=== PATIENT | female | born 1960 | race Caucasian/White ===

== ENCOUNTER 2018-10-26 13:37 | Inpatient (IN) ==
[2018-10-26 15:10] LABS: BASO# 0.03 X1000 (0.0-0.2); BASO% 0.3 % (0.0-0.8); EOS# 0.11 X1000 (0.0-0.7); HEMATOCRIT 42.9 % (37.0-47.0); HEMOGLOBIN 14.6 g/dL (12.0-16.0); IMM GRAN# 0.02 X1000 (0.0-0.04); IMM GRAN% 0.2 % (0.0-0.5); LYMPH# 2.38 X1000 (1.2-3.4); LYMPH% 20.8 % (20.5-51.1); MCH 34.1 PG (27-31); MCV 100.2 FL (81-99); MONO# 0.65 X1000 (0.11-0.59); MONO% 5.7 % (1.7-9.3); MPV 10.7 FL (7.4-10.4); NEUT# 8.23 X1000 (1.4-6.5); PLT 207 X1000 (130-400); RBC 4.28 XMIL (4.2-5.4); RDW 13.9 % (11.5-14.5); WBC 11.42 X1000 (4.8-10.8)
--- NOTE | 2018-10-26 15:23 | Diag Imaging Result Doc PS360 ---
EXAM: CHEST-2 VIEWS 10/26/2018 HISTORY: sob TECHNIQUE: PA and lateral chest COMMENT: There is cardiomegaly. The appearance the chest has not changed significantly since 07/27/2014. IMPRESSION: Stable chest. Electronically signed by Andre Barnes 10/26/2018 3:21 PM
[2018-10-26 15:42] LABS: ALB/GLOB RATIO 1.8; ALBUMIN 3.9 g/dL (3.5-5.0); CALCIUM 9.5 mg/dL (8.8-10.2); CREATININE 1.4 mg/dL (0.5-0.9); POTASSIUM 5.6 mmol/L (3.5-5.1); TOTAL BILIRUBIN 0.3 mg/dL (0.20-1.00); TOTAL PROTEIN 6.1 g/dL (6.3-8.3)
[2018-10-26] MEDS ORDERED: DUONEB (A & A) INH ONE (16:51)
[2018-10-26] MEDS ORDERED: ZOSYN 3.375 GM in NS 50 ML IV ONE (16:58)
[2018-10-26] MEDS ORDERED: SOLU-MEDROL IV ONE (17:00)
--- NOTE | 2018-10-26 17:06 | PROVIDER DOCUMENTATION ---
HPI-Respiratory General - General Chief Complaint: Abnormal Lab[s] Stated Complaint: [facility]S.. Time Seen by Provider: 10/26/18 16:19 Allergies/Adverse Reactions: Patient Allergies Allergy/AdvReac Type Severity Reaction Status Date / Time No Known Allergies Allergy Verified 07/25/14 10:38 Home Medications: Home Medication List Medication Instructions Recorded Confirmed Last Taken Type ATORVAstatin [Lipitor] 40 mg PO DAILY 12/29/12 10/26/18 07/24/14 21:00 History 40 mg Aspirin 81 mg PO DAILY 12/29/12 10/26/18 07/24/14 09:00 History 81 MG Levothyroxine Sodium [Levothroid] 100 mcg PO DAILY 12/29/12 10/26/18 07/24/14 09 :00 History 100 MCG Metoprolol [Lopressor] 50 mg PO DAILY 12/29/12 10/26/18 07/24/14 09:00 History 50 MG Nitroglycerin [Nitrostat] 0.4 mg SL PRN PRN 12/29/12 10/26/18 01/18/13 06:00 History Triamterene/Hydrochlorothiazid 0.5 each PO DAILY 12/29/12 10/26/18 07/24/14 09: 00 History [Triamterene-Hctz 75-50 mg Tab] 1 Albuterol 2.5MG/Ipratrop 0.5MG 3 ml INH RTQ4H PRN #0 neb 07/31/14 10/26/18 Unknown Rx [Duoneb (A & A)] Methylprednisolone [Medrol Dosepak] 4 mg PO DIRECTED #0 package 07/31/14 Unknown Rx Ranolazine [Ranexa] 500 mg PO Q12H #0 tab.er.12h 07/31/14 10/26/18 Unknown Rx - History of Present Illness-Resp Nature of Presenting Problem: 58 y/o female patient with copd and prior h/o oxygen use in the past but currently is the process of securing one due to insurance issues. Patient was referred today from pcp's office due to abnormal labs and ongoing shortness of breath , for which a workup for home oxygen is pending. No chest pain. Severity in ED: reports: moderate Onset/Duration: reports: other (more than 1 week) Timing: reports: still present Current Respiratory Medication Therapy: Initiated A/A nebulizer Similar Symptoms Previously?: Yes Review of Systems - Adult - REVIEW OF SYSTEMS - ADULT Constitutional: reports: no symptoms reported Eyes: reports: no symptoms reported Ears, Nose, Mouth & Throat: reports: no symptoms reported Cardiovascular: reports: no symptoms reported Respiratory: reports: shortness of breath Gastrointestinal: reports: no symptoms reported Genitourinary: reports: no symptoms reported Musculoskeletal: reports: no symptoms reported Integumentary: reports: no symptoms reported Neurological: reports: no symptoms reported Psychiatric: reports: no symptoms reported Endocrine: reports: no symptoms reported Hematologic/Lymphatic: reports: no symptoms reported Allergic/Immunologic: reports: no symptoms reported All Other Systems: Reviewed and Negative Past History - Adult - PAST MEDICAL HISTORY-ADULT Review of Records: reports: Old Records Reviewed, Nursing Assessment Review Major Childhood Illnesses: reports: denies history Cardiovascular: reports: CAD, HTN, hyperlipidemia, CA Respiratory: reports: COPD Obstetrical/Gynecological: reports: uterine/ovarian cancer Endocrine/Immune: reports: thyroid disorder - PRIOR SURGERIES/PROCEDURES Surgical/Procedure History: reports: cardiac stent, hysterectomy - SOCIAL HISTORY Smoking: less than 1 pack/day Physical Exam-General - PHYSICAL EXAM-ADULT Initial Vital Signs Reviewed: Yes - CONSTITUTIONAL General Appearance: alert, mild distress - EYES Eyes: PERRL/EOMI, pink conjunctivae - HEAD, EARS, NOSE, MOUTH & THROAT HENMT: normocephalic/atraumatic, moist mucous membranes - NECK Neck: non-tender, full range of motion, supple - RESPIRATORY Respiratory: decreased breath sounds, prolonged expiration, increased rate, other (few course breath sounds; saturating in the high 80s-low 90s on room air) . negative: wheezing - CARDIOVASCULAR Cardiovascular: regular rate, rhythm, no gallop - MUSCULOSKELETAL Back Exam: normal inspection Extremity: normal range of motion, non-tender - SKIN Integumentary: normal color, normal turgor - NEUROLOGIC Neurologic: grossly normal, no motor/sensory deficits - PSYCHIATRIC Psych/Mental Status: oriented x 3 Progress - PLAN OF CARE/RESULTS Progress/Plan/Lab Results: Vital Signs - 8 hr 10/26/18 13:54 Temperature 98.5 F Pulse Rate 91 H Respiratory Rate 20 Blood Pressure 68/32 O2 Sat by Pulse Oximetry 90 L Laboratory Results - last 24 hr 10/26/18 10/26/18 10/26/18 14:55 14:55 14:55 WBC 11.42 H RBC 4.28 Hgb 14.6 Hct 42.9 MCV 100.2 H MCH 34.1 H MCHC 34.0 RDW Std Deviation 13.9 Plt Count 207 MPV 10.7 H Immature Gran % (Auto) 0.2 Neut % (Auto) 72.0 Lymph % (Auto) 20.8 [place] % (Auto) 5.7 Eos % (Auto) 1.0 Baso % (Auto) 0.3 Immature Gran # (Auto) 0.02 Neut # (Auto) 8.23 H Lymph # (Auto) 2.38 [place] # (Auto) 0.65 H Eos # (Auto) 0.11 Baso # (Auto) 0.03 Sodium 139 Potassium 5.6 H Chloride 98 Carbon Dioxide 30 Anion Gap 11 BUN 23 H Creatinine 1.4 H Estimated GFR/1.73 m2 39 BUN/Creatinine Ratio 16 Glucose 148 H Calculated Osmolality 284 Calcium 9.5 Total Bilirubin 0.30 AST 16 ALT 12 Alkaline Phosphatase 102 Bdn-P-Eqhbfqiqpfh Pept Total Protein 6.1 L Albumin 3.9 Globulin 2.2 Albumin/Globulin Ratio 1.8 Plasma Lactate 1.3 10/26/18 14:55 WBC RBC Hgb Hct MCV MCH MCHC RDW Std Deviation Plt Count MPV Immature Gran % (Auto) Neut % (Auto) Lymph % (Auto) [place]bon % (Auto) Eos % (Auto) Baso % (Auto) Immature Gran # (Auto) Neut # (Auto) Lymph # (Auto) [place] # (Auto) Eos # (Auto) Baso # (Auto) Sodium Potassium Chloride Carbon Dioxide Anion Gap BUN Creatinine Estimated GFR/1.73 m2 BUN/Creatinine Ratio Glucose Calculated Osmolality Calcium Total Bilirubin AST ALT Alkaline Phosphatase Ubw-M-Vxlnlzfhkwe Pept 362 H Total Protein Albumin Globulin Albumin/Globulin Ratio Plasma Lactate Orders Category Date Time Status CHEST-2 VIEWS [RAD] Stat Exams 10/26/18 14:58 Completed BLOOD CULTURE [BLDCUL] Stat Lab 10/26/18 14:55 Ordered CBC WITH DIFF [HEME] Stat Lab 10/26/18 14:55 Completed COMPREHENSIVE METABOLIC PANEL [CHEM] Stat Lab 10/26/18 14:55 Completed INFLUENZA SCREEN A/B Stat Lab 10/26/18 16:57 Uncollected LACTATE, PLASMA [CHEM] Stat Lab 10/26/18 14:55 Completed PRO B-NATRIURETIC PEPTIDE Stat Lab 10/26/18 14:55 Completed Albuterol 2.5MG/Ipratrop 0.5MG [Duoneb (A & A)] Med 10/26/18 16:51 Once 3 ml INH NOW ONE Methylprednisolone Sod Succ [Solu-Medrol] Med 10/26/18 17:00 Once 125 mg IV NOW ONE Zosyn 3.375 gm/Ns IV Now Med 10/26/18 16:58 Ordered Piperacillin/Tazobactam [Zosyn] 3.375 gm 0.9% Sodium Chloride Inj [Ns] 50 ml IV NOW Aerosol Treatments Routine Oth 10/26/18 16:52 Ordered Aerosol Treatments Stat Oth 10/26/18 16:52 Ordered EKG [EKG] Stat Ther 10/26/18 16:47 Ordered Result Diagrams: 10/26/18 14:55 10/26/18 14:55 - XRAY 1 XRAY Study: Chest Impression: Abnormal ( EXAM: CHEST-2 VIEWS 10/26/2018 HISTORY: sob TECHNIQUE : PA and lateral chest COMMENT: There is cardiomegaly. The appearance the chest has not changed significantly since 07/27/2014. IMPRESSION: Stable chest. Electronically signed by Andre Barnes 10/26/2018 3:21 PM 10/26/18 152 Interpreting Physician: Andre Barnes MD Dictated Date/Time: 1520) - CONSULTS/PCP/HOSPITALIST Notification #1 *Consult/PCP/Hospitalist*: SEAN Dotson/Dr. Duron Departure - Departure Date of Disposition Decision: 10/26/18 Time of Disposition Decision: 17:11 DIAGNOSIS: Hyperkalemia, COPD exacerbation Acute respiratory failure Qualifiers: Respiratory failure complication: hypoxia and hypercapnia Qualified Code(s): J96.01 - Acute respiratory failure with hypoxia; J96.02 - Acute respiratory failure with hypercapnia Renal failure Qualifiers: Renal failure chronicity: unspecified chronicity Qualified Code(s): N19 - Unspecified kidney failure Disposition: ADMITTED INPATIENT 09 Certified Medical Emergency: Emergent Condition: Serious - Critical Care Note This patient required my direct & personal management of CC.: No Attestation - Physician/ JOSE Attestation The physician spent face to face time with patient:: Yes Advanced Practice Provider documentation review:: Supervising physician onsite and consulted in the evaluation and care of this patient. The physician did have a face to face encounter with the patient.
[2018-10-26] MEDS ORDERED: ZOFRAN IV PRN (18:08)
[2018-10-26] MEDS ORDERED: TYLENOL PO PRN (18:08)
[2018-10-26] MEDS ORDERED: NITROGLYCERIN SL PRN (18:10)
[2018-10-26] MEDS: RANEXA PO SCH (18:15)
[2018-10-26 19:02] LABS: ALLEN TEST YES; BE 0.8 mmoll (-3.0-3.0); BLOOD TYPE ARTERIAL; HCO3-(ACT) 25.3 mmoll (20.0-26.0); PO2(98.6) 65 mmHg (60-100); SAMPLE BLOOD; pH(98.6) 7.25 (7.35-7.45)
[2018-10-26 19:03] LABS: MODALITY ROOM AIR
[2018-10-26 19:04] LABS: PCO2(98.6) 68 mmHg (35-45)
[2018-10-26] MEDS: PULMICORT INH SCH (19:30)
[2018-10-26] MEDS: DUONEB (A & A) INH SCH ×2 (19:30→23:35)
--- NOTE | 2018-10-26 19:41 | HISTORY AND PHYSICAL ---
PRIMARY CARE PROVIDER: ANA Mckeon. CHIEF COMPLAINT: Abnormal ABGs. HISTORY OF PRESENT ILLNESS: Ms. Modesto Bryant is a 58-year-old female with a medical history of COPD and obstructive sleep apnea. She wears CPAP at night but is currently being evaluated for home O2 oxygen setup. Apparently, she had ABGs performed today that was ordered by a physician whose name she could not remember. They called her on her way home to tell her that her labs were critical and that she needed to seek medical attention in the ER. Reviewing her ABGs, she is with some COPD exacerbation with CO2 of 56 and pH of 7.22. She also has some hypoxia along with that, with an O2 saturation of 81 and a pO2 of 61. This was on room air. On top of that, she had a lactate of 5.1. White blood cell count is 11,000 but she denies any current respiratory infection type symptoms. She states that she gets occasionally short of breath with some wheezing and that is why she was wanting to be set up for home oxygen. So, will treat her for COPD exacerbation, possibly use BiPAP, if needed after repeating a new set of ABGs. PAST MEDICAL HISTORY: 1. COPD. 2. Obstructive sleep apnea, on home CPAP at night. 3. CAD with myocardial infarction x4 and five cardiac stents. 4. Hyperlipidemia. 5. Hypertension. 6. Hypothyroidism. 7. Diabetes mellitus type 2. 8. CKD, stage 3. 9. Morbid obesity with a BMI of 41.8. SURGICAL HISTORY: 1. PTCA with five stents. 2. Left axillary cyst removed. 3. Hysterectomy. SOCIAL HISTORY: Smokes a half pack per day and has smoked since the age of 32. Denies alcohol or illicit drug use. She is currently on disability. FAMILY HISTORY: Mother had myocardial infarction and hypertension. Father had myocardial infarction and hypertension. Brother and sisters both had coronary disease along with diabetes. ALLERGIES: No known drug allergies. HOME MEDICATIONS: 1. Aspirin 81 mg p.o. daily. 2. Lipitor 40 mg p.o. daily. 3. Synthroid 100 mcg p.o. daily. 4. Lopressor 50 mg p.o. daily. 5. Nitroglycerin 0.4 mg sublingual p.r.n. 6. Hydrochlorothiazide/triamterene 75/50 half tablet p.o. daily. 7. DuoNeb every four hours p.r.n. 8. Steroid dose pack. 9. Ranexa 500 mg p.o. every 12 hours. REVIEW OF SYSTEMS: A fourteen point review of systems are complete and all were negative except for those mentioned above in HPI. PHYSICAL EXAMINATION: VITAL SIGNS: Temperature 98.1, heart rate 75, respiratory rate 18, blood pressure 116/56, O2 saturation 100% on 2 L via nasal cannula, 4 feet 7 inches tall, 180 pounds with a BMI of 41.8. GENERAL: Ms. Modesto Bryant is a 58-year-old female. She is in no acute distress. She is able to answer all questions appropriately. HEENT: Atraumatic, normocephalic. Pupils equal, round, reactive to light. Extraocular movements intact. Mucous membranes are dry. NECK: Trachea midline. CARDIOVASCULAR: S1, S2, regular rate and rhythm, no rubs, gallops, or murmurs. Trace lower extremity edema, +2 dorsalis pedal pulses and radial pulses. Negative for JVD or carotid bruits. PULMONARY: Clear to auscultate. Decreased in the bases. No accessory muscle use or work of breathing noted. Tolerating 2 L via nasal cannula. GI: Soft, nontender, nondistended, positive bowel sounds x4. EXTREMITIES: Moves all extremities equally, full range of motion. NEUROLOGICAL: Alert and oriented x3. Follows commands. Sensory is intact. SKIN: Warm, dry, and intact. LABORATORY DATA: White blood cells 11,000, hemoglobin 14, hematocrit 42, platelet count 207. Sodium 139, potassium 5.6, BUN 23, creatinine 1.4, glucose 148, calcium 9.5. Bilirubin 0.30. AST 16, ALT 12. proBNP 362. Protein 6.1. Albumin 3.9. Serum lactate 1.3. ABGs recorded on a previous number at 12 o'clock today as an outpatient order, on room air, pH 7.22, pCO2 56, pO2 61, bicarb 20, base excess negative 5.7, saturation 81%. Carboxyhemoglobin is 12.7. Lactate 5.1. IMAGING: Chest x-ray: Stable. ASSESSMENT AND PLAN: 1. Chronic obstructive pulmonary disease exacerbation with acidosis and hypoxia. Oxygen saturations improve with 2 L nasal cannula. She is with a lower pH. We are repeating arterial blood gases to see if we need to add BiPAP, but she is not struggling at all. There is no wheezing. She is able to complete full sentences without difficulties. Not lethargic. Will do Albuterol/Atrovent nebulizers, budesonide nebulizer, steroids, and antibiotics. 2. Leukocytosis without any complaints. No fever. Serum lactate was normal, but she will still be on a gram-negative coverage for chronic obstructive pulmonary disease exacerbation. 3. Chronic kidney disease, stage 3. Currently at baseline. No intervention is needed. 4. Diabetes mellitus, type 2. Will do patterned blood glucoses, sliding scale insulin, diabetic diet. 5. Hypothyroidism. Continue Synthroid. 6. Hypertension. Continue home medications. 7. Hyperlipidemia. Continue statin. 8. Coronary artery disease with history of myocardial infarctions and five stents. Continue aspirin, statin, and beta-ryley. 9. Obstructive sleep apnea. Wears CPAP at night. She may continue that. 10.Deep venous thrombosis prophylaxis with Lovenox. 11.Tobacco abuse. Cessation discussed. Dictated by ANA Keys for Stephon Duron MD cc: ANA Keys MD
[2018-10-26] MEDS ORDERED: NS 1,000 ML IV ONE (19:51)
[2018-10-26] MEDS ORDERED: ROCEPHIN 1 GM in NS 50 ML IV SCH (20:00)
--- NOTE | 2018-10-26 20:10 | HISTORY AND PHYSICAL ---
HISTORY AND PHYSICAL - FACE TO FACE ENCOUNTER NOTE: Patient came in with shortness of breath and cough. She was sent by her PCP for evaluation. I am not entirely clear who that is, it says Ludivina Hurtado, but I think that is Dr. Pascal. In any case, she was hypercapnic, but she is awake, alert, not struggling to breathe. She has some wheezing on exam. She has a little bit of hyperkalemia. Workup in the ER consistent with COPD exacerbation and she was admitted as such. I think she does continue to smoke and she does have some hypercapnic respiratory failure, but her numbers are similar to where she has been previously. She does wear CPAP, although her numbers were not as bad. Now, her CO2 is about the same, but she is more acidotic than she was previously. We will continue breathing treatments, steroids, antibiotics and positive pressure ventilation as tolerated. Continue to follow closely. This is a [id number] encounter note with Talya Hauser. cc: Stephon Duron MD
[2018-10-26] MEDS: LOPRESSOR PO SCH (21:13)
[2018-10-26] MEDS: HUMULIN R SUBQ SCH (21:14)
[2018-10-27] MEDS: DUONEB (A & A) INH SCH ×4 (03:30→15:46)
[2018-10-27] MEDS ORDERED: SOLU-MEDROL IV SCH ×2 (05:00→07:00)
[2018-10-27 05:14] LABS: ALLEN TEST YES; BE -3.4 mmoll (-3.0-3.0); BLOOD TYPE ARTERIAL; HCO3-(ACT) 22.1 mmoll (20.0-26.0); METHB 1.2 % (0.0-1.5); O2HB 91.9 % (95.0-99.0); PO2(98.6) 80 mmHg (60-100); SAMPLE BLOOD; SAO2 96.3 % (95.0-100.0)
[2018-10-27 05:15] LABS: MODALITY BI PAP
[2018-10-27 05:17] LABS: pH(98.6) 7.17 (7.35-7.45)
[2018-10-27 05:18] LABS: PCO2(98.6) 76 mmHg (35-45)
[2018-10-27] MEDS: HUMULIN R SUBQ SCH ×3 (06:10→16:46)
[2018-10-27] MEDS ORDERED: PROTONIX PO SCH (07:00)
[2018-10-27] MEDS ORDERED: SYNTHROID PO SCH (07:00)
[2018-10-27] MEDS: PULMICORT INH SCH (07:43)
[2018-10-27 08:14] LABS: HEMATOCRIT 44.4 % (37.0-47.0); HEMOGLOBIN 13.9 g/dL (12.0-16.0); IMM GRAN# 0.02 X1000 (0.0-0.04); IMM GRAN% 0.2 % (0.0-0.5); LYMPH# 0.79 X1000 (1.2-3.4); LYMPH% 9.1 % (20.5-51.1); MCH 32.6 PG (27-31); MCHC 31.3 g/dL (33-37); MONO# 0.08 X1000 (0.11-0.59); MONO% 0.9 % (1.7-9.3); MPV 10.7 FL (7.4-10.4); NEUT# 7.79 X1000 (1.4-6.5); NEUT% 89.8 % (42.2-75.2); PLT 188 X1000 (130-400); RBC 4.27 XMIL (4.2-5.4); RDW 13.9 % (11.5-14.5); WBC 8.68 X1000 (4.8-10.8)
[2018-10-27] MEDS: RANEXA PO SCH (08:31)
[2018-10-27] MEDS: LOPRESSOR PO SCH (08:31)
[2018-10-27 08:33] LABS: AGAP 10; ALB/GLOB RATIO 1.4; ALBUMIN 3.6 g/dL (3.5-5.0); ALKALINE PHOSPHATASE 95 U/L (32-104); BUN 27 mg/dL (8-22); CALCIUM 8.9 mg/dL (8.8-10.2); CHLORIDE 104 mmol/L (98-107); COSMO 289; CREATININE 1.4 mg/dL (0.5-0.9); ESTIMATED GFR 39; GLUCOSE 216 mg/dL (70-104); GOT 12 U/L (10-30); GPT 11 U/L (10-36); SODIUM 139 mmol/L (136-145); TCO2 25 mmol/L (25-35); TOTAL BILIRUBIN < 0.15 mg/dL (0.20-1.00); TOTAL PROTEIN 6.2 g/dL (6.3-8.3)
[2018-10-27 08:41] LABS: BANDS 2 % (0-1); LYMPHS 14 % (21-51); SEGS 84 % (42-75)
[2018-10-27 08:45] LABS: POTASSIUM 5.9 mmol/L (3.5-5.1)
[2018-10-27] MEDS ORDERED: LIPITOR PO SCH (09:00)
[2018-10-27] MEDS ORDERED: LOVENOX SUBQ SCH (09:00)
[2018-10-27] MEDS ORDERED: ASPIRIN PO SCH (09:00)
[2018-10-27] MEDS ORDERED: MAXZIDE-25 PO SCH (09:00)
--- NOTE | 2018-10-27 09:02 | Diag Imaging Result Doc PS360 ---
EXAM: CHEST-2 VIEWS HISTORY: short of breath TECHNIQUE: Chest two views COMPARISON: 10/26/2018 FINDINGS: The lungs are well expanded. The heart is mildly enlarged. The vessels are not distended. There are no infiltrates. Likely left basilar pleural thickening. IMPRESSION: Stable chest Electronically signed by Darwin Clifford 10/27/2018 8:59 AM
--- NOTE | 2018-10-27 09:07 | Diag Imaging Result Doc PS360 ---
EXAM: CT THORAX W/O CONTRAST INDICATION: copd; sob TECHNIQUE: This exam was performed using automated exposure control, adjustment of mA or kV according to patient size, and/or use of iterative reconstruction technique. COMPARISON: None. FINDINGS: There is bilateral subsegmental atelectasis in the lower lobes bilaterally and the lingula. No significant pulmonary emphysema is appreciated. The lungs are clear, otherwise. There is no pleural fluid collection and no pneumothorax. The heart is mildly prominent. There is extensive coronary artery atherosclerotic calcification and calcification involving the thoracic aorta. There is no significant mediastinal or hilar lymphadenopathy. Limited views of the upper abdomen are grossly unremarkable. The visualized bony structures are intact. IMPRESSION: 1.Bilateral subsegmental atelectasis at the lower lung zones, more prominent on the left. 2.Mild cardiomegaly. 3.Extensive coronary artery and aortic atherosclerotic disease. Electronically signed by Wilfrido Cooley 10/27/2018 9:05 AM
[2018-10-27 14:16] LABS: ALLEN TEST NO; BE 0.6 mmoll (-3.0-3.0); BLOOD TYPE ARTERIAL; HCO3-(ACT) 25.3 mmoll (20.0-26.0); METHB 1.1 % (0.0-1.5); O2(CT) 19.1 mL/dL (15.0-23.0); O2HB 94.9 % (95.0-99.0); PO2(98.6) 87 mmHg (60-100); SAMPLE BLOOD; SAO2 98.1 % (95.0-100.0); THB 14.3 g/dL (11.5-17.4); pH(98.6) 7.24 (7.35-7.45)
[2018-10-27 14:19] LABS: MODALITY CANNULA; PCO2(98.6) 70 mmHg (35-45)
[2018-10-27 15:41] VITALS: BP 107/71
--- NOTE | 2018-10-27 16:46 | DISCHARGE SUMMARY ---
ADMISSION DATE: 10/26/2018 DISCHARGE DATE: Discharge hopefully today. She is followed by Jenny Diallo who is a [employer]. 58-year-old, medical history COPD, obstructive sleep apnea. She wears a CPAP at night and has 1 at home but currently being evaluated for home oxygen set up. Apparently she had ABGs performed yesterday which is ordered by a physician and they called her on the way home to tell her that her numbers are critical she need go back to the emergency room. Reviewing the ABGs she has some COPD exacerbation and pCO2 56, pH is 7.22, also has hypoxemia with that. By report she did not feel short of breath or anything unusual, her O2 saturation was 81%, PO2 was 61, this was on room air. Lactate was 5.1. Blood count 11,000. She denies any respiratory complaints such as cough or sputum production or pleuritic pain. PAST MEDICAL HISTORY: 1. COPD. 2. Obstructive sleep apnea on CPAP at night. 3. Coronary artery disease, myocardial infarction x4, she has had 5 cardiac stents placed or coronary stents. 4. Hyperlipidemia. 5. Hypertension . 6. Hypothyroidism. 7. Diabetes mellitus type 2. 8. Chronic kidney disease stage 3. 9. Morbid obesity. BMI is 41.8. SURGICAL HISTORY: 1. PTCA with 5 stents. 2. Left axillary cyst removed. 3. Hysterectomy was done. 4. So admitted for chronic obstructive pulmonary disease exacerbation, respiratory acidosis and hypoxemia . She needs to be put on 2 L nasal cannula, continue her CPAP, does not appear that she has any active infection and leukocytosis believe this is not infectious. 5. Chronic kidney disease stage 3. 6. Diabetes mellitus type 2. 7. Hypothyroidism. 8. Hypertension. 9. Hyperlipidemia. 10. History of coronary artery disease with myocardial stents. She has had several myocardial infarctions. 11. Obstructive sleep apnea. She has a CPAP at home. They are requesting to go home. She is struggling with her BiPAP so I am going take off the BiPAP and see if we can get her eligible for 2 L and then let her go home. Her blood gases pH is 7.24, pCO2 is 70, PO2 is 87, O2 saturations 98% and this is on 40% so we will see how we do and see if we can get the oxygen, we might have to wait till tomorrow. Her CT of her chest shows bilateral subsegmental atelectasis more prominent on left, mild cardiomegaly, extensive coronary artery and aortic atherosclerotic heart disease. Her chest x-ray from this morning stable lungs well expanded so we may need to stay and see we can get her oxygen set up for tomorrow and will see if she needs just 2 L. cc: Luther Stone MD
--- NOTE | 2018-10-27 22:47 | CONSULTATION ---
DATE OF CONSULTATION: 10/27/2018 REQUESTING PROVIDER: ANA Keys. REASON FOR CONSULTATION: COPD exacerbation, and acidotic on BiPAP. HISTORY OF PRESENT ILLNESS: This is a 58-year-old [place] female, with a medical history of COPD, obstructive sleep apnea, coronary artery disease, hyperlipidemia, hypertension, hypothyroidism, diabetes mellitus type 2, chronic kidney disease, and morbid obesity. She was referred yesterday from her family doctor's office due to abnormal labs and ongoing shortness of breath. Labs in the ER also showed she has leukocytosis and hyperkalemia. She has been admitted to the medical floor with COPD exacerbation, acidosis and hypoxemic respiratory failure. At the time of my examination, the patient is sitting on the bed with a nasal cannula at 5L. She is pleasant and relaxing. She reports a chronic cough with yellow/green/creamy sputum at times. She has chronic shortness of breath with exertion. She once used oxygen at nighttime, but for some reason it was taken away because the insurance won't cover it. Right now, she is in the process to evaluate for home oxygen again. She denies fever, chills, nausea, vomiting, chest pain, or palpitation. PAST MEDICAL HISTORY: 1. COPD. 2. Obstructive sleep apnea, on home CPAP at night. She used nocturnal oxygen at one time, but it was taken away because the insurance company won't cover it. 3. Coronary artery disease, with myocardial infarction 4 times, and status post 5 cardiac stents. 4. Hyperlipidemia. 5. Hypertension. 6. Hypothyroidism. 7. Diabetes mellitus, type 2.. 8. Chronic kidney disease, stage 3. 9. Morbid obesity, with a BMI of 43.5. PAST SURGICAL HISTORY: 1. PTCA with 5 stents. 2. Left axillary cyst removed. 3. Hysterectomy. SOCIAL HISTORY: Currently, she smokes a half pack per day. She used to smoke 1 pack per day since 32 yo. She has no history of alcohol or illicit drug use. FAMILY HISTORY: Both parents had myocardial infarction and hypertension. Brother and sisters had coronary artery disease and diabetes. ALLERGIES: No known drug allergies. REVIEW OF SYSTEMS: A 10-point review of systems was conducted, and the pertinent is listed within the HPI, otherwise noncontributory. PHYSICAL EXAMINATION: Vital Signs: Blood pressure 127/50, pulse 78, respiratory rate 16, oxygen saturation 98% on BiPAP 40%, with FiO2 40%, and pressure 12/5. General: This is a 58-year-old [place] female. She is sitting on the bed, with no acute distress noted. She is very pleasant and cooperative. She did have a hard time for hearing at times. HEENT: Atraumatic. Trachea midline. Mucosa pink and slightly dry. Respiratory: Lung expansion equal bilaterally. Diminished breathing sounds bibasilarly, otherwise clear to auscultation. Cardiovascular: Regular rate and rhythm, with murmur noted. Gastrointestinal: Bowel sounds normoactive in all 4 quadrants. Soft, nontender, and obese. Extremities: No pedal edema. No cyanosis. No clubbing. Neurologic: Alert, oriented x3. Speech fluent. Follow commands. IMAGING DATA: Chest CT revealed bilateral subsegmental atelectasis at lower lung zones, more prominent on the left, mild cardiomegaly, extensive coronary arterial and aortic atherosclerotic disease. LAB DATA: White blood cells 8.68, hemoglobin 13.9, hematocrit 44.4, platelets 188,000. Sodium 139, potassium 5.9, chloride 104, carbon dioxide 25, BUN 27, creatinine 1.4, glucose 216. ABG: pH 7.17, pCO2 of 36, PO2 80, HCO3 22.1, base excess -3.4, and oxyhemoglobin 91.9. ASSESSMENT: This is a 58-year-old [place] female with a medical history of chronic obstructive pulmonary disease, obstructive sleep apnea, coronary artery disease, hyperlipidemia, hypertension, hypothyroidism, diabetes, chronic kidney disease, and morbid obesity. She has been admitted with COPD exacerbation, olont-yx-ivjyfgi hypoxemic hypercapnic respiratory failure, and nonspecific leukocytosis. 1. Ekjdm-sj-sltjvyn hypoxemic hypercapnic respiratory failure. 2. Chronic obstructive pulmonary disease exacerbation. 3. Uncompensated respiratory acidosis 4. Obstructive sleep apnea. 5. Tobacco abuse. PLAN: 1. Continue current antibiotic therapy, steroid, and bronchodilators. 2. Continue supplemental oxygen and BiPAP at bedtime and as needed. 3. Follow at home BiPAP study. 4. Arrange for home Trilogy. 5. Daily education of the need to quit smoking and the means of smoking cessation. 6. Continue GI and DVT prophylaxis. Thank you for the courtesy of this consult. Dictated by ANA Wright for Hossein Pascal MD cc: ANA Wright MD [facility]
[2018-10-28] MEDS ORDERED: DYAZIDE PO SCH (09:00)
== END 2018-10-27 18:56 | disposition home or self-care (01) | DRG 189 ==
LOC: ED 13:37 → SUATTDRO 19:03 → EDIPHOLD 19:03 → 3N 20:11
PROVIDERS: ATTEND Emergency Medicine
CPT/HCPCS: 71020; 71046; 71250; 80053; 82805; 82948; 83605; 83880; 85025; 87040; 87275; 87276; 87804; 93005; 94640; 94660; 94760; 94761; 94799; 96365; 96375; 99285; A9270; J0696; J1650; J2543; J2920; J2930; J7030; XXXXX

== ENCOUNTER 2019-10-09 15:19 | Inpatient (IN) ==
[2019-10-09] MEDS ORDERED: SOLU-MEDROL IV ONE (15:39)
[2019-10-09] MEDS ORDERED: DUONEB (A & A) INH ONE (15:39)
[2019-10-09] MEDS ORDERED: ZOSYN 4.5 GM in NS 100 ML IV ONE (15:39)
[2019-10-09] MEDS ORDERED: NS 1,000 ML IV ONE (15:41)
[2019-10-09 15:54] LABS: ALLEN TEST YES; BE 9.8 mmoll (-3.0-3.0); BLOOD TYPE ARTERIAL; HCO3-(ACT) 32.4 mmoll (20.0-26.0); METHB 0.6 % (0.0-1.5); O2(CT) 18.2 mL/dL (15.0-23.0); O2HB 91.2 % (95.0-99.0); PO2(98.6) 101 mmHg (60-100); SAMPLE BLOOD; SAO2 99.9 % (95.0-100.0); THB 14.1 g/dL (11.5-17.4)
[2019-10-09 15:56] LABS: MODALITY CANNULA
--- NOTE | 2019-10-09 16:27 | Diag Imaging Result Doc PS360 ---
EXAM: CHEST-1 VIEW HISTORY: sob TECHNIQUE: Single view COMPARISON: 10/27/2018 FINDINGS: Poor inspiratory effort. Heart is enlarged. There is vascular distention as well as a small left pleural effusion. There may be a small right effusion as well. IMPRESSION: Cardiomegaly with pulmonary edema. Electronically signed by Dawrin Clifford 10/09/2019 4:25 PM
[2019-10-09] MEDS ORDERED: LASIX IV ONE (16:30)
[2019-10-09 16:36] LABS: BASO# 0.04 X1000 (0.0-0.2); BASO% 0.3 % (0.0-0.8); HEMATOCRIT 44.4 % (37.0-47.0); HEMOGLOBIN 13.7 g/dL (12.0-16.0); IMM GRAN# 0.09 X1000 (0.0-0.04); IMM GRAN% 0.6 % (0.0-0.5); LYMPH# 1.66 X1000 (1.2-3.4); MCH 28.3 PG (27-31); MCHC 30.9 g/dL (33-37); MCV 91.7 FL (81-99); MONO# 1.33 X1000 (0.11-0.59); MONO% 9.6 % (1.7-9.3); MPV 9.2 FL (7.4-10.4); NEUT# 10.76 X1000 (1.4-6.5); NEUT% 77.5 % (42.2-75.2); PLT 334 X1000 (130-400); RBC 4.84 XMIL (4.2-5.4); RDW 14.5 % (11.5-14.5); WBC 13.88 X1000 (4.8-10.8)
[2019-10-09 16:49] LABS: INR 0.92; PROTIME 12.4 Seconds (11.0-16.0)
[2019-10-09 16:50] LABS: PTT 31.3 Seconds (22.3-41.8)
[2019-10-09 17:15] LABS: PCO2(98.6) 109 mmHg (35-45)
[2019-10-09 17:23] LABS: ALB/GLOB RATIO 0.9; ALBUMIN 2.9 g/dL (3.5-5.0); CALCIUM 8.6 mg/dL (8.8-10.2); CREATININE 1.1 mg/dL (0.5-0.9); MAGNESIUM 1.4 mg/dL (1.5-2.7); TOTAL BILIRUBIN 0.24 mg/dL (0.20-1.00); TOTAL PROTEIN 6.1 g/dL (6.3-8.3)
[2019-10-09] MEDS ORDERED: ZEMURON IV ONE (17:29)
[2019-10-09] MEDS ORDERED: AMIDATE IV ONE (17:29)
[2019-10-09] MEDS ORDERED: AMIDATE ONE (17:36)
[2019-10-09] MEDS ORDERED: QUELICIN ONE (17:36)
[2019-10-09 17:59] LABS: CK INDEX 4.1 (0.0-2.5); CK-MB 14.63 ng/mL (0.0-5.0)
[2019-10-09] MEDS: DIPRIVAN 1% 1,000 MG/100 ML BOTTLE IV SCH (18:00)
--- NOTE | 2019-10-09 18:00 | EKG Report ---
Test Performed on : 10/09/2019 5:31:21 PM Test Reason : sob Blood Pressure : / mmHG Vent. Rate : 082 BPM Atrial Rate : 082 BPM P-R Int : 150 ms QRS Dur : 080 ms QT Int : 358 ms P-R-T Axes : 070 063 017 degrees QTc Int : 418 ms Sinus rhythm. with frequent premature ventricular complexes. Possible Left atrial enlargement Borderline ECG When compared with ECG of 30-JUL-2014 06:47, premature ventricular complexes. are now present Nonspecific T wave abnormality now evident in Inferior leads Unconfirmed Result
[2019-10-09] MEDS ORDERED: ZOFRAN IV PRN (18:05)
--- NOTE | 2019-10-09 18:05 | PROVIDER DOCUMENTATION ---
This chart was entered by Debbie Abdul Scribe, acting as scribe for Donald Jones MD. HPI-Respiratory General - General Source: patient, EMS (first response) - History of Present Illness-Resp Quality of Pain: reports: none Severity in ED: reports: moderate Onset/Duration: reports: unsure Timing: reports: still present, getting worse Cough Quality/Degree: reports: moderate, dry cough Episode Frequency: frequent episodes Current Respiratory Medication Therapy: Initiated see nurses note Modifying Factors: improves with: oxygen, sitting upright. worse with: coughing Associated Symptoms: reports: cough, shortness of breath. denies: chest pain/soreness, fever/chills, flu-like symptoms Similar Symptoms Previously?: Yes (copd) Recently seen or treated by another doctor?: Yes (was at pmd office and sent to ed) <Donald Jones - Last Filed: 10/09/19 18:00> <Vaishali Kohli - Last Filed: 10/09/19 21:34> - General Stated Complaint: SOB Time Seen by Provider: 10/09/19 15:33 Allergies/Adverse Reactions: Patient Allergies Allergy/AdvReac Type Severity Reaction Status Date / Time No Known Allergies Allergy Verified 03/03/19 10:34 Home Medications: Home Medication List Medication Instructions Recorded Confirmed Last Taken Type Aspirin 81 mg PO DAILY 12/29/12 10/09/19 07/24/14 09:00 History 81 MG Levothyroxine Sodium [Levothroid] 100 mcg PO DAILY 12/29/12 10/09/19 07/24/14 09:00 History 100 MCG Nitroglycerin [Nitrostat] 0.4 mg SL PRN PRN 12/29/12 10/09/19 01/18/13 06:00 History Cholecalciferol (Vitamin D3) 1,000 unit PO DAILY 10/27/18 10/09/19 Unknown Hi story [Vitamin D3] Glipizide 2.5 mg PO DAILY 10/27/18 10/09/19 Unknown History Isosorbide Mononitrate [Isosorbide 60 mg PO DAILY 10/27/18 10/09/19 Unknown History Mononitrate ER] Lisinopril 10 mg PO DAILY 10/27/18 10/09/19 Unknown History Metoprolol Tartrate 25 mg PO BID 10/27/18 10/09/19 Unknown History Tiotropium [place] [Spiriva 2 puff INHALATION DAILY 03/03/19 10/09/19 Unknown History Respimat] ATORVAstatin [Lipitor] 1 tab PO HS 10/09/19 10/09/19 Unknown History Budesonide/Formoterol Inhaler 1 puff INH DIRECTED 10/09/19 10/09/19 Unknown History [Symbicort 160/4.5 Microgm Inhaler] Mometasone/Formoterol [Dulera 200 1 puff INH DIRECTED 10/09/19 10/09/19 Unknown History Mcg/5 Mcg Inhaler] Ranolazine [Ranolazine ER] 1 tab PO BID 10/09/19 10/09/19 Unknown History Umeclidinium [place] [Incruse 62.5 mcg INHALATION DIRECTED 10/09/19 10/09/19 Unknown History Ellipta] - History of Present Illness-Resp Nature of Presenting Problem: 59 yowf presents to the ed via ems (first response) from her pmd office. pt became confused and had an O2 sat in the 50's when ems aos. pt was placed on 6LPM with a face mask and O2 sat came up to 95%. per ems if O2 is removed the sat will drop quickly. pt is sleepy on exam and has intermittent confusion with conversation. ptis a heavy tobacco user has had issues in the past with COPD. (Donald Jones) Review of Systems - Adult - REVIEW OF SYSTEMS - ADULT Constitutional: denies: chills, fever Eyes: reports: no symptoms reported Ears, Nose, Mouth & Throat: reports: no symptoms reported Cardiovascular: reports: see HPI, edema. denies: chest pain, palpitations Respiratory: reports: see HPI, chronic cough, dyspnea on exertion, shortness of breath. denies: wheezing Gastrointestinal: denies: abdominal pain, diarrhea, nausea, vomiting Genitourinary: reports: no symptoms reported Musculoskeletal: denies: back pain, neck pain Integumentary: reports: no symptoms reported Neurological: denies: dizziness/vertigo, headache/migraines Psychiatric: reports: no symptoms reported Endocrine: reports: no symptoms reported Hematologic/Lymphatic: reports: no symptoms reported Allergic/Immunologic: reports: no symptoms reported All Other Systems: Reviewed and Negative <Donald Jones - Last Filed: 10/09/19 18:00> Past History - Adult - PAST MEDICAL HISTORY-ADULT Review of Records: reports: Old Records Reviewed, Nursing Assessment Review, Medications Reviewed, Social history reviewed & non-contributory. Major Childhood Illnesses: reports: denies history Cardiovascular: reports: CAD, HTN, hyperlipidemia, [place] Respiratory: reports: COPD Obstetrical/Gynecological: reports: uterine/ovarian cancer Genitourinary: reports: denies history Musculoskeletal: reports: denies history Neurological: reports: denies history Psychiatric: reports: denies history Endocrine/Immune: reports: thyroid disorder Other Conditions: reports: denies history - PRIOR SURGERIES/PROCEDURES Surgical/Procedure History: reports: cardiac stent, hysterectomy - IMMUNIZATION STATUS Childhood Immunizations: See Nurse Assessment Flu Vaccine: See Nurse Assessment - FAMILY HISTORY Family History: reviewed, not pertinent - SOCIAL HISTORY Smoking: cigarettes, greater than 1 pack/day Provider spent 3-5 mins advising pt. on dangers of tobacco.: Discussed manners to quit use, and f/u contacts for add'l counseling. Substance Use: denies Alcohol Use Frequency: never Living Situation: family <Donald Jones - Last Filed: 10/09/19 18:00> Physical Exam-General - PHYSICAL EXAM-ADULT Initial Vital Signs Reviewed: Yes - CONSTITUTIONAL General Appearance: alert, mild distress, obese, other (confused at times and sleepy in appearance) - EYES Eyes: PERRL/EOMI, pink conjunctivae - HEAD, EARS, NOSE, MOUTH & THROAT HENMT: moist mucous membranes - NECK Neck: non-tender, full range of motion, supple, normal inspection - RESPIRATORY Respiratory: chest non-tender, respiratory distress, decreased breath sounds, increased rate - CARDIOVASCULAR Cardiovascular: normal peripheral pulses, regular rate, rhythm - CHEST (BREASTS) Chest/Breast: deferred - GASTROINTESTINAL (ABDOMEN) Abdominal Exam: normal bowel sounds, non tender, soft - GENITOURINARY Female Genitalia/Pelvic Exam: deferred Rectal Exam: deferred Hemoccult Exam: deferred - LYMPHATIC Lymphatic: no adenopathy - MUSCULOSKELETAL Back Exam: no CVA tenderness, no vertebral tenderness Extremity: normal range of motion, non-tender, pulse deficit, swelling (BLE decreased pulses) - SKIN Integumentary: normal color, normal turgor, warm/dry - NEUROLOGIC Neurologic: grossly normal - PSYCHIATRIC Psych/Mental Status: normal mood/affect, other (pt is confused intermittently but does know place and time) <Donald Jones - Last Filed: 10/09/19 18:00> Progress - PLAN OF CARE/RESULTS Result Diagrams: 10/09/19 16:15 10/09/19 16:15 - REASSESSMENT Reassessment #1 Time Reassessed: 17:32 (dr jones at bedside and will intubate pt to protect her airway. pt when lying flat o2 drops and is unable to keep adequate O2 sat) Status: worsening Reassessment #2 Time Reassessed: 18:01 Status: improving (Patient intubated by Dr. Kohli with my Glidescope with my constant attendance. Placed on propofol drip. REPEAT BMP ordered as I don't believe patient has K of 8.0 without any EKG changes. Patient given IV zosyn for COPD exacebation, IV lasix for CHF, IV methylprednisone and neb treatments x 3.) - EKG 1 Time of EKG reading by physician:: 17:31 EKG Read and Signed by:: Donald Jones EKG Interpretation (*Must complete 3 of following elements*): Normal (borderline) Rate: 82 Rhythm: sinus rhythm w/freq pvc [place]: normal QRS: poor R wave progression, PVC's IA Interval: normal ST Wave: normal Comments: possible left atrial enlargement - XRAY 1 XRAY: Bilateral XRAY Study: Chest Impression: See EMR Report (EXAM: CHEST-1 VIEW HISTORY: sob TECHNIQUE: Single view COMPARISON: 10/27/2018 FINDINGS: Poor inspiratory effort. Heart is enlarged. There is vascular distention as well as a small left pleural eff usion. There may be a small right effusion as well. IMPRESSION: Cardiomegaly with pulmonary edema. Electronically signed by Darwin Clifford 10/09/2019 4:25 PM 10/09/19 [id number] Interpreting Physician: Darwin Clifford MD Dictated Date/Time: 10/09/199 cc: Donald Jones MD;) - CONSULTS/PCP/HOSPITALIST Notification #1 *Consult/PCP/Hospitalist*: hospitalist Time Discussed: 17:46 (spoke with linda) Consult Disposition: Will see in ED, Admit <Donald Jones - Last Filed: 10/09/19 18:00> - PLAN OF CARE/RESULTS Result Diagrams: 10/09/19 16:15 10/09/19 18:40 <Vaishali Kohli - Last Filed: 10/09/19 21:34> - PLAN OF CARE/RESULTS Progress/Plan/Lab Results: Vital Signs - 8 hr 10/09/19 15:40 10/09/19 15:58 10/09/19 16:35 Temperature 98.9 F Pulse Rate 80 80 Respiratory Rate 24 20 Blood Pressure 144/87 O2 Sat by Pulse Oximetry 98 99 96 10/09/19 17:47 10/09/19 17:51 10/09/19 18:01 Temperature Pulse Rate 85 99 H Respiratory Rate 25 H 25 H Blood Pressure 146/87 90/72 O2 Sat by Pulse Oximetry 96 99 100 10/09/19 18:14 10/09/19 18:27 10/09/19 19:15 Temperature Pulse Rate 83 110 H 100 H Respiratory Rate 24 20 20 Blood Pressure 168/104 O2 Sat by Pulse Oximetry 98 99 100 10/09/19 19:21 10/09/19 19:24 10/09/19 19:26 Temperature Pulse Rate 101 H 102 H 99 H Respiratory Rate 20 24 20 Blood Pressure 150/111 144/110 O2 Sat by Pulse Oximetry 97 99 96 10/09/19 19:51 Temperature Pulse Rate 102 H Respiratory Rate 20 Blood Pressure 95/61 O2 Sat by Pulse Oximetry 99 10/09/19 16:34 Influenza Screen - Final Nasopharyngeal Laboratory Results - last 24 hr 10/09/19 10/09/19 10/09/19 15:45 16:15 16:15 WBC 13.88 H RBC 4.84 Hgb 13.7 Hct 44.4 MCV 91.7 MCH 28.3 MCHC 30.9 L RDW Std Deviation 14.5 Plt Count 334 MPV 9.2 Immature Gran % (Auto) 0.6 H Neut % (Auto) 77.5 H Lymph % (Auto) 12.0 L [place] % (Auto) 9.6 H Eos % (Auto) 0.0 Baso % (Auto) 0.3 Immature Gran # (Auto) 0.09 H Neut # (Auto) 10.76 H Lymph # (Auto) 1.66 [place] # (Auto) 1.33 H Eos # (Auto) 0.00 Baso # (Auto) 0.04 PT INR PTT (Actin FS) Specimen Type ARTERIAL Sample Site R RADIAL pH 7.20 L pCO2 109 H* pO2 101 H HCO3 32.4 H Base Excess 9.8 H Oxyhemoglobin 91.2 L ABG O2 Sat (Calculated) 18.2 ABG O2 Saturation 99.9 ABG Carboxyhemoglobin 8.00 H* ABG Methemoglobin 0.6 Luther Test YES A-a O2 Difference 19.0 Total Hemoglobin 14.1 Lactate 0.70 Liter Flow 4.0 Blood Gas Modality CANNULA Spontaneous Rate FiO2 % 36.0 Tidal Volume PEEP Sodium 120 L* Potassium 8.0 H* Chloride 79 L Carbon Dioxide 32 Anion Gap 9 BUN 15 Creatinine 1.1 H Estimated GFR/1.73 m2 51 BUN/Creatinine Ratio 14 Glucose 78 Calculated Osmolality 242 Calcium 8.6 L Magnesium 1.4 L Total Bilirubin 0.24 AST 69 H ALT 21 Alkaline Phosphatase 88 Creatine Kinase 359 H Creatine Kinase Index 4.1 H CK-MB (CK-2) 14.63 H Troponin T High Sens [id number]-Aqmjgfuudup Pept Total Protein 6.1 L Albumin 2.9 L Globulin 3.2 Albumin/Globulin Ratio 0.9 Plasma Lactate Urine Source Urine Color Urine Turbidity Urine pH Ur Specific [place] Urine Protein Ur Glucose (Stick) Ur Ketones (Stick) Urine Blood Urine Nitrite Urine Bilirubin Urobilinogen Dipstick Urine Leukocytes Urine WBC (Auto) Urine RBC (Auto) U Epithel Cells (Auto) Urine Bacteria (Auto) 10/09/19 10/09/19 10/09/19 16:15 16:15 16:15 WBC RBC Hgb Hct MCV MCH MCHC RDW Std Deviation Plt Count MPV Immature Gran % (Auto) Neut % (Auto) Lymph % (Auto) [place] % (Auto) Eos % (Auto) Baso % (Auto) Immature Gran # (Auto) Neut # (Auto) Lymph # (Auto) [place] # (Auto) Eos # (Auto) Baso # (Auto) PT 12.4 INR 0.92 PTT (Actin FS) 31.3 Specimen Type Sample Site pH pCO2 pO2 HCO3 Base Excess Oxyhemoglobin ABG O2 Sat (Calculated) ABG O2 Saturation ABG Carboxyhemoglobin ABG Methemoglobin Luther Test A-a O2 Difference Total Hemoglobin Lactate Liter Flow Blood Gas Modality Spontaneous Rate FiO2 % Tidal Volume PEEP Sodium Potassium Chloride Carbon Dioxide Anion Gap BUN Creatinine Estimated GFR/1.73 m2 BUN/Creatinine Ratio Glucose Calculated Osmolality Calcium Magnesium Total Bilirubin AST ALT Alkaline Phosphatase Creatine Kinase Creatine Kinase Index CK-MB (CK-2) Troponin T High Sens 229 H* Skt-T-Pmdyqfynsbl Pept 8975 H Total Protein Albumin Globulin Albumin/Globulin Ratio Plasma Lactate Urine Source Urine Color Urine Turbidity Urine pH Ur Specific [place] Urine Protein Ur Glucose (Stick) Ur Ketones (Stick) Urine Blood Urine Nitrite Urine Bilirubin Urobilinogen Dipstick Urine Leukocytes Urine WBC (Auto) Urine RBC (Auto) U Epithel Cells (Auto) Urine Bacteria (Auto) 10/09/19 10/09/19 10/09/19 16:15 17:23 18:25 WBC RBC Hgb Hct MCV MCH MCHC RDW Std Deviation Plt Count MPV Immature Gran % (Auto) Neut % (Auto) Lymph % (Auto) [place] % (Auto) Eos % (Auto) Baso % (Auto) Immature Gran # (Auto) Neut # (Auto) Lymph # (Auto) [place] # (Auto) Eos # (Auto) Baso # (Auto) PT INR PTT (Actin FS) Specimen Type ARTERIAL Sample Site R RADIAL pH 7.40 pCO2 60 H* pO2 69 HCO3 32.3 H Base Excess 9.8 H Oxyhemoglobin 89.9 L* ABG O2 Sat (Calculated) 19.1 ABG O2 Saturation 96.9 ABG Carboxyhemoglobin 6.10 H* ABG Methemoglobin 1.1 Luther Test YES A-a O2 Difference 141.0 Total Hemoglobin 15.1 Lactate 1.00 Liter Flow Blood Gas Modality VENTILATOR Spontaneous Rate 24 FiO2 % 40.0 Tidal Volume 400 PEEP 5.0 Sodium Potassium Chloride Carbon Dioxide Anion Gap BUN Creatinine Estimated GFR/1.73 m2 BUN/Creatinine Ratio Glucose Calculated Osmolality Calcium Magnesium Total Bilirubin AST ALT Alkaline Phosphatase Creatine Kinase Creatine Kinase Index CK-MB (CK-2) Troponin T High Sens Jnh-V-Ybaaidxwyed Pept Total Protein Albumin Globulin Albumin/Globulin Ratio Plasma Lactate 0.7 Urine Source CATH Urine Color YELLOW Urine Turbidity CLEAR Urine pH 6.5 Ur Specific [place] 1.033 Urine Protein >600 A Ur Glucose (Stick) TRACE Ur Ketones (Stick) NEGATIVE Urine Blood MODERATE A Urine Nitrite NEGATIVE Urine Bilirubin NEGATIVE Urobilinogen Dipstick NORMAL Urine Leukocytes NEGATIVE Urine WBC (Auto) <10 Urine RBC (Auto) <10 U Epithel Cells (Auto) <10 Urine Bacteria (Auto) NEGATIVE 10/09/19 10/09/19 10/09/19 18:40 18:40 20:08 WBC RBC Hgb Hct MCV MCH MCHC RDW Std Deviation Plt Count MPV Immature Gran % (Auto) Neut % (Auto) Lymph % (Auto) [place] % (Auto) Eos % (Auto) Baso % (Auto) Immature Gran # (Auto) Neut # (Auto) Lymph # (Auto) [place] # (Auto) Eos # (Auto) Baso # (Auto) PT INR PTT (Actin FS) Specimen Type Sample Site pH pCO2 pO2 HCO3 Base Excess Oxyhemoglobin ABG O2 Sat (Calculated) ABG O2 Saturation ABG Carboxyhemoglobin ABG Methemoglobin Luther Test A-a O2 Difference Total Hemoglobin Lactate Liter Flow Blood Gas Modality Spontaneous Rate FiO2 % Tidal Volume PEEP Sodium 118 L* Potassium 5.1 D Chloride 73 L Carbon Dioxide 27 Anion Gap 18 BUN 16 Creatinine 1.2 H Estimated GFR/1.73 m2 46 BUN/Creatinine Ratio 13 Glucose 97 Calculated Osmolality 240 Calcium 10.3 H D Magnesium 1.2 L Total Bilirubin AST ALT Alkaline Phosphatase Creatine Kinase Creatine Kinase Index CK-MB (CK-2) Troponin T High Sens 216 H* Lqc-W-Rvvrsozffgn Pept Total Protein Albumin Globulin Albumin/Globulin Ratio Plasma Lactate Urine Source Urine Color Urine Turbidity Urine pH Ur Specific [place] Urine Protein Ur Glucose (Stick) Ur Ketones (Stick) Urine Blood Urine Nitrite Urine Bilirubin Urobilinogen Dipstick Urine Leukocytes Urine WBC (Auto) Urine RBC (Auto) U Epithel Cells (Auto) Urine Bacteria (Auto) 10/09/19 20:08 WBC RBC Hgb Hct MCV MCH MCHC RDW Std Deviation Plt Count MPV Immature Gran % (Auto) Neut % (Auto) Lymph % (Auto) [place] % (Auto) Eos % (Auto) Baso % (Auto) Immature Gran # (Auto) Neut # (Auto) Lymph # (Auto) [place] # (Auto) Eos # (Auto) Baso # (Auto) PT INR PTT (Actin FS) Specimen Type Sample Site pH pCO2 pO2 HCO3 Base Excess Oxyhemoglobin ABG O2 Sat (Calculated) ABG O2 Saturation ABG Carboxyhemoglobin ABG Methemoglobin Luther Test A-a O2 Difference Total Hemoglobin Lactate Liter Flow Blood Gas Modality Spontaneous Rate FiO2 % Tidal Volume PEEP Sodium Potassium Chloride Carbon Dioxide Anion Gap BUN Creatinine Estimated GFR/1.73 m2 BUN/Creatinine Ratio Glucose Calculated Osmolality Calcium Magnesium Total Bilirubin AST ALT Alkaline Phosphatase Creatine Kinase Creatine Kinase Index CK-MB (CK-2) Troponin T High Sens Zpp-Q-Djepoxruutl Pept Total Protein Albumin Globulin Albumin/Globulin Ratio Plasma Lactate 1.9 Urine Source Urine Color Urine Turbidity Urine pH Ur Specific [place] Urine Protein Ur Glucose (Stick) Ur Ketones (Stick) Urine Blood Urine Nitrite Urine Bilirubin Urobilinogen Dipstick Urine Leukocytes Urine WBC (Auto) Urine RBC (Auto) U Epithel Cells (Auto) Urine Bacteria (Auto) Orders Category Date Time Status Admit - [facility] Routine AdmDCTranf 10/09/19 18:05 Active Activity - Strict Bedrest ORDERED Care 10/09/19 18:05 Active Cardiac Monitoring DIRECTED Care 10/09/19 15:38 Active FSBS/Accucheck Result AC + HS Care 10/09/19 18:05 Active M[place] Cath Insertion ORDERED Care 10/09/19 15:43 Active IV Insertion ORDERED Care 10/09/19 15:38 Completed NG/OG/Feeding Tube Insertion ORDERED Care 10/09/19 17:54 Active Nursing- MD Consult Request ROUTINE Care 10/09/19 18:10 Active Nursing- MD Consult Request ROUTINE Care 10/09/19 18:14 Active Nursing- Obtain EKG once Care 10/09/19 15:41 Active MD [Physician/Provider Consults] Routine Cons 10/09/19 18:09 Ordered MD [Physician/Provider Consults] Routine Cons 10/09/19 18:14 Ordered NPO Diet 10/09/19 18:06 Active CHEST-1 VIEW [RAD] Stat Exams 10/09/19 15:38 Completed CHEST-PORTABLE [RAD] Stat Exams 10/09/19 17:53 Completed KUB ABDOMEN [RAD] Stat Exams 10/09/19 18:44 Completed ABG [RESP] Routine Lab 10/09/19 15:45 Completed ABG [RESP] Routine Lab 10/09/19 18:25 Completed BLOOD CULTURE [BLDCUL] Stat Lab 10/09/19 16:15 Results BMP [BASIC METABOLIC PANEL] [CHEM] Stat Lab 10/09/19 18:40 Completed CBC WITH DIFF [HEME] Stat Lab 10/09/19 16:15 Completed CK PROFILE [SP CHEM] Q8H Lab 10/10/19 18:30 Ordered CK PROFILE [SP CHEM] Q8H Lab 10/11/19 02:30 Ordered CK PROFILE [SP CHEM] Q8H Lab 10/11/19 10:30 Ordered CK PROFILE [SP CHEM] Stat Lab 10/09/19 16:15 Completed COMPREHENSIVE METABOLIC PANEL [CHEM] Stat Lab 10/09/19 16:15 Completed FOLATE Routine Lab 10/10/19 06:00 Ordered FREE T4 Routine Lab 10/10/19 06:00 Ordered INFLUENZA SCREEN A/B Stat Lab 10/09/19 16:34 Completed LACTATE, PLASMA [CHEM] Lab 10/09/19 20:08 Completed LACTATE, PLASMA [CHEM] Lab 10/09/19 21:45 Uncollected LACTATE, PLASMA [CHEM] Q3H Lab 10/09/19 16:15 Completed MAGNESIUM [CHEM] Routine Lab 10/09/19 20:08 Completed MAGNESIUM [CHEM] Stat Lab 10/09/19 16:15 Completed PRO B-NATRIURETIC PEPTIDE Stat Lab 10/09/19 16:15 Completed PROTIME WITH INR [COAG] Stat Lab 10/09/19 16:15 Completed PTT [COAG] Stat Lab 10/09/19 16:15 Completed SPUTUM CULTURE WITH GRAM STAIN [RM] Routine Lab 10/09/19 18:12 Received TROPONIN T HIGH SENSITIVITY Q8H Lab 10/09/19 18:40 Completed TROPONIN T HIGH SENSITIVITY Q8H Lab 10/10/19 02:30 Ordered TROPONIN T HIGH SENSITIVITY Q8H Lab 10/10/19 10:30 Ordered TROPONIN T HIGH SENSITIVITY Stat Lab 10/09/19 16:15 Completed TSH Routine Lab 10/10/19 06:00 Ordered URINALYSIS W/POSS RFLX CULT [URINALYSIS] Stat Lab 10/09/19 17:23 Completed VITAMIN B12 Routine Lab 10/10/19 06:00 Ordered 0.9% Sodium Chloride Inj [Ns] 1,000 ml Med 10/09/19 15:41 Discontinued IV 999 mls/hr ATORVAstatin [Lipitor] Med 10/09/19 21:00 Active 40 mg PO HS Acetaminophen [Tylenol] Med 10/09/19 18:05 Active 650 mg PO Q6H PRN PRN Albuterol 2.5MG/Ipratrop 0.5MG [Duoneb (A & A)] Med 10/09/19 19:30 Active 3 ml INH RTQ4H Albuterol 2.5MG/Ipratrop 0.5MG [Duoneb (A & A)] Med 10/09/19 15:39 Discontinued 9 ml INH NOW ONE Aspirin Med 10/10/19 09:00 Active 81 mg PO DAILY Budesonide [Pulmicort] Med 10/09/19 19:30 Active 0.5 mg INH RTBID Calcium Gluconate 1 gm Med 10/09/19 18:24 Discontinued 0.9% Sodium Chloride Inj [Ns] 50 ml IV NOW CefEPIME [Maxipime] 1 gm Med 10/09/19 18:45 Active 0.9% Sodium Chloride Inj [Ns] 50 ml IV Q12H Cholecalciferol (Vit D3) [Vitamin D] Med 10/10/19 09:00 Active 1,000 unit PO DAILY Dextrose 50% Syringe [D50w Syringe] Med 10/09/19 18:24 Discontinued 50 ml IV NOW ONE Etomidate [Amidate] Med 10/09/19 17:36 Discontinued 40 mg .ROUTE .STK-MED ONE Etomidate [Amidate] Med 10/09/19 17:29 Discontinued 40 mg IV NOW ONE Furosemide [Lasix] Med 10/09/19 16:30 Discontinued 80 mg IV NOW ONE Insulin Human Regular [Humulin R] Med 10/09/19 18:24 Discontinued 1 unit IV NOW ONE Insulin Human Regular [Humulin R] Med 10/09/19 18:26 Discontinued 10 unit IV NOW ONE Insulin Human Regular [Humulin R] Med 10/09/19 21:00 Active See Protocol SUBQ 0700,1100,1600,2100 LISINOpril [Prinivil] Med 10/10/19 09:00 Active 10 mg PO DAILY Levothyroxine [Synthroid] Med 10/10/19 07:00 Active 50 microgm IV DAILY@0700 Magnesium Sulfate 2 gm/S.w.i. Med 10/09/19 18:09 Discontinued 2 gm in 50 ml IV NOW Methylprednisolone Sod Succ [Solu-Medrol] Med 10/09/19 15:39 Discontinued 250 mg IV NOW ONE Methylprednisolone Sod Succ [Solu-Medrol] Med 10/09/19 23:00 Active 60 mg IV Q8H Metoprolol [Lopressor] Med 10/09/19 21:00 Active 12.5 mg PO BID Metoprolol [Lopressor] Med 10/09/19 21:00 Discontinued 25 mg PO BID Ondansetron [Zofran] Med 10/09/19 18:05 Active 4 mg IV Q4H PRN PRN Pharmacy Order [Vancomycin IV Per Pharmacy] Med 10/09/19 18:30 Active 1 each MISC DIRECTED Piperacillin/Tazobactam [Zosyn] 3.375 gm Med 10/09/19 22:00 Discontinued 0.9% Sodium Chloride Inj [Ns] 50 ml IV Q6H Piperacillin/Tazobactam [Zosyn] 4.5 gm Med 10/09/19 15:39 Discontinued 0.9% Sodium Chloride Inj [Ns] 100 ml IV NOW Propofol [Diprivan 1%] Med 10/09/19 17:30 Active 1,000 mg in 100 ml IV As Directed mls/hr Rocuronium [place] [Zemuron] Med 10/09/19 17:29 Discontinued 100 mg IV NOW ONE Sodium Chloride 0.9% Med 10/09/19 18:06 Active 5 ml INJ PRN PRN Succinylcholine [Quelicin] Med 10/09/19 17:36 Discontinued 200 mg .ROUTE .STK-MED ONE Vancomycin 2,500 mg Med 10/09/19 22:00 Active 0.9% Sodium Chloride Inj [Ns] 500 ml IV ONCE Aerosol Treatments Routine Ot 10/09/19 15:41 Completed Aerosol Treatments Routine Ot 10/09/19 18:05 Completed Aerosol Treatments Stat Ot 10/09/19 15:41 Completed BIPAP Stat Ot 10/09/19 16:00 Completed Oxygen Device Stat Ot 10/09/19 15:38 Completed Ventilator Order Stat Ot 10/09/19 18:17 Active EKG [EKG] Stat Ther 10/09/19 15:41 Draft EKG [EKG] Stat Ther 10/09/19 18:13 Ordered Transfer/Admit Order [TRANSFER] Routine Transfer 10/09/19 17:58 Ordered Procedures - INTUBATION Time of Intubation: 17:45 Airway Evaluation: Obese Mallampati Class: 2 Intubation Method: orotracheal Equipment: ETT, Glidescope Tube Size (cm): 7.5 Pretreated with 100% Oxygen?: Yes Breath Sounds after Intubation: equal ETT Primary Tube Confirmation: Capnometry CO2 Change, Direct Visualization, Chest Rise and Fall, Tube placement verified on XRAY Intubation Complications: no complications Vent Settings: See Respiratory Therapy Notes Procedure Comment: Performed by Dr. Kohli - PROCEDURAL SEDATION Procedure, Risk, Benefits and Alternatives discussed with:: Patient (Perfomed by Dr. Koch) Sedation type:: deep Indications:: Aute hypercapnic respiratory failure Prior complications to procedural sedation?: No ASA Classification Score: P2. Patient with a mild systemic disease. Airway Physical Exam: obese, large tongue/teeth Mallampati Classification Score:: Cls 2. Tonsillar pillars and uvula hidden by base of tongue. Plan explained to:: patient Preparation: oximetry during procedure, capnometry during procedure, IV access obtained, suction immediately available, classroom monitor used Sedation: etomidate, other (Rocuronium) Reversal: none Complications during/after procedure?: none <Vaishali Kohli - Last Filed: 10/09/19 21:34> Departure - Departure Date of Disposition Decision: 10/09/19 Time of Disposition Decision: 18:04 Certified Medical Emergency: Emergent - Critical Care Note This patient required my direct & personal management of CC.: Yes Total Time (mins): 45 Critical Care Statement: This patient required my direct personal management to treat or rule out processes, the absence of which, could potentiallly result in sudden, clinically significant life or limb threatening deterioration. <Donald Jones - Last Filed: 10/09/19 18:00> <Vaishali Kohli - Last Filed: 10/09/19 21:34> - Departure DIAGNOSIS: Acute respiratory failure with hypercapnia, COPD exacerbation, Hyperkalemia, Tobacco use disorder Congestive heart failure Qualifiers: Heart failure type: diastolic Heart failure chronicity: acute on chronic Qualified Code(s): I50.33 - Acute on chronic diastolic (congestive) heart failure Disposition: ADMITTED INPATIENT 09 Condition: Critical Referrals and Follow-Ups: None,PCP [Primary Care Provider] - Discharge Education: Steps to Quit Smoking, [id number] Attestation - Physician/ JOSE Attestation Patient care was provided by Advanced Practice Provider:: No The physician spent face to face time with patient:: Yes Advanced Practice Provider documentation review:: Supervising physician onsite and consulted in the evaluation and care of this patient. The physician did have a face to face encounter with the patient. <Donald Jones - Last Filed: 10/09/19 18:00> This chart was documented by the indicated scribe, (Debbie Abdul Scribe) and accurately reflects the services I performed and decisions made by Robert agrawal Kent A., MD, as attested by the provider's signature.
[2019-10-09 18:09] LABS: URINE SOURCE CATH
[2019-10-09] MEDS ORDERED: MAGNESIUM SULFATE 2 GM/S.W.I. 2 GM/50 ML IVPB IV ONE (18:09)
[2019-10-09 18:23] LABS: BILIRUBIN URINE NEGATIVE (NEGATIVE); BLOOD URINE MODERATE (NEGATIVE); COLOR YELLOW; GLUCOSE URINE TRACE mg/dL (NEGATIVE); KETONE URINE NEGATIVE (NEGATIVE); LEUKOCYTES URINE NEGATIVE (NEGATIVE); NITRITE URINE NEGATIVE (NEGATIVE); PH URINE 6.5; PROTEIN URINE >600 mg/dL (NEGATIVE); SP GRAVITY URINE 1.033; TURBIDITY URINE CLEAR (CLEAR); UROBILINOGEN URINE NORMAL (NORMAL)
[2019-10-09 18:24] LABS: UR EPITHELIAL CELLS <10 /HPF (<10); URINE BACTERIA NEGATIVE /HPF; URINE RBC <10 /HPF (<10); URINE WBC <10 /HPF (<10)
[2019-10-09] MEDS ORDERED: D50W SYRINGE IV ONE (18:24)
[2019-10-09] MEDS ORDERED: HUMULIN R IV ONE ×2 (18:24→18:26)
[2019-10-09] MEDS ORDERED: CALCIUM GLUCONATE 1 GM in NS 50 ML IV ONE (18:24)
[2019-10-09] MEDS ORDERED: VANCOMYCIN IV PER PHARMACY MISC SCH (18:30)
[2019-10-09 18:35] LABS: ALLEN TEST YES; BE 9.8 mmoll (-3.0-3.0); BLOOD TYPE ARTERIAL; HCO3-(ACT) 32.3 mmoll (20.0-26.0); METHB 1.1 % (0.0-1.5); O2(CT) 19.1 mL/dL (15.0-23.0); PO2(98.6) 69 mmHg (60-100); SAMPLE BLOOD; SAO2 96.9 % (95.0-100.0); SRATE 24 BPM; THB 15.1 g/dL (11.5-17.4); TVOL 400 mL
[2019-10-09 18:36] LABS: MODALITY VENTILATOR
[2019-10-09 18:37] LABS: O2HB 89.9 % (95.0-99.0); PCO2(98.6) 60 mmHg (35-45)
--- NOTE | 2019-10-09 18:52 | Diag Imaging Result Doc PS360 ---
EXAM: CHEST-PORTABLE INDICATION: ETT insertion TECHNIQUE: One view COMPARISON: 10/09/2019 FINDINGS: There is a newly placed ET tube. The tip projects over the trachea and above the isabel at about the T4 level. Pulmonary venous congestion is again noted. There is a better inspiration as compared to the previous study. There is opacity at the left lower lung zone is essentially stable. IMPRESSION: Interval intubation as described and better inspiration. Essentially stable chest, otherwise. Electronically signed by Wilfrido Cooley 10/09/2019 6:50 PM
--- NOTE | 2019-10-09 19:05 | Diag Imaging Result Doc PS360 ---
EXAM: KUB ABDOMEN INDICATION: og placement TECHNIQUE: One view COMPARISON: Chest radiograph dated 10/09/2019 FINDINGS: The newly placed NG tube projects below the diaphragm and is assumed to be in the lumen of the stomach in the expected position. The ET tube is stable. The chest and upper abdomen are grossly stable as compared to the previous study. IMPRESSION: Interval placement of NG tube in the expected position as described. Electronically signed by Wilfrido Cooley 10/09/2019 7:02 PM
--- NOTE | 2019-10-09 19:23 | HISTORY AND PHYSICAL ---
HISTORY OF PRESENT ILLNESS: The story was that she has become progressively more short of breath. She has a history of COPD. She has had exacerbations before and apparently a history of congestive heart failure as well, and she presented to the emergency room basically in respiratory failure, hypercarbia and hypoxemia. Her blood gases showed pCO2 of 109. She was intubated and I do not have much else in the way of history. PAST MEDICAL HISTORY: 1. COPD. 2. Obstructive sleep apnea. Is on home CPAP at night. 3. Coronary artery disease with myocardial infarction x4 and has 5 cardiac stents. 4. Hyperlipidemia. 5. Hypertension. 6. Hypothyroidism. 7. Diabetes mellitus type 2. 8. Chronic kidney disease stage 3. 9. Morbid obesity. BMI was last recorded 41. 10. Should add her past medical history of systolic or congestive heart failure with reduced ejection fraction. 11. Ischemic cardiomyopathy. SURGICAL HISTORY: 1. PTCA with 5 stents. 2. Left axillary cyst removed. 3. Hysterectomy. SOCIAL HISTORY: Smokes half a pack a day and smoked since she was age 32. Denies alcohol or illicit drugs in the past. FAMILY HISTORY: Mother had myocardial infarction and hypertension. Father with myocardial infarction, hypertension. Brother and sisters both had coronary artery disease and diabetes. ALLERGIES: No known drug allergies. MEDICATIONS: Review of her previous list of medications. She is on aspirin 81 mg a day, Lipitor 40 mg a day, Synthroid 100 mcg daily, Lopressor 50 mg a day, nitroglycerin 0.4 mg sublingual p.r.n., hydrochlorothiazide - triamterene 75 - 50 half a tablet daily, DuoNeb every 4 hours while awake. Steroid Dosepak she has taken in the past. I do not know if she is on it now. Ranexa 500 mg q.12. REVIEW OF SYSTEMS: Unable to get review of systems. PHYSICAL EXAMINATION: She is intubated and sedated. Temp is 98.9 degrees, pulse 80, respirations 20, blood pressure 90/72. HEENT: Pupils are equal and round. LUNGS: Clear in all lung caballero. CARDIOVASCULAR: Regular rhythm and rate without murmur or S3. ABDOMEN: Soft. I cannot tell if it is tender, but I do not see any protuberance or ascites. She has a mild fungal dermatitis underneath her skin folds in the both femoral triangle. SKIN: The skin I do not see any discrete rash. NECK: Seems to be supple. LABORATORY DATA: White blood cell count 13,880, hematocrit 44, platelet count is 334,000. Sodium when they originally checked was 120, potassium 8.0, chloride 79, BUN 15, creatinine 1.1. Troponin was 229. This is the high sensitivity troponin. CK was 359. ProTime is 12.4, PTT is 31. Urinalysis unremarkable. Blood gases, pH is 7.20, pCO2 is 109, PO2 is 101, O2 saturation was 99, her pCO2 was 109. Chest x-ray has been done. It looks like there is some pulmonary venous hypertension by report. ASSESSMENT AND PLAN: 1. Respiratory failure. Basically hypoventilation with hypercapnia. She is intubated. We will try and assess her volume status. She has ischemic cardiomyopathy with congestive heart failure with reduced ejection fraction and it is possible she is having cardiac ischemia. Her enzymes were positive. We will check serial cardiac enzymes with continuing high sensitivity troponin and CK. We will check serial EKGs as well. We will ask Cardiology to assist as well as pulmonary. 2. She had hyperkalemia. We are repeating these, but we are going to go ahead and treat. We gave an amp of bicarbonate. I will give 1 amp of D50 with 10 units of insulin and we may need to give her some Veltassa through the NG tube. We will repeat her potassium in 1 hour. 3. Obesity. Obstructive sleep apnea, hypoventilation syndrome. 4. Diabetes mellitus type 2 will check pattern sugars. 5. She has a history of chronic kidney disease, although her creatinine was 1.1, but stage III. Aware. 6. History of hypothyroidism. We need to check her T4 and TSH, give her IV Synthroid and then she has a history of hypertension as well. Right now she is hypotensive. There would be no way to say she was not septic. I am going to cover with broad-spectrum antibiotics. We will give her cefepime and vancomycin and get blood cultures. Obtain urine cultures. cc: Luther Stone MD
[2019-10-09] MEDS: PULMICORT INH SCH (19:24)
[2019-10-09] MEDS: DUONEB (A & A) INH SCH ×2 (19:24→22:38)
[2019-10-09] MEDS ORDERED: LOPRESSOR PO SCH (21:00)
[2019-10-09 21:01] LABS: CALCIUM 10.3 mg/dL (8.8-10.2); CREATININE 1.2 mg/dL (0.5-0.9); POTASSIUM 5.1 mmol/L (3.5-5.1)
[2019-10-09] MEDS ORDERED: ZOSYN 3.375 GM in NS 50 ML IV SCH (22:00)
[2019-10-09] MEDS ORDERED: VANCOMYCIN 2,500 MG in NS 500 ML IV ONE (22:00)
[2019-10-10] MEDS: DIPRIVAN 1% 1,000 MG/100 ML BOTTLE IV SCH ×7 (00:05→22:45)
[2019-10-10] MEDS: LIPITOR PO SCH ×2 (00:45→20:52)
[2019-10-10] MEDS: LOPRESSOR PO SCH ×3 (00:46→21:21)
[2019-10-10] MEDS: HUMULIN R SUBQ SCH ×5 (01:04→20:20)
[2019-10-10] MEDS: MAXIPIME 1 GM in NS 50 ML IV SCH ×2 (01:10→13:01)
[2019-10-10] MEDS: SOLU-MEDROL IV SCH ×3 (01:10→16:39)
[2019-10-10] MEDS: DUONEB (A & A) INH SCH ×6 (03:27→23:38)
[2019-10-10 04:53] LABS: ALBUMIN 2.8 g/dL (3.5-5.0); CALCIUM 9.1 mg/dL (8.8-10.2); CREATININE 1.2 mg/dL (0.5-0.9); TOTAL BILIRUBIN 0.87 mg/dL (0.20-1.00); TOTAL PROTEIN 5.5 g/dL (6.3-8.3)
[2019-10-10 05:08] LABS: ALLEN TEST YES; BE 13.9 mmoll (-3.0-3.0); BLOOD TYPE ARTERIAL; HCO3-(ACT) 35.6 mmoll (20.0-26.0); METHB 1.2 % (0.0-1.5); O2(CT) 21.1 mL/dL (15.0-23.0); O2HB 91.5 % (95.0-99.0); PCO2(98.6) 35 mmHg (35-45); PO2(98.6) 51 mmHg (60-100); SAMPLE BLOOD; SAO2 95.1 % (95.0-100.0); SRATE 24 BPM; THB 16.5 g/dL (11.5-17.4); TVOL 400 mL
[2019-10-10 05:14] LABS: MODALITY VENTILATOR; pH(98.6) 7.62 (7.35-7.45)
[2019-10-10 05:18] LABS: FREE T4 0.47 ng/dL (0.93-1.70); TSH 17.12 uIUmL (0.27-4.20)
[2019-10-10 05:29] LABS: BASO# 0.03 X1000 (0.0-0.2); BASO% 0.2 % (0.0-0.8); HEMATOCRIT 49.9 % (37.0-47.0); IMM GRAN# 0.05 X1000 (0.0-0.04); IMM GRAN% 0.3 % (0.0-0.5); LYMPH# 1.07 X1000 (1.2-3.4); LYMPH% 7.2 % (20.5-51.1); MCH 28.5 PG (27-31); MCHC 32.1 g/dL (33-37); MCV 88.8 FL (81-99); MONO# 0.82 X1000 (0.11-0.59); MONO% 5.5 % (1.7-9.3); MPV 9.2 FL (7.4-10.4); NEUT# 12.95 X1000 (1.4-6.5); NEUT% 86.8 % (42.2-75.2); PLT 340 X1000 (130-400); RBC 5.62 XMIL (4.2-5.4); RDW 14.3 % (11.5-14.5); WBC 14.92 X1000 (4.8-10.8)
[2019-10-10] MEDS: SYNTHROID IV SCH (07:03)
[2019-10-10] MEDS: SODIUM CHLORIDE 0.9% INJ PRN (07:03)
[2019-10-10 07:11] LABS: LYMPHS 6 % (21-51); MONO 4 % (1-9); SEGS 90 % (42-75)
--- NOTE | 2019-10-10 07:36 | Diag Imaging Result Doc PS360 ---
CHEST-PORTABLE - 10/10/2019 INDICATION: intubated; resp failure COMPARISON: 10/09/2019 FINDINGS: There is a nasogastric tube in good position in the stomach. Endotracheal tube in good position at T2-T3. Stable cardiomegaly and pulmonary vascular congestion. There is probably some bibasilar pulmonary edema stable from prior. IMPRESSION: Good support tube placement. Stable cardiomegaly and mild pulmonary edema. Electronically signed by Bereket Arzola 10/10/2019 7:33 AM
[2019-10-10] MEDS: PULMICORT INH SCH ×2 (07:45→20:17)
[2019-10-10] MEDS: VITAMIN D PO SCH (08:25)
[2019-10-10] MEDS: PRINIVIL PO SCH (08:26)
[2019-10-10] MEDS: ASPIRIN PO SCH (08:27)
--- NOTE | 2019-10-10 10:10 | CONSULTATION ---
DATE OF CONSULTATION: 10/10/2019 SUBJECTIVE: Ms Bryant is intubated. At the present time she is not sedated. She responds with movement of her head. OBJECTIVE: Vital Signs: Temp 98.3 degrees, pulse 80, respirations 17, blood pressure 137/100. Eyes: Pupils are equal and round. Lungs: Clear in all lung caballero. Cardiovascular: Regular rate without murmur or S3. Abdomen: Soft. Skin: Warm and dry. LABORATORY DATA: Urine output is 2200 mL. Chest x-ray is good support of tube placement. Stable cardiomegaly and mild pulmonary edema. Abdominal x-ray, interval placement of NG tube, expected position. Sodium 126, chloride 81, BUN 18, creatinine 1.2, sodium did come up from 118 and 5.1 yesterday evening. ASSESSMENT AND PLAN: 1. Respiratory failure hypoventilation, hypercapnia. Continue ventilator, pulmonary helping. We will try and wean her off the ventilator. 2. She had hyperkalemia on presentation and potassium is at 3.0. We will continue present fluids and antibiotics. She is on methylprednisone 60 mg q.8 hours. Blood cultures pending. We will continue cefepime and vancomycin for now. cc: Luther Stone MD
--- NOTE | 2019-10-10 10:13 | CONSULTATION ---
DATE OF CONSULTATION: 10/10/2019 IMPRESSION: 1. Mild nonspecific elevation in troponin, probably related to fairly intense stress of noncardiac illness (hypercapnic respiratory failure related to chronic obstructive pulmonary disease) in the setting chronic kidney disease. Electrocardiogram benign. 2. Hypercapnic respiratory failure in the setting of severe chronic obstructive pulmonary disease and obstructive sleep apnea. 3. Atherosclerotic coronary disease with previous percutaneous coronary interventions in the past. 4. Obesity. 5. Hypertension. 6. Hyperlipidemia. 7. Hypothyroidism. TSH elevated. 8. Type 2 diabetes mellitus. 9. Chronic kidney disease stage 3. 10. Congestive heart failure with preserved left ventricular ejection fraction. RECOMMENDATIONS: 1. Continue supportive care and treatment of severe COPD with hypercapnic respiratory failure as you are doing. 2. Echocardiography. HISTORY: This 59-year-old, white female with past history of severe COPD, obstructive sleep apnea, obesity, coronary atherosclerosis, type 2 diabetes mellitus, hypertension, hyperlipidemia, chronic kidney disease stage 3, and continued cigarette use, was admitted emergently through the emergency room with respiratory failure. She is now intubated on ventilator and sedated. History taken from present [facility] records. She has had progressive shortness of breath, and presented to the emergency room with respiratory failure. She was found to have severe hypercapnia and hypoxemia. PCO2 is 109. She required emergent intubation and initiation of ventilator support. Initial troponin was 215 using the high-sensitivity troponin assay, and followup troponin was 220 this morning. Cardiology was consulted. PAST MEDICAL HISTORY: 1. COPD. 2. Obstructive sleep apnea. 3. Coronary atherosclerosis with previous percutaneous coronary interventions in the past. 4. Congestive heart failure with preserved left ventricular ejection fraction. 5. Hyperlipidemia. 6. Hypertension. 7. Hypothyroidism. 8. Type 2 diabetes mellitus. 9. Chronic kidney disease, reported to be stage III. 10. Morbid obesity. PAST SURGICAL HISTORY: Includes hysterectomy and removal less left axillary cyst. ALLERGIES: She has no known drug allergies. MEDICATIONS PRIOR TO ADMISSION: As listed. SOCIAL HISTORY: She has history of chronic cigarette use, and continues to smoke 1/2 pack of cigarettes a day. She does not use alcohol. FAMILY HISTORY: Positive for coronary disease. REVIEW OF SYSTEMS: Not obtainable given that the patient is intubated and sedated. PHYSICAL EXAMINATION: General: An obese, middle-aged female, sedated and intubated on the ventilator. Vital Signs: Blood pressure 133/84, heart rate 82, oxygen saturation 99% on ventilator. HEENT: Mucous membranes are moist. Neck: Supple. Jugular venous distention cannot be discerned due to obesity. Chest: Clear to auscultation. Cardiac: Regular rate and rhythm without appreciable murmur or gallop. Abdomen: Soft. Bowel sounds audible. Extremities: Trace edema. IMAGING: Chest x-ray is reviewed and demonstrates prominent left lung infiltrate obscuring the left heart border. LABORATORY AND DIAGNOSTIC DATA: Laboratory data includes a white blood cell count of 14.92, hematocrit 49.9, hemoglobin 16.0, platelet count 340,000. Sodium 126, potassium 3.0, chloride 81, carbon dioxide 31, BUN 16, creatinine 1.2, glucose 123, estimated GFR 46. Albumin 2.8. Initial troponin T of 216, with followup troponin T of 225. A 12-lead EKG demonstrates sinus rhythm with occasional premature ventricular complex, left atrial abnormality. cc: Huy Thomas MD
[2019-10-10] MEDS ORDERED: MORPHINE IV PRN (12:09)
--- NOTE | 2019-10-10 13:13 | PROVIDER PROGRESS NOTE ---
Progress Note Patient has been seen and examined. A full dictation to follow.
--- NOTE | 2019-10-10 16:07 | ECHO REPORT ---
ORDER DATE: 10/10/2019 INDICATION: Respiratory failure. FINDINGS: 1. Mild tricuspid regurgitation. Insufficient data to estimate RV systolic pressure. 2. Normal RV size and systolic function. 3. No significant pulmonic insufficiency. 4. Normal left atrial size with dimension of 2.6 cm. 5. No mitral prolapse. No clear evidence of significant mitral regurgitation. 6. Normal LV size, end-diastolic dimension 3.4 cm. Normal wall thicknesses with a posterior and interventricular septal wall thickness of 1.0 cm each. Normal LV systolic function. The estimated ejection fraction appears to be 60 to 65%. 7. Aortic valve opens well. No evidence of stenosis or insufficiency. 8. Aorta appears normal in visualized segments. 9. No pericardial effusion seen. 10. The IVC appears to be normal in size. cc: MD Luther Mckeon MD
--- NOTE | 2019-10-10 16:30 | PULMONOLOGY CONSULTATION ---
DATE: 10/10/2019 REQUESTING PROVIDER: ANA Keys REASON FOR CONSULTATION: Respiratory fatty of COPD congestive heart failure, intubated. HISTORY OF PRESENT ILLNESS: This is a 59-year-old [place] female with a medical history of COPD, ongoing tobacco use, obstructive sleep apnea, coronary artery disease, hyperlipidemia hypertension hypothyroidism, diabetes mellitus type 2, chronic kidney disease, morbid obesity, and congestive heart failure. She presented to the ER via EMS yesterday from her primary physician's office. Per the documentation from the ER, the patient became confused with desaturating. Upon arrival to the ER, she developed progressively worsening shortness of breath. She eventually required intubation. Initial workup in the ER revealed mild leukocytosis, hypercapnia, hyponatremia, hypochloremia, elevated creatinine, hypocalcemia, hypomagnesemia, elevated CK, CK-MB, troponin T high sensitivity, elevated proBNP. Chest x-ray revealed cardiomegaly with pulmonary edema. She has been admitted to the ICU for further evaluation and management. Patient currently still intubated and sedated with Diprivan drip at 60 mcg/kg/min. Her current AC setting includes spontaneous rate 14, FiO2 40%, tidal volume 400, and PEEP 5. Her vital signs are stable, within normal limits. There is no family at the bedside. All other information is obtained from the e- chart. PAST MEDICAL HISTORY: 1. COPD. 2. Ongoing tobacco use. 3. Obstructive sleep apnea on home CPAP a at bedtime. She apparently used nocturnal oxygen once but was taken away later because the insurance did not cover it. 4. Severe multi-vessel coronary artery disease with myocardial infarction four times and status post 5 cardiac stents. 5. Hyperlipidemia. 6. Hypertension. 7. Hypothyroidism. 8. Diabetes mellitus type 2. 9. Chronic kidney disease, stage III. 10. Morbid obesity. Current BMI 45.8. 11. Congestive heart failure with preserved left ventricular ejection fraction. PAST SURGICAL HISTORY: 1. PTCA with 5 stents. 2. Left axillary cyst removed. 3. Hysterectomy. SOCIAL HISTORY: The patient lives at home with her family. She is a daily heavy smoker. She has no history of alcohol or illicit drug use. FAMILY HISTORY: Positive for myocardial infarction, hypertension, coronary artery disease and diabetes. ALLERGIES: No known drug allergies. REVIEW OF SYSTEMS: Unable to be obtained. PHYSICAL EXAMINATION: Vital Signs: Temperature 98.3, blood pressure 107/70, pulse 76, respiratory rate 14. Oxygen saturation 96% on AC mechanical ventilator to be spontaneous rate 14, FiO2 40%, tidal volume 400 and PEEP 5. General: Intubated, lying in bed with no acute distress noted. Morbidly obese. HEENT: Atraumatic, trachea midline. ET tube in place. Mucosa pink and slightly dry. RESPIRATORY: Mechanical ventilator, symmetrical excursion, clear to auscultation bilaterally.Cardiovascular: Regular rate and rhythm with murmur noted. Gastrointestinal: Soft, obese, normoactive bowel sounds in all 4 quadrants. Extremities: Bilateral lower extremity pitting edema 1+. No cyanosis, no clubbing. Pitting nails with some discoloration noted. Neurologic: Sedated. LAB DATA: White blood cell 14.92, hemoglobin 16.0, hematocrit 49.9, platelets 340,000. Sodium 126, potassium 3.0, chloride 81, carbon dioxide 31, BUN 16, creatinine 1.2, glucose 123. Troponin T high sensitivity 225, folate 4.9, TSH 17.12, free T4 0.47. ABG pH is 7.62, pCO2 of 35, PO2 51, HC03 35.6, base excess 13.9, oxyhemoglobin 91.5 and lactate 2.6 on AC mechanical ventilator with spontaneous rate 24, FiO2 50%, tidal volume 400, and PEEP 5.0. IMAGING DATA: Chest x-rayed this morning showed a good support tube placement, stable cardiomegaly and mild pulmonary edema. ASSESSMENT: This is a 59-year-old, [place] female with a medical history of COPD, ongoing tobacco, obstructive sleep apnea, coronary artery disease, hyperlipidemia, hypertension, hypothyroidism, diabetes mellitus type 2, chronic kidney disease, morbid obesity, and congestive heart failure. She has been admitted to the ICU since yesterday with acute hypercapnic and hypoxemic respiratory failure, hypokalemia, troponin T elevation, congestive heart failure exacerbation. 1. Acute respiratory failure. Hypercapnic and hypoxemic. 2. Hyperkalemia with potassium 8.0 on presentation, improved currently. 3. Troponin T elevation. 4. Congestive heart failure exacerbation with cardiomegaly, pulmonary edema and proBNP elevation. 5. Hyperthyroidism. TSH 17.12 this a.m. with free T4 of 0.47. PLAN: 1. Continue AC mechanical ventilator. Will titrate AC setting to patient's need per clinical protocol with close monitoring. 2. Continue antibiotics including the cefepime and vancomycin. Continue bronchodilators and IV steroids. We will taper IV steroids down based on clinical process. 3. Follow up with CBC, CMP, ABG, sputum culture, blood culture and chest x-ray. 4. Smoking cessation education vent appropriate. 5. Further recommendations pending hospital course. Thank you for the courtesy of this consult. cc: Hossein Pascal MD [facility]ITAL[facility]ian[facility]
[2019-10-10] MEDS ORDERED: NS 1,000 ML IV ONE (17:37)
[2019-10-10] MEDS ORDERED: NS 1,000 ML ONE (17:53)
[2019-10-10] MEDS: NS 1,000 ML IV SCH (18:41)
[2019-10-10] MEDS ORDERED: VANCOMYCIN 2,000 MG in NS 500 ML IV SCH (22:00)
[2019-10-11] MEDS: DIPRIVAN 1% 1,000 MG/100 ML BOTTLE IV SCH ×8 (01:25→23:03)
[2019-10-11] MEDS: MAXIPIME 1 GM in NS 50 ML IV SCH ×2 (01:25→14:03)
[2019-10-11] MEDS: SOLU-MEDROL IV SCH ×3 (01:25→16:20)
[2019-10-11] MEDS: DUONEB (A & A) INH SCH ×6 (03:56→23:08)
[2019-10-11 05:05] LABS: EOS# 0.01 X1000 (0.0-0.7); EOS% 0.1 % (0.0-10.0); HEMATOCRIT 39.7 % (37.0-47.0); HEMOGLOBIN 13.3 g/dL (12.0-16.0); LYMPH# 0.54 X1000 (1.2-3.4); LYMPH% 3.1 % (20.5-51.1); MCH 29.2 PG (27-31); MCHC 33.5 g/dL (33-37); MCV 87.1 FL (81-99); MONO# 0.83 X1000 (0.11-0.59); MONO% 4.8 % (1.7-9.3); MPV 9.9 FL (7.4-10.4); NEUT# 15.86 X1000 (1.4-6.5); PLT 275 X1000 (130-400); RBC 4.56 XMIL (4.2-5.4); RDW 15.1 % (11.5-14.5); WBC 17.24 X1000 (4.8-10.8)
[2019-10-11 05:11] LABS: ALLEN TEST YES; BE 8.1 mmoll (-3.0-3.0); BLOOD TYPE ARTERIAL; HCO3-(ACT) 31.2 mmoll (20.0-26.0); METHB 0.6 % (0.0-1.5); O2HB 93.6 % (95.0-99.0); PCO2(98.6) 48 mmHg (35-45); PO2(98.6) 69 mmHg (60-100); SAMPLE BLOOD; SAO2 96.2 % (95.0-100.0); SRATE 14 BPM; THB 12.9 g/dL (11.5-17.4); TVOL 400 mL; pH(98.6) 7.45 (7.35-7.45)
[2019-10-11 05:12] LABS: MODALITY VENTILATOR
[2019-10-11 05:16] LABS: ALB/GLOB RATIO 0.9; ALBUMIN 2.2 g/dL (3.5-5.0); CALCIUM 8.2 mg/dL (8.8-10.2); CREATININE 1.4 mg/dL (0.5-0.9); POTASSIUM 3.3 mmol/L (3.5-5.1); TOTAL BILIRUBIN 0.25 mg/dL (0.20-1.00); TOTAL PROTEIN 4.6 g/dL (6.3-8.3)
[2019-10-11] MEDS: SODIUM CHLORIDE 0.9% INJ PRN (06:20)
[2019-10-11] MEDS: SYNTHROID IV SCH (06:20)
[2019-10-11] MEDS: NS 1,000 ML IV SCH ×3 (06:32→15:54)
[2019-10-11] MEDS: HUMULIN R SUBQ SCH ×4 (06:33→20:26)
[2019-10-11 06:57] LABS: LYMPHS 3 % (21-51); MONO 5 % (1-9); SEGS 92 % (42-75)
--- NOTE | 2019-10-11 07:13 | Diag Imaging Result Doc PS360 ---
EXAM: CHEST-1 VIEW 10/11/2019 HISTORY: SOB TECHNIQUE: AP portable at 0514 COMMENT: There is an endotracheal tube with its tip at the thoracic inlet and an NG tube which passes below the diaphragm. There is opacity in the left lower lobe and lingula which has improved slightly since 10/10/2019 and generalized interstitial pulmonary edema. The inspiration is less optimal than on the previous study. IMPRESSION: Pulmonary edema. Atelectasis versus pneumonia in the lingula and left lower lobe. Electronically signed by Andre Barnes 10/11/2019 7:11 AM
[2019-10-11] MEDS: ASPIRIN PO SCH (08:15)
[2019-10-11] MEDS: VITAMIN D PO SCH (08:15)
[2019-10-11] MEDS: LOPRESSOR PO SCH ×2 (08:15→20:26)
[2019-10-11] MEDS: PRINIVIL PO SCH (08:16)
--- NOTE | 2019-10-11 09:41 | PROGRESS NOTE ---
DATE: 10/11/2019 SUBJECTIVE: Ms. Bryant is intubated. We had to give her a bolus of fluid yesterday. Blood pressure dropped. Urine output went down. OBJECTIVE: General: She is sedated on the ventilator. Vital Signs: Temperature 97.1 degrees, pulse 84, respirations 19, blood pressure 165/107. Blood pressures have come up. The last several numbers are 147/91, 113/69, 120/73, 165/107. HEENT: Pupils are equal and round. Lungs: Clear in all lung caballero. Cardiovascular: Regular rhythm and rate without murmur or S3. Urine output 2000 mL. Blood sugar 123, 127, 127. IMAGING: Chest x-ray: Pulmonary edema, atelectasis versus pneumonia in the lingula of the left lower lobe. ASSESSMENT AND PLAN: 1. Acute respiratory failure, hypercapnic hypoxemic. 2. Hyperkalemia with potassium of 8 on presentation, and that has come down nicely. 3. Troponin T elevation. She has a history of congestive heart failure, and there is proBNP elevation. Her blood pressure dropped, and so necessitated giving her some volume back. Continue present antibiotics, treating for probable pneumonia. 4. Obesity hypoventilation syndrome with obstructive apnea. 5. Hypothyroidism. TSH was 17, and T4 was 0.47, so continue present antibiotics. REVIEW OF ORDERS: She is on aspirin 81 mg a day, Lipitor 40 mg at bedtime, Pulmicort 0.5 mg b.i.d., vitamin D3 at 1000 units p.o. daily, Synthroid 50 mcg IV daily, Prinivil 10 mg a day, cefepime 1 gram every 12 hours, methylprednisone 60 mg IV every 8 hours, Lopressor 12.5 mg b.i.d., we have got normal saline going at 100 mL an hour, vancomycin 2 grams every 24 hours, and I will put her on some IV Synthroid, which she is on 50 mcg. I think we will go up to 100 mcg IV daily. cc: Luther Stone MD
[2019-10-11] MEDS: HALDOL IV PRN (09:54)
[2019-10-11] MEDS ORDERED: NARCAN IV ONE (10:57)
[2019-10-11] MEDS: PULMICORT INH SCH ×2 (11:26→20:03)
[2019-10-11 11:50] LABS: ALLEN TEST YES; BE 6.5 mmoll (-3.0-3.0); BLOOD TYPE ARTERIAL; O2HB 96.2 % (95.0-99.0); PO2(98.6) 122 mmHg (60-100); SAMPLE BLOOD; THB 14.7 g/dL (11.5-17.4)
[2019-10-11 11:53] LABS: MODALITY VENTILATOR; PCO2(98.6) 73 mmHg (35-45)
--- NOTE | 2019-10-11 13:53 | PROVIDER PROGRESS NOTE ---
Progress Note Dr. Pascal Progress Note/Pulmonary and or critical care We appreciated progress of care, Complications, change in diagnosis, and instructions to patient. Subjective: We note the level of consciousness, bed (chair) position, family presence (if any), level of lethargy, feeling of symptoms, and changes from baseline condition/symptom. The patient is still intubated. Weaning trials starts today. She apparently had been on short weaning trials once at an earlier time, but soon she was found h ypopneic with respiratory rate below 10 and minute volume below 2.5. She was put back to AC. At this time, she has been on 2nd weaning trials for about 5 to 10 minutes. She is having severe hypopnea with respiratory rate between 4 to 6 most of time and minute volume between 2 to 2.5 most of time. She appears lethargic, but follows simple commands. She did receive Morphine 4 mg IV at 0805 this am. RT at the bedside put her back on AC per clinical protocols. Order to give one ampule of Narcan and will restart weaning trials later. Family at the bedside. Objective: Vital Signs: We reviewed EMR current values for Pulse rate, Blood pressure, Pulse rate, respiratory rate and Pulse oximetry. Also noted other values and trends if present (e.g. I/O, CVP). T 97.1, DC 75, RR 14, BP 172/107 and SaO2 95% on AC 14, 40%, 400 and 5. I/O +2591 ml Physical Examination: General: Intubated. Morbidly obese. Lying in bed with no acute distress noted. HEENT: Normocephalic. Trachea midline. ET tube in place. Mucosa pink and slightly dry. Chest: Hypopnea. Symmetrical excursion. Clear to auscultation bilaterally. CVS: Regular rate and rhythm with murmur noted. Abdomen: Soft. Obese. Normoactive bowel sounds in all 4 quadrants noted. Extremities: BLE pitting edema. No cyanosis. No clubbing. Pitting nails. Dorsalis pedis diminished bilaterally. Neuro: Awake. Follow simple commands. Labs and Radiology: Reviewed available labs and radiology values available at time of EMR review. Laboratory Results 10/10/19 10/10/19 10/10/19 16:05 18:02 20:12 WBC RBC Hgb Hct MCV MCH MCHC RDW Std Deviation Plt Count MPV Neut % (Auto) Lymph % (Auto) Mcduffie % (Auto) Eos % (Auto) Baso % (Auto) Neut # (Auto) Lymph # (Auto) Mcduffie # (Auto) Eos # (Auto) Baso # (Auto) Segmented Neutrophils Lymphocytes Monocytes Specimen Type Sample Site pH pCO2 pO2 HCO3 Base Excess Oxyhemoglobin ABG O2 Sat (Calculated) ABG O2 Saturation ABG Carboxyhemoglobin ABG Methemoglobin Luther Test A-a O2 Difference Total Hemoglobin Lactate Blood Gas Modality Vent Mode Spontaneous Rate FiO2 % Tidal Volume PEEP Pressure Support Sodium Potassium Chloride Carbon Dioxide Anion Gap BUN Creatinine Estimated GFR/1.73 m2 BUN/Creatinine Ratio Glucose POC Glucose 127 H 111 H Calculated Osmolality Calcium Total Bilirubin AST ALT Alkaline Phosphatase Creatine Kinase 71 Total Protein Albumin Globulin Albumin/Globulin Ratio 10/11/19 10/11/19 10/11/19 04:10 04:20 04:20 WBC 17.24 H RBC 4.56 Hgb 13.3 D Hct 39.7 D MCV 87.1 MCH 29.2 MCHC 33.5 RDW Std Deviation 15.1 H Plt Count 275 MPV 9.9 Neut % (Auto) 92.0 H Lymph % (Auto) 3.1 L Mcduffie % (Auto) 4.8 Eos % (Auto) 0.1 Baso % (Auto) 0.0 Neut # (Auto) 15.86 H Lymph # (Auto) 0.54 L Mcduffie # (Auto) 0.83 H Eos # (Auto) 0.01 Baso # (Auto) 0.00 Segmented Neutrophils 92 H Lymphocytes 3 L Monocytes 5 Specimen Type ARTERIAL Sample Site R RADIAL pH 7.45 pCO2 48 H pO2 69 HCO3 31.2 H Base Excess 8.1 H Oxyhemoglobin 93.6 L ABG O2 Sat (Calculated) 17.0 ABG O2 Saturation 96.2 ABG Carboxyhemoglobin 2.00 ABG Methemoglobin 0.6 Luther Test YES A-a O2 Difference 156.0 Total Hemoglobin 12.9 Lactate 3.20 H Blood Gas Modality VENTILATOR Vent Mode A/C Spontaneous Rate 14 FiO2 % 40.0 Tidal Volume 400 PEEP 5.0 Pressure Support Sodium 127 L Potassium 3.3 L Chloride 85 L Carbon Dioxide 29 Anion Gap 13 BUN 22 Creatinine 1.4 H Estimated GFR/1.73 m2 39 BUN/Creatinine Ratio 16 Glucose 127 H POC Glucose Calculated Osmolality 260 Calcium 8.2 L Total Bilirubin 0.25 AST 13 ALT 9 L Alkaline Phosphatase 78 Creatine Kinase Total Protein 4.6 L Albumin 2.2 L Globulin 2.4 Albumin/Globulin Ratio 0.9 10/11/19 10/11/19 10/11/19 04:20 10:40 10:40 WBC RBC Hgb Hct MCV MCH MCHC RDW Std Deviation Plt Count MPV Neut % (Auto) Lymph % (Auto) Mcduffie % (Auto) Eos % (Auto) Baso % (Auto) Neut # (Auto) Lymph # (Auto) Mcduffie # (Auto) Eos # (Auto) Baso # (Auto) Segmented Neutrophils Lymphocytes Monocytes Specimen Type Sample Site pH pCO2 pO2 HCO3 Base Excess Oxyhemoglobin ABG O2 Sat (Calculated) ABG O2 Saturation ABG Carboxyhemoglobin ABG Methemoglobin Luther Test A-a O2 Difference Total Hemoglobin Lactate Blood Gas Modality Vent Mode Spontaneous Rate FiO2 % Tidal Volume PEEP Pressure Support Sodium Potassium Chloride Carbon Dioxide Anion Gap BUN Creatinine Estimated GFR/1.73 m2 BUN/Creatinine Ratio Glucose POC Glucose 120 H Calculated Osmolality Calcium Total Bilirubin AST ALT Alkaline Phosphatase Creatine Kinase 65 71 Total Protein Albumin Globulin Albumin/Globulin Ratio 10/11/19 11:45 WBC RBC Hgb Hct MCV MCH MCHC RDW Std Deviation Plt Count MPV Neut % (Auto) Lymph % (Auto) Mcduffie % (Auto) Eos % (Auto) Baso % (Auto) Neut # (Auto) Lymph # (Auto) Mcduffie # (Auto) Eos # (Auto) Baso # (Auto) Segmented Neutrophils Lymphocytes Monocytes Specimen Type ARTERIAL Sample Site R RADIAL pH 7.30 L pCO2 73 H* pO2 122 H HCO3 30.0 H Base Excess 6.5 H Oxyhemoglobin 96.2 ABG O2 Sat (Calculated) 20.0 ABG O2 Saturation 99.0 ABG Carboxyhemoglobin 1.80 ABG Methemoglobin 1.0 Luther Test YES A-a O2 Difference 72.0 Total Hemoglobin 14.7 Lactate 1.60 Blood Gas Modality VENTILATOR Vent Mode Spontaneous Rate FiO2 % 40.0 Tidal Volume PEEP 5.0 Pressure Support 5.00 Sodium Potassium Chloride Carbon Dioxide Anion Gap BUN Creatinine Estimated GFR/1.73 m2 BUN/Creatinine Ratio Glucose POC Glucose Calculated Osmolality Calcium Total Bilirubin AST ALT Alkaline Phosphatase Creatine Kinase Total Protein Albumin Globulin Albumin/Globulin Ratio Assessment: Acute respiratory failure, hypercapnic and hypoxemic. CHF exacerbation with cardiomegaly, pulmonary edema and proBNP elevation Hyperkalemia with potassium 8.0 at presentation. Improved. Troponin T elevation COPD with ongoing tobacco use Morbid obesity with DEEPAK. Hypothyroidism. KENAN. Plan: Continue current treatment and supportive care per admitting and other teams on the case. Start weaning trials today. Give 1 ampule Narcan at this time and will start weaning trials later. Ventilator settings checked and titrated to Patients needs per clinical protocols with closely monitoring. Sedation (Propofol drip and IV morphine prn) titrated to patients needs per clinical protocols with closely monitoring. Antibiotics, including cefepime and vancomycin. Bronchodilators. IV steroid (tap ering down). Tobacco cessation education when appropriate. Appropriate DVT and GI prophylaxis Discuss patient status and care plans with family at the bedside and all questions answered. Input was appreciated from Admitting MD and other teams on the case. Evaluation time in minutes: 31 minutes.
--- NOTE | 2019-10-11 15:52 | PROGRESS NOTE ---
DATE: 10/11/2019 SUBJECTIVE: Patient continues on ventilator and sedated. OBJECTIVE: Blood pressure 113/70, heart rate 62, oxygen saturation 97%. Jugular venous distention cannot be appreciated.Chest: Auscultation of the chest reveals coarse breath sounds bilaterally. Cardiac Exam: Reveals distant heart sounds with a regular rate and rhythm without appreciable murmur or gallop. Extremities: Without edema. LABORATORY DATA: Includes a white blood cell count of 17.24, hematocrit 39.7, hemoglobin 13.3, platelet count 275,000. Sodium 127, potassium 3.3, chloride 85, carbon dioxide 29, BUN 22, creatinine 1.4, glucose 127. Serial CPKs 359, 129, and 71. CPK MB on initial set 14.63 with a CPK MB index of 4.1, initial troponin T high sensitivity 216 with followup troponin T high sensitivity 226. Echocardiography technically difficult and demonstrates normal left ventricular systolic function without wall motion abnormality evident. IMPRESSION: 1. Mild elevation in CPK/CPK MB index and troponin. Suspect probably small non-ST elevation myocardial infarction related to intense stress of noncardiac illness (hypercapnic respiratory failure ) in setting of chronic kidney disease. Impression #1. Mild elevation in troponin. CPK mildly elevated with elevated CPK MB index on initial set. Suspect likely due to myocardial strain related to intense stress of noncardiac illness (hypercapnic respiratory failure related to COPD). Echocardiography demonstrates normal left ejection fraction. 2. Hypercapnic respiratory failure, in setting of severe COPD and obstructive sleep apnea. 3. Atherosclerotic coronary disease. 4. Obesity. 5. Hypertension. 6. Hyperlipidemia. 7. Type 2 diabetes mellitus. 8. Hypothyroidism with elevated TSH. 9. Chronic kidney disease. RECOMMENDATIONS: 1. Continue supportive care. Treatment of severe COPD as you are doing. 2. Continue medical management of patient's coronary atherosclerosis. cc: Huy Thomas MD
[2019-10-11] MEDS: LIPITOR PO SCH (20:26)
[2019-10-12] MEDS: NS 1,000 ML IV SCH ×3 (00:51→20:23)
[2019-10-12] MEDS: SOLU-MEDROL IV SCH ×3 (00:51→15:33)
[2019-10-12] MEDS: MAXIPIME 1 GM in NS 50 ML IV SCH ×2 (01:04→14:24)
[2019-10-12] MEDS: DIPRIVAN 1% 1,000 MG/100 ML BOTTLE IV SCH ×8 (01:19→21:30)
[2019-10-12] MEDS: DUONEB (A & A) INH SCH ×6 (03:34→23:22)
[2019-10-12 05:03] LABS: ALLEN TEST YES; BE 8.6 mmoll (-3.0-3.0); BLOOD TYPE ARTERIAL; HCO3-(ACT) 31.6 mmoll (20.0-26.0); METHB 0.1 % (0.0-1.5); O2(CT) 17.6 mL/dL (15.0-23.0); O2HB 95.5 % (95.0-99.0); PCO2(98.6) 37 mmHg (35-45); PO2(98.6) 68 mmHg (60-100); SAMPLE BLOOD; SAO2 98.8 % (95.0-100.0); SRATE 14 BPM; THB 13.1 g/dL (11.5-17.4); TVOL 400 mL; pH(98.6) 7.54 (7.35-7.45)
[2019-10-12 05:05] LABS: MODALITY VENTILATOR
[2019-10-12] MEDS: SYNTHROID IV SCH (06:06)
[2019-10-12] MEDS: SODIUM CHLORIDE 0.9% INJ PRN (06:06)
[2019-10-12] MEDS: HUMULIN R SUBQ SCH ×4 (06:07→22:26)
--- NOTE | 2019-10-12 07:26 | Diag Imaging Result Doc PS360 ---
EXAM: CHEST-1 VIEW HISTORY: SOB TECHNIQUE: Single view COMPARISON: 10/11/2019 FINDINGS: No change in the endotracheal tube or nasogastric tube. The lungs are poorly expanded. The heart is enlarged and there is pulmonary edema. Small bilateral pleural effusions. There may be underlying pneumonia in the lung bases. IMPRESSION: Mild interval worsening Electronically signed by Darwin Clifford 10/12/2019 7:23 AM
[2019-10-12 07:27] LABS: BASO# 0.01 X1000 (0.0-0.2); BASO% 0.1 % (0.0-0.8); HEMOGLOBIN 13.9 g/dL (12.0-16.0); IMM GRAN# 0.02 X1000 (0.0-0.04); IMM GRAN% 0.1 % (0.0-0.5); LYMPH# 0.61 X1000 (1.2-3.4); LYMPH% 4.5 % (20.5-51.1); MCH 28.3 PG (27-31); MCHC 32.3 g/dL (33-37); MCV 87.4 FL (81-99); MONO# 0.83 X1000 (0.11-0.59); MONO% 6.1 % (1.7-9.3); MPV 10.2 FL (7.4-10.4); NEUT# 12.15 X1000 (1.4-6.5); NEUT% 89.2 % (42.2-75.2); PLT 290 X1000 (130-400); RBC 4.92 XMIL (4.2-5.4); RDW 15.2 % (11.5-14.5); WBC 13.62 X1000 (4.8-10.8)
[2019-10-12 07:36] LABS: ALB/GLOB RATIO 0.9; ALBUMIN 2.6 g/dL (3.5-5.0); CALCIUM 8.7 mg/dL (8.8-10.2); CREATININE 1.1 mg/dL (0.5-0.9); POTASSIUM 3.6 mmol/L (3.5-5.1); TOTAL BILIRUBIN 0.23 mg/dL (0.20-1.00); TOTAL PROTEIN 5.4 g/dL (6.3-8.3)
[2019-10-12] MEDS: PULMICORT INH SCH ×2 (07:57→20:08)
[2019-10-12] MEDS: LOPRESSOR PO SCH ×2 (08:22→20:23)
[2019-10-12] MEDS: PRINIVIL PO SCH (08:23)
[2019-10-12] MEDS: VITAMIN D PO SCH (08:23)
[2019-10-12] MEDS: ASPIRIN PO SCH (08:23)
[2019-10-12 09:02] LABS: BANDS 6 % (0-1); LYMPHS 6 % (21-51); MONO 6 % (1-9); SEGS 82 % (42-75)
[2019-10-12] MEDS: HALDOL IV PRN (09:41)
[2019-10-12 10:39] LABS: INR 0.92; PROTIME 12.4 Seconds (11.0-16.0)
[2019-10-12] MEDS ORDERED: NS 250 ML ONE (10:49)
--- NOTE | 2019-10-12 14:11 | PROVIDER PROGRESS NOTE ---
Progress Note Dr. Pascal Progress Note/Pulmonary and or critical care We appreciated progress of care, Complications, change in diagnosis, and instructions to patient. Subjective: We note the level of consciousness, bed (chair) position, family presence (if any), level of lethargy, feeling of symptoms, and changes from baseline condition/symptom. The patient is still intubated. She failed weaning trials yesterday. She is very lethargic at this time. She is on diprivan drip 70 mcg/kg/min. It appears pat felipe is not breathing by her own at all at this time. Will try weaning trials later. No family at the bedside. Objective: Vital Signs: We reviewed EMR current values for Pulse rate, Blood pressure, Pulse rate, respiratory rate and Pulse oximetry. Also noted other values and trends if present (e.g. I/O, CVP). T 98.7 (no fever in last 24 hours), [place] 59, RR 14, BP 117/75 and SaO2 93% on AC 14, 30%, 400 and 5. I/O -854 ml Physical Examination: General: Intubated. Morbidly obese. Lying in bed with no acute distress noted. HEENT: Normocephalic. Trachea midline. ET tube in place. Mucosa pink and slightly dry. Chest: Hypopnea. Symmetrical excursion. Mild expiratory wheezing with rhonchi bilaterally. CVS: Regular rate and rhythm with murmur noted. Abdomen: Soft. Obese. Normoactive bowel sounds in all 4 quadrants noted. Extremities: BLE pitting edema 1+. No cyanosis. No clubbing. Pitting nails. Dorsalis pedis diminished bilaterally. Neuro: Sedated. Labs and Radiology: Reviewed available labs and radiology values available at time of EMR review. Laboratory Results 10/11/19 10/12/19 10/12/19 19:54 00:49 04:52 WBC RBC Hgb Hct MCV MCH MCHC RDW Std Deviation Plt Count MPV Immature Gran % (Auto) Neut % (Auto) Lymph % (Auto) Smith % (Auto) Eos % (Auto) Baso % (Auto) Immature Gran # (Auto) Neut # (Auto) Lymph # (Auto) Smith # (Auto) Eos # (Auto) Baso # (Auto) Segmented Neutrophils Band Neutrophils Lymphocytes Monocytes PT INR Specimen Type ARTERIAL Sample Site R RADIAL pH 7.54 H pCO2 37 pO2 68 HCO3 31.6 H Base Excess 8.6 H Oxyhemoglobin 95.5 ABG O2 Sat (Calculated) 17.6 ABG O2 Saturation 98.8 ABG Carboxyhemoglobin 3.20 H ABG Methemoglobin 0.1 Luther Test YES A-a O2 Difference 100.0 Total Hemoglobin 13.1 Lactate 1.70 Blood Gas Modality VENTILATOR Vent Mode A/C Spontaneous Rate 14 FiO2 % 30.0 Tidal Volume 400 PEEP 5.0 Sodium Potassium Chloride Carbon Dioxide Anion Gap BUN Creatinine Estimated GFR/1.73 m2 BUN/Creatinine Ratio Glucose POC Glucose 121 H 108 H Calculated Osmolality Calcium Total Bilirubin AST ALT Alkaline Phosphatase Total Protein Albumin Globulin Albumin/Globulin Ratio 10/12/19 10/12/19 10/12/19 05:30 05:30 06:05 WBC 13.62 H RBC 4.92 Hgb 13.9 Hct 43.0 MCV 87.4 MCH 28.3 MCHC 32.3 L RDW Std Deviation 15.2 H Plt Count 290 MPV 10.2 Immature Gran % (Auto) 0.1 Neut % (Auto) 89.2 H Lymph % (Auto) 4.5 L Smith % (Auto) 6.1 Eos % (Auto) 0.0 Baso % (Auto) 0.1 Immature Gran # (Auto) 0.02 Neut # (Auto) 12.15 H Lymph # (Auto) 0.61 L Smith # (Auto) 0.83 H Eos # (Auto) 0.00 Baso # (Auto) 0.01 Segmented Neutrophils 82 H Band Neutrophils 6 H Lymphocytes 6 L Monocytes 6 PT INR Specimen Type Sample Site pH pCO2 pO2 HCO3 Base Excess Oxyhemoglobin ABG O2 Sat (Calculated) ABG O2 Saturation ABG Carboxyhemoglobin ABG Methemoglobin Luther Test A-a O2 Difference Total Hemoglobin Lactate Blood Gas Modality Vent Mode Spontaneous Rate FiO2 % Tidal Volume PEEP Sodium 137 Potassium 3.6 Chloride 93 L Carbon Dioxide 28 Anion Gap 16 BUN 21 Creatinine 1.1 H Estimated GFR/1.73 m2 51 BUN/Creatinine Ratio 19 Glucose 96 POC Glucose 104 Calculated Osmolality 277 Calcium 8.7 L Total Bilirubin 0.23 AST 13 ALT 11 Alkaline Phosphatase 85 Total Protein 5.4 L Albumin 2.6 L Globulin 2.8 Albumin/Globulin Ratio 0.9 10/12/19 10/12/19 10/12/19 10:20 11:39 15:36 WBC RBC Hgb Hct MCV MCH MCHC RDW Std Deviation Plt Count MPV Immature Gran % (Auto) Neut % (Auto) Lymph % (Auto) Smith % (Auto) Eos % (Auto) Baso % (Auto) Immature Gran # (Auto) Neut # (Auto) Lymph # (Auto) Smith # (Auto) Eos # (Auto) Baso # (Auto) Segmented Neutrophils Band Neutrophils Lymphocytes Monocytes PT 12.4 INR 0.92 Specimen Type Sample Site pH pCO2 pO2 HCO3 Base Excess Oxyhemoglobin ABG O2 Sat (Calculated) ABG O2 Saturation ABG Carboxyhemoglobin ABG Methemoglobin Luther Test A-a O2 Difference Total Hemoglobin Lactate Blood Gas Modality Vent Mode Spontaneous Rate FiO2 % Tidal Volume PEEP Sodium Potassium Chloride Carbon Dioxide Anion Gap BUN Creatinine Estimated GFR/1.73 m2 BUN/Creatinine Ratio Glucose POC Glucose 103 101 Calculated Osmolality Calcium Total Bilirubin AST ALT Alkaline Phosphatase Total Protein Albumin Globulin Albumin/Globulin Ratio Assessment: Acute respiratory failure, hypercapnic and hypoxemic. CHF exacerbation with cardiomegaly, pulmonary edema and proBNP elevation Hyperkalemia with potassium 8.0 at presentation. Improved. Troponin T elevation COPD with ongoing tobacco use Morbid obesity with Pickwickian syndrome and DEEPAK. Hypothyroidism. Plan: Continue current treatment and supportive care per admitting and other teams on the case. Weaning trials. Ventilator settings checked and titrated to Patients needs per clinical protocols with closely monitoring. Sedation (continuous Propofol drip and IV morphine prn) titrated to patients needs per clinical protocols with closely monitoring. Antibiotics, including cefepime and vancomycin. Bronchodilators. IV steroid. Tobacco cessation education when appropriate. Appropriate DVT and GI prophylaxis Input was appreciated from Admitting MD and other teams on the case. Evaluation time in minutes: 32 minutes.
--- NOTE | 2019-10-12 14:12 | PROGRESS NOTE ---
DATE: 10/12/2019 SUBJECTIVE: Ms. Bryant is on the ventilator. Her sister was there and her sister's and we discussed the plan of care. We are going to try and wean her off the ventilator as we can. OBJECTIVE: Vital signs: Temperature 97.8 degrees, pulse 65, respirations 14, blood pressure 154/96. HEENT: Pupils are equal and round. Lungs: Clear in all lung caballero. Cardiovascular: Regular rhythm and rate without murmur or S3. Abdomen: Nondistended. Skin: Warm and dry. Urine output: 5800 mL. IMAGING: Chest x-ray. Mild interval worsening. No change in endotracheal tube or nasogastric tube. The lungs are poorly expanded. The heart is enlarged and there is some pulmonary edema, small bilateral pleural effusions. There may be underlying pneumonia in the lung bases. ASSESSMENT AND PLAN: 1. Mild elevation of CPK, MB index and troponin. Suspect probably small non ST elevation myocardial infarction related to intense stress of noncardiac illness, hypercapnic respiratory failure in the setting of chronic kidney disease. Echocardiogram demonstrates normal left ventricular ejection fraction. 2. Hypercapnic respiratory failure in the setting of severe chronic obstructive pulmonary disease and obstructive sleep apnea. 3. Atherosclerotic coronary artery disease. 4. Obesity. 5. Hypertension. 6. Hyperlipidemia. 7. Diabetes mellitus type 2. 8. Hypothyroidism. 9. Chronic kidney disease. LABORATORY DATA: From today, white count is down to 13,620, hematocrit is 43, platelet count 290,000. Sodium 137, potassium 3.6, chloride 93, BUN 21, creatinine 1.1, blood sugar 121, 108, 96, 104. REVIEW OF ORDERS: I reviewed all of her orders. She is on a weaning trial at the present time. Continue her vancomycin and she is on cefepime. We are giving her Synthroid. I think the family had stated that they were concerned about allergy to Synthroid. We had to go up on it because she does have hypothyroidism. I think they are going to try and bring in her thyroid regimen and we will see if we can get it down a feeding tube. They claim that she had a rash that was from some product of the Synthroid and had been changed to levothyroxine. cc: Luther Stone MD
--- NOTE | 2019-10-12 17:46 | PROGRESS NOTE ---
DATE: 10/12/2019 SUBJECTIVE: Patient continues on ventilator and sedated with propofol. OBJECTIVE: Blood pressure 144/87, heart rate 61, oxygen saturation 96% on ventilator with FiO2 of 35%. Jugular distention cannot be appreciated. Chest: Auscultation of the chest reveals coarse breath sounds bilaterally. Cardiac Exam: Reveals distant heart sounds with a regular rate and rhythm without appreciable murmur or gallop. There is no evidence of peripheral edema. LABORATORY DATA: Includes a white blood cell count 13.62, hematocrit 43.0, hemoglobin 13.9, platelet count 290,000. Sodium 137, potassium 3.6, chloride 93, carbon dioxide 28, BUN 41, creatinine 1.1, glucose 96. IMPRESSION: 1. Suspect probable very small non-ST elevation myocardial infarction related to intense stress of hypercapnic respiratory failure in the setting of chronic kidney disease. Echocardiography demonstrates normal left ventricular ejection fraction. 2. Hypercapnic respiratory failure secondary to severe chronic obstructive pulmonary disease. 3. Atherosclerotic coronary disease. 4. Obesity. 5. Hypertension. 6. Hyperlipidemia. 7. Type 2 diabetes mellitus. 8. Chronic kidney disease. 9. Hypothyroidism with elevated TSH. RECOMMENDATIONS: 1. Continue supportive care and treat severe COPD as you are doing. 2. Continue medical management of patient's coronary atherosclerosis. cc: Huy Thomas MD
[2019-10-12] MEDS: LIPITOR PO SCH (20:23)
[2019-10-12] MEDS ORDERED: VANCOMYCIN 2,000 MG in NS 500 ML IV SCH (22:00)
[2019-10-13] MEDS: DIPRIVAN 1% 1,000 MG/100 ML BOTTLE IV SCH ×8 (00:03→23:53)
[2019-10-13] MEDS: MAXIPIME 1 GM in NS 50 ML IV SCH ×2 (00:08→12:44)
[2019-10-13] MEDS: SOLU-MEDROL IV SCH ×4 (00:09→23:53)
[2019-10-13] MEDS: DUONEB (A & A) INH SCH ×6 (03:23→23:24)
[2019-10-13 05:04] LABS: ALLEN TEST YES; BLOOD TYPE ARTERIAL; HCO3-(ACT) 26.5 mmoll (20.0-26.0); METHB 0.7 % (0.0-1.5); O2(CT) 19.5 mL/dL (15.0-23.0); O2HB 96.4 % (95.0-99.0); PCO2(98.6) 36 mmHg (35-45); PO2(98.6) 105 mmHg (60-100); SAMPLE BLOOD; SAO2 98.9 % (95.0-100.0); SRATE 14 BPM; THB 14.3 g/dL (11.5-17.4); TVOL 400 mL; pH(98.6) 7.46 (7.35-7.45)
[2019-10-13 05:05] LABS: MODALITY VENTILATOR
[2019-10-13] MEDS: SYNTHROID IV SCH (06:11)
[2019-10-13] MEDS: SODIUM CHLORIDE 0.9% INJ PRN (06:11)
[2019-10-13] MEDS: HUMULIN R SUBQ SCH ×4 (06:12→21:00)
[2019-10-13 07:02] LABS: HEMATOCRIT 42.4 % (37.0-47.0); HEMOGLOBIN 13.7 g/dL (12.0-16.0); IMM GRAN# 0.03 X1000 (0.0-0.04); IMM GRAN% 0.3 % (0.0-0.5); LYMPH# 0.54 X1000 (1.2-3.4); LYMPH% 4.7 % (20.5-51.1); MCH 28.6 PG (27-31); MCHC 32.3 g/dL (33-37); MCV 88.5 FL (81-99); MONO# 0.63 X1000 (0.11-0.59); MONO% 5.5 % (1.7-9.3); NEUT# 10.33 X1000 (1.4-6.5); NEUT% 89.5 % (42.2-75.2); PLT 262 X1000 (130-400); RBC 4.79 XMIL (4.2-5.4); RDW 15.5 % (11.5-14.5); WBC 11.53 X1000 (4.8-10.8)
[2019-10-13 07:19] LABS: ALB/GLOB RATIO 0.9; ALBUMIN 2.5 g/dL (3.5-5.0); CALCIUM 8.7 mg/dL (8.8-10.2); POTASSIUM 3.7 mmol/L (3.5-5.1); TOTAL BILIRUBIN 0.17 mg/dL (0.20-1.00); TOTAL PROTEIN 5.3 g/dL (6.3-8.3)
[2019-10-13] MEDS: LOPRESSOR PO SCH ×2 (08:00→20:50)
[2019-10-13] MEDS: NS 1,000 ML IV SCH ×2 (08:00→19:23)
[2019-10-13] MEDS: PRINIVIL PO SCH (08:00)
[2019-10-13] MEDS: VITAMIN D PO SCH (08:00)
[2019-10-13] MEDS: ASPIRIN PO SCH (08:00)
[2019-10-13 08:15] LABS: BANDS 1 % (0-1); LYMPHS 9 % (21-51); MONO 3 % (1-9); SEGS 87 % (42-75)
[2019-10-13] MEDS: PULMICORT INH SCH ×2 (08:21→20:00)
[2019-10-13] MEDS: MORPHINE IV PRN (08:30)
[2019-10-13] MEDS ORDERED: LASIX IV ONE (09:42)
[2019-10-13] MEDS: HALDOL IV PRN (09:48)
--- NOTE | 2019-10-13 10:51 | Diag Imaging Result Doc PS360 ---
EXAM: CHEST-1 VIEW INDICATION: SOB TECHNIQUE: One view COMPARISON: 10/12/2019 FINDINGS: Support tubes and lines are in stable positions. Bilateral diffuse infiltrates most compatible with pulmonary edema are essentially stable. There is stable pulmonary venous congestion and there is suggestion of bilateral effusions that are unchanged. No new consolidation is identified. Cardiac silhouette is stable. IMPRESSION: Stable chest. Electronically signed by Wilfrido Cooley 10/13/2019 10:49 AM
--- NOTE | 2019-10-13 12:03 | PROGRESS NOTE ---
DATE: 10/13/2019 SUBJECTIVE: Ms Bryant was not able to extubate yesterday, put her back on ventilator. She looks comfortable at the present time. We have decreased her Diprivan. OBJECTIVE: Vital Signs: Temperature 97.2 degrees, pulse 62, respirations 14, blood pressure 154/90. Eyes: Pupils are equal and round. Lungs: Clear in all lung caballero. Cardiovascular exam: Regular rhythm and rate without murmur or S3. Abdomen: Abdomen is soft. Skin: Skin is warm and dry. Extremities: No pedal edema. : Urine output is 1600 mL. X-RAYS: Chest x-ray: Stable chest. Support tubes and lines in stable position. Bilateral diffuse infiltrates, most compatible with pulmonary edema. stable. Stable pulmonary venous congestion suggesting the bilateral effusions, unchanged. ASSESSMENT AND PLAN: 1. Suspect probably very small non-ST elevation myocardial infarction related to intense stress. Hypercapnic respiratory failure in setting of chronic kidney disease. Echocardiogram demonstrates normal left ventricular ejection fraction. 2. Hypercapnic respiratory failure secondary to severe chronic obstructive pulmonary disease. 3. Atherosclerotic coronary artery disease. 4. Obesity. 5. Hypertension. 6. Hyperlipidemia. 7. Diabetes mellitus type 2. 8. Chronic kidney disease. 9. Hypothyroidism. LABS: Note that blood counts this morning reveal white count of 11,530, hematocrit is 42, platelet count 262,000. Sodium 137, potassium 3.7, chloride 98. BUN 19, creatinine 1.0. Blood sugars 103, 104 and 107. REVIEW OF HER ORDERS: She is getting albuterol ipratropium inhalations 3 mL q. 4 hours, aspirin 81 mg a day, Lipitor 40 mg at bedtime, Pulmicort 0.5 mg inhalation b.i.d., vitamin D 3 1000 units p.o. daily, Synthroid 100 mcg IV daily, Prinivil 10 mg daily, cefepime 1 g IV q. 12 hours, methylprednisone 40 mg IV q. 8 hours, Lopressor 12.5 mg p.o. b.i.d., vancomycin 1600 mg IV q. 48 hours. cc: MD HERNÁN Arredondo
[2019-10-13] MEDS: VANCOMYCIN 1,600 MG in NS 250 ML IV SCH (13:19)
--- NOTE | 2019-10-13 14:27 | CARDIOLOGY PROGRESS NOTE ---
DATE: 10/13/2019 SUBJECTIVE: Ms. Bryant is intubated. She failed a weaning trial this morning. She has sedation going but she is easily arousable with physical stimuli. She does not follow commands. PHYSICAL EXAMINATION: Vital signs: She is afebrile. Her heart rates are in the 60s to 70s. Blood pressure 151/88. General: She is in no acute distress. Cardiovascular: She sounds to be in a regular rate and rhythm. I do not hear any obvious murmurs. She has no S3. She has no lower extremity edema. Chest: Coarse breath sounds diffusely. No increased work of breathing. Abdomen: Soft, nontender. PERTINENT DATA: White count 11.5, her hematocrit is 42, her platelet count is 262,000. She has a left shift with a very slight bandemia. Sodium 137, potassium 3.7, BUN 19, creatinine is 1. ASSESSMENT: Ms. Bryant is a 59-year-old female who had a very small non ST elevation myocardial infarction related to likely respiratory failure in the setting of chronic kidney disease. She has a normal ejection fraction on echocardiogram. PLAN: At this point, I do not have any acute recommendations. Her intake and output was positive so to facilitate weaning, she was given some IV Lasix. I do not have any acute recommendations at this time. Dr. Thomas will be back to see the patient on Tuesday. cc: Benny Lazar MD
--- NOTE | 2019-10-13 17:23 | PROVIDER PROGRESS NOTE ---
Progress Note Dr. Pascal Progress Note/Pulmonary and or critical care We appreciated progress of care, Complications, change in diagnosis, and instructions to patient. Subjective: We note the level of consciousness, bed (chair) position, family presence (if any), level of lethargy, feeling of symptoms, and changes from baseline condition/symptom. The patient is lying in bed with no acute distress noted. She is awake, but lethargic. Weaning trials just start. Same as in last two days, she is breathing less than 10 with minute volume below 2.0 constantly. If we push her to breath harder, she does at that moment with better minute volume above 3.0 and respiratory rate, but soon she will quit. AC put back for another 20 min. Weaning trials try again. Same situation happens. Weaning aborted today. Will try to keep her in bender machine sedation and retry weaning trials tomorrow. Family at the bedside mention it is ok to restraint if needed. RN reported that yesterday patients family did not want restraint at all. Objective: Vital Signs: We reviewed EMR current values for Pulse rate, Blood pressure, Pulse rate, respiratory rate and Pulse oximetry. Also noted other values and trends if present (e.g. I/O, CVP). T 98.7 (no fever in last 24 hours), [place] 81, RR 14, BP 152/87 and SaO2 96% on AC 14, 40%, 400 and 5. I/O 2433 ml Physical Examination: General: Intubated. Morbidly obese. Lying in bed with no acute distress noted. HEENT: Normocephalic. Trachea midline. ET tube in place. Mucosa pink and slightly dry. Chest: Hypopnea. Symmetrical excursion. Mild expiratory wheezing with rhonchi bilaterally. CVS: Regular rate and rhythm with murmur noted. Abdomen: Soft. Obese. Normoactive bowel sounds in all 4 quadrants noted. Extremities: BLE pitting edema 1+. No cyanosis. No clubbing. Pitting nails. Dorsalis pedis diminished bilaterally. Neuro: Sedated. Labs and Radiology: Reviewed available labs and radiology values available at time of EMR review. Assessment: Acute respiratory failure, hypercapnic and hypoxemic. CHF exacerbation with cardiomegaly, pulmonary edema and proBNP elevation Hyperkalemia with potassium 8.0 at presentation. Improved. Troponin T elevation COPD exacerbation with ongoing tobacco use Morbid obesity with Pickwickian syndrome and DEEPAK. Hypothyroidism. Plan: Continue current treatment and supportive care per admitting and other teams on the case. Weaning trials. Ventilator settings checked and titrated to Patients needs per clinical protocols with closely monitoring. Sedation (continuous Propofol drip and IV morphine prn) titrated to patients needs per clinical protocols with closely monitoring. Antibiotics, including cefepime and vancomycin. Bronchodilators. IV steroid. Diuresis. Tobacco cessation education when appropriate. Appropriate DVT and GI prophylaxis Discuss patient's condition and care plans with family at the bedside and all questions have been answered. Input was appreciated from Admitting MD and other teams on the case. Evaluation time in minutes: 32 minutes.
[2019-10-13] MEDS: LIPITOR PO SCH (20:49)
[2019-10-14] MEDS: MAXIPIME 1 GM in NS 50 ML IV SCH ×2 (01:41→12:05)
[2019-10-14] MEDS ORDERED: NS 50 ML ONE (01:42)
[2019-10-14] MEDS: DIPRIVAN 1% 1,000 MG/100 ML BOTTLE IV SCH ×7 (03:26→22:56)
[2019-10-14] MEDS: DUONEB (A & A) INH SCH ×6 (03:46→23:39)
[2019-10-14 04:33] LABS: ALLEN TEST YES; BE 3.7 mmoll (-3.0-3.0); BLOOD TYPE ARTERIAL; HCO3-(ACT) 27.6 mmoll (20.0-26.0); METHB 1.4 % (0.0-1.5); O2(CT) 17.6 mL/dL (15.0-23.0); PCO2(98.6) 49 mmHg (35-45); PO2(98.6) 63 mmHg (60-100); SAMPLE BLOOD; SAO2 91.9 % (95.0-100.0); SRATE 14 BPM; THB 14.1 g/dL (11.5-17.4); TVOL 400 mL; pH(98.6) 7.39 (7.35-7.45)
[2019-10-14 04:35] LABS: MODALITY VENTILATOR
[2019-10-14] MEDS: SYNTHROID IV SCH (06:14)
[2019-10-14] MEDS: HUMULIN R SUBQ SCH ×4 (06:20→21:00)
[2019-10-14] MEDS: NS 1,000 ML IV SCH ×3 (06:31→23:45)
[2019-10-14 06:57] LABS: ALBUMIN 2.6 g/dL (3.5-5.0); CALCIUM 9.1 mg/dL (8.8-10.2); POTASSIUM 3.8 mmol/L (3.5-5.1); TOTAL BILIRUBIN 0.18 mg/dL (0.20-1.00); TOTAL PROTEIN 5.3 g/dL (6.3-8.3)
[2019-10-14 07:13] LABS: BASO# 0.01 X1000 (0.0-0.2); BASO% 0.1 % (0.0-0.8); HEMOGLOBIN 13.7 g/dL (12.0-16.0); IMM GRAN# 0.08 X1000 (0.0-0.04); IMM GRAN% 0.7 % (0.0-0.5); LYMPH# 0.76 X1000 (1.2-3.4); LYMPH% 6.3 % (20.5-51.1); MCH 28.5 PG (27-31); MCHC 31.9 g/dL (33-37); MCV 89.6 FL (81-99); MONO# 0.57 X1000 (0.11-0.59); MONO% 4.8 % (1.7-9.3); MPV 10.1 FL (7.4-10.4); NEUT# 10.55 X1000 (1.4-6.5); NEUT% 88.1 % (42.2-75.2); PLT 212 X1000 (130-400); RDW 15.7 % (11.5-14.5); WBC 11.97 X1000 (4.8-10.8)
[2019-10-14] MEDS: SOLU-MEDROL IV SCH ×3 (07:17→23:45)
[2019-10-14] MEDS: PULMICORT INH SCH ×2 (07:55→19:33)
[2019-10-14] MEDS ORDERED: LASIX IV ONE ×3 (08:08→09:38)
--- NOTE | 2019-10-14 08:17 | Diag Imaging Result Doc PS360 ---
EXAM: CHEST-1 VIEW INDICATION: SOB TECHNIQUE: One view COMPARISON: 10/13/2019 FINDINGS: Support tubes and lines are in stable positions. The patient is rotated toward the left. Bilateral diffuse infiltrates are approximately stable given differences in positioning. No new consolidation is appreciated. Cardiac silhouette is stable. IMPRESSION: Stable chest. Electronically signed by Wilfrido Cooley 10/14/2019 8:14 AM
[2019-10-14] MEDS: LOPRESSOR PO SCH ×2 (08:20→20:02)
[2019-10-14] MEDS: ASPIRIN PO SCH (08:21)
[2019-10-14] MEDS: PRINIVIL PO SCH (08:21)
[2019-10-14] MEDS: HALDOL IV PRN ×2 (08:26→19:54)
[2019-10-14] MEDS: VITAMIN D PO SCH (08:54)
--- NOTE | 2019-10-14 09:31 | PROVIDER PROGRESS NOTE ---
Progress Note Dr. Pascal Progress Note/Pulmonary and or critical care We appreciated progress of care, Complications, change in diagnosis, and instructions to patient. Subjective: We note the level of consciousness, bed (chair) position, family presence (if any), level of lethargy, feeling of symptoms, and changes from baseline condition/symptom. The patient was initially lying in bed with no acute distress noted, but during my assessment, once she got restless and tried to reach the ET tube with her r ight hand. Soon she started coughing. I hold her hand for less than 2 minutes, she got calmed down and went back to rest. No family at the bedside. Diprivan at 55 mcg/kg/min now. RT will try weaning trials later. Objective: Vital Signs: We reviewed EMR current values for Pulse rate, Blood pressure, Pulse rate, respiratory rate and Pulse oximetry. Also noted other values and trends if present (e.g. I/O, CVP). T 97.8 (no fever in last 24 hours), [place] 65, RR 14, BP 131/86 and SaO2 100% on AC 14, 40%, 400 and 5. I/O -558 ml Physical Examination: General: Intubated. Morbidly obese. Lying in bed with no acute distress noted. HEENT: Normocephalic. Trachea midline. ET tube in place. Mucosa pink and slightly dry. Chest: Hypopnea. Symmetrical excursion. Mild expiratory wheezing with rhonchi bilaterally. CVS: Regular rate and rhythm with murmur noted. Abdomen: Soft. Obese. Normoactive bowel sounds in all 4 quadrants noted. Extremities: BLE and BUE pitting edema 1+. No cyanosis. No clubbing. Pitting nails. Dorsalis pedis diminished bilaterally. Neuro: Sedated with agitation at times. Labs and Radiology: Reviewed available labs and radiology values available at time of EMR review. Laboratory Results 10/13/19 10/14/19 10/14/19 20:02 04:15 04:15 WBC 11.97 H RBC 4.80 Hgb 13.7 Hct 43.0 MCV 89.6 MCH 28.5 MCHC 31.9 L RDW Std Deviation 15.7 H Plt Count 212 MPV 10.1 Immature Gran % (Auto) 0.7 H Neut % (Auto) 88.1 H Lymph % (Auto) 6.3 L [place] % (Auto) 4.8 Eos % (Auto) 0.0 Baso % (Auto) 0.1 Immature Gran # (Auto) 0.08 H Neut # (Auto) 10.55 H Lymph # (Auto) 0.76 L [place] # (Auto) 0.57 Eos # (Auto) 0.00 Baso # (Auto) 0.01 Specimen Type Sample Site pH pCO2 pO2 HCO3 Base Excess Oxyhemoglobin ABG O2 Sat (Calculated) ABG O2 Saturation ABG Carboxyhemoglobin ABG Methemoglobin Luther Test A-a O2 Difference Total Hemoglobin Lactate Blood Gas Modality Spontaneous Rate FiO2 % Tidal Volume PEEP Sodium 139 Potassium 3.8 Chloride 99 Carbon Dioxide 25 Anion Gap 15 BUN 20 Creatinine 1.0 H Estimated GFR/1.73 m2 57 BUN/Creatinine Ratio 20 Glucose 104 POC Glucose 97 Calculated Osmolality 280 Calcium 9.1 Total Bilirubin 0.18 L AST 15 ALT 12 Alkaline Phosphatase 76 Total Protein 5.3 L Albumin 2.6 L Globulin 2.7 Albumin/Globulin Ratio 1.0 10/14/19 10/14/19 10/14/19 04:23 06:19 10:29 WBC RBC Hgb Hct MCV MCH MCHC RDW Std Deviation Plt Count MPV Immature Gran % (Auto) Neut % (Auto) Lymph % (Auto) [place] % (Auto) Eos % (Auto) Baso % (Auto) Immature Gran # (Auto) Neut # (Auto) Lymph # (Auto) [place] # (Auto) Eos # (Auto) Baso # (Auto) Specimen Type ARTERIAL Sample Site R RADIAL pH 7.39 pCO2 49 H pO2 63 HCO3 27.6 H Base Excess 3.7 H Oxyhemoglobin 89.0 L* ABG O2 Sat (Calculated) 17.6 ABG O2 Saturation 91.9 L ABG Carboxyhemoglobin 1.90 ABG Methemoglobin 1.4 Luther Test YES A-a O2 Difference 161.0 Total Hemoglobin 14.1 Lactate 1.40 Blood Gas Modality VENTILATOR Spontaneous Rate 14 FiO2 % 40.0 Tidal Volume 400 PEEP 5.0 Sodium Potassium Chloride Carbon Dioxide Anion Gap BUN Creatinine Estimated GFR/1.73 m2 BUN/Creatinine Ratio Glucose POC Glucose 96 99 Calculated Osmolality Calcium Total Bilirubin AST ALT Alkaline Phosphatase Total Protein Albumin Globulin Albumin/Globulin Ratio 10/14/19 16:18 WBC RBC Hgb Hct MCV MCH MCHC RDW Std Deviation Plt Count MPV Immature Gran % (Auto) Neut % (Auto) Lymph % (Auto) [place] % (Auto) Eos % (Auto) Baso % (Auto) Immature Gran # (Auto) Neut # (Auto) Lymph # (Auto) [place] # (Auto) Eos # (Auto) Baso # (Auto) Specimen Type Sample Site pH pCO2 pO2 HCO3 Base Excess Oxyhemoglobin ABG O2 Sat (Calculated) ABG O2 Saturation ABG Carboxyhemoglobin ABG Methemoglobin Luther Test A-a O2 Difference Total Hemoglobin Lactate Blood Gas Modality Spontaneous Rate FiO2 % Tidal Volume PEEP Sodium Potassium Chloride Carbon Dioxide Anion Gap BUN Creatinine Estimated GFR/1.73 m2 BUN/Creatinine Ratio Glucose POC Glucose 97 Calculated Osmolality Calcium Total Bilirubin AST ALT Alkaline Phosphatase Total Protein Albumin Globulin Albumin/Globulin Ratio Assessment: Acute respiratory failure, hypercapnic and hypoxemic. CHF exacerbation with cardiomegaly, pulmonary edema and proBNP elevation Hyperkalemia with potassium 8.0 at presentation. Improved. Troponin T elevation COPD exacerbation with ongoing tobacco use Morbid obesity with Pickwickian syndrome and DEEPAK. Hypothyroidism. Plan: Continue current treatment and supportive care per admitting and other teams on the case. Weaning trials. Ventilator settings checked and titrated to Patients needs per clinical protocols with closely monitoring. Sedation (continuous Propofol drip and IV morphine prn) titrated to patients needs per clinical protocols with closely monitoring. Antibiotics, including cefepime and vancomycin. Bronchodilators. IV steroid. Diuresis. Tobacco cessation education when appropriate. Appropriate DVT and GI prophylaxis Input was appreciated from Admitting MD and other teams on the case. Evaluation time in minutes: 33 minutes.
--- NOTE | 2019-10-14 11:43 | PROGRESS NOTE ---
DATE: 10/14/2019 SUBJECTIVE: She is still on the ventilator. OBJECTIVE: Vital Signs: She remains afebrile. Her temp is 97.8 degrees, pulse 60, respirations 14, blood pressure 152/84. HEENT: Pupils are equal and round. Lungs: Clear in all lung [place]. Cardiovascular: Regular rhythm and rate without murmur or S3. Urine output was 5700 mL. IMAGING: Chest x-ray: Stable chest. Support tubes and lines in stable position. The patient was rotated toward the left. Bilateral diffuse infiltrates are proximally stable. ASSESSMENT AND PLAN: 1. Acute respiratory failure, hypercapnic, hypoxemic. Congestive heart failure exacerbation. She has cardiomegaly, pulmonary edema, proBNP elevation. She has diuresed and seems to be improving with her pulmonary venous hypertension. 2. Hyperkalemia. She was given D50 and given insulin, and her potassium is down to 3.8, creatinine is 1.0, which is encouraging, so continue to try and wean off the ventilator. REVIEW OF LAB: She is on aspirin 81 mg a day, Lipitor 40 mg a day, Pulmicort 0.5 mg twice a day, Synthroid 100 mcg daily, Prinivil 10 mg daily, cefepime 1 gram IV every 12 hours, methylprednisone 40 mg IV every 8 hours, Lopressor 12.5 mg b.i.d., normal saline at 100 mL an hour. Her blood pressure looks better. Continue current antibiotics, and we will decrease her fluid down to 45 mL an hour. cc: Luther Stone MD
[2019-10-14] MEDS: LIPITOR PO SCH (20:02)
[2019-10-15] MEDS: MAXIPIME 1 GM in NS 50 ML IV SCH ×2 (00:13→12:52)
[2019-10-15] MEDS: DIPRIVAN 1% 1,000 MG/100 ML BOTTLE IV SCH ×3 (02:15→08:28)
[2019-10-15] MEDS: DUONEB (A & A) INH SCH ×6 (03:45→23:21)
[2019-10-15] MEDS: HALDOL IV PRN (04:04)
[2019-10-15 04:57] LABS: ALLEN TEST YES; BE 7.4 mmoll (-3.0-3.0); BLOOD TYPE ARTERIAL; HCO3-(ACT) 30.6 mmoll (20.0-26.0); MODALITY VENTILATOR; O2(CT) 18.9 mL/dL (15.0-23.0); O2HB 93.1 % (95.0-99.0); PCO2(98.6) 50 mmHg (35-45); PO2(98.6) 70 mmHg (60-100); SAMPLE BLOOD; SAO2 95.7 % (95.0-100.0); SRATE 14 BPM; THB 14.4 g/dL (11.5-17.4); TVOL 400 mL; pH(98.6) 7.43 (7.35-7.45)
[2019-10-15] MEDS: HUMULIN R SUBQ SCH ×4 (06:00→21:59)
[2019-10-15 06:01] LABS: MAGNESIUM 1.4 mg/dL (1.5-2.7); PHOSPHORUS 3.3 mg/dL (2.7-4.5); PREALBUMIN 33.6 mg/dL (20-40)
[2019-10-15 06:06] LABS: ALBUMIN 2.8 g/dL (3.5-5.0); CALCIUM 9.3 mg/dL (8.8-10.2); POTASSIUM 3.4 mmol/L (3.5-5.1); TOTAL BILIRUBIN 0.19 mg/dL (0.20-1.00); TOTAL PROTEIN 5.6 g/dL (6.3-8.3)
[2019-10-15] MEDS: SYNTHROID IV SCH (06:14)
--- NOTE | 2019-10-15 06:40 | Diag Imaging Result Doc PS360 ---
EXAM: CHEST-1 VIEW HISTORY: SOB TECHNIQUE: Single view COMPARISON: 10/14/2019 FINDINGS: No change in the endotracheal tube, nasogastric tube, or left-sided PICC line. The heart is enlarged and there is pulmonary edema. There may be underlying pneumonia. A small pleural effusions. IMPRESSION: No interval improvement Electronically signed by Darwin Clifford 10/15/2019 6:38 AM
[2019-10-15 07:00] LABS: BASO# 0.01 X1000 (0.0-0.2); BASO% 0.1 % (0.0-0.8); EOS# 0.05 X1000 (0.0-0.7); EOS% 0.3 % (0.0-10.0); HEMATOCRIT 43.5 % (37.0-47.0); HEMOGLOBIN 13.7 g/dL (12.0-16.0); IMM GRAN% 0.7 % (0.0-0.5); LYMPH# 0.92 X1000 (1.2-3.4); LYMPH% 6.4 % (20.5-51.1); MCH 28.4 PG (27-31); MCHC 31.5 g/dL (33-37); MCV 90.2 FL (81-99); MONO# 0.88 X1000 (0.11-0.59); MONO% 6.1 % (1.7-9.3); MPV 10.8 FL (7.4-10.4); NEUT# 12.38 X1000 (1.4-6.5); NEUT% 86.4 % (42.2-75.2); PLT 179 X1000 (130-400); RBC 4.82 XMIL (4.2-5.4); RDW 15.6 % (11.5-14.5); WBC 14.34 X1000 (4.8-10.8)
[2019-10-15 07:20] LABS: LYMPHS 4 % (21-51); SEGS 96 % (42-75)
[2019-10-15 07:22] LABS: HYPOCHROM 1+
[2019-10-15] MEDS: PULMICORT INH SCH ×2 (08:24→20:26)
[2019-10-15] MEDS: SOLU-MEDROL IV SCH ×2 (08:27→17:00)
[2019-10-15] MEDS: VITAMIN D PO SCH (08:27)
[2019-10-15] MEDS: PRINIVIL PO SCH (08:27)
[2019-10-15] MEDS: ASPIRIN PO SCH (08:27)
[2019-10-15] MEDS: NS 1,000 ML IV SCH (08:52)
[2019-10-15] MEDS: LOPRESSOR PO SCH (10:00)
--- NOTE | 2019-10-15 10:31 | PROGRESS NOTE ---
DATE: 10/15/2019 SUBJECTIVE: Ms. Bryant is still on the ventilator. Her family was at the bedside. I think overall she is doing better. Remains afebrile. OBJECTIVE: Vital Signs: Temperature 98.9 degrees, pulse 65, respirations 14, blood pressure 110/68. Eyes: Pupils are equal and round. Lungs: Clear in all lung [place]allero. Cardiovascular exam: Regular rhythm and rate without murmur or S3. : Urine output is 6100 mL. IMAGING: Chest x-ray from the 3rd: No interval improvement. No change from endotracheal tube, nasogastric tube, left-sided PICC line. Heart is enlarged and there is some pulmonary edema. ASSESSMENT AND PLAN: 1. Acute respiratory failure. Hypercapnic hypoxemia. Congestive heart failure exacerbation, so continue to try and diurese and see if we can get her off the ventilator. 2. Hyperkalemia, which is improved. Potassium is down to 3.4. Kidney function looks good with creatinine 1.0, good urine output. Sodium 140, potassium 3.4, chloride 98. BUN 23, creatinine 10. White blood cells of 14,340, hematocrit 43, hemoglobin 13, platelet count 179,000. Will continue present measures. REVIEW OF HER ORDERS: I do not see any change. She is on cefepime 1 g IV q. 12 hours and vancomycin 1600 mg q. 48 hours. cc: Luther Stone MD
[2019-10-15 11:19] LABS: ALLEN TEST YES; BE 4.9 mmoll (-3.0-3.0); BLOOD TYPE ARTERIAL; HCO3-(ACT) 28.7 mmoll (20.0-26.0); METHB 0.9 % (0.0-1.5); O2HB 94.7 % (95.0-99.0); PO2(98.6) 94 mmHg (60-100); SAMPLE BLOOD; SAO2 97.4 % (95.0-100.0); THB 14.2 g/dL (11.5-17.4); pH(98.6) 7.28 (7.35-7.45)
[2019-10-15 11:20] LABS: MODALITY VENTILATOR; PCO2(98.6) 73 mmHg (35-45)
[2019-10-15] MEDS: VANCOMYCIN 1,600 MG in NS 250 ML IV SCH (12:52)
[2019-10-15 13:07] LABS: ALLEN TEST YES; BE 6.1 mmoll (-3.0-3.0); BLOOD TYPE ARTERIAL; HCO3-(ACT) 29.6 mmoll (20.0-26.0); O2(CT) 18.4 mL/dL (15.0-23.0); O2HB 94.6 % (95.0-99.0); PO2(98.6) 91 mmHg (60-100); SAMPLE BLOOD; SAO2 97.7 % (95.0-100.0); THB 13.8 g/dL (11.5-17.4); pH(98.6) 7.28 (7.35-7.45)
[2019-10-15 13:08] LABS: MODALITY VENTILATOR
[2019-10-15 13:09] LABS: PCO2(98.6) 76 mmHg (35-45)
[2019-10-15 16:26] LABS: ALLEN TEST YES; BLOOD TYPE ARTERIAL; HCO3-(ACT) 28.9 mmoll (20.0-26.0); PO2(98.6) 122 mmHg (60-100); SAMPLE BLOOD; pH(98.6) 7.25 (7.35-7.45)
[2019-10-15 16:29] LABS: MODALITY BI PAP; PCO2(98.6) 80 mmHg (35-45)
--- NOTE | 2019-10-15 18:11 | PROVIDER PROGRESS NOTE ---
Progress Note Dr. Pascal Progress Note/Pulmonary and or critical care We appreciated progress of care, Complications, change in diagnosis, and instructions to patient. Subjective: We note the level of consciousness, bed (chair) position, family presence (if any), level of lethargy, feeling of symptoms, and changes from baseline condition/symptom. The patient is on weaning trial. PEEP at 10. She apparently is doing better today with minute volumes stay around 4.0 and RR above 10 most of time. There are 2 family members at the bedside. They are holding her hands. Patient is awake with eyes open. She reports left lower chest pain. She coughs at times. Objective: Vital Signs: We reviewed EMR current values for Pulse rate, Blood pressure, Pulse rate, respiratory rate and Pulse oximetry. Also noted other values and trends if present (e.g. I/O, CVP). T 97.4 (no fever in last 24 hours), [place] 64, RR 10, BP 123/62 and SaO2 94% on CPAP FiO2 40%, PEEP 5 and pressure support 10. I/O -2075 ml Physical Examination: General: Intubated. Morbidly obese. Lying in bed with no acute distress noted. HEENT: Normocephalic. Trachea midline. ET tube in place. Mucosa pink and slightly dry. Chest: Even and unlabored with shallow breathing. Symmetrical excursion. Diminished breathing sounds bilaterally. CVS: Regular rate and rhythm with murmur noted. Abdomen: Soft. Obese. Normoactive bowel sounds in all 4 quadrants noted. Extremities: BLE and BUE trace pitting edema. No cyanosis. No clubbing. Pitting nails. Dorsalis pedis diminished bilaterally. Neuro: Awake and alert. Following simple commands. Labs and Radiology: Reviewed available labs and radiology values available at time of EMR review. Laboratory Results 10/14/19 10/15/19 10/15/19 20:02 04:23 04:23 WBC 14.34 H RBC 4.82 Hgb 13.7 Hct 43.5 MCV 90.2 MCH 28.4 MCHC 31.5 L RDW Std Deviation 15.6 H Plt Count 179 MPV 10.8 H Immature Gran % (Auto) 0.7 H Neut % (Auto) 86.4 H Lymph % (Auto) 6.4 L [place] % (Auto) 6.1 Eos % (Auto) 0.3 Baso % (Auto) 0.1 Immature Gran # (Auto) 0.10 H Neut # (Auto) 12.38 H Lymph # (Auto) 0.92 L [place] # (Auto) 0.88 H Eos # (Auto) 0.05 Baso # (Auto) 0.01 Segmented Neutrophils 96 H Lymphocytes 4 L Hypochromia 1+ Specimen Type Sample Site pH pCO2 pO2 HCO3 Base Excess Oxyhemoglobin ABG O2 Sat (Calculated) ABG O2 Saturation ABG Carboxyhemoglobin ABG Methemoglobin Luther Test A-a O2 Difference Total Hemoglobin Lactate Blood Gas Modality Vent Mode Spontaneous Rate FiO2 % Tidal Volume PEEP Pressure Support Inspiratory BiPAP Expiratory BiPAP Sodium 140 Potassium 3.4 L Chloride 98 Carbon Dioxide 29 Anion Gap 13 BUN 23 H Creatinine 1.0 H Estimated GFR/1.73 m2 57 BUN/Creatinine Ratio 23 Glucose 113 H POC Glucose 103 Calculated Osmolality 284 Calcium 9.3 Phosphorus Magnesium Total Bilirubin 0.19 L AST 18 ALT 13 Alkaline Phosphatase 78 Total Protein 5.6 L Albumin 2.8 L Globulin 2.8 Albumin/Globulin Ratio 1.0 Prealbumin 10/15/19 10/15/19 10/15/19 04:23 04:46 05:56 WBC RBC Hgb Hct MCV MCH MCHC RDW Std Deviation Plt Count MPV Immature Gran % (Auto) Neut % (Auto) Lymph % (Auto) [place] % (Auto) Eos % (Auto) Baso % (Auto) Immature Gran # (Auto) Neut # (Auto) Lymph # (Auto) [place] # (Auto) Eos # (Auto) Baso # (Auto) Segmented Neutrophils Lymphocytes Hypochromia Specimen Type ARTERIAL Sample Site R RADIAL pH 7.43 pCO2 50 H pO2 70 HCO3 30.6 H Base Excess 7.4 H Oxyhemoglobin 93.1 L ABG O2 Sat (Calculated) 18.9 ABG O2 Saturation 95.7 ABG Carboxyhemoglobin 1.80 ABG Methemoglobin 1.0 Luther Test YES A-a O2 Difference 153.0 Total Hemoglobin 14.4 Lactate 1.00 Blood Gas Modality VENTILATOR Vent Mode Spontaneous Rate 14 FiO2 % 40.0 Tidal Volume 400 PEEP 5.0 Pressure Support Inspiratory BiPAP Expiratory BiPAP Sodium Potassium Chloride Carbon Dioxide Anion Gap BUN Creatinine Estimated GFR/1.73 m2 BUN/Creatinine Ratio Glucose POC Glucose 100 Calculated Osmolality Calcium Phosphorus 3.3 Magnesium 1.4 L Total Bilirubin AST ALT Alkaline Phosphatase Total Protein Albumin Globulin Albumin/Globulin Ratio Prealbumin 33.6 10/15/19 10/15/19 10/15/19 11:10 12:24 13:00 WBC RBC Hgb Hct MCV MCH MCHC RDW Std Deviation Plt Count MPV Immature Gran % (Auto) Neut % (Auto) Lymph % (Auto) [place] % (Auto) Eos % (Auto) Baso % (Auto) Immature Gran # (Auto) Neut # (Auto) Lymph # (Auto) [place] # (Auto) Eos # (Auto) Baso # (Auto) Segmented Neutrophils Lymphocytes Hypochromia Specimen Type ARTERIAL ARTERIAL Sample Site L RADIAL R RADIAL pH 7.28 L 7.28 L pCO2 73 H* 76 H* pO2 94 91 HCO3 28.7 H 29.6 H Base Excess 4.9 H 6.1 H Oxyhemoglobin 94.7 L 94.6 L ABG O2 Sat (Calculated) 19.0 18.4 ABG O2 Saturation 97.4 97.7 ABG Carboxyhemoglobin 1.80 2.30 ABG Methemoglobin 0.9 1.0 Luther Test YES YES A-a O2 Difference 100.0 99.0 Total Hemoglobin 14.2 13.8 Lactate 0.50 0.60 Blood Gas Modality VENTILATOR VENTILATOR Vent Mode CPAP CPAP Spontaneous Rate FiO2 % 40.0 40.0 Tidal Volume PEEP 5.0 5.0 Pressure Support 10.00 10.00 Inspiratory BiPAP Expiratory BiPAP Sodium Potassium Chloride Carbon Dioxide Anion Gap BUN Creatinine Estimated GFR/1.73 m2 BUN/Creatinine Ratio Glucose POC Glucose 104 Calculated Osmolality Calcium Phosphorus Magnesium Total Bilirubin AST ALT Alkaline Phosphatase Total Protein Albumin Globulin Albumin/Globulin Ratio Prealbumin 10/15/19 10/15/19 16:10 16:19 WBC RBC Hgb Hct MCV MCH MCHC RDW Std Deviation Plt Count MPV Immature Gran % (Auto) Neut % (Auto) Lymph % (Auto) [place] % (Auto) Eos % (Auto) Baso % (Auto) Immature Gran # (Auto) Neut # (Auto) Lymph # (Auto) [place] # (Auto) Eos # (Auto) Baso # (Auto) Segmented Neutrophils Lymphocytes Hypochromia Specimen Type ARTERIAL Sample Site R RADIAL pH 7.25 L pCO2 80 H* pO2 122 H HCO3 28.9 H Base Excess 5.0 H Oxyhemoglobin ABG O2 Sat (Calculated) ABG O2 Saturation ABG Carboxyhemoglobin ABG Methemoglobin Luther Test YES A-a O2 Difference 63.0 Total Hemoglobin Lactate 0.70 Blood Gas Modality BI PAP Vent Mode BIPAP Spontaneous Rate FiO2 % 40.0 Tidal Volume PEEP Pressure Support Inspiratory BiPAP 18.0 Expiratory BiPAP 6.0 Sodium Potassium Chloride Carbon Dioxide Anion Gap BUN Creatinine Estimated GFR/1.73 m2 BUN/Creatinine Ratio Glucose POC Glucose 91 Calculated Osmolality Calcium Phosphorus Magnesium Total Bilirubin AST ALT Alkaline Phosphatase Total Protein Albumin Globulin Albumin/Globulin Ratio Prealbumin Assessment: Acute respiratory failure, hypercapnic and hypoxemic. CHF exacerbation with cardiomegaly, pulmonary edema and proBNP elevation Hyperkalemia with potassium 8.0 at presentation. Improved. Troponin T elevation COPD exacerbation with ongoing tobacco use Morbid obesity with Pickwickian syndrome and DEEPAK. Hypothyroidism. Plan: Continue current treatment and supportive care per admitting and other teams on the case. Weaning trials. Ventilator settings checked and titrated to Patients needs per clinical protocols with closely monitoring. Sedation (continuous Propofol drip and IV morphine prn) titrated to patients needs per clinical protocols with closely monitoring. Antibiotics, including cefepime and vancomycin. Bronchodilators. IV steroid. Diuresis as needed. Tobacco cessation education when appropriate. Appropriate DVT and GI prophylaxis Discuss patients condition and care plan with family at the bedside and all questions have been answered. Input was appreciated from Admitting MD and other teams on the case. Evaluation time in minutes: 34 minutes.
--- NOTE | 2019-10-15 18:59 | PROGRESS NOTE ---
DATE: 10/15/2019 SUBJECTIVE: Patient extubated earlier today and continues on BiPAP this afternoon. She denies chest discomfort. OBJECTIVE: Vital signs: Blood pressure 102/71, heart rate 80, oxygen saturation 99%. Neck: Jugular distention cannot be appreciated. Chest: Auscultation of the chest reveals coarse breath sounds bilaterally. Cardiac: Distant heart sounds with a regular rate and rhythm, without appreciable murmur or gallop. There is no evidence of peripheral edema. LABORATORY DATA: Includes a white blood cell count of 14.34, hematocrit 43.5, hemoglobin 13.7, platelet count 179,000. Sodium 140, potassium 3.4, chloride 98, carbon dioxide 29, BUN 23, creatinine 1.0, glucose 113. IMPRESSION: 1. Very small non-ST elevation myocardial infarction as a secondary event related to intense stress of hypercapnic respiratory failure, in the setting of chronic obstructive pulmonary disease and chronic kidney disease. Echocardiography demonstrates normal left ventricular ejection fraction. 2. Hypercapnic respiratory failure, secondary to severe chronic obstructive pulmonary disease. 3. Atherosclerotic coronary disease. 4. Obesity. 5. Hypertension. 6. Hyperlipidemia. 7. Type 2 diabetes mellitus. 8. Chronic kidney disease. 9. Hypothyroidism. RECOMMENDATIONS: 1. Continue supportive care and treatment of severe chronic obstructive pulmonary disease with exacerbation as you are doing. 2. Continue medical management of patient's coronary atherosclerosis at present. cc: Huy Thomas MD
[2019-10-15 20:31] LABS: ALLEN TEST YES; BE 4.7 mmoll (-3.0-3.0); BLOOD TYPE ARTERIAL; HCO3-(ACT) 28.3 mmoll (20.0-26.0); METHB 1.1 % (0.0-1.5); O2(CT) 17.7 mL/dL (15.0-23.0); PO2(98.6) 62 mmHg (60-100); SAMPLE BLOOD; SAO2 91.8 % (95.0-100.0); THB 14.2 g/dL (11.5-17.4); pH(98.6) 7.24 (7.35-7.45)
[2019-10-15 20:37] LABS: MODALITY BI PAP; O2HB 88.7 % (95.0-99.0); PCO2(98.6) 82 mmHg (35-45)
[2019-10-16] MEDS: SOLU-MEDROL IV SCH ×3 (01:00→16:52)
[2019-10-16] MEDS: MAXIPIME 1 GM in NS 50 ML IV SCH ×2 (01:00→13:20)
[2019-10-16] MEDS: LIPITOR PO SCH (01:07)
[2019-10-16] MEDS: LOPRESSOR PO SCH ×2 (01:08→09:45)
[2019-10-16] MEDS: DUONEB (A & A) INH SCH ×6 (03:54→23:30)
[2019-10-16 05:40] LABS: BE 4.9 mmoll (-3.0-3.0); BLOOD TYPE ARTERIAL; HCO3-(ACT) 28.3 mmoll (20.0-26.0); PO2(98.6) 57 mmHg (60-100); SAMPLE BLOOD
[2019-10-16 05:42] LABS: MODALITY BI PAP; PCO2(98.6) 93 mmHg (35-45)
[2019-10-16] MEDS: HUMULIN R SUBQ SCH ×3 (06:05→16:38)
[2019-10-16] MEDS: SYNTHROID IV SCH (06:05)
[2019-10-16 06:47] LABS: BASO# 0.01 X1000 (0.0-0.2); BASO% 0.1 % (0.0-0.8); EOS# 0.01 X1000 (0.0-0.7); EOS% 0.1 % (0.0-10.0); HEMATOCRIT 45.4 % (37.0-47.0); HEMOGLOBIN 13.5 g/dL (12.0-16.0); IMM GRAN# 0.13 X1000 (0.0-0.04); IMM GRAN% 0.9 % (0.0-0.5); LYMPH# 0.97 X1000 (1.2-3.4); LYMPH% 6.6 % (20.5-51.1); MCH 28.2 PG (27-31); MCHC 29.7 g/dL (33-37); MONO# 0.79 X1000 (0.11-0.59); MONO% 5.4 % (1.7-9.3); MPV 11.2 FL (7.4-10.4); NEUT# 12.82 X1000 (1.4-6.5); NEUT% 86.9 % (42.2-75.2); PLT 169 X1000 (130-400); RBC 4.78 XMIL (4.2-5.4); WBC 14.73 X1000 (4.8-10.8)
[2019-10-16 07:30] LABS: ALB/GLOB RATIO 1.1; ALBUMIN 2.8 g/dL (3.5-5.0); CALCIUM 9.1 mg/dL (8.8-10.2); TOTAL BILIRUBIN 0.18 mg/dL (0.20-1.00); TOTAL PROTEIN 5.3 g/dL (6.3-8.3)
--- NOTE | 2019-10-16 07:39 | Diag Imaging Result Doc PS360 ---
EXAM: CHEST-1 VIEW INDICATION: SOB TECHNIQUE: One view COMPARISON: 10/15/2019 FINDINGS: There has been interval extubation and removal of the NG tube. The left PICC line is stable. Pulmonary venous congestion and interstitial edema is unchanged. There is stable dense opacity at the left lung base that likely represents superimposed infiltrate or effusion. No new consolidation is identified. Cardiac silhouette is stable. IMPRESSION: Stable chest. Electronically signed by Wilfrido Cooley 10/16/2019 7:37 AM
[2019-10-16] MEDS: PULMICORT INH SCH ×2 (08:16→19:55)
[2019-10-16] MEDS: NS 1,000 ML IV SCH (08:45)
[2019-10-16] MEDS: ASPIRIN PO SCH (09:45)
[2019-10-16] MEDS: PRINIVIL PO SCH (09:45)
[2019-10-16] MEDS: VITAMIN D PO SCH (09:46)
[2019-10-16 10:25] LABS: ALLEN TEST YES; BE 4.2 mmoll (-3.0-3.0); BLOOD TYPE ARTERIAL; O2(CT) 17.3 mL/dL (15.0-23.0); PO2(98.6) 58 mmHg (60-100); SAMPLE BLOOD; SAO2 92.7 % (95.0-100.0); SRATE 16 BPM; THB 13.7 g/dL (11.5-17.4); pH(98.6) 7.27 (7.35-7.45)
[2019-10-16 10:27] LABS: MODALITY BI PAP
[2019-10-16 10:29] LABS: O2HB 89.9 % (95.0-99.0); PCO2(98.6) 73 mmHg (35-45)
--- NOTE | 2019-10-16 13:32 | PROGRESS NOTE ---
DATE: 10/16/2019 SUBJECTIVE: Ms. Bryant has been extubated. She is on BiPAP. Appears to be comfortable at this time. OBJECTIVE: Temperature 98.2 degrees, pulse 75, respirations 17, blood pressure 112/79. Pupils are equal and round. Lungs are clear in all lung [place]. Cardiovascular Examination: Regular rhythm and rate without murmur or S3. Urine output is 2000 mL. Chest x-ray, stable chest, been interval of extubation, removal of NG tube, left PICC line is stable, pulmonary venous congestion and interstitial edema unchanged. There is stable dense opacity in the left lung base. It likely represents superimposed infiltrate versus effusion. ASSESSMENT AND PLAN: 1. Very small non-ST elevation myocardial infarction. A secondary event related to intense stress and hypercapnic respiratory failure in the setting of chronic obstructive pulmonary disease and chronic kidney disease. Echocardiogram demonstrated normal left ventricular ejection fraction. 2. Hypercapnic respiratory failure secondary to severe chronic obstructive pulmonary disease and obesity, and apnea, hypoventilation syndrome. 3. Atherosclerotic coronary artery disease. 4. Obesity. 5. Hypertension. 6. Hyperlipidemia. 7. Diabetes mellitus type 2. 8. Chronic kidney disease. 9. Hypothyroidism. REVIEW OF LABS: White count was 14,730, hematocrit 45, platelet count 169,000. Sodium 142, potassium 4.0, chloride 103, BUN 28, creatinine 1.0. Blood sugars 91, 79, 85, and 87. ProBNP was 13,064. cc: Luther Stone MD
[2019-10-16 13:39] LABS: ALLEN TEST YES
--- NOTE | 2019-10-16 18:38 | PROVIDER PROGRESS NOTE ---
Progress Note Dr. Pascal Progress Note/Pulmonary and or critical care We appreciated progress of care, Complications, change in diagnosis, and instructions to patient. Subjective: We note the level of consciousness, bed (chair) position, family presence (if any), level of lethargy, feeling of symptoms, and changes from baseline condition/symptom. The patient has been successfully extubated yesterday afternoon. At this time, she is on a BiPAP 22/8 30% and tolerates well. pCO2 from the last ABG looks imp roving. She is awake and alert. She wants to take the BiPAP off. After I explain the importance of the BiPAP, she agrees to keep it on at this time. She had CPAP at home before and apparently the CPAP was broken 1 month prior to this hospitalization. Sister and [id number] at the bedside. Objective: Vital Signs: We reviewed EMR current values for Pulse rate, Blood pressure, Pulse rate, respiratory rate and Pulse oximetry. Also noted other values and trends if present (e.g. I/O, CVP). T 97.4 (no fever in last 24 hours), ND 74, RR 10, BP 89/68 and SaO2 98% on BiPAP FiO2 30%, pressure 22/8. I/O 385 ml Physical Examination: General: Morbidly obese. Lying in bed with no acute distress noted. HEENT: Normocephalic. Trachea midline. Chest: Even and unlabored with very shallow breathing. Symmetrical excursion. Diminished breathing sounds bilaterally. CVS: Regular rate and rhythm with murmur noted. Abdomen: Soft. Obese. Normoactive bowel sounds in all 4 quadrants noted. Extremities: BLE and BUE trace pitting edema. No cyanosis. No clubbing. Pitting nails. Dorsalis pedis diminished bilaterally. Neuro: Awake and alert. Following simple commands. Labs and Radiology: Reviewed available labs and radiology values available at time of EMR review. Laboratory Results 10/15/19 10/15/19 10/16/19 20:01 20:33 04:20 WBC RBC Hgb Hct MCV MCH MCHC RDW Std Deviation Plt Count MPV Immature Gran % (Auto) Neut % (Auto) Lymph % (Auto) [place] % (Auto) Eos % (Auto) Baso % (Auto) Immature Gran # (Auto) Neut # (Auto) Lymph # (Auto) [place] # (Auto) Eos # (Auto) Baso # (Auto) Specimen Type ARTERIAL Sample Site R RADIAL pH 7.24 L pCO2 82 H* pO2 62 HCO3 28.3 H Base Excess 4.7 H Oxyhemoglobin 88.7 L* ABG O2 Sat (Calculated) 17.7 ABG O2 Saturation 91.8 L ABG Carboxyhemoglobin 2.30 ABG Methemoglobin 1.1 Luther Test YES A-a O2 Difference 49.0 Total Hemoglobin 14.2 Lactate 0.50 Blood Gas Modality BI PAP Vent Mode BIPAP Spontaneous Rate FiO2 % 30.0 Inspiratory BiPAP 14.0 Expiratory BiPAP 6.0 Sodium 142 Potassium 4.0 D Chloride 103 Carbon Dioxide 28 Anion Gap 11 BUN 28 H Creatinine 1.0 H Estimated GFR/1.73 m2 57 BUN/Creatinine Ratio 28 Glucose 85 POC Glucose 79 Calculated Osmolality 288 Calcium 9.1 Total Bilirubin 0.18 L AST 15 ALT 13 Alkaline Phosphatase 76 Udx-C-Olewijeikmp Pept Total Protein 5.3 L Albumin 2.8 L Globulin 2.5 Albumin/Globulin Ratio 1.1 10/16/19 10/16/19 10/16/19 04:20 04:20 05:30 WBC 14.73 H RBC 4.78 Hgb 13.5 Hct 45.4 MCV 95.0 MCH 28.2 MCHC 29.7 L RDW Std Deviation 16.0 H Plt Count 169 MPV 11.2 H Immature Gran % (Auto) 0.9 H Neut % (Auto) 86.9 H Lymph % (Auto) 6.6 L [place] % (Auto) 5.4 Eos % (Auto) 0.1 Baso % (Auto) 0.1 Immature Gran # (Auto) 0.13 H Neut # (Auto) 12.82 H Lymph # (Auto) 0.97 L [place] # (Auto) 0.79 H Eos # (Auto) 0.01 Baso # (Auto) 0.01 Specimen Type ARTERIAL Sample Site R RADIAL pH 7.20 L pCO2 93 H* pO2 57 L HCO3 28.3 H Base Excess 4.9 H Oxyhemoglobin ABG O2 Sat (Calculated) ABG O2 Saturation ABG Carboxyhemoglobin ABG Methemoglobin Luther Test YES A-a O2 Difference 112.0 Total Hemoglobin Lactate 1.10 Blood Gas Modality BI PAP Vent Mode BIPAP Spontaneous Rate FiO2 % 40.0 Inspiratory BiPAP 14.0 Expiratory BiPAP 6.0 Sodium Potassium Chloride Carbon Dioxide Anion Gap BUN Creatinine Estimated GFR/1.73 m2 BUN/Creatinine Ratio Glucose POC Glucose Calculated Osmolality Calcium Total Bilirubin AST ALT Alkaline Phosphatase Qol-Y-Gybvftckfzu Pept 57274 H Total Protein Albumin Globulin Albumin/Globulin Ratio 10/16/19 10/16/19 10/16/19 06:01 10:15 10:35 WBC RBC Hgb Hct MCV MCH MCHC RDW Std Deviation Plt Count MPV Immature Gran % (Auto) Neut % (Auto) Lymph % (Auto) [place] % (Auto) Eos % (Auto) Baso % (Auto) Immature Gran # (Auto) Neut # (Auto) Lymph # (Auto) [place] # (Auto) Eos # (Auto) Baso # (Auto) Specimen Type ARTERIAL Sample Site R RADIAL pH 7.27 L pCO2 73 H* pO2 58 L HCO3 28.0 H Base Excess 4.2 H Oxyhemoglobin 89.9 L* ABG O2 Sat (Calculated) 17.3 ABG O2 Saturation 92.7 L ABG Carboxyhemoglobin 2.10 ABG Methemoglobin 1.0 Luther Test YES A-a O2 Difference 65.0 Total Hemoglobin 13.7 Lactate 0.70 Blood Gas Modality BI PAP Vent Mode Spontaneous Rate 16 FiO2 % 30.0 Inspiratory BiPAP 22.0 Expiratory BiPAP 8.0 Sodium Potassium Chloride Carbon Dioxide Anion Gap BUN Creatinine Estimated GFR/1.73 m2 BUN/Creatinine Ratio Glucose POC Glucose 87 74 Calculated Osmolality Calcium Total Bilirubin AST ALT Alkaline Phosphatase Yid-P-Cbetdkrrppy Pept Total Protein Albumin Globulin Albumin/Globulin Ratio 10/16/19 10/16/19 10/16/19 16:23 16:33 17:31 WBC RBC Hgb Hct MCV MCH MCHC RDW Std Deviation Plt Count MPV Immature Gran % (Auto) Neut % (Auto) Lymph % (Auto) [place] % (Auto) Eos % (Auto) Baso % (Auto) Immature Gran # (Auto) Neut # (Auto) Lymph # (Auto) [place] # (Auto) Eos # (Auto) Baso # (Auto) Specimen Type Sample Site pH pCO2 pO2 HCO3 Base Excess Oxyhemoglobin ABG O2 Sat (Calculated) ABG O2 Saturation ABG Carboxyhemoglobin ABG Methemoglobin Luther Test A-a O2 Difference Total Hemoglobin Lactate Blood Gas Modality Vent Mode Spontaneous Rate FiO2 % Inspiratory BiPAP Expiratory BiPAP Sodium Potassium Chloride Carbon Dioxide Anion Gap BUN Creatinine Estimated GFR/1.73 m2 BUN/Creatinine Ratio Glucose POC Glucose 61 L 74 71 Calculated Osmolality Calcium Total Bilirubin AST ALT Alkaline Phosphatase Qrg-C-Lfgiuwugdao Pept Total Protein Albumin Globulin Albumin/Globulin Ratio Assessment: Acute respiratory failure, hypercapnic and hypoxemic. Intubated on 10/09/19, extubated on 10/15/19. CHF exacerbation with cardiomegaly, pulmonary edema and proBNP elevation (worsening). Troponin T elevation COPD exacerbation with ongoing tobacco use Morbid obesity with Pickwickian syndrome and DEEPAK. Hypothyroidism. Prognosis is guarded on short term but on long run there are many comorbid factors. Plan: Continue current treatment and supportive care per admitting and other teams on the case. Supplemental oxygen and BiPAP as needed. Antibiotics, including cefepime and vancomycin. Bronchodilators. IV steroid. Diuresis as needed. Tobacco cessation education when appropriate. Appropriate DVT and GI prophylaxis Discuss patients condition and care plan with family at the bedside and all questions have been answered. Input was appreciated from Admitting MD and other teams on the case. Evaluation time in minutes: 34 minutes.
[2019-10-17] MEDS: LOPRESSOR PO SCH ×3 (00:09→20:47)
[2019-10-17] MEDS: LIPITOR PO SCH ×2 (00:09→20:47)
[2019-10-17] MEDS: HUMULIN R SUBQ SCH ×2 (00:09→06:15)
[2019-10-17] MEDS: MAXIPIME 1 GM in NS 50 ML IV SCH ×2 (01:04→14:00)
[2019-10-17] MEDS: SOLU-MEDROL IV SCH ×2 (01:05→16:29)
[2019-10-17] MEDS: DUONEB (A & A) INH SCH ×6 (03:25→23:30)
[2019-10-17 04:46] LABS: ALLEN TEST YES; BLOOD TYPE ARTERIAL; HCO3-(ACT) 27.9 mmoll (20.0-26.0); METHB 0.8 % (0.0-1.5); O2(CT) 17.9 mL/dL (15.0-23.0); O2HB 91.6 % (95.0-99.0); PO2(98.6) 69 mmHg (60-100); SAMPLE BLOOD; SAO2 94.4 % (95.0-100.0); THB 13.9 g/dL (11.5-17.4)
[2019-10-17 04:51] LABS: MODALITY BI PAP; PCO2(98.6) 66 mmHg (35-45)
[2019-10-17] MEDS: NS 1,000 ML IV SCH ×2 (04:54→05:37)
[2019-10-17] MEDS: SYNTHROID IV SCH (06:18)
[2019-10-17 06:57] LABS: BASO# 0.01 X1000 (0.0-0.2); BASO% 0.1 % (0.0-0.8); EOS# 0.01 X1000 (0.0-0.7); EOS% 0.1 % (0.0-10.0); HEMATOCRIT 44.9 % (37.0-47.0); HEMOGLOBIN 13.3 g/dL (12.0-16.0); IMM GRAN# 0.17 X1000 (0.0-0.04); IMM GRAN% 1.2 % (0.0-0.5); LYMPH# 0.86 X1000 (1.2-3.4); LYMPH% 5.9 % (20.5-51.1); MCH 28.2 PG (27-31); MCHC 29.6 g/dL (33-37); MCV 95.3 FL (81-99); MONO# 0.82 X1000 (0.11-0.59); MONO% 5.6 % (1.7-9.3); MPV 11.5 FL (7.4-10.4); NEUT# 12.67 X1000 (1.4-6.5); NEUT% 87.1 % (42.2-75.2); PLT 154 X1000 (130-400); RBC 4.71 XMIL (4.2-5.4); WBC 14.54 X1000 (4.8-10.8)
[2019-10-17 07:19] LABS: CALCIUM 9.4 mg/dL (8.8-10.2); POTASSIUM 4.1 mmol/L (3.5-5.1)
--- NOTE | 2019-10-17 07:24 | Diag Imaging Result Doc PS360 ---
EXAM: CHEST-1 VIEW HISTORY: SOB TECHNIQUE: Single view COMPARISON: 10/16/2019 FINDINGS: There are dense bilateral infiltrates as well as left lower lung atelectasis. There is a moderate-sized left pleural effusion. Heart is enlarged. No change in the left-sided PICC line. IMPRESSION: No interval improvement. Electronically signed by Darwin Clifford 10/17/2019 7:22 AM
[2019-10-17] MEDS ORDERED: LASIX IV ONE (07:33)
[2019-10-17] MEDS: PULMICORT INH SCH ×2 (07:57→19:10)
[2019-10-17] MEDS: ASPIRIN PO SCH (08:46)
[2019-10-17] MEDS: PRINIVIL PO SCH (08:46)
[2019-10-17] MEDS: VITAMIN D PO SCH (08:46)
--- NOTE | 2019-10-17 09:50 | PROGRESS NOTE ---
DATE: 10/17/2019 INTERVAL HISTORY: No acute events overnight. Ms. Bryant states she was she has been feeling comfortable on BiPAP. She denies any unusual cough. She states she is feeling better in terms of her shortness of breath than before. VITALS: Temperature 98.3 degrees, pulse 86, respiratory rate 18, blood pressure 167/96. She is saturating 96% on 4 to 5 L nasal cannula. PHYSICAL EXAMINATION: Not in acute distress. She appears morbidly obese. She has decreased air entry bilateral lung caballero. I could not appreciate any wheezes. There are occasional infrascapular crackles. Examination is limited due to body habitus and position.Cardiovascular: S1, S2 normal. No murmur, rub, or gallop. Abdomen: Soft, nontender, mild bilateral lower extremity edema. Input and output suggest positive 220 mL so far today. LABS: Suggestive of leukocytosis with 0.1% eosinophil count, hemoglobin of 13.3, platelet 154,000. Blood gas, pH of 7.3, pCO2 of 66, lactate of 1. Chemistry suggestive of BUN of 35, creatinine 1. ASSESSMENT AND PLAN: 1. Acute hypercapnic respiratory failure on top of chronic hypercapnic respiratory failure with history of morbid obesity, COPD and obstructive sleep apnea. I will give her a break from BiPAP and start her on nasal cannula. I will follow up with her respiratory status and daily ABGs. 2. Acute chronic obstructive pulmonary disease exacerbation. Continue inhaled bronchodilators, decreased dose of intravenous steroids, stop intravenous fluids and give 1 dose of intravenous Lasix. Continue vancomycin and cefepime until final sputum culture results come back. 3. Non-elevation myocardial infarction on presentation with troponins in excess of 200. Electrocardiogram on presentation had sinus rhythm with frequent premature ventricular contraction with nonspecific T-wave abnormalities in inferior leads. Cardiology team on board. Echocardiogram was unremarkable. Recommend conservative management with aspirin, atorvastatin. Start lisinopril and metoprolol for history of essential hypertension. 4. Others: Continue vitamin D3 for supplementation, levothyroxine for history of hypothyroidism. DISPOSITION: The patient in ICU. On presentation she had respiratory failure requiring intubation, now she has been extubated. I will continue to cycle BiPAP and nasal cannula as tolerated. cc: Jose Clemens MD
--- NOTE | 2019-10-17 10:07 | PROVIDER PROGRESS NOTE ---
Progress Note Dr. Pascal Progress Note/Pulmonary and or critical care We appreciated progress of care, Complications, change in diagnosis, and instructions to patient. Subjective: We note the level of consciousness, bed (chair) position, family presence (if any), level of lethargy, feeling of symptoms, and changes from baseline condition/symptom. The patient is lying in bed on NC 5L with no acute distress noted. She is asking for drink and RN will give her ice chip soon. She does have occasional produc tive cough, but no chest pain/congestion/pressure/tightness. She appears more alert than yesterday. Objective: Vital Signs: We reviewed EMR current values for Pulse rate, Blood pressure, Pulse rate, respiratory rate and Pulse oximetry. Also noted other values and trends if present (e.g. I/O, CVP). T 98.3 (no fever in last 24 hours), VA 83, RR 15, BP 167/96 and SaO2 99% on NC 5L. I/O 220 ml Physical Examination: General: Morbidly obese. Lying in bed with no acute distress noted. HEENT: Normocephalic. Trachea midline. Chest: Even and unlabored with very shallow breathing. Symmetrical excursion. Diminished breathing sounds bilaterally with left worse than right. Mild inspiratory crackles bilaterally. CVS: Regular rate and rhythm with murmur noted. Abdomen: Soft. Obese. Edema. Normoactive bowel sounds in all 4 quadrants noted. Extremities: BLE and BUE pitting edema 1+. No cyanosis. No clubbing. Pitting nails. Neuro: Awake and alert x3. Speech fluent with hoarse voice. Following simple commands. Labs and Radiology: Reviewed available labs and radiology values available at time of EMR review. Laboratory Results 10/16/19 10/16/19 10/16/19 05:30 10:35 16:23 WBC RBC Hgb Hct MCV MCH MCHC RDW Std Deviation Plt Count MPV Immature Gran % (Auto) Neut % (Auto) Lymph % (Auto) [place] % (Auto) Eos % (Auto) Baso % (Auto) Immature Gran # (Auto) Neut # (Auto) Lymph # (Auto) [place] # (Auto) Eos # (Auto) Baso # (Auto) Specimen Type Sample Site pH pCO2 pO2 HCO3 Base Excess Oxyhemoglobin ABG O2 Sat (Calculated) ABG O2 Saturation ABG Carboxyhemoglobin ABG Methemoglobin Luther Test YES A-a O2 Difference Total Hemoglobin Lactate Blood Gas Modality Vent Mode FiO2 % Inspiratory BiPAP Expiratory BiPAP Sodium Potassium Chloride Carbon Dioxide Anion Gap BUN Creatinine Estimated GFR/1.73 m2 BUN/Creatinine Ratio Glucose POC Glucose 74 61 L Calculated Osmolality Calcium 10/16/19 10/16/19 10/16/19 16:33 17:31 20:16 WBC RBC Hgb Hct MCV MCH MCHC RDW Std Deviation Plt Count MPV Immature Gran % (Auto) Neut % (Auto) Lymph % (Auto) [place] % (Auto) Eos % (Auto) Baso % (Auto) Immature Gran # (Auto) Neut # (Auto) Lymph # (Auto) [place] # (Auto) Eos # (Auto) Baso # (Auto) Specimen Type Sample Site pH pCO2 pO2 HCO3 Base Excess Oxyhemoglobin ABG O2 Sat (Calculated) ABG O2 Saturation ABG Carboxyhemoglobin ABG Methemoglobin Luther Test A-a O2 Difference Total Hemoglobin Lactate Blood Gas Modality Vent Mode FiO2 % Inspiratory BiPAP Expiratory BiPAP Sodium Potassium Chloride Carbon Dioxide Anion Gap BUN Creatinine Estimated GFR/1.73 m2 BUN/Creatinine Ratio Glucose POC Glucose 74 71 72 Calculated Osmolality Calcium 10/17/19 10/17/19 10/17/19 02:15 02:15 04:38 WBC 14.54 H RBC 4.71 Hgb 13.3 Hct 44.9 MCV 95.3 MCH 28.2 MCHC 29.6 L RDW Std Deviation 16.0 H Plt Count 154 MPV 11.5 H Immature Gran % (Auto) 1.2 H Neut % (Auto) 87.1 H Lymph % (Auto) 5.9 L [place] % (Auto) 5.6 Eos % (Auto) 0.1 Baso % (Auto) 0.1 Immature Gran # (Auto) 0.17 H Neut # (Auto) 12.67 H Lymph # (Auto) 0.86 L [place] # (Auto) 0.82 H Eos # (Auto) 0.01 Baso # (Auto) 0.01 Specimen Type ARTERIAL Sample Site L RADIAL pH 7.30 L pCO2 66 H* pO2 69 HCO3 27.9 H Base Excess 4.0 H Oxyhemoglobin 91.6 L ABG O2 Sat (Calculated) 17.9 ABG O2 Saturation 94.4 L ABG Carboxyhemoglobin 2.20 ABG Methemoglobin 0.8 Luther Test YES A-a O2 Difference 62.0 Total Hemoglobin 13.9 Lactate 1.00 Blood Gas Modality BI PAP Vent Mode BIPAP FiO2 % 30.0 Inspiratory BiPAP 22.0 Expiratory BiPAP 8.0 Sodium 144 Potassium 4.1 Chloride 104 Carbon Dioxide 28 Anion Gap 12 BUN 35 H Creatinine 1.0 H Estimated GFR/1.73 m2 57 BUN/Creatinine Ratio 35 Glucose 77 POC Glucose Calculated Osmolality 294 Calcium 9.4 10/17/19 10/17/19 05:27 06:18 WBC RBC Hgb Hct MCV MCH MCHC RDW Std Deviation Plt Count MPV Immature Gran % (Auto) Neut % (Auto) Lymph % (Auto) [place] % (Auto) Eos % (Auto) Baso % (Auto) Immature Gran # (Auto) Neut # (Auto) Lymph # (Auto) [place] # (Auto) Eos # (Auto) Baso # (Auto) Specimen Type Sample Site pH pCO2 pO2 HCO3 Base Excess Oxyhemoglobin ABG O2 Sat (Calculated) ABG O2 Saturation ABG Carboxyhemoglobin ABG Methemoglobin Luther Test A-a O2 Difference Total Hemoglobin Lactate Blood Gas Modality Vent Mode FiO2 % Inspiratory BiPAP Expiratory BiPAP Sodium Potassium Chloride Carbon Dioxide Anion Gap BUN Creatinine Estimated GFR/1.73 m2 BUN/Creatinine Ratio Glucose POC Glucose 70 73 Calculated Osmolality Calcium Assessment: Acute respiratory failure, hypercapnic and hypoxemic. Intubated on 10/09/19, extubated on 10/15/19. Improving. Dense bilateral infiltrates with LLL atelectasis and moderate-sized left pleural effusion. CHF exacerbation with cardiomegaly, pulmonary edema and proBNP elevation (worsening). COPD exacerbation with ongoing tobacco use Morbid obesity with Pickwickian syndrome and DEEPAK. Hypothyroidism. Prognosis is guarded. Plan: Continue current treatment and supportive care per admitting and other teams on the case. Start HFNC. BiPAP QHS and PRN. Antibiotics, including cefepime and vancomycin. Bronchodilators. IV steroid. Tobacco cessation education when appropriate. Appropriate DVT and GI prophylaxis Discuss patients condition and care plan with family at the bedside and all questions have been answered. Input was appreciated from Admitting MD and other teams on the case. Evaluation time in minutes: 33 minutes.
[2019-10-17 14:29] LABS: LYMPHS 3 % (21-51); MONO 2 % (1-9); SEGS 95 % (42-75)
[2019-10-17] MEDS: VANCOMYCIN 1,700 MG in NS 250 ML IV SCH (16:07)
[2019-10-17] MEDS ORDERED: D50W SYRINGE IV ONE (16:16)
[2019-10-17] MEDS ORDERED: D50W SYRINGE ONE (16:23)
[2019-10-18] MEDS: MAXIPIME 1 GM in NS 50 ML IV SCH ×2 (00:09→12:41)
[2019-10-18] MEDS: DUONEB (A & A) INH SCH ×6 (03:15→23:24)
[2019-10-18] MEDS ORDERED: LABETALOL IV ONE (04:07)
[2019-10-18] MEDS: SOLU-MEDROL IV SCH ×2 (04:30→16:07)
[2019-10-18 04:42] LABS: ALLEN TEST YES; BE 8.2 mmoll (-3.0-3.0); BLOOD TYPE ARTERIAL; HCO3-(ACT) 31.3 mmoll (20.0-26.0); METHB 0.8 % (0.0-1.5); O2(CT) 18.4 mL/dL (15.0-23.0); PO2(98.6) 88 mmHg (60-100); SAMPLE BLOOD; SAO2 97.8 % (95.0-100.0); THB 13.7 g/dL (11.5-17.4); pH(98.6) 7.32 (7.35-7.45)
[2019-10-18 05:38] LABS: MODALITY BI PAP; PCO2(98.6) 72 mmHg (35-45)
[2019-10-18 06:10] LABS: BASO# 0.01 X1000 (0.0-0.2); BASO% 0.1 % (0.0-0.8); EOS% 0.7 % (0.0-10.0); HEMATOCRIT 45.4 % (37.0-47.0); HEMOGLOBIN 13.4 g/dL (12.0-16.0); IMM GRAN# 0.12 X1000 (0.0-0.04); IMM GRAN% 0.8 % (0.0-0.5); LYMPH# 2.12 X1000 (1.2-3.4); LYMPH% 13.8 % (20.5-51.1); MCH 28.2 PG (27-31); MCHC 29.5 g/dL (33-37); MCV 95.6 FL (81-99); MONO# 1.55 X1000 (0.11-0.59); MONO% 10.1 % (1.7-9.3); MPV 11.3 FL (7.4-10.4); NEUT# 11.42 X1000 (1.4-6.5); NEUT% 74.5 % (42.2-75.2); PLT 154 X1000 (130-400); RBC 4.75 XMIL (4.2-5.4); RDW 15.8 % (11.5-14.5); WBC 15.32 X1000 (4.8-10.8)
[2019-10-18] MEDS: SYNTHROID IV SCH (06:14)
--- NOTE | 2019-10-18 06:44 | Diag Imaging Result Doc PS360 ---
CHEST-1 VIEW - 10/18/2019 INDICATION: SOB COMPARISON: 10/17/2019 FINDINGS: Stable left PICC line in good position. Stable cardiomegaly. Stable diffuse bilateral interstitial infiltrates compatible with pulmonary edema. Stable bibasilar opacifications compatible with any combination of consolidation, atelectasis, or effusion. IMPRESSION: No change from prior. Electronically signed by Bereket Arzola 10/18/2019 6:41 AM
[2019-10-18 07:41] LABS: CALCIUM 9.7 mg/dL (8.8-10.2)
[2019-10-18] MEDS: PULMICORT INH SCH ×2 (08:15→19:42)
[2019-10-18] MEDS: LOPRESSOR PO SCH ×2 (08:33→20:01)
[2019-10-18] MEDS: ASPIRIN PO SCH (08:33)
[2019-10-18] MEDS: VITAMIN D PO SCH (08:33)
[2019-10-18] MEDS: PRINIVIL PO SCH (08:33)
[2019-10-18] MEDS: LABETALOL IV PRN (09:29)
[2019-10-18] MEDS: LOVENOX SUBQ SCH (09:30)
--- NOTE | 2019-10-18 09:49 | PROGRESS NOTE ---
DATE: 10/18/2019 INTERVAL HISTORY: Ms. Bryant intermittently tolerated high-flow nasal cannula well yesterday and she was put back on BiPAP at nighttime. In the morning time when I saw her, she is on high-flow nasal cannula 40% at 4 L. She does not appear to be in any distress though she does have difficulty completing her sentences. Nursing team is at bedside. The patient is hungry. She denies any chest discomfort. She gets short of breath on physical exertion like moving inside the bed. Otherwise, her vitals were okay. She was negative 3.4 liters. VITALS: Temperature of 97.6 degrees, pulse 83, respiratory 16, blood pressure 200/70. She is saturating 93% on high-flow nasal cannula. PHYSICAL EXAMINATION: Morbidly obese. Oral cavity is moist. She has diminished air entry bilateral lung caballero. Mild end-expiratory wheezes. No rhonchi or crackles. S1, S2 normal. No murmur or gallop. Abdomen is obese, soft, nontender. Mild bilateral lower extremity edema. She had 3.4 L of urine yesterday. LABS: WBC of 15,000, hemoglobin 13.4, platelet 154,000. pH of 7.32, pCO2 of 72, PO2 of 88 on 40% BiPAP. BUN of 33, creatinine of 1. Microbiology: Sputum culture did not show any growth. IMAGING: Chest x-ray performed, has no change from prior chest x-ray. ASSESSMENT AND PLAN: 1. Acute hypoxic hypercapnic respiratory failure on chronic hypoxic hypercapnic respiratory failure with history of morbid obesity, chronic obstructive pulmonary disease and obstructive sleep apnea. Continue to cycle BiPAP and high-flow nasal cannula as tolerated. Goal SpO2 would be around 90%. Appreciate Pulmonology recommendations. We will follow up with chest x- ray and ABGs as needed. 2. Acute chronic obstructive pulmonary disease exacerbation. Continue inhaled bronchodilators, intravenous steroids, intravenous vancomycin and cefepime. Culture data has been negative so far. 3. Non-ST elevation myocardial infarction (NSTEMI) with troponins in excess of 200 on presentation. EKG had sinus rhythm with frequent premature ventricular contractions and nonspecific T-wave abnormalities in inferior leads. Echocardiogram was unremarkable for any regional wall motion abnormality. Cardiology team recommends conservative management with aspirin, atorvastatin, lisinopril, metoprolol. I will consider starting her on deep venous thrombosis prophylaxis. 4. Other. Continue vitamin D3 for supplementation, levothyroxine for history of hypothyroidism. DISPOSITION: I will continue to monitor patient inside the ICU for another 24 hours and would consider transferring her to [facility] in next 24 hours. Plan of care discussed with the patient. I am awaiting swallow evaluation. Based on that, I will start her on diet. All of the patient's questions have been answered. cc: Jose Clemens MD
--- NOTE | 2019-10-18 14:45 | PROGRESS NOTE ---
DATE: 10/18/2019 SUBJECTIVE: Patient continues without chest discomfort on high-flow nasal cannula oxygen. She still has some breathlessness. OBJECTIVE: Vital Signs: Blood pressure 148/83, heart rate 80, oxygen saturation 97%. Neck: There is no significant jugular venous distention. Chest: Auscultation of the chest reveals a few scattered expiratory wheezes. Cardiac: Reveals a regular rate and rhythm with a soft systolic murmur at the right upper sternal border. No gallop could be appreciated. Extremities: Without edema. LABORATORY DATA: Includes white blood cell count of 15.32, hematocrit 45.4, hemoglobin 13.4, platelet count 154,000. Sodium 146, potassium 4.0, chloride 103, carbon dioxide 28, BUN 33, creatinine 1.0, glucose 67. IMPRESSION: 1. Very small non-ST elevation myocardial infarction as a secondary event related to intense stress of hypercapnic respiratory failure in the setting of severe chronic obstructive pulmonary disease and chronic kidney disease. Echocardiography reports normal left ventricular systolic function. 2. Hypercapnic respiratory failure secondary to severe chronic obstructive pulmonary disease. 3. Atherosclerotic coronary disease. 4. Obesity. 5. Hypertension. 6. Hyperlipidemia. 7. Type 2 diabetes mellitus. 8. Obesity. 9. Chronic kidney disease. 10. Hypothyroidism. RECOMMENDATIONS: 1. Continue medical management of patient's coronary atherosclerosis in this setting, particularly in light of patient's present situation with recent respiratory failure and severe COPD exacerbation. 2. Smoking cessation strongly advised. 3. I will see patient further on an inpatient basis on an as-needed basis. cc: Huy Thomas MD
--- NOTE | 2019-10-18 16:52 | PROVIDER PROGRESS NOTE ---
Progress Note Dr. Pascal Progress Note/Pulmonary and or critical care We appreciated progress of care, Complications, change in diagnosis, and instructions to patient. Subjective: We note the level of consciousness, bed (chair) position, family presence (if any), level of lethargy, feeling of symptoms, and changes from baseline condition/symptom. The patient is lying in bed on NC high flow O2 with no acute distress noted. She does have occasional productive cough, but no chest pain/congestion/pressure/ tightness. She appears alert today. Objective: Vital Signs: We reviewed EMR current values for Pulse rate, Blood pressure, Pulse rate, respiratory rate and Pulse oximetry. Also noted other values and trends if present (e.g. I/O, CVP). T 98.2 (no fever in last 24 hours), [place] 76, RR 18, BP 148/83 and SaO2 97% on high flow O2@40% Physical Examination: General: Morbidly obese. Lying in bed with no acute distress noted. HEENT: Normocephalic. Trachea midline. Chest: Even and unlabored with very shallow breathing. Symmetrical excursion. Diminished breathing sounds bilaterally with left worse than right. Mild inspiratory crackles bilaterally. CVS: Regular rate and rhythm with murmur noted. Abdomen: Soft. Obese. Edema. Normoactive bowel sounds in all 4 quadrants noted. Extremities: BLE and BUE pitting edema 1+. No cyanosis. No clubbing. Pitting nails. Neuro: Awake and alert x3. Speech fluent with hoarse voice. Following simple commands. Labs and Radiology: Reviewed available labs and radiology values available at time of EMR review. Laboratory Results 10/17/19 10/18/19 10/18/19 20:39 04:31 06:00 WBC RBC Hgb Hct MCV MCH MCHC RDW Std Deviation Plt Count MPV Immature Gran % (Auto) Neut % (Auto) Lymph % (Auto) Barber % (Auto) Eos % (Auto) Baso % (Auto) Immature Gran # (Auto) Neut # (Auto) Lymph # (Auto) Barber # (Auto) Eos # (Auto) Baso # (Auto) Specimen Type ARTERIAL Sample Site R RADIAL pH 7.32 L pCO2 72 H* pO2 88 HCO3 31.3 H Base Excess 8.2 H Oxyhemoglobin 95.0 ABG O2 Sat (Calculated) 18.4 ABG O2 Saturation 97.8 ABG Carboxyhemoglobin 2.20 ABG Methemoglobin 0.8 Luther Test YES A-a O2 Difference 107.0 Total Hemoglobin 13.7 Lactate 0.90 Blood Gas Modality BI PAP Vent Mode BIPAP FiO2 % 40.0 Inspiratory BiPAP 14.0 Expiratory BiPAP 6.0 Sodium 146 H Potassium 4.0 Chloride 103 Carbon Dioxide 28 Anion Gap 15 BUN 33 H Creatinine 1.0 H Estimated GFR/1.73 m2 57 BUN/Creatinine Ratio 33 Glucose 67 L POC Glucose 82 Calculated Osmolality 296 Calcium 9.7 10/18/19 10/18/19 10/18/19 06:00 06:05 10:56 WBC 15.32 H RBC 4.75 Hgb 13.4 Hct 45.4 MCV 95.6 MCH 28.2 MCHC 29.5 L RDW Std Deviation 15.8 H Plt Count 154 MPV 11.3 H Immature Gran % (Auto) 0.8 H Neut % (Auto) 74.5 Lymph % (Auto) 13.8 L Barber % (Auto) 10.1 H Eos % (Auto) 0.7 Baso % (Auto) 0.1 Immature Gran # (Auto) 0.12 H Neut # (Auto) 11.42 H Lymph # (Auto) 2.12 Barber # (Auto) 1.55 H Eos # (Auto) 0.10 Baso # (Auto) 0.01 Specimen Type Sample Site pH pCO2 pO2 HCO3 Base Excess Oxyhemoglobin ABG O2 Sat (Calculated) ABG O2 Saturation ABG Carboxyhemoglobin ABG Methemoglobin Luther Test A-a O2 Difference Total Hemoglobin Lactate Blood Gas Modality Vent Mode FiO2 % Inspiratory BiPAP Expiratory BiPAP Sodium Potassium Chloride Carbon Dioxide Anion Gap BUN Creatinine Estimated GFR/1.73 m2 BUN/Creatinine Ratio Glucose POC Glucose 80 107 H Calculated Osmolality Calcium Assessment: Acute respiratory failure, hypercapnic and hypoxemic. Intubated on 10/09/19, extubated on 10/15/19. Improving. Dense bilateral infiltrates with LLL atelectasis and moderate-sized left pleural effusion. CHF exacerbation with cardiomegaly, pulmonary edema and proBNP elevation (worsening). COPD exacerbation with ongoing tobacco use Morbid obesity with Pickwickian syndrome and DEEPAK. Hypothyroidism. Prognosis is guarded. Plan: Continue current treatment and supportive care per admitting and other teams on the case. We titrated HFNC and BiPAP to patients needs per clinical protocols. Antibiotics, including cefepime and vancomycin. Bronchodilators. IV steroid. Tobacco cessation education when appropriate. Appropriate DVT and GI prophylaxis Discuss patients condition and care plan with patient and caring RN and all questions have been answered. Input was appreciated from Admitting MD and other teams on the case. Evaluation time in minutes: 35 minutes.
[2019-10-18] MEDS: LIPITOR PO SCH (20:01)
[2019-10-19] MEDS: MAXIPIME 1 GM in NS 50 ML IV SCH ×2 (00:02→12:25)
[2019-10-19] MEDS: MORPHINE IV PRN (00:03)
[2019-10-19] MEDS: HALDOL IV PRN ×2 (00:15→08:56)
[2019-10-19] MEDS: SOLU-MEDROL IV SCH ×2 (03:21→15:39)
[2019-10-19] MEDS: DUONEB (A & A) INH SCH ×6 (03:48→23:32)
[2019-10-19 04:59] LABS: ALLEN TEST YES; BE 8.6 mmoll (-3.0-3.0); BLOOD TYPE ARTERIAL; HCO3-(ACT) 31.6 mmoll (20.0-26.0); METHB 1.3 % (0.0-1.5); O2(CT) 18.3 mL/dL (15.0-23.0); O2HB 95.7 % (95.0-99.0); PCO2(98.6) 49 mmHg (35-45); PO2(98.6) 138 mmHg (60-100); SAMPLE BLOOD; SAO2 99.3 % (95.0-100.0); THB 13.4 g/dL (11.5-17.4); pH(98.6) 7.45 (7.35-7.45)
[2019-10-19 05:00] LABS: MODALITY HIGH FLOW NASAL CAN
[2019-10-19 05:20] LABS: CALCIUM 9.3 mg/dL (8.8-10.2); CREATININE 1.1 mg/dL (0.5-0.9); MAGNESIUM 1.5 mg/dL (1.5-2.7)
[2019-10-19] MEDS: SYNTHROID IV SCH (06:17)
[2019-10-19] MEDS: SODIUM CHLORIDE 0.9% INJ PRN (06:17)
--- NOTE | 2019-10-19 06:48 | Diag Imaging Result Doc PS360 ---
CHEST-1 VIEW - 10/19/2019 INDICATION: SOB COMPARISON: 10/18/2019 FINDINGS: Stable left PICC line in good position. Stable cardiomegaly. Stable diffuse central infiltrates compatible with pulmonary edema. Stable moderate opacification of the left lung base likely a pleural effusion. No large effusion on the right side. IMPRESSION: No change from prior. Electronically signed by Bereket Arzola 10/19/2019 6:46 AM
[2019-10-19] MEDS: PULMICORT INH SCH ×2 (07:35→19:53)
[2019-10-19] MEDS: LABETALOL IV PRN (07:39)
[2019-10-19] MEDS ORDERED: LASIX IV ONE (07:42)
[2019-10-19] MEDS: VITAMIN D PO SCH (08:56)
[2019-10-19] MEDS: NORVASC PO SCH (08:56)
[2019-10-19] MEDS: PRINIVIL PO SCH (08:56)
[2019-10-19] MEDS: LOPRESSOR PO SCH ×2 (08:56→20:38)
[2019-10-19] MEDS: ASPIRIN PO SCH (08:56)
[2019-10-19] MEDS: LOVENOX SUBQ SCH ×2 (09:02→09:04)
--- NOTE | 2019-10-19 14:35 | PROVIDER PROGRESS NOTE ---
Progress Note Dr. Pascal Progress Note/Pulmonary and or critical care We appreciated progress of care, Complications, change in diagnosis, and instructions to patient. Subjective: We note the level of consciousness, bed (chair) position, family presence (if any), level of lethargy, feeling of symptoms, and changes from baseline condition/symptom. The patient is lying in bed on NC high flow O2 with no acute distress noted. She does have occasional productive cough, but no chest pain/congestion/pressure/ tightness. She appears alert today. Objective: Vital Signs: We reviewed EMR current values for Pulse rate, Blood pressure, Pulse rate, respiratory rate and Pulse oximetry. Also noted other values and trends if present (e.g. I/O, CVP). T 98.3 (no fever in last 24 hours), [place] 67 , RR 8 , BP 100/44 and SaO2 95 % on high flow O2@40% Physical Examination: General: Morbidly obese. Lying in bed with no acute distress noted. HEENT: Normocephalic. Trachea midline. Chest: Even and unlabored with very shallow breathing. Symmetrical excursion. Diminished breathing sounds bilaterally with left worse than right. Mild inspiratory crackles bilaterally. CVS: Regular rate and rhythm with murmur noted. Abdomen: Soft. Obese. Edema. Normoactive bowel sounds in all 4 quadrants noted. Extremities: BLE and BUE pitting edema 1+. No cyanosis. No clubbing. Pitting nails. Neuro: Awake and alert x3. Speech fluent with hoarse voice. Following simple commands. Management, face to face evaluation by Dr. Pascal. AAN did scribing only. Labs and Radiology: Reviewed available labs and radiology values available at time of EMR review. Laboratory Results 10/18/19 10/18/19 10/19/19 16:26 19:50 04:30 Specimen Type Sample Site pH pCO2 pO2 HCO3 Base Excess Oxyhemoglobin ABG O2 Sat (Calculated) ABG O2 Saturation ABG Carboxyhemoglobin ABG Methemoglobin Luther Test A-a O2 Difference Total Hemoglobin Lactate Liter Flow Blood Gas Modality FiO2 % Sodium 142 Potassium 4.0 Chloride 101 Carbon Dioxide 32 Anion Gap 9 BUN 34 H Creatinine 1.1 H Estimated GFR/1.73 m2 51 BUN/Creatinine Ratio 31 Glucose 147 H D POC Glucose 122 H 161 H Calculated Osmolality 293 Calcium 9.3 Magnesium 1.5 10/19/19 10/19/19 04:48 10:22 Specimen Type ARTERIAL Sample Site R RADIAL pH 7.45 pCO2 49 H pO2 138 H HCO3 31.6 H Base Excess 8.6 H Oxyhemoglobin 95.7 ABG O2 Sat (Calculated) 18.3 ABG O2 Saturation 99.3 ABG Carboxyhemoglobin 2.30 ABG Methemoglobin 1.3 Luther Test YES A-a O2 Difference 86.0 Total Hemoglobin 13.4 Lactate 1.40 Liter Flow 40.0 Blood Gas Modality HIGH FLOW NASAL CAN FiO2 % 40.0 Sodium Potassium Chloride Carbon Dioxide Anion Gap BUN Creatinine Estimated GFR/1.73 m2 BUN/Creatinine Ratio Glucose POC Glucose 146 H Calculated Osmolality Calcium Magnesium Assessment: Acute respiratory failure, hypercapnic and hypoxemic. Intubated on 10/09/19, extubated on 10/15/19. Improving. Dense bilateral infiltrates with LLL atelectasis and moderate-sized left pleural effusion. CHF exacerbation with cardiomegaly, pulmonary edema and proBNP elevation (worsening). COPD exacerbation with ongoing tobacco use Morbid obesity with Pickwickian syndrome and DEEPAK. Hypothyroidism. Prognosis is guarded. Plan: Continue current treatment and supportive care per admitting and other teams on the case. Arranged with social work msw for [facility] for management of DEEPAK. We titrated HFNC and BiPAP to patients needs per clinical protocols. Antibiotics, including cefepime and vancomycin. Bronchodilators. IV steroid. Tobacco cessation education when appropriate. Appropriate DVT and GI prophylaxis Discuss patients condition and care plan with patient and caring RN and all questions have been answered. Input was appreciated from Admitting MD and other teams on the case. Evaluation time in minutes: 36 minutes.
[2019-10-19] MEDS: HUMALOG SUBQ SCH ×2 (15:59→20:38)
--- NOTE | 2019-10-19 17:23 | Diag Imaging Result Doc PS360 ---
EXAM: CT HEAD W/O CONTRAST 10/19/2019 HISTORY: different pupil sizes TECHNIQUE: This exam was performed using automated exposure control, adjustment of mA or kV according to patient size, and/or use of iterative reconstruction technique. COMMENT: There are no previous studies available for comparison. There is dense calcification in the globus pallidus bilaterally. There are also calcifications in the cerebellar hemispheres bilaterally. There is some ill-defined lucency in the subcortical white matter of the left frontal lobe. There is no evidence of mass effect, bleed, or abnormal extra-axial fluid collection. The there is opacification of the right sphenoid sinus, otherwise the visualized paranasal sinuses are clear. The calvarium is intact. IMPRESSION: No evidence of acute intracranial disease. Mild chronic microvascular changes. Sphenoid sinusitis. Electronically signed by Andre Barnes 10/19/2019 5:21 PM
[2019-10-19] MEDS: VANCOMYCIN 1,700 MG in NS 250 ML IV SCH (17:31)
--- NOTE | 2019-10-19 19:00 | PROGRESS NOTE ---
DATE: 10/19/2019 INTERVAL HISTORY: The patient remains confused but largely cooperative. Oxygenation improving. Remains on oxygen via high-flow nasal cannula currently. No acute events overnight. No new complaints. REVIEW OF SYSTEMS: Twelve point review of systems negative except as per interval history. LABS: ABG with pH 7.45, pCO2 is 49, PO2 138 on 40% FiO2. Sodium 142, potassium 4, BUN 34, creatinine 1.1, glucose 147. IMAGING: Chest x-ray with essentially no change from prior, still with fairly diffuse infiltrates most consistent with edema. DISCHARGE VITALS: T-max 98.7 degrees, pulse 69, respirations 16, blood pressure 118/55 O2 saturation 93% on 4 L by nasal cannula. PHYSICAL EXAMINATION: General: No acute distress. Obese. Vitals: As above. HEENT: Normocephalic, atraumatic. High-flow nasal cannula in place. Cardiovascular: Regular rate and rhythm. Pulmonary: Scattered rhonchi. Minimal expiratory wheezing. Reasonable air entry. Abdomen: Soft, nontender, nondistended. Bowel sounds positive. Extremities: Peripheral pulses intact. Trace edema bilaterally. Neurologic: Cranial nerves grossly intact. Mild global weakness but no focal deficits identified. Psychiatric: Awake, alert, cooperative and most responses appropriate but clearly little bit confused still. ASSESSMENT AND PLAN: 1. Acute on chronic hypoxic and hypercapnic respiratory failure. Multifactorial as below. ABG with significantly improved hypercapnia and some improvement in oxygen requirements as well. Weaning will try to wean off high-flow nasal cannula. If we can, then may be able to be moved out of ICU. We will see how she does. 2. Chronic obstructive pulmonary disease with likely exacerbation. Wheezing is pretty minimal and air entry is fair, so it is likely not her primary problem, but it is definitely contributing. Continue steroids and nebulizers. 3. CO2 retention markedly improved on ABG this morning. Continue to monitor. 4. Likely acute on chronic diastolic congestive heart failure and pulmonary hypertension. We will go ahead and give an additional dose of Lasix today. Still with some fluid on her chest x-ray. Likely contributing strongly to her respiratory issues. Monitor closely. 5. Elevated troponin, demand ischemia/type 2 myocardial infarction. Almost certainly related to respiratory issues rather than primary cardiac issues. Cardiology on board and recommending medical management. 6. Tobacco abuse. Patient has been counseled on cessation. 7. Morbid obesity. Patient has been counseled on diet and exercise. 8. Hypertension. Blood pressure essentially normal on Norvasc and lisinopril. 9. Hyperlipidemia. We will restart home atorvastatin. 10. History of diabetes. Blood sugars have been actually quite well controlled thus far despite steroid administration. Holding home glipizide. Patient starting to eat a little more so will put some low-dose sliding scale insulin on board. 11. Hypothyroidism. Continue Synthroid. 12. CKD 3. Creatinine stable.
[2019-10-19] MEDS: LIPITOR PO SCH (20:38)
[2019-10-20] MEDS: MAXIPIME 1 GM in NS 50 ML IV SCH ×2 (02:29→13:23)
[2019-10-20] MEDS: DUONEB (A & A) INH SCH ×6 (03:42→23:40)
[2019-10-20] MEDS: SOLU-MEDROL IV SCH ×3 (04:30→20:37)
[2019-10-20 04:37] LABS: ALLEN TEST YES; BE 9.3 mmoll (-3.0-3.0); BLOOD TYPE ARTERIAL; HCO3-(ACT) 32.1 mmoll (20.0-26.0); METHB 0.9 % (0.0-1.5); O2HB 95.9 % (95.0-99.0); PO2(98.6) 155 mmHg (60-100); SAMPLE BLOOD; SAO2 99.1 % (95.0-100.0); THB 13.9 g/dL (11.5-17.4); pH(98.6) 7.22 (7.35-7.45)
[2019-10-20 04:39] LABS: MODALITY CANNULA
[2019-10-20 04:40] LABS: PCO2(98.6) 101 mmHg (35-45)
--- NOTE | 2019-10-20 05:54 | Diag Imaging Result Doc PS360 ---
EXAM: CHEST-1 VIEW HISTORY: SOB TECHNIQUE: Single view COMPARISON: 10/19/2019 FINDINGS: No change in the left-sided PICC line. The heart is enlarged. There is vascular distention and infiltrates in the mid and lower lungs similar to the prior study. There are [id number] sized bilateral pleural effusions. IMPRESSION: No interval improvement Electronically signed by Darwin Clifford 10/20/2019 5:52 AM
[2019-10-20] MEDS: HUMALOG SUBQ SCH ×4 (06:26→20:37)
[2019-10-20] MEDS: SYNTHROID IV SCH (06:33)
[2019-10-20 07:28] LABS: ALB/GLOB RATIO 1.2; ALBUMIN 2.8 g/dL (3.5-5.0); CALCIUM 9.3 mg/dL (8.8-10.2); CREATININE 1.2 mg/dL (0.5-0.9); POTASSIUM 4.6 mmol/L (3.5-5.1); TOTAL BILIRUBIN 0.28 mg/dL (0.20-1.00); TOTAL PROTEIN 5.1 g/dL (6.3-8.3)
[2019-10-20 08:18] LABS: HEMATOCRIT 45.8 % (37.0-47.0); HEMOGLOBIN 13.3 g/dL (12.0-16.0); MCH 28.5 PG (27-31); MCV 98.3 FL (81-99); MPV 11.9 FL (7.4-10.4); RBC 4.66 XMIL (4.2-5.4); RDW 15.7 % (11.5-14.5); WBC 12.31 X1000 (4.8-10.8)
[2019-10-20] MEDS: PULMICORT INH SCH ×2 (08:23→19:49)
[2019-10-20 09:00] LABS: HEMOGLOBIN A1C 5.9 % (4.8-6.0)
[2019-10-20] MEDS: NORVASC PO SCH (09:21)
[2019-10-20] MEDS: LOPRESSOR PO SCH ×2 (09:21→20:37)
[2019-10-20] MEDS: ASPIRIN PO SCH (09:21)
[2019-10-20] MEDS: VITAMIN D PO SCH (09:21)
[2019-10-20] MEDS: LOVENOX SUBQ SCH ×2 (09:22→09:28)
[2019-10-20 10:04] LABS: ALLEN TEST YES; BLOOD TYPE ARTERIAL; HCO3-(ACT) 32.5 mmoll (20.0-26.0); METHB 1.1 % (0.0-1.5); O2(CT) 18.2 mL/dL (15.0-23.0); PO2(98.6) 54 mmHg (60-100); SAMPLE BLOOD; SAO2 93.1 % (95.0-100.0); THB 14.5 g/dL (11.5-17.4); pH(98.6) 7.37 (7.35-7.45)
[2019-10-20 10:11] LABS: PCO2(98.6) 66 mmHg (35-45)
[2019-10-20 10:12] LABS: MODALITY BI PAP; O2HB 89.7 % (95.0-99.0)
--- NOTE | 2019-10-20 16:23 | PROVIDER PROGRESS NOTE ---
Progress Note Progress Note Dr. Pascal Progress Note/Pulmonary and or critical care We appreciated progress of care, Complications, change in diagnosis, and instructions to patient. Subjective: We note the level of consciousness, bed (chair) position, family presence (if any), level of lethargy, feeling of symptoms, and changes from baseline condition/symptom. The patient is lying in bed on bipap therapy with no acute distress noted. She does have occasional productive cough, but no chest pain/congestion/pressure/tightness. She appears alert today. Objective: Vital Signs: We reviewed EMR current values for Pulse rate, Blood pressure, Pulse rate, respiratory rate and Pulse oximetry. Also noted other values and trends if present (e.g. I/O, CVP). T 98.3 (no fever in last 24 hours), [place] 94 , RR 25 , BP 139/77 and SaO2 95 % on BIPAP. Physical Examination: General: Morbidly obese. Lying in bed with no acute distress noted. HEENT: Normocephalic. Trachea midline. Chest: Even and unlabored with very shallow breathing. Symmetrical excursion. Diminished breathing sounds bilaterally with left worse than right. Mild inspiratory crackles bilaterally. CVS: Regular rate and rhythm with murmur noted. Abdomen: Soft. Obese. Edema. Normoactive bowel sounds in all 4 quadrants noted. Extremities: BLE and BUE pitting edema 1+. No cyanosis. No clubbing. Pitting nails. Neuro: Awake and alert x3. Speech fluent with hoarse voice. Following simple commands. Management, face to face evaluation by Dr. Pascal. ANA Cristina did scribing only. Labs and Radiology: Reviewed available labs and radiology values available at time of EMR review. Laboratory Results 10/19/19 10/20/19 10/20/19 20:30 04:20 04:20 WBC RBC Hgb Hct MCV MCH MCHC RDW Std Deviation Plt Count MPV Specimen Type ARTERIAL Sample Site R RADIAL pH 7.22 L pCO2 101 H* pO2 155 H HCO3 32.1 H Base Excess 9.3 H Oxyhemoglobin 95.9 ABG O2 Sat (Calculated) 19.0 ABG O2 Saturation 99.1 ABG Carboxyhemoglobin 2.30 ABG Methemoglobin 0.9 Luther Test YES A-a O2 Difference 4.0 Total Hemoglobin 13.9 Lactate 0.50 Liter Flow 5.0 Blood Gas Modality CANNULA FiO2 % 40.0 Inspiratory BiPAP Expiratory BiPAP Sodium Potassium Chloride Carbon Dioxide Anion Gap BUN Creatinine Estimated GFR/1.73 m2 BUN/Creatinine Ratio Glucose POC Glucose 118 H Estimat Average Glucose 123 Hemoglobin A1c 5.9 Calculated Osmolality Calcium Total Bilirubin AST ALT Alkaline Phosphatase Total Protein Albumin Globulin Albumin/Globulin Ratio 10/20/19 10/20/19 10/20/19 04:36 04:36 05:57 WBC 12.31 H RBC 4.66 Hgb 13.3 Hct 45.8 MCV 98.3 MCH 28.5 MCHC 29.0 L RDW Std Deviation 15.7 H Plt Count 107 L D MPV 11.9 H Specimen Type Sample Site pH pCO2 pO2 HCO3 Base Excess Oxyhemoglobin ABG O2 Sat (Calculated) ABG O2 Saturation ABG Carboxyhemoglobin ABG Methemoglobin Luther Test A-a O2 Difference Total Hemoglobin Lactate Liter Flow Blood Gas Modality FiO2 % Inspiratory BiPAP Expiratory BiPAP Sodium 145 Potassium 4.6 Chloride 103 Carbon Dioxide 32 Anion Gap 10 BUN 42 H Creatinine 1.2 H Estimated GFR/1.73 m2 46 BUN/Creatinine Ratio 35 Glucose 73 D POC Glucose 90 Estimat Average Glucose Hemoglobin A1c Calculated Osmolality 298 Calcium 9.3 Total Bilirubin 0.28 AST 11 ALT 14 Alkaline Phosphatase 63 Total Protein 5.1 L Albumin 2.8 L Globulin 2.3 Albumin/Globulin Ratio 1.2 10/20/19 10/20/19 10/20/19 10:00 10:05 15:52 WBC RBC Hgb Hct MCV MCH MCHC RDW Std Deviation Plt Count MPV Specimen Type ARTERIAL Sample Site R RADIAL pH 7.37 pCO2 66 H* pO2 54 L HCO3 32.5 H Base Excess 10.0 H Oxyhemoglobin 89.7 L* ABG O2 Sat (Calculated) 18.2 ABG O2 Saturation 93.1 L ABG Carboxyhemoglobin 2.60 H ABG Methemoglobin 1.1 Luther Test YES A-a O2 Difference 113.0 Total Hemoglobin 14.5 Lactate 0.80 Liter Flow Blood Gas Modality BI PAP FiO2 % 35.0 Inspiratory BiPAP 20.0 Expiratory BiPAP 8.0 Sodium Potassium Chloride Carbon Dioxide Anion Gap BUN Creatinine Estimated GFR/1.73 m2 BUN/Creatinine Ratio Glucose POC Glucose 115 H 178 H D Estimat Average Glucose Hemoglobin A1c Calculated Osmolality Calcium Total Bilirubin AST ALT Alkaline Phosphatase Total Protein Albumin Globulin Albumin/Globulin Ratio Assessment: Acute respiratory failure, hypercapnic and hypoxemic. Intubated on 10/09/19, extubated on 10/15/19. Improving. Dense bilateral infiltrates with LLL atelectasis and moderate-sized left pleural effusion. CHF exacerbation with cardiomegaly, pulmonary edema and proBNP elevation (worsening). COPD exacerbation with ongoing tobacco use Morbid obesity with Pickwickian syndrome and DEEPAK. Hypothyroidism. Prognosis is guarded. Plan: Continue current treatment and supportive care per admitting and other teams on the case. Arranged with social services coordinator for [facility] for management of DEEPAK. We titrated HFNC and BiPAP to patients needs per clinical protocols. Stay on Bipap today 10/20/2019, then if better may use PRN. Bipap each night. Antibiotics, including cefepime and vancomycin. Bronchodilators. IV steroid. Tobacco cessation education when appropriate. Appropriate DVT and GI prophylaxis Discuss patients condition and care plan with patient and caring RN and all questions have been answered. Input was appreciated from Admitting MD and other teams on the case. Evaluation time in minutes: 36 minutes.
--- NOTE | 2019-10-20 20:27 | PROGRESS NOTE ---
DATE: 10/20/2019 INTERVAL HISTORY: Considered moving patient to the floor yesterday, but confusion would intermittently increase little bits, respiratory rate was variable. At one point, she had slightly asymmetric pupils that was likely due to some of the DuoNeb solution getting into one eye, but because of all these things, there was enough concern to keep her in the unit. This morning, her ABG is showing significant worsening of her hypercapnia, so she was placed on BiPAP. Mental status is about the same. The patient is awake responsive, makes sense, but still a little bit confused. Oxygenation is stable to slightly improved. Remains afebrile. No other acute events. No new complaints. REVIEW OF SYSTEMS: A 12-point review of systems negative, except as per interval history. LABORATORY DATA: WBC 12.3, hemoglobin 13.3, hematocrit 45.8, platelets 107,000. Initial ABG with pH 7.22, pCO2 of 101, PO2 of 155, on 5 L via nasal cannula. Repeat ABG with pH 7.37, pCO2 of 66, PO2 of 54, on 35% BiPAP. Sodium 145, potassium 4.6, BUN 4.2, creatinine 1.2, glucose 90. IMAGING: Chest x-ray, essentially stable with mild vascular distention and infiltrates in the mid and lower lungs, as well as [id number] pleural effusions VITAL SIGNS: Temperature max 98.3 degrees, pulse 76, respirations 15, blood pressure 147/98, O2 saturation 94% on BiPAP. PHYSICAL EXAMINATION: General: No acute distress. Vitals: As above. On BiPAP. HEENT: Normocephalic, atraumatic. No cervical adenopathy. Cardiovascular: Regular rate and rhythm. No rubs or gallops noted. Pulmonary: Still faint expiratory wheezing, some scattered rhonchi, and moderately decreased breath sounds throughout. Abdomen: Soft, nontender, nondistended. Bowel sounds positive. Extremities: Peripheral pulses intact. No clubbing or cyanosis. Trace lower extremity edema bilaterally, stable. Neurologic: Cranial nerves grossly intact. Mild global weakness, but no focal deficits identified. Psychiatric: Essentially normal mood and affect. Cooperative. Answers questions appropriately, but oriented only to person and place. ASSESSMENT AND PLAN: 1. Acute on chronic hypoxic hypercapnic respiratory failure. Multifactorial as below. Arterial blood gas with significant worsened hypercapnia this morning, was placed back on BiPAP. Followup ABG does show that it has improved again. We will continue efforts at weaning her off of oxygen and off of respiratory assist devices. Given worsening hypercapnic respiratory failure, went ahead and increased her steroids somewhat. Continue nebulizers. Monitor closely. Imaging has not shown any clear evidence of pneumonia, but given overall respiratory status and difficulty ruling out pneumonia in the setting of bilateral pulmonary edema, we will continue antibiotics for now. 2. Chronic obstructive pulmonary disease exacerbation. Steroids and nebulizers as above. Continue to monitor. 3. Morbid obesity, likely pulmonary hypertension. I have been trying to diurese her a little bit, but creatinine bumping up slightly and BUN increasing, so likely approached as much diuresis as we can give her currently. Continue to monitor and diuresis as tolerated. 4. Elevated troponin, demand ischemia/type 2 myocardial infarction. Troponin trended down. No need for further intervention. 5. History of diabetes. Patient's A1c actually came back 5.96, so glucose has really not been significantly elevated here. Patient appears to be either not diabetic or diet-controlled diabetic, despite steroids. 6. Hypothyroidism. Continue Synthroid. 7. Chronic kidney disease 3. Not into true acute kidney injury at this point, but does have slight up trend in creatinine. Holding on further diuresis. 8. Tobacco abuse. Patient has been counseled on cessation. [id number]
[2019-10-20] MEDS: LIPITOR PO SCH (20:37)
[2019-10-20] MEDS: TYLENOL PO PRN (21:54)
[2019-10-20] MEDS: HALDOL IV PRN (22:47)
[2019-10-21] MEDS: MAXIPIME 1 GM in NS 50 ML IV SCH ×2 (01:01→12:35)
[2019-10-21] MEDS: DUONEB (A & A) INH SCH ×5 (03:55→22:30)
[2019-10-21] MEDS: TYLENOL PO PRN (05:06)
[2019-10-21 05:32] LABS: ALLEN TEST YES; BE 13.1 mmoll (-3.0-3.0); BLOOD TYPE ARTERIAL; HCO3-(ACT) 35.1 mmoll (20.0-26.0); METHB 1.1 % (0.0-1.5); O2(CT) 13.5 mL/dL (15.0-23.0); O2HB 93.2 % (95.0-99.0); PO2(98.6) 65 mmHg (60-100); SAMPLE BLOOD; SAO2 96.5 % (95.0-100.0); THB 10.3 g/dL (11.5-17.4); pH(98.6) 7.41 (7.35-7.45)
[2019-10-21 05:33] LABS: PCO2(98.6) 63 mmHg (35-45)
[2019-10-21 05:34] LABS: MODALITY BI PAP
[2019-10-21] MEDS: HALDOL IV PRN (05:34)
[2019-10-21] MEDS: SYNTHROID IV SCH ×2 (05:34→07:23)
[2019-10-21 06:32] LABS: HEMATOCRIT 41.9 % (37.0-47.0); HEMOGLOBIN 12.5 g/dL (12.0-16.0); MCH 28.4 PG (27-31); MCHC 29.8 g/dL (33-37); MCV 95.2 FL (81-99); RBC 4.4 XMIL (4.2-5.4); RDW 15.4 % (11.5-14.5); WBC 14.74 X1000 (4.8-10.8)
[2019-10-21] MEDS: HUMALOG SUBQ SCH ×4 (07:06→20:40)
[2019-10-21 07:58] LABS: ALB/GLOB RATIO 1.1; ALBUMIN 2.6 g/dL (3.5-5.0); CALCIUM 9.5 mg/dL (8.8-10.2); CREATININE 1.4 mg/dL (0.5-0.9); POTASSIUM 4.8 mmol/L (3.5-5.1); TOTAL BILIRUBIN 0.29 mg/dL (0.20-1.00)
[2019-10-21] MEDS: MORPHINE IV PRN ×2 (08:06→12:35)
[2019-10-21] MEDS: LOPRESSOR PO SCH ×2 (08:07→20:43)
[2019-10-21] MEDS: SOLU-MEDROL IV SCH ×2 (08:07→20:43)
[2019-10-21] MEDS: ASPIRIN PO SCH (08:07)
[2019-10-21] MEDS: VITAMIN D PO SCH (08:07)
[2019-10-21] MEDS: NORVASC PO SCH (08:07)
[2019-10-21] MEDS: LOVENOX SUBQ SCH (10:28)
--- NOTE | 2019-10-21 15:59 | PROVIDER PROGRESS NOTE ---
Progress Note Progress Note Dr. Pascal Progress Note/Pulmonary and or critical care We appreciated progress of care, Complications, change in diagnosis, and instructions to patient. Subjective: We note the level of consciousness, bed (chair) position, family presence (if any), level of lethargy, feeling of symptoms, and changes from baseline condition/symptom. The patient is lying in bed on bipap therapy with no acute distress noted. She does have occasional productive cough, but no chest pain/congestion/pressure/tightness. She appears alert today. Objective: Vital Signs: We reviewed EMR current values for Pulse rate, Blood pressure, Pulse rate, respiratory rate and Pulse oximetry. Also noted other values and trends if present (e.g. I/O, CVP). T 97.7 , CA 71 , RR 20 , BP 144/62 and SaO2 97 % on O2/NC with O2 high flow @ 40%. Physical Examination: General: Morbidly obese. Lying in bed with no acute distress noted. HEENT: Normocephalic. Trachea midline. Chest: Even and unlabored with very shallow breathing. Symmetrical excursion. Improved air entry. CVS: Regular rate and rhythm with murmur noted. Abdomen: Soft. Obese. Edema. Normoactive bowel sounds in all 4 quadrants noted. Extremities: BLE and BUE pitting edema 1+. No cyanosis. No clubbing. Pitting nails. Neuro: Awake and alert x3. Speech fluent with hoarse voice. Following simple commands. Management, face to face evaluation by Dr. Pascal. ANA Cristina did scribing only. Labs and Radiology: Reviewed available labs and radiology values available at time of EMR review. Laboratory Results 10/20/19 10/21/19 10/21/19 20:15 05:21 05:38 WBC RBC Hgb Hct MCV MCH MCHC RDW Std Deviation Plt Count MPV Specimen Type ARTERIAL Sample Site R RADIAL pH 7.41 pCO2 63 H* pO2 65 HCO3 35.1 H Base Excess 13.1 H Oxyhemoglobin 93.2 L ABG O2 Sat (Calculated) 13.5 L ABG O2 Saturation 96.5 ABG Carboxyhemoglobin 2.20 ABG Methemoglobin 1.1 Luther Test YES A-a O2 Difference 141.0 Total Hemoglobin 10.3 L Lactate 1.20 Blood Gas Modality BI PAP FiO2 % 40.0 Inspiratory BiPAP 20.0 Expiratory BiPAP 8.0 Sodium Potassium Chloride Carbon Dioxide Anion Gap BUN Creatinine Estimated GFR/1.73 m2 BUN/Creatinine Ratio Glucose POC Glucose 113 H 106 H Calculated Osmolality Calcium Total Bilirubin AST ALT Alkaline Phosphatase Total Protein Albumin Globulin Albumin/Globulin Ratio 10/21/19 10/21/19 05:42 05:42 WBC 14.74 H RBC 4.40 Hgb 12.5 Hct 41.9 MCV 95.2 MCH 28.4 MCHC 29.8 L RDW Std Deviation 15.4 H Plt Count 87 L MPV 13.0 H Specimen Type Sample Site pH pCO2 pO2 HCO3 Base Excess Oxyhemoglobin ABG O2 Sat (Calculated) ABG O2 Saturation ABG Carboxyhemoglobin ABG Methemoglobin Luther Test A-a O2 Difference Total Hemoglobin Lactate Blood Gas Modality FiO2 % Inspiratory BiPAP Expiratory BiPAP Sodium 144 Potassium 4.8 Chloride 104 Carbon Dioxide 35 Anion Gap 5 BUN 42 H Creatinine 1.4 H Estimated GFR/1.73 m2 39 BUN/Creatinine Ratio 30 Glucose 129 H D POC Glucose Calculated Osmolality 299 Calcium 9.5 Total Bilirubin 0.29 AST 11 ALT 16 Alkaline Phosphatase 61 Total Protein 5.0 L Albumin 2.6 L Globulin 2.4 Albumin/Globulin Ratio 1.1 Assessment: Acute respiratory failure, hypercapnic and hypoxemic. Intubated on 10/09/19, extubated on 10/15/19. Better today. Dense bilateral infiltrates with LLL atelectasis and moderate-sized left pleural effusion. CHF exacerbation with cardiomegaly, pulmonary edema and proBNP elevation (worsening). COPD exacerbation with ongoing tobacco use Morbid obesity with Pickwickian syndrome and DEEPAK. Hypothyroidism. Prognosis is guarded. Plan: Continue current treatment and supportive care per admitting and other teams on the case. Arranged with social media intern for home trilogy for management of DEEPAK. We titrated HFNC and BiPAP to patients needs per clinical protocols. Stay on Bipap today 10/20/2019, then if better may use PRN. Bipap each night. Antibiotics, including cefepime and vancomycin. Bronchodilators. IV steroid. Tobacco cessation education when appropriate. Appropriate DVT and GI prophylaxis Discuss patients condition and care plan with patient and caring RN and all questions have been answered. Input was appreciated from Admitting MD and other teams on the case. Evaluation time in minutes: 36 minutes.
[2019-10-21] MEDS: VANCOMYCIN 1,700 MG in NS 250 ML IV SCH (16:56)
--- NOTE | 2019-10-21 17:08 | PROGRESS NOTE ---
DATE: 10/21/2019 INTERVAL HISTORY: Patient approximately stable. Still requiring BiPAP most of the time, but oxygenation approximately stable and no acute events overnight. Still dyspneic with minimal exertion, however. Still with a little nonproductive cough as well. REVIEW OF SYSTEMS: Twelve point review of systems negative except as per interval history. LABS: WBC 14.7, hemoglobin 12.5, hematocrit 41.9, platelets 87,000. ABG with pH 7.4, pCO2 63, PO2 65 on 40% FiO2 via BiPAP. Sodium 144, potassium 4.8, BUN 42, creatinine 1.4, glucose 106-129. VITAL SIGNS: T-max 98.6 degrees, pulse 80, respirations 22, blood pressure 144/62, O2 saturation 96% on high-flow nasal cannula at 40%. PHYSICAL EXAMINATION: General: No acute distress. Vital signs: As above. HEENT: Normocephalic, atraumatic. Moist mucous membranes. Cardiovascular: Regular rate and rhythm. No murmurs noted. Pulmonary: Scattered rhonchi and moderately decreased breath sounds throughout, but approximately stable. Abdomen: Soft, nontender, nondistended. Bowel sounds positive. Extremities: Peripheral pulses intact. No clubbing or cyanosis. Trace lower extremity edema, stable. Neurologic: Cranial nerves grossly intact. Mild global weakness remains, but no focal deficit seen. Psychiatric: Essentially normal mood and affect. Cooperative. Oriented x3 but still appears to be mildly confused most of the time. ASSESSMENT AND PLAN: 1. Acute on chronic hypoxic and hypercapnic respiratory failure. Multifactorial. ABG with hypercapnia that is improved to what is likely back to her baseline. Still requiring a fair amount of oxygen, however. Still on BiPAP. Fairly stable over the last couple days, so we will move her to [facility]. Continue to monitor. 2. Chronic obstructive pulmonary disease exacerbation. Continue with steroids and nebulizers. Continue to monitor. 3. Pulmonary hypertension and likely acute on chronic diastolic congestive heart failure. The patient was on diuretics, but those have had to be held over the last couple days because of increasing creatinine. Creatinine again with a small bump today so continue to hold diuresis, but if respiratory status worsens or if creatinine improves, then we will likely start diuresis back again. 4. Morbid obesity, likely Pickwickian syndrome. Contributing to respiratory issues as above. 5. Elevated troponin, demand ischemia/type 2 myocardial infarction. Troponin trended down. Appears to be related to her respiratory difficulties. No further intervention necessary. 6. History of diabetes. Patient diabetic by history but A1c 5.96 and glucose has not really been significantly elevated despite steroids. Monitor sugars intermittently. 7. Hypothyroidism. Continue Synthroid. 8. Chronic kidney disease 3, borderline on acute kidney injury. Holding diuretics as above. Monitor closely. 9. Tobacco abuse. Patient has been counseled on cessation.
[2019-10-21] MEDS: PULMICORT INH SCH (19:24)
[2019-10-21] MEDS: LIPITOR PO SCH (20:43)
[2019-10-22] MEDS: MAXIPIME 1 GM in NS 50 ML IV SCH ×2 (00:58→12:19)
[2019-10-22] MEDS: MORPHINE IV PRN (01:15)
[2019-10-22] MEDS: DUONEB (A & A) INH SCH ×7 (03:56→23:57)
[2019-10-22] MEDS: SYNTHROID IV SCH (06:01)
[2019-10-22] MEDS: HUMALOG SUBQ SCH ×2 (06:04→12:16)
[2019-10-22 06:47] LABS: HEMATOCRIT 45.4 % (37.0-47.0); HEMOGLOBIN 13.7 g/dL (12.0-16.0); MCH 28.8 PG (27-31); MCHC 30.2 g/dL (33-37); MCV 95.6 FL (81-99); MPV 11.6 FL (7.4-10.4); RBC 4.75 XMIL (4.2-5.4); RDW 15.7 % (11.5-14.5); WBC 16.08 X1000 (4.8-10.8)
[2019-10-22 07:24] LABS: ALB/GLOB RATIO 1.2; CALCIUM 9.3 mg/dL (8.8-10.2); CREATININE 1.1 mg/dL (0.5-0.9); POTASSIUM 4.6 mmol/L (3.5-5.1); TOTAL BILIRUBIN 0.32 mg/dL (0.20-1.00); TOTAL PROTEIN 5.5 g/dL (6.3-8.3)
--- NOTE | 2019-10-22 07:32 | Diag Imaging Result Doc PS360 ---
CHEST-1 VIEW - 10/22/2019 INDICATION: SOB COMPARISON: 10/20/2019 FINDINGS: Stable left PICC line in good position. Stable cardiomegaly and severe pulmonary vascular congestion. Stable interstitial pulmonary edema. Stable small right and moderate left pleural effusions. IMPRESSION: No change from prior. Electronically signed by Bereket Arzola 10/22/2019 7:30 AM
[2019-10-22] MEDS: PULMICORT INH SCH ×3 (07:39→19:33)
[2019-10-22] MEDS: SOLU-MEDROL IV SCH ×2 (08:42→21:10)
[2019-10-22] MEDS ORDERED: LASIX IV ONE (09:08)
[2019-10-22] MEDS: LOVENOX SUBQ SCH ×2 (09:43→09:46)
[2019-10-22] MEDS: VITAMIN D PO SCH (09:43)
[2019-10-22] MEDS: NORVASC PO SCH (09:43)
[2019-10-22] MEDS: LOPRESSOR PO SCH ×2 (09:43→21:10)
[2019-10-22] MEDS: ASPIRIN PO SCH (09:43)
--- NOTE | 2019-10-22 15:00 | PROGRESS NOTE ---
DATE: 10/22/2019 INTERVAL HISTORY: The patient reports marginal improvement in dyspnea on exertion. Pretty comfortable at rest. No longer on BiPAP. Now on high-flow nasal cannula with adequate O2 saturations. No new complaints. No acute events overnight. REVIEW OF SYSTEMS: A 12-point review of systems is negative, except as per interval history. LABORATORY DATA: WBC 16.0, hemoglobin 13.7, hematocrit 45.4, platelets 84,000. Sodium 143, potassium 4.6, BUN 38, creatinine 1.1, glucose 112. IMAGING: Chest x-ray with ongoing cardiomegaly and pulmonary vascular congestion and pulmonary edema and effusions. OBJECTIVE: Vital Signs: T-max 98.6 degrees, pulse 70, respirations 14, blood pressure 143/45, O2 saturation 97 on high-flow nasal cannula at 40% FiO2. General: No acute distress. HEENT: Normocephalic, atraumatic. Moist mucous membranes. Cardiovascular: Regular rate and rhythm. No murmurs noted. Pulmonary: Scattered rhonchi and [id number] decreased breath sounds throughout, similar to previous. Abdomen: Soft, nontender, nondistended. Bowel sounds positive. Extremities: Peripheral pulses intact. No clubbing or cyanosis. Trace lower extremity edema remains. Neurologic: Cranial nerves are grossly intact. Mild global weakness, but no focal deficits. Psychiatric: Essentially normal mood and affect. Oriented x3. ASSESSMENT AND PLAN: 1. Acute on chronic hypoxic and hypercapnic respiratory failure. Multifactorial as below. Monitoring her off bilevel positive airway pressure. Repeat ABG pending. 2. Chronic obstructive pulmonary disease with exacerbation. Wheezing largely resolved, but will continue with steroids and nebulizers for now. 3. Pulmonary hypertension, likely acute on chronic diastolic congestive heart failure. The patient was on diuretics, but those had to be held because of increasing creatinine. Creatinine now improved, so will go ahead and give some additional Lasix to see if we can improve her respiratory status some. 4. Morbid obesity, likely Pickwickian syndrome contributing to respiratory issues as above. The patient has been counseled on diet and exercise. 5. Elevated troponin, demand ischemia/type 2 myocardial infarction. Troponin trended down. No further intervention necessary. 6. Hypothyroidism. Continue Synthroid. 7. Chronic kidney disease 3. Diuretics were held as above, but restarting today. 8. Tobacco abuse. The patient has been counseled on cessation.
--- NOTE | 2019-10-22 16:47 | PROVIDER PROGRESS NOTE ---
Progress Note Dr. Pascal Progress Note/Pulmonary and or critical care We appreciated progress of care, Complications, change in diagnosis, and instructions to patient. Subjective: We note the level of consciousness, bed (chair) position, family presence (if any), level of lethargy, feeling of symptoms, and changes from baseline condition/symptom. The patient is lying in bed on HFNC 40L 42% with no acute distress noted. She denies any pain. She reports occasional cough with a little bit of production. N o family at the bedside. Objective: Vital Signs: We reviewed EMR current values for Pulse rate, Blood pressure, Pulse rate, respiratory rate and Pulse oximetry. Also noted other values and trends if present (e.g. I/O, CVP). T 98 (no fever in last 24 hours), NM 70, RR 14, BP 143/45 and SaO2 100% on HFNC 40L 42%. Physical Examination: General: Morbidly obese. Lying in bed with no acute distress noted. HEENT: Normocephalic. Trachea midline. Mucosa pink and moist. Chest: Even and unlabored with shallow breathing. Symmetrical excursion. Diminished breathing sounds bilaterally with scattered rhonchi on the right upper lung zone. Mild inspiratory crackles bilaterally. CVS: Regular rate and rhythm with murmur noted. Abdomen: Soft. Obese. Normoactive bowel sounds in all 4 quadrants noted. Extremities: BLE trace edema. No cyanosis. No clubbing. Nail pitting noted. Neuro: Awake and alert x3. Speech fluent. Following simple commands. Labs and Radiology: Reviewed available labs and radiology values available at time of EMR review. Laboratory Results 10/21/19 10/21/19 10/21/19 10:22 16:53 20:03 WBC RBC Hgb Hct MCV MCH MCHC RDW Std Deviation Plt Count MPV Sodium Potassium Chloride Carbon Dioxide Anion Gap BUN Creatinine Estimated GFR/1.73 m2 BUN/Creatinine Ratio Glucose POC Glucose 91 124 H 101 Calculated Osmolality Calcium Total Bilirubin AST ALT Alkaline Phosphatase Total Protein Albumin Globulin Albumin/Globulin Ratio 10/22/19 10/22/19 10/22/19 05:46 05:46 05:54 WBC 16.08 H RBC 4.75 Hgb 13.7 Hct 45.4 MCV 95.6 MCH 28.8 MCHC 30.2 L RDW Std Deviation 15.7 H Plt Count 84 L MPV 11.6 H Sodium 143 Potassium 4.6 Chloride 101 Carbon Dioxide 34 Anion Gap 8 BUN 38 H Creatinine 1.1 H Estimated GFR/1.73 m2 51 BUN/Creatinine Ratio 35 Glucose 112 H POC Glucose 96 Calculated Osmolality 295 Calcium 9.3 Total Bilirubin 0.32 AST 16 ALT 19 Alkaline Phosphatase 69 Total Protein 5.5 L Albumin 3.0 L Globulin 2.5 Albumin/Globulin Ratio 1.2 10/22/19 10:43 WBC RBC Hgb Hct MCV MCH MCHC RDW Std Deviation Plt Count MPV Sodium Potassium Chloride Carbon Dioxide Anion Gap BUN Creatinine Estimated GFR/1.73 m2 BUN/Creatinine Ratio Glucose POC Glucose 112 H Calculated Osmolality Calcium Total Bilirubin AST ALT Alkaline Phosphatase Total Protein Albumin Globulin Albumin/Globulin Ratio Assessment: Acute respiratory failure, hypercapnic and hypoxemic, multifactorial. Intubated on 10/09/19, extubated on 10/15/19. Improving. Possible CHF exacerbation with cardiomegaly, pulmonary edema, [id number] bilateral pleural effusions, proBNP elevation and pulmonary hypertension. COPD exacerbation with ongoing tobacco use. Morbid obesity with Pickwickian syndrome and DEEPAK. Acute on chronic kidney disease. Improving. Hypothyroidism. Prognosis is guarded. Plan: Continue current treatment and supportive care per admitting and other teams on the case. Home trilogy for DEEPAK management. Cycling HFNC and BiPAP; will titrate per clinical protocols. Antibiotics, including cefepime and vancomycin. Bronchodilators. IV steroid (tapering down). Diuresis as needed. Tobacco cessation education when appropriate. Appropriate DVT and GI prophylaxis Input was appreciated from Admitting MD and other teams on the case. Evaluation time in minutes: 31 minutes.
[2019-10-22] MEDS: LIPITOR PO SCH (21:10)
[2019-10-23] MEDS: MAXIPIME 1 GM in NS 50 ML IV SCH ×2 (00:17→13:25)
[2019-10-23] MEDS: HALDOL IV PRN ×2 (00:17→21:07)
[2019-10-23] MEDS: DUONEB (A & A) INH SCH ×5 (03:28→19:40)
[2019-10-23] MEDS: TYLENOL PO PRN ×2 (03:48→21:11)
[2019-10-23 05:39] LABS: ALLEN TEST YES; BE 10.7 mmoll (-3.0-3.0); BLOOD TYPE ARTERIAL; HCO3-(ACT) 33.2 mmoll (20.0-26.0); METHB 0.8 % (0.0-1.5); O2(CT) 18.9 mL/dL (15.0-23.0); PO2(98.6) 81 mmHg (60-100); SAMPLE BLOOD; THB 14.1 g/dL (11.5-17.4); pH(98.6) 7.33 (7.35-7.45)
[2019-10-23 05:45] LABS: PCO2(98.6) 76 mmHg (35-45)
[2019-10-23 05:46] LABS: MODALITY HIGH FLOW NASAL CAN
[2019-10-23] MEDS: SYNTHROID IV SCH (06:06)
[2019-10-23] MEDS: SODIUM CHLORIDE 0.9% INJ PRN (06:06)
[2019-10-23 07:08] LABS: HEMATOCRIT 45.8 % (37.0-47.0); HEMOGLOBIN 13.7 g/dL (12.0-16.0); MCH 28.1 PG (27-31); MCHC 29.9 g/dL (33-37); MCV 93.9 FL (81-99); RBC 4.88 XMIL (4.2-5.4); RDW 15.4 % (11.5-14.5); WBC 18.34 X1000 (4.8-10.8)
[2019-10-23] MEDS: MUCOMYST 20% INH SCH ×2 (07:44→19:40)
[2019-10-23] MEDS: PULMICORT INH SCH ×2 (07:44→19:40)
[2019-10-23 08:02] LABS: ALB/GLOB RATIO 1.3; ALBUMIN 3.3 g/dL (3.5-5.0); CALCIUM 10.2 mg/dL (8.8-10.2); POTASSIUM 4.3 mmol/L (3.5-5.1); TOTAL BILIRUBIN 0.42 mg/dL (0.20-1.00); TOTAL PROTEIN 5.8 g/dL (6.3-8.3)
[2019-10-23] MEDS ORDERED: LASIX IV ONE (08:45)
[2019-10-23] MEDS: NORVASC PO SCH (09:06)
[2019-10-23] MEDS: ASPIRIN PO SCH (09:06)
[2019-10-23] MEDS: VITAMIN D PO SCH (09:06)
[2019-10-23] MEDS: LOPRESSOR PO SCH ×2 (09:06→21:06)
[2019-10-23] MEDS: SOLU-MEDROL IV SCH ×2 (09:06→21:06)
[2019-10-23] MEDS ORDERED: VANCOMYCIN 2,000 MG in NS 500 ML IV SCH (11:00)
--- NOTE | 2019-10-23 15:19 | PROGRESS NOTE ---
DATE: 10/23/2019 INTERVAL HISTORY: The patient tried on high-flow nasal cannula, but repeat ABG again showing worsening of her hypercapnic respiratory failure, is put back on BiPAP. The patient's symptoms remain fairly mild. Remains afebrile. No other acute events overnight. REVIEW OF SYSTEMS: Twelve point review of systems negative except as per interval history. LABS: WBC 18.3, hemoglobin 13.7, hematocrit 45.8, platelets 88,000. ABG with pH 7.33, pCO2 76, PO2 81 on of 40% high-flow nasal cannula. Sodium 140, potassium 4.3, BUN 42, creatinine 1, glucose 111. VITAL SIGNS: T-max 98.2 degrees, pulse 72, respirations 20, blood pressure 156/64, O2 saturation 95% on BiPAP. PHYSICAL EXAMINATION: General: No acute distress. Chronically ill appearing. HEENT: Normocephalic, atraumatic. Moist mucous membranes. BiPAP in place. Cardiovascular: Regular rate and rhythm. No murmurs noted. Pulmonary: Moderately decreased breath sounds and scattered rhonchi approximately stable. Abdomen: Soft, nontender, nondistended. Bowel sounds positive. Extremities: Peripheral pulses intact. No clubbing or cyanosis, trace lower extremity edema unchanged. Neurologic: Cranial nerves grossly intact. Mild global weakness but no focal deficits identified. Psychiatric: Normal mood and affect. Asleep but easily aroused. Oriented x3. ASSESSMENT AND PLAN: 1. Acute on chronic hypoxic and hypercapnic respiratory failure. Multifactorial as below. Slight worsening in her hypercapnia today. Patient placed back on BiPAP. 2. Chronic obstructive pulmonary disease with exacerbation. Wheezing remained largely resolved but continuing to have intermittent issues with CO2 retention. Continue steroids and nebs with BiPAP for today. 3. Pulmonary hypertension, likely acute on chronic diastolic congestive heart failure. The patient was off diuretics for a while because of her kidney function but back on as of yesterday. Will continue Lasix to see if we can further diuresis and improve her respiratory function. 4. Morbid obesity, likely Pickwickian syndrome. Contributing to respiratory issues as above. Patient has been counseled on diet and exercise. 5. Elevated troponin, demand ischemia/type 2 myocardial infarction. Troponin trended down and no further intervention has been necessary. 6. Hypothyroidism continue Synthroid. 7. Chronic kidney disease 3. Diuretics as above. Continue to monitor kidney function. 8. Tobacco abuse. Patient has been counseled on cessation.
--- NOTE | 2019-10-23 17:45 | PROVIDER PROGRESS NOTE ---
Progress Note Dr. Pascal Progress Note/Pulmonary and or critical care Subjective: The patient is sitting in bed on HFNC 40L 42% with no acute distress noted. Her pCO2 this morning is elevated up to 76. She apparently did not use BiPAP last night. She is awake and alert at this time. She asks when she can go home. We emphasize her on the importance of BiPAP. She states she will use it tonight. She denies any pain. She still has occasional cough with a little bit of production. Patients boyfriend at the bedside. Input is appreciated from Dr. Osorio and other teams on the case. Objective: Vital Signs: T 97.4 (no fever in last 24 hours), ME 72, RR 20, BP 156/64 and SaO2 95% on HFNC 40L 42%. Physical Examination: General: Morbidly obese. Sitting in bed with no acute distress noted. HEENT: Normocephalic. Trachea midline. Mucosa pink and moist. Chest: Even and unlabored with shallow breathing. Symmetrical excursion. Diminished breathing sounds bilaterally with mild inspiratory crackles bilaterally. CVS: Regular rate and rhythm with murmur noted. Abdomen: Soft. Obese. Normoactive bowel sounds in all 4 quadrants noted. Extremities: BLE trace edema. No cyanosis. No clubbing. Nail pitting noted. Neuro: Awake and alert x3. Speech fluent. Following simple commands. Labs and Radiology: Laboratory Results 10/23/19 10/23/19 10/23/19 05:22 05:22 05:29 WBC 18.34 H RBC 4.88 Hgb 13.7 Hct 45.8 MCV 93.9 MCH 28.1 MCHC 29.9 L RDW Std Deviation 15.4 H Plt Count 88 L MPV 13.0 H Specimen Type ARTERIAL Sample Site R RADIAL pH 7.33 L pCO2 76 H* pO2 81 HCO3 33.2 H Base Excess 10.7 H Oxyhemoglobin 95.0 ABG O2 Sat (Calculated) 18.9 ABG O2 Saturation 98.0 ABG Carboxyhemoglobin 2.30 ABG Methemoglobin 0.8 Luther Test YES A-a O2 Difference 123.0 Total Hemoglobin 14.1 Lactate 1.30 Liter Flow 40.0 Blood Gas Modality HIGH FLOW NASAL CAN FiO2 % 42.0 Sodium 140 Potassium 4.3 Chloride 97 L Carbon Dioxide 33 Anion Gap 10 BUN 42 H Creatinine 1.0 H Estimated GFR/1.73 m2 57 BUN/Creatinine Ratio 42 Glucose 111 H Calculated Osmolality 291 Calcium 10.2 Total Bilirubin 0.42 AST 22 ALT 26 Alkaline Phosphatase 74 Total Protein 5.8 L Albumin 3.3 L Globulin 2.5 Albumin/Globulin Ratio 1.3 Assessment: Acute respiratory failure, hypercapnic and hypoxemic, multifactorial. Intubated on 10/09/19, extubated on 10/15/19. Possible CHF exacerbation with cardiomegaly, pulmonary edema, [id number] bilateral pleural effusions, proBNP elevation and pulmonary hypertension. COPD exacerbation with ongoing tobacco use. Morbid obesity with Pickwickian syndrome and DEEPAK. Acute on chronic kidney disease. Improving. Hypothyroidism. Prognosis is guarded. Plan: Continue current treatment and supportive care per admitting and other teams on the case. Arranging home trilogy for DEEPAK management. Cycling HFNC and BiPAP; titrate supplemental oxygen per clinical protocols. Antibiotics, including cefepime and vancomycin. Bronchodilators. IV steroid (tapering down). Mucomyst. Tobacco cessation education when appropriate. Appropriate DVT and GI prophylaxis Emphasize the importance of BiPAP and encourage to use it at bedtime. Evaluation time in minutes: 31 minutes.
[2019-10-23] MEDS: LIPITOR PO SCH (21:06)
[2019-10-24] MEDS: MAXIPIME 1 GM in NS 50 ML IV SCH ×2 (00:06→12:58)
[2019-10-24] MEDS: MORPHINE IV PRN (02:27)
[2019-10-24 02:44] LABS: URINE SOURCE CATH
[2019-10-24 03:06] LABS: BILIRUBIN URINE NEGATIVE (NEGATIVE); BLOOD URINE LARGE (NEGATIVE); COLOR ORANGE; GLUCOSE URINE TRACE mg/dL (NEGATIVE); KETONE URINE NEGATIVE (NEGATIVE); LEUKOCYTES URINE SMALL (NEGATIVE); NITRITE URINE NEGATIVE (NEGATIVE); PH URINE 6.5; PROTEIN URINE 300 mg/dL (NEGATIVE); SP GRAVITY URINE 1.017; TURBIDITY URINE HAZY (CLEAR); UROBILINOGEN URINE NORMAL (NORMAL)
[2019-10-24 03:10] LABS: UR EPITHELIAL CELLS <10 /HPF (<10); URINE BACTERIA NEGATIVE /HPF; URINE RBC TNTC /HPF (<10); URINE WBC TNTC /HPF (<10)
[2019-10-24] MEDS: DUONEB (A & A) INH SCH ×6 (03:15→23:00)
[2019-10-24 03:20] LABS: URINE CASTS GRANULAR PRESENT; URINE CRYSTALS NONE SEEN; URINE SMALL ROUND CELLS NONE SEEN; URINE YEAST NONE SEEN
[2019-10-24] MEDS: SYNTHROID IV SCH ×2 (05:35→06:02)
[2019-10-24] MEDS: SODIUM CHLORIDE 0.9% INJ PRN (05:35)
[2019-10-24 06:07] LABS: ALLEN TEST YES; BLOOD TYPE ARTERIAL; HCO3-(ACT) 37.3 mmoll (20.0-26.0); METHB 0.9 % (0.0-1.5); O2(CT) 17.4 mL/dL (15.0-23.0); O2HB 93.6 % (95.0-99.0); PO2(98.6) 72 mmHg (60-100); SAMPLE BLOOD; SAO2 96.6 % (95.0-100.0); THB 13.2 g/dL (11.5-17.4); pH(98.6) 7.38 (7.35-7.45)
[2019-10-24 06:19] LABS: PCO2(98.6) 76 mmHg (35-45)
[2019-10-24 06:20] LABS: MODALITY BI PAP
[2019-10-24 06:26] LABS: HEMATOCRIT 41.2 % (37.0-47.0); HEMOGLOBIN 12.7 g/dL (12.0-16.0); MCH 28.6 PG (27-31); MCHC 30.8 g/dL (33-37); MCV 92.8 FL (81-99); MPV 13.2 FL (7.4-10.4); RBC 4.44 XMIL (4.2-5.4); RDW 15.6 % (11.5-14.5); WBC 12.12 X1000 (4.8-10.8)
[2019-10-24 06:49] LABS: AGAP 8; ALB/GLOB RATIO 1.3; ALKALINE PHOSPHATASE 63 U/L (32-104); BUN 36 mg/dL (8-22); CALCIUM 9.4 mg/dL (8.8-10.2); CHLORIDE 95 mmol/L (98-107); COSMO 291; CREATININE 0.9 mg/dL (0.5-0.9); ESTIMATED GFR > 60; GLUCOSE 121 mg/dL (70-104); GOT 17 U/L (10-30); GPT 28 U/L (10-36); POTASSIUM 3.9 mmol/L (3.5-5.1); SODIUM 141 mmol/L (136-145); TCO2 38 mmol/L (25-35); TOTAL BILIRUBIN 0.42 mg/dL (0.20-1.00); TOTAL PROTEIN 5.3 g/dL (6.3-8.3)
--- NOTE | 2019-10-24 07:19 | Diag Imaging Result Doc PS360 ---
EXAM: CHEST-PORTABLE 10/24/2019 HISTORY: copd, pulmonary htn TECHNIQUE: AP portable at 0543 COMMENT: The left hemithorax is nearly completely opacified. This is worse than on 10/22/2019. The right lung is actually better expanded and the right base is clearer Visualization of the entire hemidiaphragm. IMPRESSION: Worsened atelectasis or pneumonia in the left lung. Pulmonary edema. Improved atelectasis right lower lobe. Electronically signed by Andre Barnes 10/24/2019 7:17 AM
[2019-10-24] MEDS: PULMICORT INH SCH ×2 (07:27→19:28)
[2019-10-24] MEDS: MUCOMYST 20% INH SCH ×2 (07:27→19:28)
[2019-10-24] MEDS: LOPRESSOR PO SCH ×3 (07:57→20:21)
[2019-10-24] MEDS: NORVASC PO SCH ×2 (07:57→09:00)
[2019-10-24] MEDS: ASPIRIN PO SCH ×2 (07:58→09:00)
[2019-10-24] MEDS: SOLU-MEDROL IV SCH ×2 (07:58→20:21)
[2019-10-24] MEDS: VITAMIN D PO SCH ×2 (07:58→09:00)
--- NOTE | 2019-10-24 14:39 | PROGRESS NOTE ---
DATE: 10/24/2019 SUBJECTIVE: I have seen and examined Ms. Bryant today. Ms. Bryant was sitting in the chair at the bedside doing some art work. OBJECTIVE: General: Ms. Bryant is a 59-year-old female. She was sitting up in a chair. No distress. She is on high-flow. HEENT: Mucosa was pink and moist. Anicteric. Acyanotic. Neck: Supple. Chest: Good air entry bilateral. Some mild prolonged expiratory phase of respiration, but no rhonchi, no crackles. Cardiovascular: Regular rate and rhythm. GI/Abdomen: Soft, nontender. Extremities: No pedal edema. SCIENTIFIC PUBLICATIONS EDITOR: Patient is awake, alert, oriented. There is no focal deficit. Vital signs: Blood pressure was 165/68, pulse of 72, respiration is 18, temperature 97.7 degrees. LABORATORY DATA: WBC is 12.12, hemoglobin is 12.7, platelet count of 67. Chemistry is also reviewed and unremarkable. Patient's ABGs have all been reviewed. IMAGING STUDIES: This morning, a chest x-ray did show worsened atelectasis or pneumonia in the left lung. Pulmonary edema improved. Atelectasis, right lower lobe. ASSESSMENT: 1. Acute on chronic hypoxemic and hypercarbic respiratory failure. 2. Chronic obstructive pulmonary disease in exacerbation. 3. Morbid obesity with obstructive sleep apnea and pickwickian syndrome. 4. Elevated troponin concerning for demand ischemia versus non-ST segment elevation myocardial infarction. Cardiology is on board. 5. Hypothyroidism. Patient is on Synthroid. 6. Chronic kidney disease, stage IIIA. 7. Tobacco use and abuse prior to hospitalization. Patient is counseled. PLAN: So, in general, I think Ms. Bryant is doing well. She continues to be on high-flow oxygen, which we are titrating off. I understand she has Medicaid and that will not provide her with Trelegy. So, we are going to continue working with her lungs, and see if we can eventually discharge her on supplemental nasal cannula. cc: Javi Alvarez MD
--- NOTE | 2019-10-24 17:29 | PROVIDER PROGRESS NOTE ---
Progress Note Dr. Pascal Progress Note/Pulmonary and or critical care Subjective: The patient is sitting at the edge of the bed with physical therapy going on. She stays on HFNC 40L 42%. Her SaO2 originally stays in low 90s, but up to 100% with physical therapy on. She states she feels fine and she used BiPAP last night. Her cough has been improving. She apparently had asymptomatic emergent hypertension this morning. We again stress the importance of BiPAP use at bedtime and tobacco cessation. No family at the bedside. Input is appreciated from Dr. Alvarez and other teams on the case. Objective: Vital Signs: T 97.8 (no fever in last 24 hours), CO 76, RR 20, BP 186/99 and SaO2 97% on HFNC 40L 42%. Physical Examination: General: Morbidly obese. Sitting at the edge of the bed with physical therapy going on. No acute distress noted. HEENT: Normocephalic. Trachea midline. Mucosa pink and moist. Chest: Even and unlabored. Symmetrical excursion. Diminished breathing sounds bilaterally posteriorly with right lower lung zone significantly worse. CVS: Regular rate and rhythm with murmur noted. Abdomen: Soft. Obese. Normoactive bowel sounds in all 4 quadrants noted. Extremities: BLE trace edema. No cyanosis. No clubbing. Nail pitting noted. Neuro: Awake and alert x3. Speech fluent. Following simple commands. Weakness present. Labs and Radiology: Laboratory Results 10/24/19 10/24/19 10/24/19 02:30 05:25 05:25 WBC 12.12 H RBC 4.44 Hgb 12.7 Hct 41.2 MCV 92.8 MCH 28.6 MCHC 30.8 L RDW Std Deviation 15.6 H Plt Count 67 L MPV 13.2 H Specimen Type Sample Site pH pCO2 pO2 HCO3 Base Excess Oxyhemoglobin ABG O2 Sat (Calculated) ABG O2 Saturation ABG Carboxyhemoglobin ABG Methemoglobin Luther Test A-a O2 Difference Total Hemoglobin Lactate Blood Gas Modality FiO2 % Inspiratory BiPAP Expiratory BiPAP Sodium 141 Potassium 3.9 Chloride 95 L Carbon Dioxide 38 H Anion Gap 8 BUN 36 H Creatinine 0.9 Estimated GFR/1.73 m2 > 60 BUN/Creatinine Ratio 40 Glucose 121 H Calculated Osmolality 291 Calcium 9.4 Total Bilirubin 0.42 AST 17 ALT 28 Alkaline Phosphatase 63 Total Protein 5.3 L Albumin 3.0 L Globulin 2.3 Albumin/Globulin Ratio 1.3 Urine Source CATH Urine Color ORANGE Urine Turbidity HAZY Urine pH 6.5 Ur Specific [place] 1.017 Urine Protein 300 A Ur Glucose (Stick) TRACE Ur Ketones (Stick) NEGATIVE Urine Blood LARGE A Urine Nitrite NEGATIVE Urine Bilirubin NEGATIVE Urobilinogen Dipstick NORMAL Urine Leukocytes SMALL A Urine WBC (Auto) TNTC A Urine RBC (Auto) TNTC A U Epithel Cells (Auto) <10 Urine Bacteria (Auto) NEGATIVE Urine Crystals NONE SEEN Small Round Cells NONE SEEN Urine Casts GRANULAR PRESENT Urine Yeast-like Cells NONE SEEN 10/24/19 06:10 WBC RBC Hgb Hct MCV MCH MCHC RDW Std Deviation Plt Count MPV Specimen Type ARTERIAL Sample Site R RADIAL pH 7.38 pCO2 76 H* pO2 72 HCO3 37.3 H Base Excess 16.0 H Oxyhemoglobin 93.6 L ABG O2 Sat (Calculated) 17.4 ABG O2 Saturation 96.6 ABG Carboxyhemoglobin 2.20 ABG Methemoglobin 0.9 Luther Test YES A-a O2 Difference 118.0 Total Hemoglobin 13.2 Lactate 0.80 Blood Gas Modality BI PAP FiO2 % 40.0 Inspiratory BiPAP 20.0 Expiratory BiPAP 8.0 Sodium Potassium Chloride Carbon Dioxide Anion Gap BUN Creatinine Estimated GFR/1.73 m2 BUN/Creatinine Ratio Glucose Calculated Osmolality Calcium Total Bilirubin AST ALT Alkaline Phosphatase Total Protein Albumin Globulin Albumin/Globulin Ratio Urine Source Urine Color Urine Turbidity Urine pH Ur Specific [place] Urine Protein Ur Glucose (Stick) Ur Ketones (Stick) Urine Blood Urine Nitrite Urine Bilirubin Urobilinogen Dipstick Urine Leukocytes Urine WBC (Auto) Urine RBC (Auto) U Epithel Cells (Auto) Urine Bacteria (Auto) Urine Crystals Small Round Cells Urine Casts Urine Yeast-like Cells Assessment: Acute respiratory failure, hypercapnic and hypoxemic, multifactorial. Intubated on 10/09/19, extubated on 10/15/19. CXR this morning shows worsened atelectasis vs. pneumonia in the left lung with left hemithorax nearly completely opacified, pulmonary edema, and improved RLL atelectasis. Possible CHF exacerbation with cardiomegaly, pulmonary edema, [id number] bilateral pleural effusions, proBNP elevation and pulmonary hypertension. COPD exacerbation with ongoing tobacco use. Morbid obesity with Pickwickian syndrome and DEEPAK. Acute on chronic kidney disease. Improving. Hypothyroidism. Prognosis is guarded. Plan: Continue current treatment and supportive care per admitting and other teams on the case. Arranging home trilogy for DEEPAK management. Cycling HFNC and BiPAP; titrate supplemental oxygen per clinical protocols. Antibiotics, including cefepime and vancomycin. Bronchodilators. IV steroid (tapering down). Mucomyst. Tobacco cessation education when appropriate. Appropriate DVT and GI prophylaxis Emphasize the importance of BiPAP and encourage to use it at bedtime and as needed. Evaluation time in minutes: 32 minutes.
[2019-10-24] MEDS: LIPITOR PO SCH (20:21)
[2019-10-24] MEDS: HALDOL IV PRN (20:23)
[2019-10-25] MEDS: DUONEB (A & A) INH SCH ×6 (03:00→23:00)
[2019-10-25] MEDS: MAXIPIME 1 GM in NS 50 ML IV SCH ×2 (03:59→15:53)
[2019-10-25 04:54] LABS: ALLEN TEST YES; BE 16.9 mmoll (-3.0-3.0); BLOOD TYPE ARTERIAL; HCO3-(ACT) 38.1 mmoll (20.0-26.0); O2(CT) 18.5 mL/dL (15.0-23.0); O2HB 95.8 % (95.0-99.0); PO2(98.6) 95 mmHg (60-100); SAMPLE BLOOD; SAO2 98.9 % (95.0-100.0); THB 13.7 g/dL (11.5-17.4); pH(98.6) 7.46 (7.35-7.45)
[2019-10-25 05:05] LABS: MODALITY BI PAP; PCO2(98.6) 62 mmHg (35-45)
[2019-10-25] MEDS: SYNTHROID IV SCH (06:24)
[2019-10-25 07:27] LABS: HEMATOCRIT 44.6 % (37.0-47.0); HEMOGLOBIN 14.3 g/dL (12.0-16.0); MCH 29.4 PG (27-31); MCHC 32.1 g/dL (33-37); MCV 91.6 FL (81-99); MPV 12.2 FL (7.4-10.4); RBC 4.87 XMIL (4.2-5.4); RDW 15.8 % (11.5-14.5); WBC 22.01 X1000 (4.8-10.8)
[2019-10-25] MEDS: PULMICORT INH SCH ×2 (07:32→19:34)
[2019-10-25] MEDS: MUCOMYST 20% INH SCH ×2 (07:33→19:34)
[2019-10-25 08:45] LABS: ALB/GLOB RATIO 1.2; ALBUMIN 3.3 g/dL (3.5-5.0); CALCIUM 9.9 mg/dL (8.8-10.2); POTASSIUM 4.3 mmol/L (3.5-5.1); TOTAL BILIRUBIN 0.51 mg/dL (0.20-1.00); TOTAL PROTEIN 6.1 g/dL (6.3-8.3)
[2019-10-25] MEDS: ASPIRIN PO SCH (08:56)
[2019-10-25] MEDS: VITAMIN D PO SCH (08:56)
[2019-10-25] MEDS: LOPRESSOR PO SCH ×2 (08:56→20:14)
[2019-10-25] MEDS: SOLU-MEDROL IV SCH (08:56)
[2019-10-25] MEDS: NORVASC PO SCH (08:56)
[2019-10-25] MEDS ORDERED: VANCOMYCIN 1,700 MG in NS 250 ML IV SCH (10:30)
[2019-10-25] MEDS: NS 1,000 ML IV SCH (15:02)
--- NOTE | 2019-10-25 16:05 | Diag Imaging Result Doc PS360 ---
EXAM: CT ANGIOGRM PULMONARY ARTERIES 10/25/2019 HISTORY: hypoxemia TECHNIQUE: This exam was performed using automated exposure control, adjustment of mA or kV according to patient size, and/or use of iterative reconstruction technique. COMMENT: 3-D MIPS were performed. The current study is compared with the previous noncontrast study of 10/27/2018. There are atherosclerotic calcifications in the aorta. The aorta is not distended and there is no evidence of dissection. There are no apparent filling defects in the pulmonary arteries. There is volume loss and opacification anteriorly in the left lower lobe and lingula. This was also present to some extent at the time the previous study and may be due to fibrosis. The lungs are not as well-expanded on the current study is on the previous examination generally. There are some platelike opacities in both lower lobes consistent with atelectasis or fibrosis. This was apparently present previously favoring the latter. There is coronary calcification. There is no evidence of significant adenopathy. The regional skeleton appears to be intact. IMPRESSION: No evidence of pulmonary emboli. Atelectasis versus fibrosis in the lingula and left lower lobe. Electronically signed by Ander Barnes 10/25/2019 4:03 PM
--- NOTE | 2019-10-25 19:25 | PROVIDER PROGRESS NOTE ---
Progress Note Dr. Pascal Progress Note/Pulmonary and or critical care Subjective: The patient is lying in bed on HFNC 40 L/min37% with no acute distress noted. She reports productive cough with yellow greenish phlegm once in a while. She used BiPAP overnight. She is wondering when she can go home. Again we stress the importance of BiPAP compliance. No family at the bedside. Input is appreciated from Dr. Alvarez and other teams on the case. Objective: Vital Signs: T 98.6 (no fever in last 24 hours), OR 85, RR 20, BP 158/66 and SaO2 98% on HFNC 40L 37%. Physical Examination: General: Morbidly obese. Sitting at the edge of the bed with physical therapy going on. No acute distress noted. HEENT: Normocephalic. Trachea midline. Mucosa pink and moist. Chest: Even and unlabored. Symmetrical excursion. Diminished breathing sounds bilaterally posteriorly with right lower lung zone significantly worse. CVS: Regular rate and rhythm with murmur noted. Abdomen: Soft. Obese. Normoactive bowel sounds in all 4 quadrants noted. Extremities: BLE trace edema. No cyanosis. No clubbing. Nail pitting noted. Neuro: Awake and alert x3. Speech fluent. Following simple commands. Weakness present. Labs and Radiology: Laboratory Results 10/25/19 10/25/19 10/25/19 04:43 05:23 05:23 WBC 22.01 H RBC 4.87 Hgb 14.3 Hct 44.6 MCV 91.6 MCH 29.4 MCHC 32.1 L RDW Std Deviation 15.8 H Plt Count 97 L D MPV 12.2 H Specimen Type ARTERIAL Sample Site R RADIAL pH 7.46 H pCO2 62 H* pO2 95 HCO3 38.1 H Base Excess 16.9 H Oxyhemoglobin 95.8 ABG O2 Sat (Calculated) 18.5 ABG O2 Saturation 98.9 ABG Carboxyhemoglobin 2.10 ABG Methemoglobin 1.0 Luther Test YES A-a O2 Difference 113.0 Total Hemoglobin 13.7 Lactate 1.00 Blood Gas Modality BI PAP Vent Mode BIPAP FiO2 % 40.0 Inspiratory BiPAP 20.0 Expiratory BiPAP 8.0 Sodium 142 Potassium 4.3 Chloride 94 L Carbon Dioxide 33 Anion Gap 15 BUN 35 H Creatinine 1.0 H Estimated GFR/1.73 m2 57 BUN/Creatinine Ratio 35 Glucose 105 H Calculated Osmolality 291 Calcium 9.9 Total Bilirubin 0.51 AST 21 ALT 32 Alkaline Phosphatase 71 Total Protein 6.1 L Albumin 3.3 L Globulin 2.8 Albumin/Globulin Ratio 1.2 Random Vancomycin 10/25/19 08:50 WBC RBC Hgb Hct MCV MCH MCHC RDW Std Deviation Plt Count MPV Specimen Type Sample Site pH pCO2 pO2 HCO3 Base Excess Oxyhemoglobin ABG O2 Sat (Calculated) ABG O2 Saturation ABG Carboxyhemoglobin ABG Methemoglobin Luther Test A-a O2 Difference Total Hemoglobin Lactate Blood Gas Modality Vent Mode FiO2 % Inspiratory BiPAP Expiratory BiPAP Sodium Potassium Chloride Carbon Dioxide Anion Gap BUN Creatinine Estimated GFR/1.73 m2 BUN/Creatinine Ratio Glucose Calculated Osmolality Calcium Total Bilirubin AST ALT Alkaline Phosphatase Total Protein Albumin Globulin Albumin/Globulin Ratio Random Vancomycin 14.20 Assessment: Acute respiratory failure, hypercapnic and hypoxemic, multifactorial. Intubated on 10/09/19, extubated on 10/15/19. Slowly improving. Possible CHF exacerbation with cardiomegaly, pulmonary edema, [id number] bilateral pleural effusions, proBNP elevation and pulmonary hypertension. COPD exacerbation with ongoing tobacco use. Morbid obesity with Pickwickian syndrome and DEEPAK. Acute on chronic kidney disease. Hypothyroidism. Prognosis is guarded. Plan: Continue current treatment and supportive care per admitting and other teams on the case. Arranging home trilogy for DEEPAK management. Cycling HFNC and BiPAP; titrate supplemental oxygen per clinical protocols. Antibiotics, including cefepime and vancomycin. Bronchodilators. IV steroid (tapering down). Mucomyst. Tobacco cessation education when appropriate. Appropriate DVT and GI prophylaxis Emphasize the importance of BiPAP compliance and encourage to use it at bedtime and as needed. Evaluation time in minutes: 31 minutes.
--- NOTE | 2019-10-25 19:42 | PROGRESS NOTE ---
DATE: 10/25/2019 SUBJECTIVE: I have seen and examined Ms. Bryant today. Ms. Bryant continues to be on the high-flow oxygen. I understand she accidentally pulled it off early on today and her saturation went down to the low 80s. OBJECTIVE: Vital signs: Blood pressure is 179/73, pulse of 71, respirations 16, temperature 98.5 degrees. General: Ms. Bryant is a 59-year-old female. She is in bed no distress. Mucosa is pink and moist. Anicteric. Acyanotic. Neck: Supple. Chest: Good air entry bilaterally. There was no crepitations. There was, however, some distant and expiratory wheezing. Cardiovascular: Regular rate and rhythm. No murmurs, no rubs, no gallops. GI: Abdomen was soft, distended but nontender. Extremities: No pedal edema. 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 There is no focal deficit. LABORATORY DATA: WBC is up to 22.01, hemoglobin is 14.3, platelet count of 97,000. Chemistry is also reviewed for most part unremarkable. MEDICATIONS: Have all been reviewed. She continues to be on cefepime and vancomycin. IMAGING STUDIES: From yesterday did show some worsening in the pneumonia. ASSESSMENT: 1. Acute on chronic hypoxemic and hypercarbic respiratory failure. Patient continues to be needing high-flow oxygen which I am told she cannot go home on because her insurance does not cover that. We are going to continue working with the physical therapy, respiratory therapy to see if we can get her saturation better on just nasal cannula. 2. Advanced chronic obstructive respiratory disease with moderate to severe exacerbation. The patient is on steroids, bronchodilation therapy, and antimicrobials. 3. Morbid obesity with obstructive sleep apnea and Pickwickian syndrome noted. 4. Elevated troponin on admission concerning for demand ischemia versus non-ST elevation myocardial infarction. Cardiology is on board. The patient denies any chest pain. 5. Hypothyroidism. Patient is on Synthroid. 6. Chronic kidneyt disease stage IIIA. Stable. 7. Tobacco use and abuse prior to hospitalization. The patient is counseled. 8. Left lower lobe pneumonia. Patient is on cefepime and vancomycin. Today is day 15. We are going to do a CT scan of the lungs to have a better view of the patient's anatomy since she continues to be remarkably symptomatic even after she has been treated adequately. cc: Javi Alvarez MD
[2019-10-25] MEDS: LIPITOR PO SCH (20:14)
[2019-10-25] MEDS: HALDOL IV PRN (23:59)
[2019-10-26] MEDS: DUONEB (A & A) INH SCH ×6 (03:00→23:00)
[2019-10-26] MEDS: MAXIPIME 1 GM in NS 50 ML IV SCH (05:23)
[2019-10-26] MEDS: SYNTHROID IV SCH ×2 (05:26→06:08)
[2019-10-26 07:12] LABS: AGAP 9; ALB/GLOB RATIO 1.2; ALBUMIN 2.9 g/dL (3.5-5.0); ALKALINE PHOSPHATASE 67 U/L (32-104); BUN 27 mg/dL (8-22); CALCIUM 9.3 mg/dL (8.8-10.2); CHLORIDE 99 mmol/L (98-107); COSMO 291; CREATININE 0.9 mg/dL (0.5-0.9); ESTIMATED GFR > 60; GLUCOSE 86 mg/dL (70-104); GOT 18 U/L (10-30); GPT 34 U/L (10-36); POTASSIUM 3.7 mmol/L (3.5-5.1); SODIUM 144 mmol/L (136-145); TCO2 36 mmol/L (25-35); TOTAL BILIRUBIN 0.45 mg/dL (0.20-1.00); TOTAL PROTEIN 5.3 g/dL (6.3-8.3)
[2019-10-26 07:19] LABS: HEMATOCRIT 42.2 % (37.0-47.0); HEMOGLOBIN 12.7 g/dL (12.0-16.0); MCH 28.1 PG (27-31); MCHC 30.1 g/dL (33-37); MCV 93.4 FL (81-99); RBC 4.52 XMIL (4.2-5.4); WBC 12.77 X1000 (4.8-10.8)
[2019-10-26 07:27] LABS: ALLEN TEST YES; BE 17.5 mmoll (-3.0-3.0); BLOOD TYPE ARTERIAL; HCO3-(ACT) 38.6 mmoll (20.0-26.0); PO2(98.6) 109 mmHg (60-100); SAMPLE BLOOD; pH(98.6) 7.36 (7.35-7.45)
[2019-10-26 07:31] LABS: MODALITY BI PAP; PCO2(98.6) 84 mmHg (35-45)
[2019-10-26] MEDS: MUCOMYST 20% INH SCH ×2 (08:01→19:45)
[2019-10-26] MEDS: PULMICORT INH SCH ×2 (08:01→19:45)
[2019-10-26] MEDS: SOLU-MEDROL IV SCH (08:10)
[2019-10-26] MEDS: NORVASC PO SCH (08:11)
[2019-10-26] MEDS: LOPRESSOR PO SCH ×2 (08:11→20:01)
[2019-10-26] MEDS: VITAMIN D PO SCH (08:11)
[2019-10-26] MEDS: ASPIRIN PO SCH (08:19)
[2019-10-26] MEDS ORDERED: ULTRAM PO PRN (09:15)
[2019-10-26] MEDS: NS 1,000 ML IV SCH (09:47)
--- NOTE | 2019-10-26 10:58 | PROGRESS NOTE ---
DATE: 10/26/2019 SUBJECTIVE: The patient continues to be on high-flow oxygen. We did a CT angiogram yesterday that showed no evidence of pulmonary emboli. It showed atelectasis versus fibrosis in the lingula and left lower lobe, but I did not see any infiltrates. I do not think she has signs of pneumonia at this moment. She has been receiving cefepime and vancomycin since the of last month, so I will go ahead and stop both medications together. I will stop also the morphine because she is complaining of itchiness and I will put this patient on tramadol to see how she does p.o. I will also decrease the dose of the steroids from twice a day to once a day. OBJECTIVE: Vital Signs: Temperature 97.8 degrees, pulse 84, respiratory rate 20, blood pressure 176/96, oxygen saturation 95% on high-flow nasal cannula. HEENT: Head normocephalic. No trauma. PERRLA. Neck: Supple. No JVD. No masses. Central trachea. Chest: Decreased breath sounds mostly at the bases. She is not wheezing today. Cardiovascular: Regular rate and rhythm. Abdomen: Soft, nontender, nondistended. No hepatosplenomegaly. Extremities: Trace pedal edema. No clubbing. No cyanosis. Neurological: The patient is awake. She is alert. She is probably hard of hearing. No focal deficits. LABORATORY DATA: WBC 12.7, hemoglobin 12.7, hematocrit 42.2, platelets 76,000. Sodium 144, potassium 3.7, chloride 99, bicarbonate 36, BUN 27, creatinine 0.9, glucose 86, calcium 9.3, albumin 2.9. ASSESSMENT AND PLAN: 1. Acute on chronic hypoxemic and hypercarbic respiratory failure. The patient continues to be needing high-flow oxygen. We will continue with same management for now. Pulmonary Department on board. 2. Advanced chronic obstructive pulmonary disease with [id number] exacerbation, seems to be getting better. I will decrease the dose of steroids. I will stop the antibiotics because she has been on antibiotics since 10/09/2019, and based on the CT scan results, she does not have infiltrates, but fibrosis and atelectasis. Continue with bronchodilator therapy as well. 3. Morbid obesity with obstructive sleep apnea and Pickwickian syndrome, noted. Diet and exercise have been discussed. 4. Elevated troponin on admission concerning of demand ischemia versus non-ST elevation myocardial infarction. Cardiology on board. No chest pain. I do believe this is more related to her current condition than a heart problem. 5. Hypothyroidism. Continue with Synthroid. 6. Chronic kidney disease stage IIIA, stable. 7. Tobacco use and abuse prior to hospitalization. The patient has been advised against tobacco use. I will continue with daily cessation education. 8. Left lower lobe pneumonia. The patient has been on cefepime and vancomycin for more than 14 days. I will stop it, especially because the CT angiogram did not show any infiltrates, but atelectasis and fibrosis. The white blood cell count is likely due to steroids. cc: Lazaro Thakkar MD
[2019-10-26] MEDS: LIPITOR PO SCH (20:01)
[2019-10-26] MEDS: HALDOL IV PRN (23:19)
--- NOTE | 2019-10-27 01:50 | PULMONOLOGY PROGRESS NOTE ---
DATE: 10/26/2019 SUBJECTIVE: The patient is awake and alert. She is currently on high-flow oxygen. She reports she has had a fairly good day. OBJECTIVE: Vital Signs: Patient has been afebrile for the last 24 hours. Blood pressure 146/59, heart rate 76, respiratory rate 12, oxygen saturation 97%. HEENT: Pupils are equal and reactive. Oropharynx is clear. Neck: Supple. Chest: Reveals diminished breath sounds bilaterally. Cardiac: S1-S2. Abdomen: Obese and soft. Extremities: Reveal trace edema. LABORATORIES: Arterial blood gas reveals a pH of 7.36, pCO2 of 84, PO2 of 109. IMPRESSION: A 59-year-old with: 1. Acute hypoxemic and acute hypercapnic respiratory failure. 2. Morbid obesity. 3. Chronic obstructive pulmonary disease. 4. Nicotine addiction with ongoing tobacco use. 5. Acute on chronic kidney disease. PLAN: 1. Consider transitioning patient off the high-flow to a face mask. She is approaching an oxygen concentration that can be delivered by nasal cannula. 2. Agree with arranging Trilogy for discharge as outlined per Dr. Pascal. 3. Continue bronchodilators. 4. Smoking cessation counseling. 5. Long-term, the patient would benefit from weight loss. cc: Abebe Tamez MD
[2019-10-27] MEDS: DUONEB (A & A) INH SCH ×6 (03:00→23:11)
[2019-10-27] MEDS: SYNTHROID IV SCH ×2 (05:21→06:07)
[2019-10-27] MEDS: SODIUM CHLORIDE 0.9% INJ PRN (05:21)
[2019-10-27 05:32] LABS: ALLEN TEST YES; BE 14.9 mmoll (-3.0-3.0); BLOOD TYPE ARTERIAL; HCO3-(ACT) 36.5 mmoll (20.0-26.0); METHB 0.2 % (0.0-1.5); O2(CT) 13.4 mL/dL (15.0-23.0); PO2(98.6) 77 mmHg (60-100); SAMPLE BLOOD; SAO2 97.8 % (95.0-100.0)
[2019-10-27 05:34] LABS: MODALITY BI PAP; PCO2(98.6) 68 mmHg (35-45)
[2019-10-27 06:09] LABS: HEMATOCRIT 38.7 % (37.0-47.0); HEMOGLOBIN 11.5 g/dL (12.0-16.0); MCH 27.8 PG (27-31); MCHC 29.7 g/dL (33-37); MCV 93.7 FL (81-99); MPV 12.6 FL (7.4-10.4); RBC 4.13 XMIL (4.2-5.4); WBC 10.58 X1000 (4.8-10.8)
[2019-10-27 06:18] LABS: AGAP 6; ALB/GLOB RATIO 1.4; ALBUMIN 2.8 g/dL (3.5-5.0); ALKALINE PHOSPHATASE 61 U/L (32-104); BUN 24 mg/dL (8-22); CHLORIDE 101 mmol/L (98-107); COSMO 292; CREATININE 0.9 mg/dL (0.5-0.9); ESTIMATED GFR > 60; GLUCOSE 79 mg/dL (70-104); GOT 14 U/L (10-30); GPT 30 U/L (10-36); POTASSIUM 3.7 mmol/L (3.5-5.1); SODIUM 145 mmol/L (136-145); TCO2 38 mmol/L (25-35); TOTAL BILIRUBIN 0.42 mg/dL (0.20-1.00); TOTAL PROTEIN 4.8 g/dL (6.3-8.3)
[2019-10-27] MEDS: PULMICORT INH SCH ×2 (08:16→19:48)
[2019-10-27] MEDS: MUCOMYST 20% INH SCH ×2 (08:16→19:48)
[2019-10-27] MEDS: ASPIRIN PO SCH (08:44)
[2019-10-27] MEDS: VITAMIN D PO SCH (08:44)
[2019-10-27] MEDS: NORVASC PO SCH (08:44)
[2019-10-27] MEDS: SOLU-MEDROL IV SCH (08:44)
[2019-10-27] MEDS: LOPRESSOR PO SCH ×2 (08:44→20:57)
--- NOTE | 2019-10-27 09:08 | PROGRESS NOTE ---
DATE: 10/27/2019 SUBJECTIVE: This patient continues to be on high-flow oxygen. We will try to wean this off and put her on a nasal cannula. I will continue with the same management otherwise. She pulled out her Mancia catheter yesterday. I think this is the second time she did that. We will monitor this patient closely. OBJECTIVE: Vital signs: Temperature 97.6 degrees, pulse 84, respiratory rate 18, blood pressure 158/74, oxygen saturation 93 on a high-flow nasal cannula. HEENT: Head normocephalic, no trauma. PERRLA. Neck: Neck is supple. No JVD. No masses. Central trachea. Chest: She has decreased breath sounds mostly at the bases. She is not wheezing. Cardiovascular: RRR. Abdomen: Abdomen soft, nontender, nondistended. No hepatosplenomegaly. Extremities: Trace pedal edema. No clubbing. No cyanosis. Neurological examination: The patient is awake. She is alert. She is probably hard of hearing. No focal deficits. LABORATORY: WBC 10.5, hemoglobin 11.5, hematocrit 38.7, platelets 89. Sodium 145, potassium 3.7, chloride 101, bicarbonate 38. BUN 24, creatinine 0.9, glucose 79, calcium 9, albumin 2.8. ASSESSMENT AND PLAN: 1. Acute on chronic hypoxemic and hypercarbic respiratory failure. The patient continues to be on a high-flow oxygen. Pulmonary Department will arrange the Trilogy machine for this patient. We will continue with same management for now. 2. Advanced chronic obstructive pulmonary disease with [id number] exacerbation, seems to be getting better. I had to decrease the dose of the steroids yesterday. My plan is to continue the same dose today and tomorrow will decrease it even more. 3. Morbid obesity with obstructive sleep apnea and pickwickian syndrome noted. Diet and exercise have been discussed. 4. Elevated troponin on admission concerning of demand ischemia versus non-ST elevation myocardial infarction. Cardiology on board. No chest pain. I do believe it is more related to her current condition than a cardiac problem. 5. Hypothyroidism. Continue with Synthroid. 6. Chronic kidney disease stage IIIA, stable. 7. Tobacco use and abuse prior to hospitalization. This patient has been advised against tobacco use. I will continue with daily cessation education. 8. Left lower lobe pneumonia. I have stopped the antibiotics. She took them for more than [address] angiogram did not show any infiltrates, but atelectasis and fibrosis. cc: Lazaro Thakkar MD
--- NOTE | 2019-10-27 17:52 | PULMONOLOGY PROGRESS NOTE ---
DATE: 10/27/2019 SUBJECTIVE: The patient has been transferred to the fourth floor. She reports her breathing has improved. She is currently on a nasal cannula. OBJECTIVE: The patient has been afebrile for the last 24 hours. Blood pressure 143/58, heart rate 68, respiratory rate 20, oxygen saturation 100% on 4 L per nasal cannula.HEENT: Pupils are equal and reactive. Oropharynx appears clear. Neck: Supple. Chest: Reveals diminished breath sounds bilaterally. Cardiac: S1-S2. Abdomen: Obese and soft. Extremities: Without edema. LABORATORIES: Arterial blood gas reveals a pH of 7.40, pCO2 of 68, PO2 of 77. White blood count 10.6, hemoglobin 11.5, platelet count 89,000 and increasing. IMPRESSION: A 59-year-old with 1. Acute hypoxemic and acute hypercapnic respiratory failure. 2. Nicotine addiction with ongoing tobacco use. 3. Chronic obstructive pulmonary disease. 4. Morbid obesity. PLAN: 1. Continue to cycle BiPAP and oxygen. 2. Agree with plans to consider Trilogy at the time of discharge. 3. Continue bronchodilators. 4. Encourage weight loss. 5. Counseled about the importance of smoking cessation. cc: Abebe Tamez MD
[2019-10-27] MEDS: PRILOSEC PO SCH (20:57)
[2019-10-27] MEDS: LIPITOR PO SCH (20:57)
[2019-10-27] MEDS: HALDOL IV PRN (23:26)
[2019-10-28] MEDS: DUONEB (A & A) INH SCH ×6 (03:14→23:50)
[2019-10-28 05:24] LABS: ALLEN TEST YES; BE 13.5 mmoll (-3.0-3.0); BLOOD TYPE ARTERIAL; HCO3-(ACT) 35.4 mmoll (20.0-26.0); PO2(98.6) 69 mmHg (60-100); SAMPLE BLOOD; pH(98.6) 7.39 (7.35-7.45)
[2019-10-28 05:25] LABS: MODALITY BI PAP; PCO2(98.6) 69 mmHg (35-45)
[2019-10-28] MEDS: PRILOSEC PO SCH ×2 (06:59→20:44)
[2019-10-28] MEDS: SYNTHROID IV SCH (07:00)
[2019-10-28] MEDS: SODIUM CHLORIDE 0.9% INJ PRN (07:01)
[2019-10-28] MEDS: PULMICORT INH SCH ×2 (07:36→20:09)
[2019-10-28] MEDS: MUCOMYST 20% INH SCH ×2 (07:36→20:09)
[2019-10-28 08:21] LABS: CALCIUM 9.4 mg/dL (8.8-10.2); POTASSIUM 3.6 mmol/L (3.5-5.1)
[2019-10-28] MEDS: VITAMIN D PO SCH (10:05)
[2019-10-28] MEDS: LOPRESSOR PO SCH ×2 (10:05→20:44)
[2019-10-28] MEDS: NORVASC PO SCH (10:05)
[2019-10-28] MEDS: SOLU-MEDROL IV SCH (10:05)
[2019-10-28] MEDS: ASPIRIN PO SCH (10:05)
--- NOTE | 2019-10-28 14:42 | PROGRESS NOTE ---
DATE: 10/28/2019 SUBJECTIVE: The patient seems to be doing better today. Today, she is using the nasal cannula. I will continue with the same management for now. Tomorrow, will talk to the brazing furnace operator to find out if she is going home with the Trilogy machine. She seems to be stable at this moment. We had a large conversation about weight loss, tobacco abuse, and diet. OBJECTIVE: Vital Signs: Temperature 98 degrees, pulse 77, respiratory rate 16, blood pressure 137/53, oxygen saturation 99 on 4 L of nasal cannula. HEENT: Head normocephalic. No trauma. PERRLA. Neck: Supple. No JVD. No masses. Central trachea. Chest: Decreased breath sounds globally with some crepitus at the bases. Cardiovascular: RRR. Abdomen: Soft, nontender, nondistended. No hepatosplenomegaly. Protuberant. Extremities: Trace pedal edema. No clubbing. No cyanosis. Neurological: The patient is awake. She is alert. She is hard of hearing. No focal deficits. LABORATORY DATA: Sodium 142, potassium 3.6, chloride 99, [*] 38, BUN 23, creatinine 1, glucose 86, calcium 9.4. ASSESSMENT AND PLAN: 1. Acute on chronic hypoxemic and hypercarbic respiratory failure. This patient is now using a nasal cannula. Pulmonary Department will arrange a Trilogy machine for this patient. Will continue with the same management for now. Tomorrow, will discuss the case with the brazing furnace operator. 2. Advanced chronic obstructive pulmonary disease with [id number]-[id number] exacerbation upon admission. Seems to be getting better. Will continue with the same management for now. 3. Morbid obesity with obstructive sleep apnea and Pickwickian syndrome. Noted. Diet and an exercise has been discussed today. 4. Elevated troponin on admission, concerning for demand ischemia versus non ST-elevation myocardial infarction. Cardiology on board. No chest pain. I do believe this is related to her current condition, and not a cardiac problem. 5. Hypothyroidism. Continue with Synthroid. 6. Chronic kidney disease stage 3A, stable. 7. Tobacco use and abuse. This patient has been highly advised against tobacco use. I will continue with daily cessation education. 8. Left lower lobe pneumonia. This has been already treated. cc: Lazaro Thakkar MD
--- NOTE | 2019-10-28 18:17 | PULMONOLOGY PROGRESS NOTE ---
DATE: 10/28/2019 SUBJECTIVE: The patient is awake, alert, and conversant. She reports she is doing well. She is currently on nasal cannula. OBJECTIVE: Vital Signs: The patient has been afebrile for the last 24 hours. Blood pressure is 137/53, heart rate 77, respiratory rate 16, oxygen saturation 99%. HEENT: Pupils are equal and reactive. Oropharynx appears clear. Neck: Supple. Chest: Reveals diminished breath sounds bilaterally with no significant wheezing. Cardiac Exam: S1, S2. Abdomen: Obese and soft. Extremities: Without edema. LABORATORIES: Arterial blood gas reveals a pH of 7.39, pCO2 of 69, PO2 of 69. IMPRESSION: A 61-year-old with 1. Acute hypoxemic and acute hypercapnic respiratory failure. 2. Morbid obesity with a body mass index greater than 40. 3. Nicotine addiction with ongoing tobacco use on admission. DISCUSSION: A 59-year-old with problems outlined above. Currently, she is doing well on nasal cannula. She has good air flow. PLAN: 1. Continue BiPAP. 2. Trilogy being planned per Dr. Pascal's notes at the time of discharge. 3. Encourage weight loss. 4. Counseling on nicotine addiction and smoking cessation. From a pulmonary standpoint, she can be discharged home soon. cc: Abebe Tamez MD
[2019-10-28] MEDS: LIPITOR PO SCH (20:44)
[2019-10-28] MEDS: HALDOL IV PRN (22:52)
[2019-10-29] MEDS: DUONEB (A & A) INH SCH ×6 (03:31→22:59)
[2019-10-29 05:43] LABS: ALLEN TEST YES; BE 10.5 mmoll (-3.0-3.0); BLOOD TYPE ARTERIAL; PO2(98.6) 78 mmHg (60-100); SAMPLE BLOOD; pH(98.6) 7.27 (7.35-7.45)
[2019-10-29 06:02] LABS: MODALITY CANNULA; PCO2(98.6) 90 mmHg (35-45)
[2019-10-29] MEDS: PRILOSEC PO SCH ×2 (06:48→21:24)
[2019-10-29] MEDS: SYNTHROID IV SCH (06:58)
[2019-10-29] MEDS: PULMICORT INH SCH ×2 (08:28→19:30)
[2019-10-29] MEDS: MUCOMYST 20% INH SCH ×2 (08:28→19:30)
[2019-10-29 08:49] LABS: CALCIUM 9.6 mg/dL (8.8-10.2); CREATININE 1.1 mg/dL (0.5-0.9)
[2019-10-29 08:50] LABS: POTASSIUM 5.1 mmol/L (3.5-5.1)
[2019-10-29] MEDS: LOPRESSOR PO SCH ×2 (09:00→21:24)
[2019-10-29] MEDS: VITAMIN D PO SCH (09:00)
[2019-10-29] MEDS: NORVASC PO SCH (09:00)
[2019-10-29] MEDS: ASPIRIN PO SCH (09:00)
[2019-10-29] MEDS: SOLU-MEDROL IV SCH (09:00)
[2019-10-29] MEDS: TYLENOL PO PRN (16:33)
--- NOTE | 2019-10-29 18:44 | PROGRESS NOTE ---
DATE: 10/29/2019 SUBJECTIVE: This patient's pCO2 in the morning was 90 and I put her on the BiPAP machine. Her pH was low at 7.27. When I saw the patient she was completely awake, alert and oriented x3. As per the nurse, she found the patient sitting on the floor. Apparently, she did not fall, but she just sat on the floor. I am not quite sure what happened. She is not complaining of any pain at all. OBJECTIVE: Vital Signs: Temperature 99.1 degrees, pulse 81, respiratory rate 16, blood pressure 146/63, oxygen saturation 97% on the BiPAP machine. HEENT: Head normocephalic, no trauma. PERRLA. Neck: Supple. No JVD. No masses. Central trachea. Chest: Decreased breath sounds globally with some crepitus at the bases. Cardiovascular: RRR. Abdomen: Soft, nontender, nondistended. No hepatosplenomegaly. Protuberant. Extremities: Trace edema. No clubbing, no cyanosis. Neurological: Patient is awake. She is alert. She is hard of hearing. No focal deficits. LABORATORY DATA: PH 7.27 in the morning, pCO2 90, PO2 78, bicarbonate 33. Sodium 146, potassium 5.1, chloride 100, bicarbonate 40, BUN 21, creatinine 1.1, glucose 79, calcium 9.6. ASSESSMENT AND PLAN: 1. Acute on chronic hypoxemic and hypercarbic respiratory failure. This patient is using the BiPAP machine today and I instructed the nurse to use it during the night. Pulmonary Department will arrange a Trilogy machine. I am not quite sure if she is going to be able to get, but we will try with the older adult social work specialist. Tomorrow we will discuss the case with the computer software engineer. 2. Advanced chronic obstructive pulmonary disease with [id number] exacerbation. Seems to be better. She is not wheezing at this moment. Continue with same management. 3. Morbid obesity with obstructive sleep apnea and Pickwickian syndrome, noted. Diet and exercise has been discussed yesterday, with the whole family, we talked a little bit today about diet again. 4. Elevated troponin on admission concerning for demand ischemia versus non-ST elevation myocardial infarction. Cardiology on board. No chest pain. I do believe it is related to her current condition, but no cardiac problem at this moment. 5. Hypothyroidism. Continue with Synthroid. 6. Chronic kidney disease stage IIIA, stable. 7. Tobacco use and abuse. This patient has been highly advised against tobacco use. I will continue with daily cessation education. 8. Left lower lobe pneumonia. This has been already treated. cc: Lazaro Thakkar MD
[2019-10-29] MEDS: LIPITOR PO SCH (21:24)
[2019-10-29] MEDS: HALDOL IV PRN ×2 (21:24→21:31)
[2019-10-30] MEDS: DUONEB (A & A) INH SCH ×6 (03:25→23:11)
[2019-10-30 05:25] LABS: BLOOD TYPE ARTERIAL; SAMPLE BLOOD
[2019-10-30] MEDS: PRILOSEC PO SCH ×3 (05:38→21:23)
[2019-10-30] MEDS: TYLENOL PO PRN ×2 (05:38→21:31)
[2019-10-30] MEDS: SYNTHROID IV SCH ×2 (05:39→15:18)
[2019-10-30 06:44] LABS: ALLEN TEST YES; BE 11.5 mmoll (-3.0-3.0); HCO3-(ACT) 33.7 mmoll (20.0-26.0); PO2(98.6) 59 mmHg (60-100); pH(98.6) 7.36 (7.35-7.45)
[2019-10-30 06:52] LABS: MODALITY BI PAP; PCO2(98.6) 71 mmHg (35-45)
--- NOTE | 2019-10-30 06:56 | PULMONOLOGY PROGRESS NOTE ---
DATE: 10/29/2019 SUBJECTIVE: The patient is awake and alert. She reports she slept pretty well. She reports she slept on the BiPAP machine, but according to the arterial blood gases, she was not wearing it when it was drawn. OBJECTIVE: Vital Signs: The patient has been afebrile for the last 24 hours, blood pressure 146/63, heart rate 81, respiratory rate 16, oxygen saturation 97%. HEENT: Pupils are equal and reactive. Oropharynx appears clear. Neck: Supple. Chest: Shallow breath sounds bilaterally. Cardiac: S1, S2. Abdomen: Obese and soft. Extremities: Trace to 1+ peripheral edema. LABORATORY DATA: Arterial blood gas this morning reveals a pH of 7.27, pCO2 of 90, PO2 of 78. IMPRESSION: A 59-year-old with: 1. Hypoxemic and hypercapnic respiratory failure. 2. Morbid obesity with a body mass index of 44. 3. Nicotine addiction and ongoing tobacco use. PLAN: 1. Continue nocturnal BiPAP. 2. Agree with Dr. Pascal's notes that the patient will require a Trilogy at discharge to prevent readmission and decompensation. 3. Encourage weight loss. 4. Encourage smoking cessation. cc: Abebe Tamez MD
--- NOTE | 2019-10-30 07:02 | Diag Imaging Result Doc PS360 ---
EXAM: CHEST-PORTABLE HISTORY: abnormal exam TECHNIQUE: Single view COMPARISON: 10/24/2019 FINDINGS: The lungs are well expanded. There is cardiomegaly. Right lung infiltrates/pulmonary edema are similar. More dense infiltrates in the left lung base are less pronounced. There is at least a small left pleural effusion. IMPRESSION: Interval improvement Electronically signed by Darwin Clifford 10/30/2019 6:52 AM
[2019-10-30] MEDS: MUCOMYST 20% INH SCH ×2 (08:11→19:41)
[2019-10-30] MEDS: PULMICORT INH SCH ×2 (08:11→19:41)
[2019-10-30] MEDS: LOPRESSOR PO SCH ×2 (08:34→21:24)
[2019-10-30] MEDS: SOLU-MEDROL IV SCH (08:34)
[2019-10-30] MEDS: ASPIRIN PO SCH (08:34)
[2019-10-30] MEDS: VITAMIN D PO SCH (08:34)
[2019-10-30] MEDS: NORVASC PO SCH (08:34)
[2019-10-30 09:09] LABS: CALCIUM 9.6 mg/dL (8.8-10.2); POTASSIUM 4.4 mmol/L (3.5-5.1)
--- NOTE | 2019-10-30 14:56 | PROGRESS NOTE ---
DATE: 10/30/2019 SUBJECTIVE: This patient's CO2 is better compared with yesterday. Today, it is 71. Tomorrow, hopefully, if this is about the same or in the 60s, I will discharge this patient home. We have been working on finding a Trilogy machine and/or a BiPAP machine. bead worker sewing is trying to get this for the patient. She seems to be stable. OBJECTIVE: Vital Signs: Temperature 97.6 degrees, pulse 81, respiratory rate 24, blood pressure 165/79, oxygen saturation 94% on 3 L of nasal cannula. HEENT: Head normocephalic. No trauma. PERRLA. Neck: Supple. No JVD. No masses. Central trachea. Chest: Decreased breath sounds globally with some crepitus at the bases. Cardiovascular: RRR. Abdomen: Soft, nontender, nondistended. No hepatosplenomegaly. Protuberant. Extremities: Trace edema. No clubbing, no cyanosis. Neurological Examination: The patient is awake. She is alert. She is hard of hearing. No focal deficits. Laboratory: PCO2 of 71. Sodium 141, potassium 4.4, chloride 97, bicarbonate 28, BUN 18, creatinine 1. ASSESSMENT AND PLAN: 1. Acute on chronic hypoxemic and hypercarbic respiratory failure. Continue with the same management for now. We are trying to find a Trilogy machine and/or a BiPAP machine for this patient. Hopefully, tomorrow, if this patient is doing good, I will send her home with a machine. 2. Advanced chronic obstructive pulmonary disease with moderate to severe exacerbation upon admission, seems to be getting better. 3. Morbid obesity with obstructive sleep apnea and pickwickian syndrome noted. Diet and exercise have been discussed. 4. Elevated troponin on admission. No chest pain at this moment. 5. Hypothyroidism. Continue with Synthroid. 6. Chronic kidney disease stage 3A, stable. 7. Tobacco use and abuse. This patient has been highly advised against tobacco use. I will continue with daily cessation education. 8. Left lower lobe pneumonia. This has been already treated. cc: Lazaro Thakkar MD
--- NOTE | 2019-10-30 19:45 | PROVIDER PROGRESS NOTE ---
Progress Note Dr. Pascal Progress Note/Pulmonary and or critical care Subjective: The patient is sitting in bed on NC at 3L with no acute distress noted. She states she has no complaint and she just want to know when she can go home. Her pCO2 this morning was 71, however yesterday it was up to 90. She states there was one night she did not use the BiPAP, but she doesnt remember which night now. We watch her to use incentive spirometer for a couple times. Unfortunately, she never hits 500ml of inspiratory capacity. Objective: Vital Signs: T 98.5, W[place] 78, RR 16, BP 142/59 and SaO2 98% on NC 3L. Physical Examination: General: Morbidly obese. Sitting in bed with no acute distress noted. HEENT: Normocephalic. Trachea midline. Mucosa pink and moist. Chest: Even and unlabored. Symmetrical excursion. Auscultation reveals RLL inspiratory crackles posteriorly. CVS: Regular rate and rhythm with murmur noted. Abdomen: Soft. Obese. Normoactive bowel sounds in all 4 quadrants noted. Extremities: NO pedal edema. No cyanosis. No clubbing. Nail pitting noted. Neuro: Awake and alert x3. Speech fluent. Following simple commands. Weakness present. Labs and Radiology: Laboratory Results 10/30/19 10/30/19 05:20 06:53 Specimen Type ARTERIAL Sample Site R RADIAL pH 7.36 pCO2 71 H* pO2 59 L HCO3 33.7 H Base Excess 11.5 H Luther Test YES A-a O2 Difference 66.0 Lactate 1.10 Blood Gas Modality BI PAP FiO2 % 30.0 Inspiratory BiPAP 22.0 Expiratory BiPAP 8.0 Sodium 141 Potassium 4.4 Chloride 97 L Carbon Dioxide 28 Anion Gap 16 BUN 18 Creatinine 1.0 H Estimated GFR/1.73 m2 57 BUN/Creatinine Ratio 18 Glucose 96 Calculated Osmolality 283 Calcium 9.6 Assessment: Acute respiratory failure, hypercapnic and hypoxemic, multifactorial. Intubated on 10/09/19, extubated on 10/15/19. Slowly improving. CXR today shows interval improvement on left lung base dense infiltrates with stable cardiomegaly and right lung infiltrates/pulmonary edema. Possible CHF exacerbation with cardiomegaly, pulmonary edema, [id number] bilateral pleural effusions, proBNP elevation and pulmonary hypertension. COPD exacerbation with ongoing tobacco use. Morbid obesity with Pickwickian syndrome and DEEPAK. Hypothyroidism. Plan: Continue current treatment and supportive care per admitting and other teams on the case. Arranging home trilogy for DEEPAK management. Weaning oxygen as tolerated. Continue BiPAP qhs and as needed. Bronchodilators. IV steroid (tapering down). Mucomyst. Tobacco cessation education when appropriate. Physical therapy and incentive spirometer. Appropriate DVT and GI prophylaxis
[2019-10-30] MEDS: LIPITOR PO SCH (21:23)
[2019-10-30] MEDS: HALDOL IV PRN (21:26)
[2019-10-31] MEDS: DUONEB (A & A) INH SCH ×3 (04:12→11:20)
[2019-10-31 05:42] LABS: ALLEN TEST YES; BE 11.9 mmoll (-3.0-3.0); BLOOD TYPE ARTERIAL; HCO3-(ACT) 34.1 mmoll (20.0-26.0); METHB 0.6 % (0.0-1.5); O2(CT) 18.5 mL/dL (15.0-23.0); O2HB 94.4 % (95.0-99.0); PO2(98.6) 71 mmHg (60-100); SAMPLE BLOOD; SAO2 97.3 % (95.0-100.0); THB 13.9 g/dL (11.5-17.4); pH(98.6) 7.41 (7.35-7.45)
[2019-10-31 05:48] LABS: MODALITY BI PAP
[2019-10-31 05:49] LABS: PCO2(98.6) 62 mmHg (35-45)
[2019-10-31] MEDS: SYNTHROID IV SCH (06:36)
[2019-10-31] MEDS: PRILOSEC PO SCH (06:36)
[2019-10-31] MEDS: ASPIRIN PO SCH (08:09)
[2019-10-31] MEDS: VITAMIN D PO SCH (08:09)
[2019-10-31] MEDS: SOLU-MEDROL IV SCH (08:09)
[2019-10-31] MEDS: LOPRESSOR PO SCH (08:09)
[2019-10-31] MEDS: NORVASC PO SCH (08:09)
[2019-10-31] MEDS: PULMICORT INH SCH (08:18)
[2019-10-31] MEDS: MUCOMYST 20% INH SCH (08:18)
[2019-10-31 11:59] VITALS: BP 141/75
--- NOTE | 2019-10-31 15:05 | PROVIDER PROGRESS NOTE ---
Progress Note Dr. Pascal Progress Note/Pulmonary and or critical care Subjective: The patient is sitting in bed on NC at 3L with no acute distress noted. She appears happy that she is discharged today. She still has productive cough once in a while, which is more like a chronic issue. Objective: Vital Signs: T 98.5, CT 78, RR 16, BP 142/59 and SaO2 98% on NC 3L. Physical Examination: General: Morbidly obese. Sitting in bed with no acute distress noted. HEENT: Normocephalic. Trachea midline. Mucosa pink and moist. Chest: Even and unlabored. Symmetrical excursion. Auscultation reveals diminished breathing sounds bilaterally with RLL inspiratory crackles posterio rly. CVS: Regular rate and rhythm with murmur noted. Abdomen: Soft. Obese. Normoactive bowel sounds in all 4 quadrants noted. Extremities: NO pedal edema. No cyanosis. No clubbing. Nail pitting noted. Neuro: Awake and alert x3. Speech fluent. Following simple commands. Weakness present. Labs and Radiology: Laboratory Results 10/31/19 05:35 Specimen Type ARTERIAL Sample Site R RADIAL pH 7.41 pCO2 62 H* pO2 71 HCO3 34.1 H Base Excess 11.9 H Oxyhemoglobin 94.4 L ABG O2 Sat (Calculated) 18.5 ABG O2 Saturation 97.3 ABG Carboxyhemoglobin 2.40 ABG Methemoglobin 0.6 Luther Test YES A-a O2 Difference 65.0 Total Hemoglobin 13.9 Lactate 1.00 Blood Gas Modality BI PAP Vent Mode BIPAP FiO2 % 30.0 Inspiratory BiPAP 22.0 Expiratory BiPAP 8.0 Assessment: Acute respiratory failure, hypercapnic and hypoxemic, multifactorial. Intubated on 10/09/19, extubated on 10/15/19. Slowly improving. Possible CHF exacerbation with cardiomegaly, pulmonary edema, [id number] bilateral pleural effusions, proBNP elevation and pulmonary hypertension. COPD exacerbation with ongoing tobacco use. Morbid obesity with Pickwickian syndrome and DEEPAK. Hypothyroidism. Plan: Continue current treatment and supportive care per admitting and other teams on the case. Arranging home trilogy for DEEPAK management. Apparently, insurance does not cover trilogy. Patient is arranged to be discharged home with BiPAP. Weaning oxygen as tolerated. Continue BiPAP qhs and as needed. Bronchodilators. IV steroid (tapering down). Mucomyst. Tobacco cessation education when appropriate. Physical therapy and incentive spirometer. Appropriate DVT and GI prophylaxis
--- NOTE | 2019-11-01 08:37 | DISCHARGE SUMMARY ---
ADMISSION DATE: 10/09/2019 DISCHARGE DATE: 10/31/2019 DISCHARGE DIAGNOSES: 1. Acute on chronic hypoxemic and hypercarbic respiratory failure. 2. Advanced chronic obstructive pulmonary disease with kzzohroy-[id number] exacerbation upon admission. 3. Morbid obesity with obstructive sleep apnea and pickwickian syndrome. 4. Elevated troponin of admission concerning of mild non ST elevation myocardial infarction. 5. Hypothyroidism. 6. Hypertension. 7. Chronic kidney disease. 8. Tobacco use and abuse. 9. Left lower lobe pneumonia. 10. Hyperlipidemia. HOSPITAL COURSE: This is a 59-year-old morbidly obese female patient with a past medical history of COPD, obstructive sleep apnea, coronary artery disease with ME x4 and has 5 cardiac stents, hyperlipidemia, hypertension, hypothyroidism, diabetes, CKD, history of ischemic cardiomyopathy, presented to the emergency department and was admitted on 10/09/2019 due to shortness of breath that has been progressively getting worse. She was having an acute exacerbation of the COPD. She was more hypercapnic and hypoxemic. The pCO2 was 109. She was intubated and we did not gather too much of the history because of this presentation. The course of her hospitalization was really difficult, but she was recovering slowly. We did an echocardiogram that showed a normal ejection fraction and right ventricular systolic function. Pulmonary Department, as well as Cardiology Department were consulted. We were concerning of non ST elevation myocardial infarction. She has pneumonia on top of chronic obstructive pulmonary disease and respiratory failure. She spent a few days having problems with the oxygen supplementation, and actually she was using a high-flow nasal cannula that was slowly improving with treatment. She was placed on antibiotics, and she completed a course of the treatment during this hospitalization. She spent about 22 days hospitalized. Physical therapy was on board as well. She did not want to go to a rehab center and actually she wants to go home, but to be able to do that we were requesting a Trilogy machine and/or a BiPAP machine. We were able to find a BiPAP machine for this patient, and she was using the BiPAP machine kind of on and off during this hospitalization, and actually 2 days ago her pCO2 was elevated at 90. Then after using the BiPAP machine, decreased to 71 and today 62. She seems to be stable. She is completely awake, alert, and oriented x3. She will be discharged home with the BiPAP machine. I had a large conversation yesterday with the family members. They seem to understand that this patient has a lot of comorbidities, and she needs to use the BiPAP machine at home and take her medications as scheduled. On the other hand, she needs to lose weight, and this has been explained again to the patient and the family. The patient seems to be stable. She will be discharged home today. VITAL SIGNS: Temperature 98.2 degrees, pulse 83, respiratory rate 19, blood pressure 141/75, oxygen saturation 94% on 3 L of nasal cannula. PHYSICAL EXAMINATION: HEENT: Head normocephalic, no trauma. PERRLA. Neck: Neck is supple. No JVD. No masses. Central trachea. Chest: Decreased breath sounds globally with some crepitus at the bases. Cardiovascular: RRR. Abdomen: Soft, protuberant, nontender, nondistended. No hepatosplenomegaly. Extremities: Trace edema. No clubbing, no cyanosis. Neurological examination: The patient is awake, alert. She is oriented. She is following commands. She is hard of hearing. LABORATORY: PCO2 62, PO2 71. BMP from yesterday: Sodium 141, potassium 4.4, chloride 97, bicarbonate 28. BUN 18, creatinine 1, glucose 96, calcium 9.6. DISCHARGE MEDICATIONS: 1. Aspirin 81 mg p.o. daily. 2. Lipitor 1 tablet p.o. at bedtime 40 mg. 3. Symbicort 160/4.5 mcg inhaler daily. 4. Vitamin D 3 1000 units p.o. daily. 5. Glipizide 2.5 mg p.o. daily. 6. Isosorbide mononitrate 60 mg p.o. daily. 7. Levothyroxine 100 mcg p.o. daily. 8. Lisinopril 10 mg p.o. daily. 9. Medrol Dosepak as directed. 10. Metoprolol 25 mg p.o. b.i.d. 11. Nitroglycerin 0.4 mg sublingual as needed. 12. Omeprazole 40 mg p.o. daily. 13. Ranolazine 1000 mg p.o. every 12 hours. 14. Spiriva Respimat 2 puff inhaler daily. 15. Incruse Ellipta 62.5 mcg inhaler as needed. TIME DISCHARGING THIS PATIENT: At least 50 minutes. cc: Lazaro Thakkar MD
== END 2019-10-31 13:34 | disposition home health service (06) | DRG 207 ==
LOC: ED 15:19 → SUATTDRO 22:19 → ICU 22:19 → 2N 10-21 11:50 → 4N 10-27 09:57
PROVIDERS: ATTEND Internal Medicine

== ENCOUNTER 2019-11-14 15:32 | Inpatient (IN) ==
--- NOTE | 2019-11-14 17:15 | Diag Imaging Result Doc PS360 ---
EXAM: CHEST-1 VIEW HISTORY: SOB TECHNIQUE: Single view. COMPARISON: 10/30/2019 FINDINGS: Left-sided PICC catheter is been removed. Evaluation is limited by body habitus and portable technique there is cardiomegaly. There is vascular congestion. Probable interstitial edema. There is stable left atelectasis/consolidation.. IMPRESSION: Cardiomegaly with vascular congestion and interstitial edema. Peripheral left lung opacity consistent with atelectasis and/or infiltrate unchanged. Electronically signed by Rosio Easley 11/14/2019 5:13 PM
[2019-11-14] MEDS ORDERED: LASIX IV ONE ×3 (17:25→23:36)
[2019-11-14 17:37] LABS: BASO# 0.04 X1000 (0.0-0.2); BASO% 0.6 % (0.0-0.8); EOS# 0.01 X1000 (0.0-0.7); EOS% 0.2 % (0.0-10.0); HEMATOCRIT 42.2 % (37.0-47.0); HEMOGLOBIN 12.5 g/dL (12.0-16.0); IMM GRAN# 0.05 X1000 (0.0-0.04); IMM GRAN% 0.8 % (0.0-0.5); LYMPH% 30.4 % (20.5-51.1); MCH 28.8 PG (27-31); MCHC 29.6 g/dL (33-37); MCV 97.2 FL (81-99); MONO# 0.61 X1000 (0.11-0.59); MONO% 9.7 % (1.7-9.3); MPV 10.2 FL (7.4-10.4); NEUT# 3.65 X1000 (1.4-6.5); NEUT% 58.3 % (42.2-75.2); PLT 147 X1000 (130-400); RBC 4.34 XMIL (4.2-5.4); RDW 21.1 % (11.5-14.5); WBC 6.26 X1000 (4.8-10.8)
[2019-11-14 17:39] LABS: ALLEN TEST YES; BE 7.3 mmoll (-3.0-3.0); BLOOD TYPE ARTERIAL; HCO3-(ACT) 30.4 mmoll (20.0-26.0); METHB 0.9 % (0.0-1.5); O2(CT) 16.7 mL/dL (15.0-23.0); O2HB 90.5 % (95.0-99.0); PO2(98.6) 108 mmHg (60-100); SAMPLE BLOOD; SAO2 98.3 % (95.0-100.0)
[2019-11-14 17:43] LABS: PCO2(98.6) 94 mmHg (35-45); pH(98.6) 7.22 (7.35-7.45)
[2019-11-14 17:47] LABS: INR 0.89; PROTIME 12.1 Seconds (11.0-16.0)
[2019-11-14 17:48] LABS: PTT 31.8 Seconds (22.3-41.8)
[2019-11-14 18:02] LABS: ALB/GLOB RATIO 1.1; ALBUMIN 2.7 g/dL (3.5-5.0); CALCIUM 8.5 mg/dL (8.8-10.2); CREATININE 1.5 mg/dL (0.5-0.9); TOTAL BILIRUBIN 0.19 mg/dL (0.20-1.00); TOTAL PROTEIN 5.1 g/dL (6.3-8.3)
--- NOTE | 2019-11-14 20:08 | PROVIDER DOCUMENTATION ---
This chart was entered by June Cadena Scribe, acting as scribe for Jennifer Medina CRNP. HPI-General Adult - General Chief Complaint: Edema Stated Complaint: EDEMA/LEGS Time Seen by Provider: 11/14/19 15:59 Source: patient Allergies/Adverse Reactions: Patient Allergies Allergy/AdvReac Type Severity Reaction Status Date / Time No Known Allergies Allergy Verified 03/03/19 10:34 Home Medications: Home Medication List Medication Instructions Recorded Confirmed Last Taken Type Aspirin 81 mg PO DAILY 12/29/12 11/14/19 07/24/14 09:00 History 81 MG Levothyroxine Sodium [Levothroid] 100 mcg PO DAILY 12/29/12 11/14/19 07/24/14 09 :00 History 100 MCG Nitroglycerin [Nitrostat] 0.4 mg SL PRN PRN 12/29/12 11/14/19 01/18/13 06:00 History Cholecalciferol (Vitamin D3) 1,000 unit PO DAILY 10/27/18 11/14/19 Unknown History [Vitamin D3] Glipizide 2.5 mg PO DAILY 10/27/18 11/14/19 Unknown History Isosorbide Mononitrate [Isosorbide 60 mg PO DAILY 10/27/18 11/14/19 Unknown History Mononitrate ER] Lisinopril 10 mg PO DAILY 10/27/18 11/14/19 Unknown History Metoprolol Tartrate 25 mg PO BID 10/27/18 11/14/19 Unknown History Tiotropium [place] [Spiriva 2 puff INHALATION DAILY 03/03/19 11/14/19 Unknown Hi story Respimat] ATORVAstatin [Lipitor] 1 tab PO HS 10/09/19 11/14/19 Unknown History Budesonide/Formoterol Inhaler 1 puff INH DIRECTED 10/09/19 11/14/19 Unknown History [Symbicort 160/4.5 Microgm Inhaler] Ranolazine [Ranolazine ER] 1 tab PO BID 10/09/19 11/14/19 Unknown History Umeclidinium [place] [Incruse 62.5 mcg INHALATION DIRECTED 10/09/19 11/14/19 Unknown History Ellipta] Omeprazole [Prilosec] 40 mg PO DAILY #90 cap 10/31/19 11/14/19 Unknown Rx - History of Present Illness -Gen Adult Nature of Presenting Problems: 59yof presents to ED with bilateral lower extremity and hand edema. Reports she was discharged from here a week ago and edema has not improved since then. Also reports PND. [facility] nurse saw her today and called her pcp about her edema and pcp told her to come here. Hx of CHF, COPD, on home O2. Pt denies any other complaints. Location of Pain/Injury: reports: hand(s) (bilateral), lower extremity (bilateral) Quality of Pain: reports: pressure Severity: reports: moderate Onset/Duration: reports: other Timing: reports: still present, constant Context/Activities at Onset: reports: light activity Modifying Factors: improves with: nothing Similar Symptoms Previously?: Yes Recently seen or treated by another doctor?: Yes (d/c from hospital 1wk ago) Review of Systems - Adult - REVIEW OF SYSTEMS - ADULT Constitutional: reports: no symptoms reported. denies: chills, fever, fatique Eyes: reports: no symptoms reported Ears, Nose, Mouth & Throat: reports: no symptoms reported Cardiovascular: reports: see HPI, edema. denies: chest pain, palpitations Respiratory: reports: see HPI. denies: shortness of breath Gastrointestinal: reports: no symptoms reported Genitourinary: reports: no symptoms reported Musculoskeletal: reports: no symptoms reported Integumentary: reports: no symptoms reported Neurological: reports: no symptoms reported Psychiatric: reports: no symptoms reported Endocrine: reports: no symptoms reported Hematologic/Lymphatic: reports: no symptoms reported Allergic/Immunologic: reports: no symptoms reported All Other Systems: Reviewed and Negative Past History - Adult - PAST MEDICAL HISTORY-ADULT Review of Records: reports: Old Records Reviewed, Nursing Assessment Review, Medications Reviewed, Social history reviewed & non-contributory. Major Childhood Illnesses: reports: denies history Cardiovascular: reports: CAD, CHF, HTN, hyperlipidemia, [place] Respiratory: reports: COPD Gastrointestinal: reports: denies history Obstetrical/Gynecological: reports: uterine/ovarian cancer Genitourinary: reports: denies history Musculoskeletal: reports: denies history Neurological: reports: denies history Psychiatric: reports: denies history Endocrine/Immune: reports: thyroid disorder Other Conditions: reports: denies history - PRIOR SURGERIES/PROCEDURES Surgical/Procedure History: reports: cardiac stent, hysterectomy - IMMUNIZATION STATUS Childhood Immunizations: See Nurse Assessment Flu Vaccine: See Nurse Assessment - FAMILY HISTORY Family History: reviewed, not pertinent Physical Exam-General - PHYSICAL EXAM-ADULT Initial Vital Signs Reviewed: Yes - CONSTITUTIONAL General Appearance: alert, no apparent distress. negative: anxious, lethargic, slow to respond - EYES Eyes: PERRL/EOMI, pink conjunctivae - HEAD, EARS, NOSE, MOUTH & THROAT HENMT: normocephalic/atraumatic, moist mucous membranes - NECK Neck: full range of motion, supple, normal inspection - RESPIRATORY Respiratory: chest non-tender, normal breath sounds, no pleuratic chest pain, no respiratory distress, no accessory muscle use, crackles (bases,bilateral). negative: lungs clear, rhonchi, wheezing - CARDIOVASCULAR Cardiovascular: normal peripheral pulses, regular rate, rhythm, other (2+ pitting edema noted to bilateral lower legs, ankles, and feet). negative: bradycardia, tachycardia - GASTROINTESTINAL (ABDOMEN) Abdominal Exam: normal bowel sounds, non tender, soft, other (obese abdomen) - MUSCULOSKELETAL Back Exam: normal inspection Extremity: normal range of motion, non-tender, normal capillary refill, pedal edema (2+ pitting), swelling (2+ pitting to both lower legs). negative: abnormal NV exam, calf tenderness, deformity, erythema - SKIN Integumentary: normal color, warm/dry. negative: cyanosis, diaphoresis, jaundice, mottled, pallor - NEUROLOGIC Neurologic: grossly normal, no motor/sensory deficits - PSYCHIATRIC Psych/Mental Status: normal mood/affect, normal thought content, normal thought process, oriented x 3. negative: anxious, disheveled Progress - PLAN OF CARE/RESULTS Progress/Plan/Lab Results: Vital Signs - 8 hr 11/14/19 15:38 Temperature 98.3 F Pulse Rate 77 Respiratory Rate 19 Blood Pressure 121/77 O2 Sat by Pulse Oximetry 94 L Orders Category Date Time Status Cardiac Monitoring DIRECTED Care 11/14/19 15:44 Active Oxygen Therapy- ED Nursing DIRECTED Care 11/14/19 15:44 Active Saline Loc NOW Care 11/14/19 15:44 Active CHEST-1 VIEW [RAD] Stat Exams 11/14/19 15:45 Taken CBC WITH ELECTRONIC DIFF [HEME] Stat Lab 11/14/19 15:44 Uncollected CK PROFILE [SP CHEM] Stat Lab 11/14/19 15:44 Uncollected COMPREHENSIVE METABOLIC PANEL [CHEM] Stat Lab 11/14/19 15:44 Uncollected PRO B-NATRIURETIC PEPTIDE Stat Lab 11/14/19 15:44 Uncollected PROTIME WITH INR [COAG] Stat Lab 11/14/19 15:44 Uncollected PTT [COAG] Stat Lab 11/14/19 15:44 Uncollected TROPONIN T HIGH SENSITIVITY Stat Lab 11/14/19 15:44 Uncollected UA NIMS W/REFLEX CULT [URINALYSIS] Stat Lab 11/14/19 15:45 Uncollected CP/SOB/Palp >45 yrs of Age Stat Oth 11/14/19 15:44 Ordered EKG [EKG] Stat Ther 11/14/19 15:44 Ordered Result Diagrams: 11/14/19 17:16 11/14/19 17:16 - REASSESSMENT Reassessment #1 Time Reassessed: 18:26 Status: other (Admitting HPS paged. Pt in agreement with plan to admit.) - EKG 1 Time of EKG reading by physician:: 17:56 EKG Read and Signed by:: Aaron Oneil EKG Interpretation (*Must complete 3 of following elements*): Abnormal Rate: 74 Rhythm: SR, nonspecific ST abnormality QRS: normal - XRAY 1 XRAY Study: Chest ([facility] - [address] , [address] [address] [facility] - [address] [place] [address] Department of Imaging Patient: EMELIA WATKINS Date: 11/14/19#: [id number] : 1960DM Status: REG [facility]#: [id number] Age/Sex: 59/FRoom/Bed: Loc: ED Ordering Physician: Aaron Oneil MD Family Physician: None,PCP Reason for Procedure: SOB Signed EXAM: CHEST-1 VIEW HISTORY: SOB TECHNIQUE: Single view. COMPARISON: 10/30/2019 FINDINGS: Left-sided PICC catheter is been removed. Evaluation is limited by body habitus and portable technique there is cardiomegaly. There is vascular congestion. Probable interstitial edema. There is stable left atelectasis/consolidation.. IMPRESSION: Cardiomegaly with vascular congestion and interstitial edema. Peripheral left lung opacity consistent with atelectasis and/or infiltrate unchanged. Electronically signed by Rosio Easley 11/14/2019 5:13 PM 11/14/19 1713 Interpreting Physician: Rosio Easley MD Dictated Date/Time: 170 cc: Aaron Oneil MD; None,PCP) - CONSULTS/PCP/HOSPITALIST Notification #1 *Consult/PCP/Hospitalist*: Dr. Pereyra Time Discussed: 20:07 Reason/Comments: admission- hypercapnia, acidosis, edema, CHF Consult Disposition: Will see in ED, Admit (to ICU) Departure - Departure Date of Disposition Decision: 11/14/19 Time of Disposition Decision: 20:07 DIAGNOSIS: Acute respiratory failure with hypercapnia Edema Qualifiers: Edema type: unspecified Qualified Code(s): R60.9 - Edema, unspecified CHF (congestive heart failure) Qualifiers: Heart failure type: unspecified Heart failure chronicity: acute on chronic Qualified Code(s): I50.9 - Heart failure, unspecified Disposition: ADMITTED INPATIENT 09 Certified Medical Emergency: Emergent Condition: Serious Additional Instructions: ED Follow Up Instructions: You have been treated by a care provider in the Emergency Department. These instructions are being provided to you so you can have an understanding of how to care for yourself upon discharge. Upon discharge from the Emergency Department, you are responsible for making arrangements for follow-up care by a physician of your choice. Take all prescribed medications as directed. Return to the Emergency Department immediately for any new or worsening symptoms. You may call the Physician Referral phone number at [phone] to obtain a list of Physicians who are taking new patients. Referrals and Follow-Ups: None,PCP [Primary Care Provider] - - Critical Care Note This patient required my direct & personal management of CC.: No Attestation - Physician/ JOSE Attestation Patient care was provided by Advanced Practice Provider:: Yes Advanced Practice Provider:: Jennifer Medina Advanced Practice Provider documentation review:: The Mid-level provider documentation, treatment plan and medical decision making was reviewed by the physician who agrees with all treatment and medical decision making by the MLP. The physician spent face to face time with patient:: No Advanced Practice Provider documentation review:: Supervising physician onsite and consulted in the evaluation and care of this patient. The physician did not have a face to face encounter with the patient. This chart was documented by the indicated scribe, (June Cadena Scribe) and accurately reflects the services I performed and decisions made by , Jennifer Medina CRNP, as attested by the provider's signature.
--- NOTE | 2019-11-14 20:16 | EKG Report ---
Test Performed on : 11/14/2019 5:56:40 PM Test Reason : SOB Blood Pressure : / mmHG Vent. Rate : 074 BPM Atrial Rate : 074 BPM P-R Int : 152 ms QRS Dur : 070 ms QT Int : 394 ms P-R-T Axes : 062 016 076 degrees QTc Int : 437 ms Normal sinus rhythm. Low voltage QRS Nonspecific ST abnormality Abnormal ECG When compared with ECG of 09-OCT-2019 17:31, (Unconfirmed) premature ventricular complexes. are no longer present Nonspecific T wave abnormality, improved in Inferior leads Unconfirmed Result
[2019-11-14 20:57] LABS: URINE SOURCE CLEAN CATCH
[2019-11-14 21:03] LABS: BILIRUBIN URINE NEGATIVE (NEGATIVE); BLOOD URINE NEGATIVE (NEGATIVE); COLOR STRAW; GLUCOSE URINE NEGATIVE (NEGATIVE); KETONE URINE NEGATIVE (NEGATIVE); LEUKOCYTES URINE NEGATIVE (NEGATIVE); NITRITE URINE NEGATIVE (NEGATIVE); PH URINE 6.5; PROTEIN URINE 30 mg/dL (NEGATIVE); SP GRAVITY URINE 1.008; TURBIDITY URINE CLEAR (CLEAR); UROBILINOGEN URINE NORMAL (NORMAL)
[2019-11-14 21:08] LABS: UR EPITHELIAL CELLS <10 /HPF (<10); URINE BACTERIA NEGATIVE /HPF; URINE RBC <10 /HPF (<10); URINE WBC <10 /HPF (<10)
[2019-11-14 22:24] LABS: ALLEN TEST YES; BE 7.9 mmoll (-3.0-3.0); BLOOD TYPE ARTERIAL; HCO3-(ACT) 30.9 mmoll (20.0-26.0); O2(CT) 16.9 mL/dL (15.0-23.0); O2HB 90.5 % (95.0-99.0); PO2(98.6) 84 mmHg (60-100); SAMPLE BLOOD; SAO2 97.1 % (95.0-100.0); THB 13.2 g/dL (11.5-17.4)
[2019-11-14 22:31] LABS: MODALITY BI PAP; PCO2(98.6) 108 mmHg (35-45); pH(98.6) 7.18 (7.35-7.45)
[2019-11-14] MEDS ORDERED: NITROGLYCERIN SL PRN (22:34)
[2019-11-14] MEDS ORDERED: LASIX IV SCH (22:34)
[2019-11-14] MEDS ORDERED: INCRUSE ELLIPTA INH SCH (22:34)
[2019-11-14] MEDS ORDERED: ZOFRAN IV PRN (22:34)
[2019-11-15] MEDS: LOVENOX SUBQ SCH ×2 (00:48→21:35)
[2019-11-15] MEDS: LOPRESSOR PO SCH ×3 (01:05→21:35)
[2019-11-15] MEDS: LIPITOR PO SCH ×2 (01:05→21:35)
[2019-11-15 01:22] LABS: ALLEN TEST NO; BE 9.2 mmoll (-3.0-3.0); BLOOD TYPE ARTERIAL; HCO3-(ACT) 31.9 mmoll (20.0-26.0); O2(CT) 16.8 mL/dL (15.0-23.0); O2HB 90.3 % (95.0-99.0); PO2(98.6) 72 mmHg (60-100); SAMPLE BLOOD; SAO2 96.3 % (95.0-100.0); SRATE 24 BPM; THB 13.2 g/dL (11.5-17.4); pH(98.6) 7.27 (7.35-7.45)
[2019-11-15 01:24] LABS: MODALITY BI PAP; PCO2(98.6) 86 mmHg (35-45)
--- NOTE | 2019-11-15 04:33 | HISTORY AND PHYSICAL ---
CHIEF COMPLAINT: Edema in legs. HISTORY OF PRESENT ILLNESS: Ms. Bryant is a 59-year-old female well known to our service. She comes in for bilateral lower extremity edema and edema in her hands. She was discharged from the hospital I believe a week ago. Says that edema has not improved since then. She also complains with some PND and orthopnea. Home health nurse saw her today. Called her PCP and told her about the edema and told her to come into the emergency room. She has a history of COPD, obstructive sleep apnea, uses a CPAP at night, coronary artery disease with myocardial infarctions times 4, hyperlipidemia, hypertension, hypothyroidism, diabetes mellitus type 2, chronic kidney disease stage 3, morbid obesity, congestive heart failure and ischemic cardiomyopathy. Laboratory data was obtained in the emergency room that showed the patient to have respiratory acidosis. As I noted, she does chronically retain CO2, but this is higher than her baseline. Chest x-ray also showed interstitial edema with pulmonary vascular congestion. She will be placed on BiPAP and admitted to [facility] for further evaluation and treatment. PAST MEDICAL HISTORY: See HPI. PREVIOUS SURGICAL HISTORY: Cardiac stenting times 5, left axillary cyst removal, hysterectomy. SOCIAL HISTORY: Smokes half a pack of cigarettes a day. Smoked since age 32. Denies alcohol or illicit drugs. FAMILY HISTORY: Mother had myocardial infarction and hypertension. Father had myocardial infarction and hypertension. Brother and sister both have coronary artery disease and diabetes mellitus. ALLERGIES: No known drug allergies. HOME MEDICATIONS: Glipizide 2.5 mg p.o. daily, lisinopril 2 mg p.o. daily, aspirin 81 mg p.o. daily, atorvastatin 40 mg p.o. nightly, Symbicort 160/4.5, vitamin D3 1000 units p.o. daily, isosorbide 60 mg p.o. daily, levothyroxine 100 mcg p.o. daily, metoprolol 25 mg p.o. b.i.d., nitroglycerin 0.4 mg sublingual p.r.n., omeprazole 40 mg p.o. daily, Spiriva two puff inhalation daily, Incruse Ellipta 62.5 mcg as directed, ranolazine 1000 mg p.o. b.i.d. REVIEW OF SYSTEMS: Fourteen-point review of systems conducted with the patient. Pertinent positive listed above the HPI. All other systems reviewed and found to be negative. PHYSICAL EXAMINATION: VITAL SIGNS: Temperature 98.3, pulse 71, respirations 15, blood pressure 118/68, oxygen saturation 98% on BiPAP. GENERAL: Morbidly obese 59-year-old female lying in the ER stretcher. She is on the BiPAP resting fairly comfortably. She is alert and oriented times 3. She is in mild respiratory distress. HEENT: Head is atraumatic, normocephalic. Pupils equal, round and reactive to light. Extraocular eye movement is intact. Sclerae are anicteric. Conjunctiva is pink. Oral mucosa is moist. NECK: Supple. JVD noted with hepatojugular reflex. Trachea is midline. No cervical lymphadenopathy. CARDIAC: S1, S2 appreciated. No murmurs, gallops, rubs. LUNGS: Clear to auscultation bilaterally. Crepitations noted throughout bilateral lung caballero. Mild expiratory wheeze. Symmetric rise and fall with respirations. Decreased bilaterally. ABDOMEN: Protuberant, soft, nondistended, nontender. Bowel sounds present in all 4 quadrants. Normoactive. No pulsatile mass. No organomegaly. EXTREMITIES: No clubbing, cyanosis. Two-plus edema bilateral lower extremities. Also noted one to two-plus edema in bilateral upper extremities below the elbow. INTEGUMENTARY: Warm, dry and intact. No discrete rash noted. NEUROLOGICAL: Alert and oriented times 3. No focal motor deficits. Otherwise nonfocal examination. DIAGNOSTIC DATA: Chest x-ray shows interstitial edema with increased pulmonary vascular congestion as well as cardiomegaly. LABORATORY DATA: WBC 6.26. Hemoglobin 12.5. Hematocrit 42.2. Platelet count 147. ABG: pH 7.22, PCO2 94, PO2 108, bicarb 30.4. Sodium 138. Potassium 5. Chloride 97. Carbon dioxide 35. BUN 17. Creatinine 1.5. Glucose 70. Urine unremarkable. ASSESSMENT: 1. Acute on chronic hypercapnic respiratory failure. 2. Congestive heart failure with exacerbation. 3. Chronic obstructive pulmonary disease. 4. Fluid volume overload. 5. Diabetes mellitus type 2. 6. Hypothyroidism. PLAN: Admit patient to [facility]. Will recheck ABG in two hours to evaluate how the BiPAP is working. She received 40 mg of Lasix in the emergency room but related to her chronic kidney disease. Will give another 40 mg IV then continue Lasix 40 mg IV q.12.h. Continue all of her inhaled steroids and bronchodilators. Continue Synthroid. Check a TSH. Her troponin was mildly elevated. Will continue to monitor. Further recommendations per patient clinical course. Dictated by ANA Atwood for Ismael Brownlee MD cc: ANA Atwood MD
[2019-11-15] MEDS: SYNTHROID PO SCH ×2 (06:03→09:12)
[2019-11-15] MEDS: PRILOSEC PO SCH ×2 (06:03→09:12)
[2019-11-15 06:37] LABS: BASO# 0.03 X1000 (0.0-0.2); BASO% 0.4 % (0.0-0.8); EOS# 0.02 X1000 (0.0-0.7); EOS% 0.3 % (0.0-10.0); HEMATOCRIT 43.9 % (37.0-47.0); HEMOGLOBIN 12.9 g/dL (12.0-16.0); IMM GRAN# 0.03 X1000 (0.0-0.04); IMM GRAN% 0.4 % (0.0-0.5); LYMPH# 2.31 X1000 (1.2-3.4); LYMPH% 34.6 % (20.5-51.1); MCH 28.9 PG (27-31); MCHC 29.4 g/dL (33-37); MCV 98.4 FL (81-99); MONO# 0.89 X1000 (0.11-0.59); MONO% 13.3 % (1.7-9.3); MPV 9.7 FL (7.4-10.4); PLT 150 X1000 (130-400); RBC 4.46 XMIL (4.2-5.4); RDW 21.5 % (11.5-14.5); WBC 6.68 X1000 (4.8-10.8)
[2019-11-15 07:10] LABS: CREATININE 1.5 mg/dL (0.5-0.9)
[2019-11-15] MEDS: SPIRIVA INH SCH ×2 (08:04→10:20)
--- NOTE | 2019-11-15 08:06 | PROGRESS NOTE ---
DATE: 11/15/2019 SUBJECTIVE: The patient is sleepy but responds to verbal stimuli. Patient is using BiPAP mask upon my examination. OBJECTIVE: Vital Signs: Temperature 97.9 degrees, heart rate 64, respiratory rate 18, blood pressure 103/73, O2 saturation 96% on room air. General Examination: This is a chronically ill- looking, morbidly obese, 59-year-old female lying in bed, in no acute distress. Cardiovascular Exam: S1, S2 heard. No murmurs, gallops, or rubs. Regular rate and rhythm. Respiratory Exam: Coarse breath sound with mild expiratory wheezing noted in both pulmonary caballero. Patient is not using any accessory muscles or having work of breathing. Abdomen: Soft. Nontender to palpation. Nondistended. Bowel sounds present. No organomegaly. Extremities: No clubbing or cyanosis. Two plus pedal edema in both lower extremities. There is also edema in both upper extremities as well up to both elbows. Neurological Exam: Patient is sleepy but responds to verbal stimuli. No focal deficit. LABORATORY DATA: CBC is unremarkable, with ABG that shows pH 7.27 with pCO2 86, pO2 72 and that was taken on BiPAP at FiO2 of 50%. Creatinine is 1.5. ProBNP from yesterday was 2963. ASSESSMENT AND PLAN: 1. Klyzy-ar-gebvxdt hypercapnic respiratory failure. Patient on admission had arterial blood gases of 7.19 with pCO2 108. She has been on BiPAP since yesterday. The ABG showed a little better gas exchange today. I think at this point, we will continue with BiPAP for as much as this patient can tolerate of course given her breaks for meals. 2. Congestive heart failure with exacerbation. We will continue with Lasix 40 mg IV q.12 hours. I have seen ins and outs has not been documented, apparently there has been only 1 L urine measured in the last 24 hours. We will continue to monitor. 3. Chronic obstructive pulmonary disease. I do think this patient is in exacerbation. We will continue with DuoNeb every 4 hours as scheduled. 4. Diabetes mellitus type 2. Will continue sliding scale insulin and Accu-Chek before meals and also at bedtime. 5. Hypothyroidism. Will continue with home dose of levothyroxine. 6. Disposition. At this point, we will continue current management. Will consult Pulmonary and we will go from there. cc: Krishna Wolf MD
[2019-11-15] MEDS: VITAMIN D PO SCH (09:08)
[2019-11-15] MEDS: IMDUR PO SCH (09:08)
[2019-11-15] MEDS: ASPIRIN PO SCH (09:08)
[2019-11-15] MEDS: RANEXA PO SCH ×2 (09:09→21:35)
[2019-11-15] MEDS: LASIX IV SCH ×2 (09:09→21:35)
[2019-11-15] MEDS: TYLENOL PO PRN (09:28)
[2019-11-15 12:00] LABS: MODALITY CANNULA
--- NOTE | 2019-11-15 19:25 | PULMONOLOGY CONSULTATION ---
DATE: 11/15/2019 REQUESTING PROVIDER: Krishna Wolf MD REASON FOR CONSULTATION: Acute hypercapnic respiratory failure. HISTORY OF PRESENT ILLNESS: This is a 59-year-old [place] female with a medical history of COPD, tobacco use and abuse, obstructive sleep apnea, coronary artery disease, hyperlipidemia, hypertension, hypothyroidism, diabetes mellitus type 2, chronic kidney disease, morbid obesity, and congestive heart failure. She is well known to our facility. Her last admission was from 10/09/2019 to 10/31/2019 with COPD exacerbation, congestive heart failure exacerbation and acute hypercapnic hypoxemic respiratory failure. She required intubation from 10/09/2019 to 10/15/2019. She presented to the ER yesterday afternoon with bilateral lower extremity and bilateral upper extremity edema. Initial workup in the ER revealed acute respiratory failure with hypercapnia and acute on chronic congestive heart failure. Initial ABG showed uncompensated respiratory acidosis with pCO2 at 86. She also initially had elevated creatinine at 1.5, elevated troponin T high- sensitivity at 45 [place] [address]. Chest x-ray showed cardiomegaly with vascular congestion and interstitial edema plate, peripheral lower left lung opacity consistent with atelectasis and/or infiltrate unchanged compared with her last chest x-ray on 10/30/2019. She received overall 120 mg IV. She received overall 80 mg IV Lasix yesterday in the ER. Currently she is on Lasix 40 mg q.12 hours scheduled. She developed sound shock at this time with last blood pressure at 80/64. She has been on BiPAP since admission except during the meal time. ABG show some improved hypercapnic this morning. The patient currently is lying in bed on a BiPAP mask. She is calm, cooperative with no acute distress noted. She did not talk during the encounter, but she answer questions, but by nodding or shaking her head. She follows simple commands. She denies significant cough, fever, chills, chest pain, palpitation, nausea, bowel habit change, or urination discomfort. She does have paroxysmal nocturnal dyspnea, bilateral upper and lower extremity edema, shortness of breath with activities, generalized weakness and cold intolerance. There is no family at the bedside. PAST MEDICAL HISTORY: 1. COPD. 2. Ongoing tobacco use and abuse. 3. Obstructive sleep apnea on home CPAP therapy. 4. Severe multivessel coronary artery disease with myocardial infarction 4 times and status post 5 cardiac stent placements. 5. Hyperlipidemia. 6. Hypertension. 7. Hypothyroidism. 8. Diabetes mellitus type 2. 9. Chronic kidney disease stage 3. 10. Morbid obesity. Current BMI 44.0. 11. Congestive heart failure with preserved left ventricular ejection fraction. PAST SURGICAL HISTORY: 1. PTCA with 5 stents. 2. Left axillary lipoma removal. 3. Hysterectomy. SOCIAL HISTORY: The patient lives at home with her family. She has home health care since last discharge, she is a daily smoker since age of 42. She used to smoke more than 1 pack per day and currently smokes half a pack per day. She has no history of alcohol or illicit drug use. FAMILY HISTORY: Positive for myocardial infarction, hypertension, coronary artery disease, and diabetes. ALLERGIES: No known drug allergies. REVIEW OF SYSTEMS: A 10-point review of systems was conducted and the pertinent is listed within the HPI, otherwise noncontributory. PHYSICAL EXAMINATION: Vital Signs: Temperature 97.7 degrees, blood pressure 80/64, pulse 60, respiratory rate 24, oxygen saturation 96% on BiPAP mask with FiO2 50% and pressure 22/8. General: Chronically ill-appearing, morbidly obese, lying in bed with a BiPAP mask on. Anasarca. No acute distress noted. HEENT: Atraumatic, normocephalic. Trachea midline. Mucosa pink and slightly dry. Pupils equal, round, reactive to light. Respiratory: Even and unlabored symmetrical excursion. Auscultation revealed diminished breathing sounds bilaterally. No wheezing or rhonchi noted. Cardiovascular: Regular rate and rhythm with S1, S2 appreciated. Murmur noted Gastrointestinal: Soft, obese nontender. Normoactive bowel sounds in all 4 quadrants. Extremities: Bilateral lower extremity pitting edema 2+. Bilateral upper extremity edema, pitting edema 1 to 2+, dorsalis pedis diminished bilaterally. No cyanosis. Neurologic: Alert and oriented x3. Able to answer simple questions by shaking or nodding her head. Follows simple commands. LAB DATA: White blood cell 6.68, hemoglobin 12.9, hematocrit 43.9, platelet 150,000. Sodium 137, potassium 5.0, chloride 93, carbon dioxide 32, BUN 19, creatinine 1.5, glucose 73, troponin T high- sensitivity 51, TSH 121.90. ABG, pH 7.27, pCO2 86, PO2 of 72, HCO3 31.9, base excess 9.2, oxyhemoglobin 90.3. Carboxy hemoglobin 5.20 on the BiPAP with spontaneous rate 24, FiO2 50% and pressure 22/8. IMAGING DATA: See HPI. ASSESSMENT: This is a 59-year-old [place] female with a medical history of chronic obstructive pulmonary disease, ongoing tobacco use, obstructive sleep apnea on home CPAP therapy, coronary artery disease, hyperlipidemia, hypertension, hypothyroidism, diabetes mellitus type 2, chronic kidney disease, morbid obesity, and congestive heart failure. Her last admission was from 10/09/2019 to 10/31/2019 with acute respiratory failure. Acute hypercapnic hypoxemic respiratory failure secondary to congestive heart failure exacerbation and chronic obstructive pulmonary disease exacerbation. She required intubation from 10/09/2019 to 10/16/2019. She has been admitted since yesterday with acute on chronic hypercapnic respiratory failure and congestive heart failure exacerbation, congestive heart failure exacerbation and fluid overload. 1. Acute on chronic hypercapnic respiratory failure. 2. Acute on chronic hypoxemic respiratory failure. 3. Congestive heart failure exacerbation. 4. Morbid obesity with obstructive sleep apnea and Pickwickian syndrome. 5. Fluid overload. 6. Hypothyroidism with possible Myxedema. TSH 121.90 this morning. PLAN: 1. Current Venturi mask and BiPAP therapy. Re-titrate supplemental oxygen and BiPAP settings to patient's needs per clinical protocol with closely monitoring. 2. Continue diuretic as tolerated. 3. Follow up ABG, CBC, renal profile and chest x-ray. 4. Daily smoking cessation education. 5. Continue GI prophylaxis with Prilosec and DVT prophylaxis with Lovenox. 6. Continue the patient's routine inhaler including Symbicort and Spiriva. We discontinue Incruse. 7. Further recommendations pending hospital course. Thank you for the courtesy of this consult. Dr. Pascal did the examination, evaluation management and orders. ANA did the dictation for Dr. Pascal, according to his direction. Total evaluation time in minutes: 31. Dictated by ANA Wright for Hossein Pascal MD cc: ANA Wright MD [facility]
[2019-11-16 04:42] LABS: ALLEN TEST YES; BE 12.5 mmoll (-3.0-3.0); BLOOD TYPE ARTERIAL; HCO3-(ACT) 34.6 mmoll (20.0-26.0); METHB 0.9 % (0.0-1.5); O2(CT) 15.5 mL/dL (15.0-23.0); O2HB 94.7 % (95.0-99.0); PO2(98.6) 85 mmHg (60-100); SAMPLE BLOOD; SAO2 97.4 % (95.0-100.0); THB 11.6 g/dL (11.5-17.4); pH(98.6) 7.38 (7.35-7.45)
[2019-11-16 04:47] LABS: MODALITY BI PAP; PCO2(98.6) 68 mmHg (35-45)
[2019-11-16] MEDS: PRILOSEC PO SCH ×2 (05:33→06:04)
[2019-11-16] MEDS: SYNTHROID PO SCH ×2 (05:33→06:05)
[2019-11-16 06:09] LABS: BASO# 0.02 X1000 (0.0-0.2); BASO% 0.4 % (0.0-0.8); EOS# 0.01 X1000 (0.0-0.7); EOS% 0.2 % (0.0-10.0); HEMATOCRIT 37.1 % (37.0-47.0); IMM GRAN# 0.03 X1000 (0.0-0.04); IMM GRAN% 0.6 % (0.0-0.5); LYMPH# 1.93 X1000 (1.2-3.4); MCH 28.8 PG (27-31); MCHC 29.6 g/dL (33-37); MCV 97.1 FL (81-99); MONO# 0.49 X1000 (0.11-0.59); MONO% 9.4 % (1.7-9.3); MPV 9.9 FL (7.4-10.4); NEUT# 2.73 X1000 (1.4-6.5); NEUT% 52.4 % (42.2-75.2); PLT 163 X1000 (130-400); RBC 3.82 XMIL (4.2-5.4); RDW 21.7 % (11.5-14.5); WBC 5.21 X1000 (4.8-10.8)
[2019-11-16 06:29] LABS: ALBUMIN 2.1 g/dL (3.5-5.0); CALCIUM 8.3 mg/dL (8.8-10.2); PHOSPHORUS 3.6 mg/dL (2.7-4.5); POTASSIUM 4.5 mmol/L (3.5-5.1)
--- NOTE | 2019-11-16 08:00 | Diag Imaging Result Doc PS360 ---
EXAM: CHEST-2 VIEWS HISTORY: pulmonary edema TECHNIQUE: Two views COMPARISON: 11/14/2019 FINDINGS: Poor inspiratory effort. The heart is enlarged. There is pulmonary edema. There are bilateral pleural effusions, left greater than right. There is left basilar atelectasis and possibly underlying infiltrates. IMPRESSION: No interval improvement. Electronically signed by Darwin Clifford 11/16/2019 7:58 AM
[2019-11-16] MEDS: SPIRIVA INH SCH (08:04)
[2019-11-16] MEDS: VITAMIN D PO SCH (08:31)
[2019-11-16] MEDS: ASPIRIN PO SCH (08:31)
[2019-11-16] MEDS: LASIX IV SCH ×2 (08:31→20:30)
[2019-11-16] MEDS: RANEXA PO SCH ×2 (08:31→20:29)
--- NOTE | 2019-11-16 08:45 | PROGRESS NOTE ---
DATE: 11/16/2019 SUBJECTIVE: The patient definitely more awake and alert. Patient using Venturi mask upon my examination and she feels definitely much better, breathing better. OBJECTIVE: Vital Signs: Temperature 98.2 degrees, heart rate 72, respiratory rate 18, blood pressure 95/53, O2 saturation 100% on Venturi mask. General Examination: This is a chronically ill-looking, morbidly obese, 59-year-old female lying in bed, in no acute distress. Cardiovascular: S1, S2 heard. No murmurs, gallops, or rubs. Regular rate and rhythm. Respiratory: Coarse breath sounds with mild expiratory wheezing noted in both pulmonary caballero. Definitely better in comparing with yesterday. Patient is not using any accessory muscles or having work of breathing. Abdomen: Soft, nontender to palpation. Nondistended. Bowel sounds present. No organomegaly. Extremities: No clubbing, cyanosis. There is 2 +pedal edema in both lower extremities. There is also edema in both upper extremities as well. Neurological: Patient is alert and oriented x3. Moves 4 extremities. LABORATORY DATA: White cell count 5.21, hemoglobin 11.0, hematocrit 37.1, platelets 163,000. ABG shows pH 7.30, with pCO2 68, PO2 85 with BMP remarkable for creatinine 2.0. ASSESSMENT AND PLAN: 1. Acute on chronic hypercapnic respiratory failure. Clinically, this patient is much better, more awake and alert. The ABG shows as above. At this point, we will continue with BiPAP at night and in the daytime we will try to wean off of oxygen. Patient is on 3 L of oxygen by nasal cannula at home. 2. Acute congestive heart failure exacerbation. We will continue Lasix 40 mg IV q.12 hours. 3. Chronic obstructive pulmonary disease exacerbation. We will continue with DuoNeb every 4 hours as scheduled. 4. Diabetes mellitus type 2. We will continue with sliding scale insulin. Accu-Chek before meals and also at bedtime. 5. Hypothyroidism. Will continue home doses of levothyroxine. 6. Disposition. At this point, we will continue current management. Pulmonary has been consulted. We will follow recommendations. cc: Krishna Wolf MD
[2019-11-16] MEDS ORDERED: SYNTHROID IV SCH (09:00)
[2019-11-16] MEDS: MIRALAX PO SCH ×2 (09:29→20:29)
[2019-11-16 09:39] LABS: FREE T4 0.38 ng/dL (0.93-1.70); TSH 140.9 uIUmL (0.27-4.20)
[2019-11-16] MEDS: LOPRESSOR PO SCH ×2 (11:14→20:40)
[2019-11-16] MEDS: IMDUR PO SCH (11:15)
[2019-11-16] MEDS: TYLENOL PO PRN (20:29)
[2019-11-16] MEDS: LIPITOR PO SCH (20:30)
[2019-11-16] MEDS: LOVENOX SUBQ SCH ×2 (20:30→22:54)
--- NOTE | 2019-11-16 23:37 | PROVIDER PROGRESS NOTE ---
Progress Note Dr. Pascal Progress Note/Pulmonary and or critical care Subjective: The patient is sitting in bed on VM 50%. She is a lot more alert today, but confusion noted at times. She reports constipation and she doesnt remember when her last BM was. She reports she did not take Synthroid at home since she did not have prescription. She apparently does not have a family doctor and goes to clinic as needed. She reports generalized weakness and fatigue all the time. Objective: Vital Signs: T 98.2 (no fever in last 24 hours), [place] 72, RR 18, BP 95/53 and SaO2 100% on VM 50%. Physical Examination: General: Morbidly obese. Sitting in bed. Appears more alert. No acute distress noted. Generalized edema. HEENT: Normocephalic. Trachea midline. Mucosa pink and moist. PERRL. Chest: Even and unlabored. Symmetrical excursion. Clear to auscultation bilaterally with decreased air entry globally. CVS: S1 and S2 with murmur. Abdomen: Soft. Non-tender. Obese. Bowel sounds present. Extremities: Generalized edema with BLE 2+ and BUE 1-2+. No cyanosis. No clubbing. Neuro: A/O x3. Speech fluent. Follow simple commands. Weakness present. Labs and Radiology: Laboratory Results 11/16/19 11/16/19 11/16/19 04:32 05:15 05:15 WBC RBC Hgb Hct MCV MCH MCHC RDW Std Deviation Plt Count MPV Immature Gran % (Auto) Neut % (Auto) Lymph % (Auto) [place] % (Auto) Eos % (Auto) Baso % (Auto) Immature Gran # (Auto) Neut # (Auto) Lymph # (Auto) [place] # (Auto) Eos # (Auto) Baso # (Auto) Specimen Type ARTERIAL Sample Site R RADIAL pH 7.38 pCO2 68 H* pO2 85 HCO3 34.6 H Base Excess 12.5 H Oxyhemoglobin 94.7 L ABG O2 Sat (Calculated) 15.5 ABG O2 Saturation 97.4 ABG Carboxyhemoglobin 1.90 ABG Methemoglobin 0.9 Luther Test YES A-a O2 Difference 187.0 Total Hemoglobin 11.6 Lactate 0.80 Blood Gas Modality BI PAP Vent Mode BIPAP FiO2 % 50.0 Inspiratory BiPAP 22.0 Expiratory BiPAP 8.0 Sodium Potassium Chloride Carbon Dioxide Anion Gap BUN Creatinine Estimated GFR/1.73 m2 BUN/Creatinine Ratio Glucose Calculated Osmolality Calcium Phosphorus Albumin TSH 140.90 H Free T4 0.38 L Free T3 pg/mL SEE COMMENTS 11/16/19 11/16/19 05:25 05:25 WBC 5.21 RBC 3.82 L Hgb 11.0 L Hct 37.1 MCV 97.1 MCH 28.8 MCHC 29.6 L RDW Std Deviation 21.7 H Plt Count 163 MPV 9.9 Immature Gran % (Auto) 0.6 H Neut % (Auto) 52.4 Lymph % (Auto) 37.0 [place] % (Auto) 9.4 H Eos % (Auto) 0.2 Baso % (Auto) 0.4 Immature Gran # (Auto) 0.03 Neut # (Auto) 2.73 Lymph # (Auto) 1.93 [place] # (Auto) 0.49 Eos # (Auto) 0.01 Baso # (Auto) 0.02 Specimen Type Sample Site pH pCO2 pO2 HCO3 Base Excess Oxyhemoglobin ABG O2 Sat (Calculated) ABG O2 Saturation ABG Carboxyhemoglobin ABG Methemoglobin Luther Test A-a O2 Difference Total Hemoglobin Lactate Blood Gas Modality Vent Mode FiO2 % Inspiratory BiPAP Expiratory BiPAP Sodium 139 Potassium 4.5 Chloride 94 L Carbon Dioxide 37 H Anion Gap 8 BUN 27 H Creatinine 2.0 H Estimated GFR/1.73 m2 26 BUN/Creatinine Ratio 14 Glucose 107 H Calculated Osmolality 283 Calcium 8.3 L Phosphorus 3.6 Albumin 2.1 L TSH Free T4 Free T3 pg/mL Assessment: Acute on chronic hypoxemic respiratory failure. Acute on chronic hypercapnic respiratory failure. Acute on chronic congestive heart failure. COPD. No acute exacerbation. Severe hypothyroidism or myxedema. Morbid obesity with DEEPAK. Plan: IV Synthroid per Dr. Archuleta. Cycling venturi mask and BiPAP. We titrated supplemental oxygen and BiPAP settings to patients needs per clinical protocol with closely monitoring. Diuretic as tolerated. Daily tobacco cessation education. Continue GI and DVT prophylaxis. We check TSH, free T4 and free T3. Follow up ABG tomorrow. Total evaluation time in minutes: 31.
[2019-11-17 05:31] LABS: ALLEN TEST YES; BE 10.9 mmoll (-3.0-3.0); BLOOD TYPE ARTERIAL; HCO3-(ACT) 33.4 mmoll (20.0-26.0); METHB 0.8 % (0.0-1.5); O2(CT) 19.7 mL/dL (15.0-23.0); O2HB 96.4 % (95.0-99.0); PO2(98.6) 143 mmHg (60-100); SAMPLE BLOOD; SAO2 99.2 % (95.0-100.0); THB 14.4 g/dL (11.5-17.4); pH(98.6) 7.39 (7.35-7.45)
[2019-11-17 05:34] LABS: MODALITY BI PAP; PCO2(98.6) 64 mmHg (35-45)
[2019-11-17] MEDS: PRILOSEC PO SCH (06:26)
[2019-11-17 06:45] LABS: BASO# 0.01 X1000 (0.0-0.2); BASO% 0.2 % (0.0-0.8); EOS# 0.02 X1000 (0.0-0.7); EOS% 0.4 % (0.0-10.0); HEMATOCRIT 39.1 % (37.0-47.0); HEMOGLOBIN 11.8 g/dL (12.0-16.0); IMM GRAN# 0.02 X1000 (0.0-0.04); IMM GRAN% 0.4 % (0.0-0.5); LYMPH# 1.95 X1000 (1.2-3.4); LYMPH% 35.5 % (20.5-51.1); MCH 28.6 PG (27-31); MCHC 30.2 g/dL (33-37); MCV 94.7 FL (81-99); MONO# 0.61 X1000 (0.11-0.59); MONO% 11.1 % (1.7-9.3); MPV 9.6 FL (7.4-10.4); NEUT# 2.89 X1000 (1.4-6.5); NEUT% 52.4 % (42.2-75.2); PLT 161 X1000 (130-400); RBC 4.13 XMIL (4.2-5.4); RDW 21.6 % (11.5-14.5)
[2019-11-17 07:15] LABS: ALBUMIN 2.3 g/dL (3.5-5.0); CALCIUM 8.5 mg/dL (8.8-10.2); PHOSPHORUS 3.9 mg/dL (2.7-4.5); POTASSIUM 4.7 mmol/L (3.5-5.1)
[2019-11-17] MEDS: SYMBICORT 160/4.5 MICROGM INHALER INH SCH (08:39)
[2019-11-17] MEDS: SPIRIVA INH SCH (08:39)
[2019-11-17] MEDS: LOPRESSOR PO SCH ×2 (09:25→20:18)
[2019-11-17] MEDS: RANEXA PO SCH ×2 (09:25→20:18)
[2019-11-17] MEDS: LASIX IV SCH ×2 (09:25→20:18)
[2019-11-17] MEDS: SYNTHROID IV SCH (09:26)
[2019-11-17] MEDS: ASPIRIN PO SCH (09:26)
[2019-11-17] MEDS: SODIUM CHLORIDE 0.9% INJ PRN (09:26)
[2019-11-17] MEDS: MIRALAX PO SCH ×2 (09:26→20:19)
[2019-11-17] MEDS: VITAMIN D PO SCH (09:26)
[2019-11-17] MEDS: IMDUR PO SCH (09:26)
--- NOTE | 2019-11-17 10:06 | PROGRESS NOTE ---
DATE: 11/17/2019 SUBJECTIVE: Patient continues to be alert and awake. The patient continues to require Venturi mask. She reports feeling better. OBJECTIVE: Vital Signs: Temperature 98.3 degrees, heart rate 72, respiratory rate 21, blood pressure 104/63, O2 saturation 99% on Venturi mask. General: This is a chronically ill-looking and morbidly obese, 59-year-old female lying in bed, in no acute distress. Cardiovascular: S1, S2 heard. No murmurs, gallops, or rubs. Regular rate and rhythm. Respiratory: Coarse breath sounds and mild expiratory wheezing still noted in both pulmonary caballero. Definitely much better in comparing with admission. Patient not using any accessory muscles or having work of breathing. Abdomen: Soft, nontender to palpation. Bowel sounds present. No organomegaly. Extremities: 2+ pitting edema in both lower extremities. Edema in both upper extremities getting better. Neurological: Patient is alert and oriented x3. Moves 4 extremities. LABORATORY DATA: White cell count 5.5, hemoglobin 11.8, hematocrit 39.1, platelets 161,000. ABG shows pH 7.39, with pCO2 64, PO2 143, that was taken on BiPAP of FiO2 30%. BMP reveals creatinine 2.0. The TSH from yesterday was 140. ASSESSMENT/PLAN: 1. Acute on chronic hypercapnic respiratory failure. Clinically, this patient is doing better. Mental status is much better. She is at her baseline, completely alert and awake. ABG shows still elevation of CO2 that I think is probably the number that she lives with. She continues to require oxygen via Venturi mask. We are going to try to wean off oxygen over the weekend. Patient is at home on 3 L of oxygen by nasal cannula. That is our goal to get her back to that amount of oxygen. We will continue to monitor. 2. Acute congestive heart failure. Patient continues to receive Lasix 40 mg IV q.12 hours. She is having a good urine output. We will continue to monitor. 3. Chronic obstructive pulmonary disease exacerbation. We will continue with DuoNeb every 4 hours scheduled. 4. Diabetes mellitus type 2. We will continue with sliding scale insulin and Accu-Chek before meals and also at bedtime. 5. Myxedema. Patient was not taking her home levothyroxine as she was supposed to. At this point, we have switched to IV levothyroxine and we will check a TSH on Tuesday to see how she does. 6. Disposition. We will continue with current management. Patient is stable at this point, so will transfer her out of the PVC unit today. cc: Krishna Wolf MD
--- NOTE | 2019-11-17 18:07 | PROVIDER PROGRESS NOTE ---
Progress Note Dr. Pascal Progress Note/Pulmonary and or critical care Subjective: The patient is sitting in bed on VM 50%. She states she is feeling better. She has occasional productive cough which per patient is chronic. Objective: Vital Signs: T 97.7 (no fever in last 24 hours), CT 78, RR 18, BP 116/54 and SaO2 99% on VM 50%. Physical Examination: General: Morbidly obese. Sitting in bed. Appears more alert. No acute distress noted. Generalized edema. HEENT: Normocephalic. Trachea midline. Mucosa pink and moist. PERRL. Chest: Even and unlabored. Symmetrical excursion. Clear to auscultation bilaterally with decreased air entry globally. CVS: S1 and S2 with murmur. Abdomen: Soft. Non-tender. Obese. Bowel sounds present. Extremities: Generalized edema with BLE 1- 2+ and BUE trace edema. No cyanosis. No clubbing. Neuro: A/O x3. Speech fluent. Follow simple commands. Weakness present. Labs and Radiology: Laboratory Results 11/16/19 11/17/19 11/17/19 05:15 05:21 05:53 WBC RBC Hgb Hct MCV MCH MCHC RDW Std Deviation Plt Count MPV Immature Gran % (Auto) Neut % (Auto) Lymph % (Auto) [place] % (Auto) Eos % (Auto) Baso % (Auto) Immature Gran # (Auto) Neut # (Auto) Lymph # (Auto) [place] # (Auto) Eos # (Auto) Baso # (Auto) Specimen Type ARTERIAL Sample Site R RADIAL pH 7.39 pCO2 64 H* pO2 143 H HCO3 33.4 H Base Excess 10.9 H Oxyhemoglobin 96.4 ABG O2 Sat (Calculated) 19.7 ABG O2 Saturation 99.2 ABG Carboxyhemoglobin 2.00 ABG Methemoglobin 0.8 Luther Test YES A-a O2 Difference -9.0 Total Hemoglobin 14.4 Lactate 1.60 Blood Gas Modality BI PAP Vent Mode BIPAP FiO2 % 30.0 Inspiratory BiPAP 22.0 Expiratory BiPAP 8.0 Sodium 137 Potassium 4.7 Chloride 90 L Carbon Dioxide 35 Anion Gap 12 BUN 30 H Creatinine 2.0 H Estimated GFR/1.73 m2 26 BUN/Creatinine Ratio 15 Glucose 71 Calculated Osmolality 278 Calcium 8.5 L Phosphorus 3.9 Albumin 2.3 L Free T3 pg/mL SEE COMMENTS 11/17/19 05:53 WBC 5.50 RBC 4.13 L Hgb 11.8 L Hct 39.1 MCV 94.7 MCH 28.6 MCHC 30.2 L RDW Std Deviation 21.6 H Plt Count 161 MPV 9.6 Immature Gran % (Auto) 0.4 Neut % (Auto) 52.4 Lymph % (Auto) 35.5 [place] % (Auto) 11.1 H Eos % (Auto) 0.4 Baso % (Auto) 0.2 Immature Gran # (Auto) 0.02 Neut # (Auto) 2.89 Lymph # (Auto) 1.95 [place] # (Auto) 0.61 H Eos # (Auto) 0.02 Baso # (Auto) 0.01 Specimen Type Sample Site pH pCO2 pO2 HCO3 Base Excess Oxyhemoglobin ABG O2 Sat (Calculated) ABG O2 Saturation ABG Carboxyhemoglobin ABG Methemoglobin Luther Test A-a O2 Difference Total Hemoglobin Lactate Blood Gas Modality Vent Mode FiO2 % Inspiratory BiPAP Expiratory BiPAP Sodium Potassium Chloride Carbon Dioxide Anion Gap BUN Creatinine Estimated GFR/1.73 m2 BUN/Creatinine Ratio Glucose Calculated Osmolality Calcium Phosphorus Albumin Free T3 pg/mL Assessment: Acute on chronic hypoxemic respiratory failure. Slowly improving. Acute on chronic hypercapnic respiratory failure. Improving. Acute on chronic congestive heart failure. COPD. No acute exacerbation. Severe hypothyroidism. Morbid obesity with DEEPAK. Plan: IV Synthroid per Dr. Archuleta. Cycling venturi mask and BiPAP. We titrated supplemental oxygen and BiPAP settings to patients needs per clinical protocol with closely monitoring. Diuretic as tolerated. Daily tobacco cessation education. Continue GI and DVT prophylaxis. Follow up ABG and renal profile tomorrow. Transferring to the floor per hospitalist. Total evaluation time in minutes: 32.
[2019-11-17] MEDS: LIPITOR PO SCH (20:18)
[2019-11-17] MEDS: LOVENOX SUBQ SCH (22:37)
[2019-11-17] MEDS: TYLENOL PO PRN (23:33)
[2019-11-18] MEDS: PRILOSEC PO SCH (06:10)
[2019-11-18] MEDS: SYMBICORT 160/4.5 MICROGM INHALER INH SCH (08:03)
[2019-11-18] MEDS: SPIRIVA INH SCH (08:04)
[2019-11-18 08:08] LABS: BASO# 0.02 X1000 (0.0-0.2); BASO% 0.4 % (0.0-0.8); EOS# 0.01 X1000 (0.0-0.7); EOS% 0.2 % (0.0-10.0); HEMATOCRIT 37.6 % (37.0-47.0); HEMOGLOBIN 11.2 g/dL (12.0-16.0); IMM GRAN# 0.02 X1000 (0.0-0.04); IMM GRAN% 0.4 % (0.0-0.5); LYMPH# 2.35 X1000 (1.2-3.4); LYMPH% 47.3 % (20.5-51.1); MCH 28.4 PG (27-31); MCHC 29.8 g/dL (33-37); MCV 95.2 FL (81-99); MONO# 0.54 X1000 (0.11-0.59); MONO% 10.9 % (1.7-9.3); MPV 9.8 FL (7.4-10.4); NEUT# 2.03 X1000 (1.4-6.5); NEUT% 40.8 % (42.2-75.2); PLT 164 X1000 (130-400); RBC 3.95 XMIL (4.2-5.4); RDW 21.5 % (11.5-14.5); WBC 4.97 X1000 (4.8-10.8)
[2019-11-18 08:30] LABS: ALBUMIN 2.6 g/dL (3.5-5.0); CALCIUM 8.9 mg/dL (8.8-10.2); CREATININE 2.3 mg/dL (0.5-0.9); POTASSIUM 4.5 mmol/L (3.5-5.1)
[2019-11-18] MEDS: VITAMIN D PO SCH (09:02)
[2019-11-18] MEDS: IMDUR PO SCH (09:02)
[2019-11-18] MEDS: RANEXA PO SCH ×2 (09:02→21:37)
[2019-11-18] MEDS: LASIX IV SCH ×2 (09:02→21:37)
[2019-11-18] MEDS: LOPRESSOR PO SCH ×2 (09:02→21:39)
[2019-11-18] MEDS: MIRALAX PO SCH ×2 (09:02→21:38)
[2019-11-18] MEDS: ASPIRIN PO SCH (09:02)
[2019-11-18] MEDS: SYNTHROID IV SCH (09:03)
--- NOTE | 2019-11-18 10:47 | PROGRESS NOTE ---
DATE: 11/18/2019 SUBJECTIVE: Patient reports feeling fine. Denies any fever or chills. She is not short of breath at rest. OBJECTIVE: Vital Signs: Temperature 98.1 degrees, heart rate 79, respiratory rate 17, blood pressure 102/45, O2 saturation 96% on Venturi mask. General Examination: This is a chronically ill-looking and morbidly obese, 59-year-old, female lying in bed, in no acute distress. Cardiovascular Examination: S1 and S2 heard. No murmurs, gallops, or rubs. Regular rate and rhythm. Respiratory Examination: Coarse breath sounds noted. Still with mild expiratory wheezing in both pulmonary caballero. Patient is not using any accessory muscles or having work of breathing. Abdomen: Soft, nontender to palpation. Bowel sounds present. No organomegaly. Extremities: There is 1+ pedal edema of the lower extremities. Neurological Examination: The patient is alert and oriented x3. Moves 4 extremities. Laboratory Data: There is no ABG from today. White cell count 4.97, hemoglobin 11.2, hematocrit 37.6, platelets 164,000. BMP reveals creatinine 2.3. ASSESSMENT AND PLAN: 1. Acute on chronic hypercapnic respiratory failure. Clinically, this patient is doing better, although she is still wheezing. Patient's CO2 from yesterday was still elevated which most likely is her baseline. At this point, I think we will start DuoNeb every 4 hours to see if this patient is stable to wean off oxygen. She uses a 3 L of oxygen at home and oxygen using Venturi mask. We will continue to monitor this patient closely. 2. Acute congestive heart failure. The patient continues to receive 40 mg of Lasix intravenously every 12 hours. She is having urine output. 3. Chronic obstructive pulmonary disease exacerbation. We will continue with DuoNeb every 4 hours as scheduled. 4. Diabetes mellitus type 2. We will continue with sliding scale insulin, and Accu-Chek before meals and also at bedtime. 5. Myxedema. Patient is on intravenous levothyroxine. We will check TSH on Tuesday to see how she does. 6. Disposition. We will continue to monitor this patient closely. Physical therapy and occupational therapy have been consulted. cc: Krishna Wolf MD
[2019-11-18] MEDS: DUONEB (A & A) INH SCH ×4 (11:45→22:42)
--- NOTE | 2019-11-18 19:38 | PROVIDER PROGRESS NOTE ---
Progress Note Dr. Pascal Progress Note/Pulmonary and or critical care Subjective: The patient is sitting in bed on VM 40%, but apparently the oxygen has been off by accident for more than half an hour. Her saturation drops to 70s and 60s at this time. We put oxygen back and SaO2 bounces back to 90s in less than 1 minutes. Patients [id number] at the bedside. Objective: Vital Signs: T 97.1 (no fever in last 24 hours), [place] 79, RR 17, BP 102/45 and SaO2 96% on VM 50%. Physical Examination: General: Morbidly obese. Sitting in bed. Appears more alert. No acute distress noted. Generalized edema. HEENT: Normocephalic. Trachea midline. Mucosa pink and moist. PERRL. Chest: Even and unlabored. Symmetrical excursion. Clear to auscultation bilaterally with decreased air entry globally. CVS: S1 and S2 with murmur. Abdomen: Soft. Non-tender. Obese. Bowel sounds present. Extremities: Generalized edema with BLE 1+ and BUE trace edema. No cyanosis. No clubbing. Neuro: A/O x3. Speech fluent. Follow simple commands. Difficulty hearing. Weakness present. Labs and Radiology: Laboratory Results 11/18/19 11/18/19 11/18/19 07:35 07:35 12:19 WBC 4.97 RBC 3.95 L Hgb 11.2 L Hct 37.6 MCV 95.2 MCH 28.4 MCHC 29.8 L RDW Std Deviation 21.5 H Plt Count 164 MPV 9.8 Immature Gran % (Auto) 0.4 Neut % (Auto) 40.8 L Lymph % (Auto) 47.3 Carbon % (Auto) 10.9 H Eos % (Auto) 0.2 Baso % (Auto) 0.4 Immature Gran # (Auto) 0.02 Neut # (Auto) 2.03 Lymph # (Auto) 2.35 Carbon # (Auto) 0.54 Eos # (Auto) 0.01 Baso # (Auto) 0.02 Sodium 140 Potassium 4.5 Chloride 92 L Carbon Dioxide 40 H Anion Gap 8 BUN 32 H Creatinine 2.3 H Estimated GFR/1.73 m2 22 BUN/Creatinine Ratio 14 Glucose 81 Calculated Osmolality 285 Calcium 8.9 Phosphorus 4.0 Albumin 2.6 L Plasma Lactate 0.7 11/18/19 11/18/19 14:30 17:16 WBC RBC Hgb Hct MCV MCH MCHC RDW Std Deviation Plt Count MPV Immature Gran % (Auto) Neut % (Auto) Lymph % (Auto) Carbon % (Auto) Eos % (Auto) Baso % (Auto) Immature Gran # (Auto) Neut # (Auto) Lymph # (Auto) Carbon # (Auto) Eos # (Auto) Baso # (Auto) Sodium Potassium Chloride Carbon Dioxide Anion Gap BUN Creatinine Estimated GFR/1.73 m2 BUN/Creatinine Ratio Glucose Calculated Osmolality Calcium Phosphorus Albumin Plasma Lactate 1.7 1.0 Assessment: Acute on chronic hypoxemic respiratory failure. Slowly improving. Acute on chronic hypercapnic respiratory failure. Acute on chronic congestive heart failure. COPD. No acute exacerbation. Severe hypothyroidism or myxedema. On IV Synthroid. Morbid obesity with DEEPAK. Acute renal failure. Worsened today. Plan: IV Synthroid per Dr. Archuleta. Cycling venturi mask and BiPAP. We titrated supplemental oxygen and BiPAP settings to patients needs per clinical protocol with closely monitoring. Diuretic as tolerated. Daily tobacco cessation education. Continue GI and DVT prophylaxis. Follow up ABG and renal profile tomorrow.
[2019-11-18] MEDS: LOVENOX SUBQ SCH (21:38)
[2019-11-18] MEDS: LIPITOR PO SCH (21:38)
[2019-11-18] MEDS: TYLENOL PO PRN (22:26)
[2019-11-19] MEDS: DUONEB (A & A) INH SCH ×6 (03:38→21:58)
[2019-11-19 04:49] LABS: ALLEN TEST YES; BE 17.4 mmoll (-3.0-3.0); BLOOD TYPE ARTERIAL; HCO3-(ACT) 38.5 mmoll (20.0-26.0); METHB 0.6 % (0.0-1.5); O2(CT) 16.3 mL/dL (15.0-23.0); O2HB 96.9 % (95.0-99.0); PO2(98.6) 136 mmHg (60-100); SAMPLE BLOOD; THB 11.8 g/dL (11.5-17.4); pH(98.6) 7.38 (7.35-7.45)
[2019-11-19 04:50] LABS: MODALITY BI PAP
[2019-11-19 04:52] LABS: PCO2(98.6) 78 mmHg (35-45)
[2019-11-19] MEDS: PRILOSEC PO SCH (06:08)
[2019-11-19 07:30] LABS: BASO# 0.04 X1000 (0.0-0.2); BASO% 0.7 % (0.0-0.8); EOS# 0.04 X1000 (0.0-0.7); EOS% 0.7 % (0.0-10.0); HEMATOCRIT 38.4 % (37.0-47.0); HEMOGLOBIN 11.6 g/dL (12.0-16.0); IMM GRAN# 0.02 X1000 (0.0-0.04); IMM GRAN% 0.3 % (0.0-0.5); LYMPH# 2.63 X1000 (1.2-3.4); LYMPH% 43.4 % (20.5-51.1); MCH 28.8 PG (27-31); MCHC 30.2 g/dL (33-37); MCV 95.3 FL (81-99); MONO# 0.67 X1000 (0.11-0.59); MONO% 11.1 % (1.7-9.3); MPV 9.6 FL (7.4-10.4); NEUT# 2.66 X1000 (1.4-6.5); NEUT% 43.8 % (42.2-75.2); PLT 168 X1000 (130-400); RBC 4.03 XMIL (4.2-5.4); RDW 21.6 % (11.5-14.5); WBC 6.06 X1000 (4.8-10.8)
[2019-11-19 08:01] LABS: ALBUMIN 2.6 g/dL (3.5-5.0); CALCIUM 8.9 mg/dL (8.8-10.2); CREATININE 2.6 mg/dL (0.5-0.9); POTASSIUM 4.6 mmol/L (3.5-5.1)
[2019-11-19] MEDS: SYMBICORT 160/4.5 MICROGM INHALER INH SCH (08:03)
[2019-11-19] MEDS: SPIRIVA INH SCH (08:04)
[2019-11-19] MEDS: SODIUM CHLORIDE 0.9% INJ PRN (09:16)
[2019-11-19] MEDS: MIRALAX PO SCH ×2 (09:16→20:16)
[2019-11-19] MEDS: IMDUR PO SCH (09:16)
[2019-11-19] MEDS: VITAMIN D PO SCH (09:16)
[2019-11-19] MEDS: RANEXA PO SCH ×2 (09:16→20:15)
[2019-11-19] MEDS: ASPIRIN PO SCH (09:16)
[2019-11-19] MEDS: SYNTHROID IV SCH (09:16)
[2019-11-19] MEDS: LOPRESSOR PO SCH ×2 (09:17→20:16)
[2019-11-19] MEDS: LASIX IV SCH (09:17)
--- NOTE | 2019-11-19 10:22 | Diag Imaging Result Doc PS360 ---
EXAM: CHEST-2 VIEWS HISTORY: pulmonary edema TECHNIQUE: Two views COMPARISON: 11/16/2019 FINDINGS: Improved inspiratory effort with decreased basilar atelectasis and effusions. Decreased left lower lobe and lingular segment infiltrates. Mild cardiomegaly remains. Decreased pulmonary edema. IMPRESSION: Interval improvement Electronically signed by Darwin Clifford 11/19/2019 10:19 AM
[2019-11-19] MEDS: CYTOMEL PO SCH (11:40)
--- NOTE | 2019-11-19 13:07 | PROGRESS NOTE ---
DATE: 11/19/2019 SUBJECTIVE: The patient reports breathing fine. She continues to require oxygen by Venturi mask. No other issues noted. OBJECTIVE: Vital Signs: Temperature 98.3 degrees, heart rate 58, respiratory rate 18, blood pressure 95/40, O2 saturation 95% on Venturi mask 15%. General: This is a chronically ill- looking and morbidly obese, 59-year-old, female, lying in bed in no acute distress. Cardiovascular: S1, S2 heard. No murmurs, gallops, or rubs. Regular rate and rhythm. Respiratory: Minimal coarse breath sounds still noted in both pulmonary bases, as well as mild wheezing. The patient is not using any accessory muscles or having work of breathing. Abdomen: Soft, nontender to palpation. Bowel sounds present. No organomegaly. Extremities: There is 1+ pitting edema still present in both lower extremities. Neurological: The patient is alert and oriented x3. Moves all 4 extremities. LABORATORY DATA: ABG from today shows pH 7.30, with pCO2 of 78, PO2 of 136 on BiPAP, FiO2 of 50%. Creatinine is 2.6 today. ASSESSMENT AND PLAN: 1. Acute on chronic hypercapnic respiratory failure. Clinically, this patient is stable, although still having mild wheezing, better of course in comparing with admission. PCO2 is very high. I think her CO2 level, checking ABGs for the last 3 months, is probably around between 60 and 70. The patient continues to be on DuoNeb every 4 hours, and continues to use 3 liters of oxygen at home, although she is using bilevel positive airway pressure every single night at this point. Will continue with the same management. 2. Acute congestive heart failure. The patient is receiving Lasix 40 mg intravenously every 12 hours. The x-ray showed improvement, so at this point, will hold the Lasix, considering that renal function was getting worse. 3. Hypothyroidism. The patient has myxedema. TSH is unfortunately much higher in comparing with the last 2 days, so we are going to increase the doses of levothyroxine to 100 mg intravenously daily, and also will add Cytomel to her current treatment. Will continue to monitor this patient closely, and will check TSH every 48 hours. 4. Disposition. Will continue to monitor this patient closely. cc: Krishna Wolf MD
[2019-11-19] MEDS: SOLU-CORTEF IV SCH ×2 (15:24→23:09)
--- NOTE | 2019-11-19 17:48 | PROVIDER PROGRESS NOTE ---
Progress Note Dr. Pascal Progress Note/Pulmonary and or critical care Subjective: The patient is lying in bed on VM 40% and tolerates well. We are going to wean the supplemental oxygen down to VM 35%. Patient still has constipation with last BM on 11/13/19, day before her hospital visit. Objective: Vital Signs: T 97.3 (no fever in last 24 hours), [place] 75, RR 18, BP 93/40 and SaO2 97% on VM 50%. Physical Examination: General: Morbidly obese. Lying in bed. No acute distress noted. HEENT: Normocephalic. Trachea midline. Mucosa pink and moist. PERRL. Chest: Even and unlabored. Symmetrical excursion. Very shallow breathing with significant decreased air entry bilaterally. Abdomen: Soft. Non-tender. Obese. Bowel sounds present. Extremities: Generalized edema with BLE 1+ and BUE trace edema. No cyanosis. No clubbing. Neuro: A/O x3. Speech fluent. Follow simple commands. Difficulty hearing. Weakness present. Labs and Radiology: Laboratory Results 11/18/19 11/19/19 11/19/19 17:16 04:25 07:09 WBC RBC Hgb Hct MCV MCH MCHC RDW Std Deviation Plt Count MPV Immature Gran % (Auto) Neut % (Auto) Lymph % (Auto) [place] % (Auto) Eos % (Auto) Baso % (Auto) Immature Gran # (Auto) Neut # (Auto) Lymph # (Auto) [place] # (Auto) Eos # (Auto) Baso # (Auto) Specimen Type ARTERIAL Sample Site R RADIAL pH 7.38 pCO2 78 H* pO2 136 H HCO3 38.5 H Base Excess 17.4 H Oxyhemoglobin 96.9 ABG O2 Sat (Calculated) 16.3 ABG O2 Saturation 99.0 ABG Carboxyhemoglobin 1.40 ABG Methemoglobin 0.6 Luther Test YES A-a O2 Difference 123.0 Total Hemoglobin 11.8 Lactate 0.80 Blood Gas Modality BI PAP Vent Mode BIPAP FiO2 % 50.0 Inspiratory BiPAP 22.0 Expiratory BiPAP 8.0 Sodium 138 Potassium 4.6 Chloride 89 L Carbon Dioxide 38 H Anion Gap 11 BUN 32 H Creatinine 2.6 H Estimated GFR/1.73 m2 19 BUN/Creatinine Ratio 12 Glucose 85 Calculated Osmolality 282 Calcium 8.9 Phosphorus 4.0 Albumin 2.6 L Plasma Lactate 1.0 TSH 03/09/20 03/09/20 07:09 07:09 WBC 6.06 RBC 4.03 L Hgb 11.6 L Hct 38.4 MCV 95.3 MCH 28.8 MCHC 30.2 L RDW Std Deviation 21.6 H Plt Count 168 MPV 9.6 Immature Gran % (Auto) 0.3 Neut % (Auto) 43.8 Lymph % (Auto) 43.4 [place] % (Auto) 11.1 H Eos % (Auto) 0.7 Baso % (Auto) 0.7 Immature Gran # (Auto) 0.02 Neut # (Auto) 2.66 Lymph # (Auto) 2.63 [place] # (Auto) 0.67 H Eos # (Auto) 0.04 Baso # (Auto) 0.04 Specimen Type Sample Site pH pCO2 pO2 HCO3 Base Excess Oxyhemoglobin ABG O2 Sat (Calculated) ABG O2 Saturation ABG Carboxyhemoglobin ABG Methemoglobin Luther Test A-a O2 Difference Total Hemoglobin Lactate Blood Gas Modality Vent Mode FiO2 % Inspiratory BiPAP Expiratory BiPAP Sodium Potassium Chloride Carbon Dioxide Anion Gap BUN Creatinine Estimated GFR/1.73 m2 BUN/Creatinine Ratio Glucose Calculated Osmolality Calcium Phosphorus Albumin Plasma Lactate TSH 164.70 H Assessment: Acute on chronic hypoxemic respiratory failure. Slowly improving. Acute on chronic hypercapnic respiratory failure. Acute on chronic congestive heart failure. COPD. No acute exacerbation. Severe hypothyroidism or myxedema with constipation, hypotension and respiratory suppression. On IV Synthroid. Worsened. TSH 164.70 this morning. Morbid obesity with DEEPAK. Acute renal failure. Worsened today. Constipation. Shock. Patient stays off pressor. Plan: IV Synthroid per Dr. Archuleta. Dr. Archuleta increased IV Synthroid from 75 mg IV to 100 mg IV. He also added Cytomel 5 mg po daily. We are adding Solu-Cortef at a stress dosage. We will check plasma cortisol tomorrow. Cycling venturi mask and BiPAP. We titrated supplemental oxygen and BiPAP settings to patients needs per clinical protocol with closely monitoring. Patient already on Miralax BID since 11/16/19. We are adding suppository Bisacodyl. We keep monitoring patient's pressure closely. Daily tobacco cessation education. Continue GI and DVT prophylaxis.
[2019-11-19] MEDS: LIPITOR PO SCH (20:15)
[2019-11-19] MEDS: TYLENOL PO PRN (20:15)
[2019-11-19] MEDS: LOVENOX SUBQ SCH (23:00)
[2019-11-20] MEDS: DUONEB (A & A) INH SCH ×6 (04:00→23:02)
[2019-11-20 04:58] LABS: ALLEN TEST YES; BE 17.7 mmoll (-3.0-3.0); BLOOD TYPE ARTERIAL; HCO3-(ACT) 38.7 mmoll (20.0-26.0); METHB 1.5 % (0.0-1.5); O2(CT) 17.8 mL/dL (15.0-23.0); PO2(98.6) 86 mmHg (60-100); SAMPLE BLOOD; SAO2 99.1 % (95.0-100.0); THB 13.3 g/dL (11.5-17.4); pH(98.6) 7.43 (7.35-7.45)
[2019-11-20] MEDS: PRILOSEC PO SCH (06:03)
[2019-11-20 06:20] LABS: MODALITY BI PAP; PCO2(98.6) 69 mmHg (35-45)
[2019-11-20] MEDS: SYMBICORT 160/4.5 MICROGM INHALER INH SCH (08:04)
[2019-11-20] MEDS: SPIRIVA INH SCH (08:05)
[2019-11-20 08:34] LABS: ALBUMIN 2.7 g/dL (3.5-5.0); CALCIUM 9.4 mg/dL (8.8-10.2); CREATININE 1.9 mg/dL (0.5-0.9); PHOSPHORUS 3.2 mg/dL (2.7-4.5); POTASSIUM 4.7 mmol/L (3.5-5.1)
[2019-11-20] MEDS: SYNTHROID IV SCH (09:34)
[2019-11-20] MEDS: RANEXA PO SCH ×2 (09:34→21:52)
[2019-11-20] MEDS: VITAMIN D PO SCH (09:34)
[2019-11-20] MEDS: IMDUR PO SCH (09:34)
[2019-11-20] MEDS: ASPIRIN PO SCH (09:34)
[2019-11-20] MEDS: CYTOMEL PO SCH (09:34)
[2019-11-20] MEDS: LOPRESSOR PO SCH ×2 (09:34→21:52)
[2019-11-20] MEDS: SOLU-CORTEF IV SCH ×2 (09:34→16:37)
[2019-11-20] MEDS: MIRALAX PO SCH ×2 (09:35→21:52)
[2019-11-20] MEDS: SODIUM CHLORIDE 0.9% INJ PRN (09:41)
[2019-11-20] MEDS: DULCOLAX PR SCH (09:41)
--- NOTE | 2019-11-20 13:27 | PROGRESS NOTE ---
DATE: 11/20/2019 SUBJECTIVE: The patient reports feeling better, breathing better. OBJECTIVE: Vital Signs: Temperature 98.4 degrees, heart rate 72, respiratory rate 20, blood pressure 106/51, O2 saturation 99% on 4 L nasal cannula. General: This is a chronically ill- looking and morbidly obese, 59-year-old, female, lying in bed in no acute distress. Cardiovascular: S1, S2 heard. No murmurs, gallops, or rubs. Regular rate and rhythm. Respiratory: Minimal coarse breath sounds noted still in both pulmonary bases. Definitely getting better in comparing with the last few days. Wheezing is almost resolved. The patient is not using any accessory muscles or having work of breathing. Abdomen: Soft, nontender to palpation. Bowel sounds present. No organomegaly. Extremity: Mild pitting edema in both lower extremities. Neurological: The patient is alert and oriented x3. Moves all 4 extremities. LABORATORY DATA: CBC not done today. ABG shows pH 7.42, with pCO2 of 69, PO2 of 86. The renal function is 1.9 today. ASSESSMENT AND PLAN: 1. Acute on chronic hypercapnic respiratory failure. Clinically, this patient is stable, although CO2 persists to be high. Today, the pCO2 was 69. Will continue with bilevel positive airway pressure of 9. The patient is using 3 liters of oxygen at home. Will continue with DuoNeb every 4 hours. Will continue to monitor. 2. Acute congestive heart failure, improved. Patient not receiving any Lasix right now. 3. Hypothyroidism with myxedema. TSH has improved tremendously to 40, with adding levothyroxine intravenously and also Cytomel. I think at discharge, will increase the dose of levothyroxine 150 to 200 mg. 4. Disposition. I think we will monitor this patient 1 to 2 more days, and then she should be able to go home. cc: Krishna Wolf MD
--- NOTE | 2019-11-20 18:41 | PROVIDER PROGRESS NOTE ---
Progress Note Dr. Pascal Progress Note/Pulmonary and or critical care Subjective: The patient is lying in bed sleeping at this time. His daughter is sleeping at the bedside couch, too. RN reports patient has no complaint this morning. Objective: The patient is lying in bed on NC 4L and tolerates well. She reports a big BM this morning after suppository. She asks when she can be discharged. Objective: Vital Signs: T 98.1 (no fever in last 24 hours), [place] 77, RR 16, BP 128/57 and SaO2 98% on NC 5L. Physical Examination: General: Morbidly obese. Lying in bed. No acute distress noted. HEENT: Normocephalic. Trachea midline. Mucosa pink and moist. PERRL. Chest: Even and unlabored. Symmetrical excursion. Improving breathing with decreased air entry bilaterally. Abdomen: Soft. Non-tender. Obese. Bowel sounds present. Extremities: Generalized edema with BLE 1+ and BUE trace edema. No cyanosis. No clubbing. Neuro: A/O x3. Speech fluent. Follow simple commands. Difficulty hearing. Weakness present. Labs and Radiology: Laboratory Results 11/20/19 11/20/19 11/20/19 04:30 07:10 07:10 Specimen Type ARTERIAL Sample Site R RADIAL pH 7.43 pCO2 69 H* pO2 86 HCO3 38.7 H Base Excess 17.7 H Oxyhemoglobin 95.0 ABG O2 Sat (Calculated) 17.8 ABG O2 Saturation 99.1 ABG Carboxyhemoglobin 2.60 H ABG Methemoglobin 1.5 Luther Test YES A-a O2 Difference 184.0 Total Hemoglobin 13.3 Lactate 1.00 Blood Gas Modality BI PAP Vent Mode BIPAP FiO2 % 50.0 Inspiratory BiPAP 22.0 Expiratory BiPAP 8.0 Sodium 138 Potassium 4.7 Chloride 89 L Carbon Dioxide 38 H Anion Gap 11 BUN 30 H Creatinine 1.9 H Estimated GFR/1.73 m2 27 BUN/Creatinine Ratio 16 Glucose 129 H D Calculated Osmolality 284 Calcium 9.4 Phosphorus 3.2 Albumin 2.7 L TSH 40.66 H Cortisol 11/20/19 07:10 Specimen Type Sample Site pH pCO2 pO2 HCO3 Base Excess Oxyhemoglobin ABG O2 Sat (Calculated) ABG O2 Saturation ABG Carboxyhemoglobin ABG Methemoglobin Luther Test A-a O2 Difference Total Hemoglobin Lactate Blood Gas Modality Vent Mode FiO2 % Inspiratory BiPAP Expiratory BiPAP Sodium Potassium Chloride Carbon Dioxide Anion Gap BUN Creatinine Estimated GFR/1.73 m2 BUN/Creatinine Ratio Glucose Calculated Osmolality Calcium Phosphorus Albumin TSH Cortisol 52.3 Assessment: Acute on chronic hypoxemic respiratory failure. Improving. Acute on chronic hypercapnic respiratory failure with chronic respiratory acidosis compensated by metabolic alkalosis. Improving today. Acute on chronic congestive heart failure. COPD. No acute exacerbation. Severe hypothyroidism or myxedema. On IV Synthroid, Cytomel and Solu-Cortef. Improving. Morbid obesity with DEEPAK. Acute renal failure. Improving today. Constipation. Resolved this morning. Shock. Improving. Plan: IV Synthroid per Dr. Archuleta. Dr. Archuleta increased IV Synthroid from 75 mg IV to 100 mg IV. He also added Cytomel 5 mg po daily. We are tapering Solu-Cortef down. We are starting Cortef PO 10mg daily. Cycling NC and BiPAP. We titrated supplemental oxygen and BiPAP settings to patients needs per clinical protocol with closely monitoring. Continue Miralax BID and Bisacodyl once a day. We keep monitoring patients pressure closely. Daily tobacco cessation education. Continue GI and DVT prophylaxis. .
[2019-11-20] MEDS: LIPITOR PO SCH (21:52)
[2019-11-20] MEDS: TYLENOL PO PRN (21:56)
[2019-11-20] MEDS ORDERED: LOVENOX SUBQ SCH (22:00)
[2019-11-21] MEDS: DUONEB (A & A) INH SCH ×3 (03:25→12:11)
[2019-11-21 05:35] LABS: ALLEN TEST YES; BE 16.7 mmoll (-3.0-3.0); BLOOD TYPE ARTERIAL; HCO3-(ACT) 37.9 mmoll (20.0-26.0); METHB 0.9 % (0.0-1.5); O2HB 93.9 % (95.0-99.0); PO2(98.6) 75 mmHg (60-100); SAMPLE BLOOD; SAO2 96.2 % (95.0-100.0); THB 11.3 g/dL (11.5-17.4)
[2019-11-21 05:38] LABS: PCO2(98.6) 72 mmHg (35-45)
[2019-11-21 05:39] LABS: MODALITY BI PAP
[2019-11-21] MEDS: PRILOSEC PO SCH (06:32)
[2019-11-21 08:14] VITALS: BP 141/66
[2019-11-21] MEDS: SYMBICORT 160/4.5 MICROGM INHALER INH SCH (08:16)
[2019-11-21] MEDS: SPIRIVA INH SCH (08:17)
[2019-11-21] MEDS ORDERED: CORTEF PO SCH (09:00)
[2019-11-21] MEDS: VITAMIN D PO SCH (09:13)
[2019-11-21] MEDS: CYTOMEL PO SCH (09:13)
[2019-11-21] MEDS: MIRALAX PO SCH (09:13)
[2019-11-21] MEDS: RANEXA PO SCH (09:13)
[2019-11-21] MEDS: IMDUR PO SCH (09:14)
[2019-11-21] MEDS: SYNTHROID IV SCH (09:14)
[2019-11-21] MEDS: DULCOLAX PR SCH (09:14)
[2019-11-21] MEDS: ASPIRIN PO SCH (09:14)
[2019-11-21] MEDS: LOPRESSOR PO SCH (09:14)
--- NOTE | 2019-11-21 12:53 | DISCHARGE SUMMARY ---
ADMISSION DATE: 11/14/2019 DISCHARGE DATE: 11/21/2019 PRIMARY CARE PHYSICIAN: Listed as none. CONSULTATIONS: Pulmonology. ADMISSION DIAGNOSES: 1. Acute on chronic hypercapnic respiratory failure. 2. Congestive heart failure exacerbation. 3. Chronic obstructive pulmonary disease. 4. Fluid volume overload. 5. Diabetes type 2. 6. Hypothyroidism. DISCHARGE DIAGNOSES: 1. Acute on chronic hypercapnic respiratory failure, improved on 3 L of home O2. 2. Acute congestive heart failure, improved. 3. Hypothyroidism with myxedema. SUMMARY OF FINDINGS: This is a 59-year-old female who presented with bilateral lower extremity edema and edema in her hands. Had been discharged from the hospital 1 week prior and says that the edema had not improved since then. Had some PND and orthopnea. Her home health nurse saw her on the day of arrival, called PCP and told her about the edema and was told to come to the emergency room. She was admitted. We consulted Pulmonology. Placed initially on BiPAP, was receiving Lasix IV for diuresis. We continued her inhaled steroids and bronchodilators. She is now on her home O2 at 3 L via nasal cannula. Her TSH improved tremendously. Initially it was 121.90, now down to 40.66 after starting the levothyroxine. It is now felt that she can safely be discharged home. DISCHARGE MEDICATIONS: DuoNeb q.4 hours, aspirin 81 mg p.o. daily, atorvastatin 40 mg p.o. at bedtime, Symbicort 160/4.5 1 puff inhalation daily, vitamin D3, 1000 units p.o. daily, isosorbide 60 mg p.o. daily, metoprolol 25 mg p.o. b.i.d., nitroglycerin 0.4 mg sublingually p.r.n., omeprazole 40 mg p.o. daily, ranolazine 1000 mg p.o. b.i.d., Spiriva 2 puff inhalations daily, DuoNeb q.4 hours p.r.n., glipizide 2.5 mg p.o. daily, Levaquin 750 mg p.o. daily, levothyroxine 100 mcg p.o. daily, lisinopril 10 mg p.o. daily, Medrol Dosepak to take as directed, Incruse Ellipta 62.5 mcg inhalation as directed. FOLLOW-UP: She will follow up with her primary care physician ANA Mckeon on 11/29/2019 at 11 a.m., with Pulmonology, Dr. Pascal, on 12/05/2019 at 9:15 a.m. She will have [facility] [facility] and a [employer]. TIME SPENT: This was a 35 minute discharge. Dictated by ANA Diego for Krishna Wolf MD Addendum: Patient seen and examined by myself. Agree with ANA note. It reflects my assessment and plan. Patient is being discharged in stable condition. Will be seen by Pulmonary as already scheduled. cc: ANA Diego MD Stephanie Weems, CRNP Mamoun I. Najjar, MD [facility]
--- NOTE | 2019-11-21 18:44 | PROVIDER PROGRESS NOTE ---
Progress Note Dr. Pascal Progress Note/Pulmonary and or critical care Subjective: The patient is lying in bed on NC 5L and tolerates well. She apparently has been discharged and is waiting for oxygen tank to go home. She reports no complaint at this time. Patients BF is at the bedside. Objective: Vital Signs: T 97.5 (no fever in last 24 hours), [place] 78, RR 20, BP 141/66 and SaO2 97% on NC 5L. Physical Examination: General: Morbidly obese. Lying in bed. No acute distress noted. HEENT: Normocephalic. Trachea midline. Mucosa pink and moist. PERRL. Chest: Even and unlabored. Symmetrical excursion. Improving breathing with decreased air entry bilaterally. Abdomen: Soft. Non-tender. Obese. Bowel sounds present. Extremities: Generalized edema with BLE trace edema. No cyanosis. No clubbing. Neuro: A/O x3. Speech fluent. Follow simple commands. Difficulty hearing. Weakness present. Labs and Radiology: Laboratory Results 11/21/19 05:25 Specimen Type ARTERIAL Sample Site R RADIAL pH 7.40 pCO2 72 H* pO2 75 HCO3 37.9 H Base Excess 16.7 H Oxyhemoglobin 93.9 L ABG O2 Sat (Calculated) 15.0 ABG O2 Saturation 96.2 ABG Carboxyhemoglobin 1.60 ABG Methemoglobin 0.9 Luther Test YES A-a O2 Difference 192.0 Total Hemoglobin 11.3 L Lactate 1.70 Blood Gas Modality BI PAP FiO2 % 50.0 Inspiratory BiPAP 22.0 Expiratory BiPAP 8.0 Assessment: Acute on chronic hypoxemic respiratory failure. Improving. Acute on chronic hypercapnic respiratory failure with chronic respiratory acidosis compensated by metabolic alkalosis. Improving today. Acute on chronic congestive heart failure. COPD. No acute exacerbation. Severe hypothyroidism or myxedema. On IV Synthroid, Cytomel and Solu-Cortef. Improving. Morbid obesity with DEEPAK. Acute renal failure. Improving today. Constipation. Resolved this morning. Shock. Improving. Plan: IV Synthroid and po Cytomel per Dr. Archuleta. Cortef PO 10mg daily. Cycling NC and BiPAP. We titrated supplemental oxygen and BiPAP settings to patients needs per clinical protocol with closely monitoring. Continue Miralax BID and Bisacodyl once a day. We keep monitoring patients pressure closely. Daily tobacco cessation education. Discharge planning per Dr. Archuleta.
== END 2019-11-21 12:58 | disposition home or self-care (01) | DRG 189 ==
LOC: ED 15:32 → SUATTDRO 22:52 → EDIPHOLD 22:52 → 2N 11-15 01:54 → 3N 11-17 10:29
PROVIDERS: ATTEND Internal Medicine